=== PATIENT | female | born 1960 | race Caucasian/White ===

== ENCOUNTER 2024-03-30 11:34 | Outpatient (REF) | payer SELFPAY ==
[2024-04-01 12:13] LABS: Age Gdln ACOG Testing Note (.); HPV Aptima Negative (Negative); IGP, Aptima HPV, rfx 16/18,45 Note (.)
== END 2024-03-30 11:35 | disposition home or self-care (01) ==
LOC: LAB 11:34
PROVIDERS: PCP Nurse Practitioner Family; Visit Provider Nurse Practitioner Family
DX: Z01.419 Encounter for gynecological examination (general) (routine) without abnormal findings (principal)
CPT/HCPCS: 88175

== ENCOUNTER 2024-09-18 11:27 | Outpatient (OUT) | payer MEDICAID, SELFPAY ==
[2024-09-18 12:04] LABS: Basophils Percent Auto 0.3 % (0.2-2.0); Eosinophils Percent Auto 0.4 % (0.9-7.0); Hematocrit 28.8 % (36.0-48.0); Hemoglobin 8.8 g/dL (12.0-16.0); Immature Granulocytes Abs Auto 0.03 10^3/uL (0.00-0.03); Immature Granulocytes Pct Auto 0.4 % (0.0-0.5); Lymphocytes Absolute Auto 2.2 10^3/uL (1.2-3.8); Lymphocytes Percent Auto 28.1 % (20.5-60.0); Mean Corpuscular HGB Conc 30.6 g/dL (29.9-35.2); Mean Corpuscular Hemoglobin 32.7 pg (26.7-34.0); Monocytes Absolute Auto 0.5 10^3/uL (0.3-0.8); Neutrophils Percent Auto 64.8 % (43.0-75.0); Platelet Count 479 10^3/uL (150-450); Red Blood Count 2.69 10^6/uL (4.20-5.40); Red Cell Distribution Width 14.3 % (11.0-15.0); White Blood Count 7.7 10^3/uL (4.0-11.0)
[2024-09-18 12:29] LABS: Alanine Aminotransferase 29 U/L (14-59); Albumin Globulin Ratio 0.4; Albumin Level 1.8 g/dL (3.4-5.0); Alkaline Phosphatase 100 U/L (46-116); Anion Gap 10.7; Aspartate Amino Transferase 51 U/L (15-37); BUN Creatinine Ratio 22.4; Bilirubin Total 0.4 mg/dL (0.2-1.0); Calcium 8.3 mg/dL (8.5-10.1); Carbon Dioxide 27.9 mmol/L (21.0-32.0); Chloride 109 mmol/L (98-107); Chol HDL Ratio 3.8; Cholesterol 114 mg/dL (<=200); Estimated GFR (African America >60 (>=60 mL/min/1.73m^2); Estimated GFR (Non-African Ame >60 (>=60 mL/min/1.73m^2); Free T3 1.11 pg/mL (2.18-3.98); Globulin 4.4 g/dL; Glucose 75 mg/dL (74-106); HDL Cholesterol 30 mg/dL (40-60); Mean Corpuscular Volume 107.1 fL (81.0-99.0); Potassium 3.6 mmol/L (3.5-5.1); Sodium 144 mmol/L (136-145); Thyroid Stimulating Hormone 3.928 uIU/mL (0.358-3.740); Total Protein 6.2 g/dL (6.4-8.2); Triglycerides 114 mg/dL (<=150); VLDL CHOLESTEROL 22.8 mg/dL
[2024-09-18 12:41] LABS: Estimated Average Glucose 88 mg/dL; Glycohemoglobin A1C 4.7 % (4.5-6.2)
[2024-09-19 04:07] LABS: Insulin 2.3 uIU/mL (2.6-24.9)
== END 2024-09-18 11:28 | disposition home or self-care (01) ==
LOC: LAB 11:33
PROVIDERS: PCP Family Medicine; Visit Provider Family Medicine
DX: Z00.00 Encounter for general adult medical examination without abnormal findings (principal); R73.09 Other abnormal glucose; D64.9 Anemia, unspecified; Z12.12 Encounter for screening for malignant neoplasm of rectum; E55.9 Vitamin D deficiency, unspecified
CPT/HCPCS: 36415; 80053; 80061; 82306; 83036; 83525; 83540; 84436; 84443; 84481; 85025

== ENCOUNTER 2024-12-19 09:27 | Outpatient (OUT) | payer MEDICAID, SELFPAY ==
--- OUTSIDE RECORDS SUMMARY | 2024-12-19 09:32 | XMS_ITS | CCD ---
Author Organization [facility]iniSy[facility] Care Team Providers Care Defensive Secondary Coach Name Role Phone MISC, DOCTOR Unavailable Unavailable MARCEL MONTERROSO Unavailable Unavailable MARCEL MONTERROSO Unavailable Unavailable MARCEL MONTERROSO Unavailable Unavailable MD Anum Sorto Primary Care Provider MARIVEL Minor Emergency Provider Eulalia Camacho Admitting Unav ailable Eulalia Camacho Attending Unav ailable HOY, ANUM Primary Care Unavailable ANUM SORTO Attending Unavailable HOY, ANUM Primary Care Unavailable HOY, ANUM Admitting Unavailable HOY, ANUM Primary Care Unavailable Paradise Pereira Admitting Unavailable Paradise Pereira Attending Unavailable HOY, ANUM Attending Unavailable HOY, ANUM Primary Care Unavailable SHELLY, ANUM Admitting Unavailable ANUM SORTO M Primary Care Un[facility] Unavai Anum Emmanuel MD Primary Care Provider NICOLE LOCKETT Attending Unavailable ANUM SORTO M Referring Unavailable Ban Boyce MD Emergency Provider Anum Sorto MD Primary Care Provider Percy Romeo MD Admit Provider Percy Romeo MD Attending Provider Lamont Uribe MD Other Provider Abraham Flores DO Other Provider Charity Sherwood MD Other Provider Ray Fowler MD Other Provider Maribel Hawkins APRN Other Provider [phone] James Reilly DO Other Provider David Alfonso MD Other Provider [phone] Anum Sorto Primary Care Unavailable Ray Minor Admitting Unavailable Ray Minor Attending Unavailable Percy Romeo Attending Unavailable Anum Sorto Primary Care Unavailable Lamont Uribe Consulting Unavailable Percy Romeo Admitting Unavailable Abraham Flores Consulting Unavailable Charity Sherwood Consulting Unavailable Ray Fowler Consulting Unavailable Maribel Hawkins Consulting Unavailable James Reilly Jr Consulting UnavailDavid Dean Consulting Unavaila ble Allergies Allergy Classification Reported Allergen(s) Allergy Type Date of Onset Reaction(s) Facility (2 sources) Sulfamethoxazole / Trimethoprim; Translations: [Bactrim] Drug Allergy 3 [facility] Repository (4 sources) Sulfamethoxazole; Translations: [sulfamethoxazole] Drug Allergy 4 [facility] (4 sources) Trimethoprim; Translations: [trimethoprim] Drug Allergy 4 [facility] (1 source) Sulfamethoxazole / Trimethoprim; Translations: [SULFAMETHOXAZOLE-TR IMETHOPRIM] Drug Allergy 4 [facility] Other [facility] Medications Current Medications Medication Drug Class(es) Dates Sig (Normalized) Sig (Original) ascorbic acid 1000 mg extended release oral tablet (1 source) Vitamin C Start: 10-03-2024 take 1 tablet by mouth once daily Ascorbic Acid (Vitamin C) (C Complex) 1,000 mg tablet extended release Active 1000 MG PO Daily October 03, 2024 12:00am 120 actuat budesonide 0.16 mg/actuat / formoterol fumarate 0.0045 mg/actuat metered dose inhaler (2 sources) Corticosteroid, beta2-Adrenergic Agonist Start: 10-03-2024 Budesonide-Formo terol (Symbicort) 160-4.5 mcg/actuation HFA aerosol inhaler Active 2 INH INHALATION Twice daily October 03, 2024 12:00am 24 hr buPROPion hydrochloride 150 mg extended release oral tablet (2 sources) Aminoketone Start: 10-03-2024 Bupropion Hcl 150 mg tablet extended release 24 hr Active 450 MG PO Daily October 03, 2024 12:00am ferrous sulfate 325 mg oral tablet (1 source) Start: 10-08-2024 take 1 tablet by mouth every other day Ferrous Sulfate 325 mg (65 mg iron) tablet Active 325 MG PO Q2D October 08, 2024 12:00am folic acid 1 mg oral tablet (1 source) Start: 10-08-2024 take 1 tablet by mouth once daily Folic Acid 1 mg Tablet Active 1 MG PO Daily 30 October 08, 2024 12:00am magnesium oxide 400 mg oral tablet (2 sources) Start: 10-08-2024 take 1 tablet by mouth twice daily Magnesium Oxide 400 mg magnesium tablet Active 400 MG PO Twice daily October 08, 2024 12:31pm Start: 10-03-2024 End: 10-08-2024 take 1 tablet by mouth once daily Magnesium Oxide 400 mg magnesium tablet Discontinued 400 MG PO Daily October 03, 2024 12:00am October 08, 2024 12:34pm pantoprazole 40 mg delayed release oral tablet (1 source) Proton Pump Inhibitor Start: 10-08-2024 take 1 tablet by mouth twice daily Pantoprazole 40 mg tablet,delayed release (DR/EC) Active 40 MG PO Twice daily 60 October 08, 2024 12:00am pregabalin 150 mg oral capsule (1 source) Start: 10-03-2024 take 1 capsule by mouth twice daily Pregabalin 150 mg capsule Active 150 MG PO Twice daily October 03, 2024 12:00am sucralfate 1000 mg oral tablet (1 source) Aluminum Complex Start: 10-08-2024 take 1 tablet by mouth three times daily Sucralfate (Carafate) 1 gram tablet Active 1 GM PO Three times daily 84 October 08, 2024 12:00am thiamine 100 mg oral tablet (1 source) Start: 10-08-2024 take 1 tablet by mouth once daily Thiamine Hcl (Vitamin B1) 100 mg Tablet Active 100 MG PO Daily 30 October 08, 2024 12:00am Completed/Discontinued Medications Medication Drug Class(es) Dates Sig (Normalized) Sig (Original) acetaminophen 325 mg / oxyCODONE hydrochloride 5 mg oral tablet (3 sources) Opioid Agonist Start: 06-15-2024 End: 10-03-2024 take 1 tablet by mouth every six hours as needed for pain Oxycodone-Acetami nophen (Percocet) 5-325 mg tablet Discontinued 1 TAB PO Q6H as needed for pain 10 3 June 15, 2024 October 03, 2024 11:18am betamethasone 0.5 mg/ml / clotrimazole 10 mg/ml topical cream (3 sources) Azole Antifungal, Corticosteroid Start: 06-15-2024 End: 10-03-2024 Clotrimazole-Beta methasone 1-0.05 % cream Discontinued 1 APPLIC TOPICAL Twice daily 15 14 June 14, 2024 11:00pm October 03, 2024 4:10pm diclofenac sodium 75 mg delayed release oral tablet (2 sources) Nonsteroidal Anti-inflammatory Drug Start: 10-03-2024 End: 10-08-2024 take 1 tablet by mouth twice daily as needed for pain Diclofenac Sodium 75 mg tablet,delayed release (DR/EC) Discontinued 75 MG PO Twice daily as needed for pain October 03, 2024 12:00am October 08, 2024 12:34pm gabapentin 300 mg oral capsule (3 sources) Anti-epileptic Agent Start: 06-15-2024 End: 10-03-2024 take 1 capsule by mouth once daily Gabapentin 300 mg capsule Discontinued 300 MG PO Daily June 14, 2024 11:00pm October 03, 2024 11:17am Problems Active Problems Problem Classification Problem Date Documented Da te Episodic/Chronic Abdominal pain (3 sources) Indigestion; Translations: [Epigastric pain] Onset: 10-03-2024 10-04-2024 Episodic Allergic reactions (4 sources) Urticaria, unspecified; Translations: [Inflammatory dermatosis] Onset: 09-17-2018 06-15-2024 Episodic Deficiency and other anemia (2 sources) Normocytic anemia; Translations: [Anemia, unspecified] 10-03-2024 Episodic Deficiency and other anemia (4 sources) Anemia, unspecified; Translations: [Anemia, unspecified] Onset: 10-03-2024 10-03-2024 Episodic Deficiency and other anemia (1 source) Anemia; Translations: [Anemia, unspecified] 10-03-2024 Episodic Other aftercare (1 source) group home current use of non-steroidal anti-inflammatory drug; 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 of non-steroidal anti-inflammatories (NSAID)] 10-04-2024 Episodic Other aftercare (2 sources) group home (current) use of non-steroidal anti-inflammatories (NSAID); Translations: [Long-term (current) use of non-steroidal anti-inflammatories (NSAID)] Onset: 10-03-2024 10-08-2024 Episodic Other circulatory disease (2 sources) Orthostatic hypotension; Translations: [Orthostatic hypotension] 10-03-2024 Episodic Other circulatory disease (3 sources) Orthostatic hypotension; Translations: [Orthostatic hypotension] Onset: 10-03-2024 10-03-2024 Episodic Other connective tissue disease (1 source) Pain in right leg; Translations: [Bilateral leg pain] Onset: 07-07-2024 Episodic Other connective tissue disease (1 source) Pain in left leg; Translations: [Bilateral leg pain] Onset: 07-07-2024 Episodic Other connective tissue disease (1 source) Muscle weakness of limb; Translations: [Other symptoms and signs involving the musculoskeletal system] 10-03-2024 Episodic Other connective tissue disease (1 source) Recurrent falls ; Translations: [Repeated falls] 10-03-2024 Episodic Other connective tissue disease (2 sources) Repeated falls; Translations: [History of fall] Onset: 10-03-2024 10-08-2024 Episodic Other connective tissue disease (2 sources) Other symptoms and signs involving the musculoskeletal system; Translations: [Other musculoskeletal symptoms referable to limbs] Onset: 10-03-2024 10-08-2024 Episodic Other gastrointestinal disorders (1 source) Dysphagia; Translations: [Dysphagia, unspecified] 10-04-2024 Episodic Other gastrointestinal disorders (2 sources) Dysphagia, unspecified; Translations: [Dysphagia, unspecified] Onset: 10-03-2024 10-08-2024 Episodic Other lower respiratory disease (1 source) Personal history of pneumonia (recurrent); Translations: [PERSONAL HX OF PNEUMONIA RECURRENT] Onset: 09-17-2018 Episodic Other nervous system disorders (3 sources) Peripheral nerve disease ; Translations: [Polyneuropathy, unspecified] 06-15-2024 Chronic Other nervous system disorders (1 source) Other specified polyneuropathies; Translations: [Other polyneuropathy] Onset: 07-07-2024 Chronic Other nervous system disorders (1 source) Polyneuropathy; Translations: [Polyneuropathy, unspecified] 08-13-2024 Chronic Other nervous system disorders (2 sources) Neuropathy; Translations: [Polyneuropathy, unspecified] 10-03-2024 Chronic Other nervous system disorders (3 sources) Polyneuropathy, unspecified; Translations: [Mononeuritis of unspecified site] Onset: 06-15-2024 10-03-2024 Chronic Other nervous system disorders (2 sources) Ataxia; Translations: [Ataxia, unspecified] 10-03-2024 Episodic Other nervous system disorders (3 sources) Ataxia, unspecified; Translations: [Lack of coordination] Onset: 10-03-2024 10-03-2024 Episodic Residual codes; unclassified (1 source) Acquired absence of other specified parts of digestive tract; Translations: [ACQ ABSENCE OTH PART DIGESTV TRACT] Onset: 09-17-2018 Episodic Residual codes; unclassified (1 source) Acquired absence of both cervix and uterus; Translations: [ACQUIRED ABSENCE BOTH CERVIX AND UTERUS] Onset: 09-17-2018 Episodic Skin and subcutaneous tissue infections (1 source) Cellulitis of face; Translations: [CELLULITIS OF FACE] Onset: 09-17-2018 Episodic Spondylosis; intervertebral disc disorders; other back problems (1 source) Lumbar radiculopathy; Translations: [Radiculopathy, lumbar region] 08-13-2024 Episodic Substance-related disorders (1 source) Nicotine dependence, cigarettes, uncomplicated; Translations: [NICOTINE DEPEND CIGARETTES UNCOMP] Onset: 09-17-2018 Chronic Syncope (2 sources) Near syncope; Translations: [Syncope and collapse] 10-03-2024 Episodic Unclassified (1 source) Vaginal jon; Translations: [Vaginal jon] Onset: 07-07-2024 Past or Other Problems Problem Classification Problem Date Documented Da te Episodic/Chronic Other skin disorders (4 sources) Rash and other nonspecific skin eruption; Translations: [RASH OTH NONSPECIFIC SKIN ERUPTION] Onset: 09-12-2018 Episodic Results Test Name Value Interpretation Reference Range Facility Alanine aminotransferase [En zymatic activity/volume] in Serum or PlasmaOrdered By: Percy Romeo on 10-08-2024 ALT [Catalytic activity/Vol] Alanine aminotransferase [Enzymatic activity/volume] in Serum or Plasma [facility] Albumin [Mass/volume] in Ser um or Plasma by Bromocresol green (BCG) dye binding methoOrdered By: Percy Romeo on 10-08-2024 Albumin BCG dye [Mass/Vol] Albumin [Mass/volume] in Serum or Plasma by Bromocresol green (BCG) dye binding metho Low 3.5-5.7 [facility] Alkaline phosphatase [Enzyma tic activity/volume] in Serum or PlasmaOrdered By: Percy Romeo on 10-08-2024 ALP [Catalytic activity/Vol] Alkaline phosphatase [Enzymatic activity/volume] in Serum or Plasma 34-104 [facility] Aspartate aminotransferase [ Enzymatic activity/volume] in Serum or PlasmaOrdered By: Percy Romeo on 10-08-2024 AST [Catalytic activity/Vol] Aspartate aminotransferase [Enzymatic activity/volume] in Serum or Plasma High 13-39 [facility] Basophils Auto (Bld) [#/Vol] Ordered By: Percy Romeo on 10-08-2024 Basophils (Bld) [#/Vol] Automated basophil count 0.0-0.2 [facility] Basophils/100 WBC Auto (Bld) Ordered By: Percy Romeo on 10-08-2024 Basophils/100 WBC (Bld) Automated basophil % . [facility] Bilirubin.total [Mass/volume ] in Serum or PlasmaOrdered By: Percy Roemo 10-08-2024 Bilirubin [Mass/Vol] Bilirubin.total [Mass/volume] in Serum or Plasma 0.3-1.0 [facility] Calcium [Mass/volume] in Ser um or PlasmaOrdered By: Percy Romeo on 10-08-2024 Calcium [Mass/Vol] Calcium [Mass/volume ] in Serum or Plasma Low 8.6-10.3 [facility] Carbon dioxide, total [Moles /volume] in Serum or PlasmaOrdered By: Percy Romeo 10-08-2024 CO2 [Moles/Vol] Carbon dioxide, tota l [Moles/volume] in Serum or Plasma 21.0-31.0 [facility] Chloride [Moles/volume] in S papi or PlasmaOrdered By: Percy Romeo on 10-08-2024 Chloride [Moles/Vol] Chloride [Moles/vol ume] in Serum or Plasma High 98-107 [facility] Complete Blood Count Auto Di ffon 10-08-2024 Basophils (Bld) [#/Vol] 0.0 10*3/uL Normal 0.0-0.2 [facility] Comment on above: Result Comment: PERF ORMED BY: [place] [address] PATHOLOGIST STRANNER YULISSA MARES M.D. Performed By: #### C MP, MG, CBC #### [address] Basophils/100 WBC (Bld) 0.6 % Normal . T kathy [facility] Comment on above: Performed By: #### C MP, MG, CBC #### [facility] [address] [place] [address] Eosinophils (Bld) [#/Vol] 0.0 10*3/uL Normal 0.0-0.45 [facility] Comment on above: Performed By: #### C MP, MG, CBC #### [address] Eosinophils/100 WBC (Bld) 0.8 % Normal . [facility] Comment on above: Performed By: #### C MP, MG, CBC #### [address] Erythrocyte distribution width (RBC) [Ratio] 15.9 % High 11.9-15.3 [facility] Comment on above: Performed By: #### C MP, MG, CBC #### [address] Hematocrit (Bld) [Volume fraction] 28.5 % Low 34.0-46.4 [facility] Comment on above: Performed By: #### C MP, MG, CBC #### [facility] [address] [place] [address] Hemoglobin (Bld) [Mass/Vol] 9.3 g/dL Low 11.8-15.4 [facility] Comment on above: Performed By: #### C MP, MG, CBC #### [address] Lymphocytes (Bld) [#/Vol] 1.0 10*3/uL Normal 1.00-4.8 [facility] Comment on above: Performed By: #### C MP, MG, CBC #### [address] Lymphocytes/100 WBC (Bld) 25.0 % Normal . [facility] Comment on above: Performed By: #### C MP, MG, CBC #### [address] MCH (RBC) [Entitic mass] 31.3 pg Normal 24.7-34.3 [facility] Comment on above: Performed By: #### C MP, MG, CBC #### [address] MCV (RBC) [Entitic vol] 95.3 fL Normal 80-100 [facility] Comment on above: Performed By: #### C MP, MG, CBC #### [address] Mean Corpuscular HGB Conc 32.8 g/dL Normal 32.0-35.0 [facility] Comment on above: Performed By: #### C MP, MG, CBC #### [place] [address] [place] Monocytes (Bld) [#/Vol] 0.4 10*3/uL Normal 0.0-0.8 [facility] Comment on above: Performed By: #### C MP, MG, CBC #### [place] [address] [place] Monocytes/100 WBC (Bld) 10.9 % Normal . [facility] Comment on above: Performed By: #### C MP, MG, CBC #### [address] Neutrophils (Bld) [#/Vol] 2.6 10*3/uL Normal 1.8-7.7 [facility] Comment on above: Performed By: #### C MP, MG, CBC #### [address] Neutrophils/100 WBC (Bld) 62.7 % Normal . [facility] Comment on above: Performed By: #### C MP, MG, CBC #### [address] NRBC% 0.1 /100{WBC} Normal 0-0.5 [facility] Comment on above: Performed By: #### C MP, MG, CBC #### [address] Platelet mean volume (Bld) [Entitic vol] 8.4 fL Normal 6.3-10.7 [facility] Comment on above: Performed By: #### C MP, MG, CBC #### [address] Platelets (Bld) [#/Vol] 381 10*3/uL Normal 150-450 [facility] Comment on above: Performed By: #### C MP, MG, CBC #### [address] RBC (Bld) [#/Vol] 2.98 10*6/uL Low 3.60-5.00 [facility] Comment on above: Performed By: #### C MP, MG, CBC #### [address] WBC (Bld) [#/Vol] 4.1 10*3/uL Normal 3.8-11.6 [facility] Comment on above: Performed By: #### C MP, MG, CBC #### [address] Comprehensive Metabolic Pane sandrine 10-08-2024 Albumin [Mass/Vol] 2.9 g/dL Low 3.5-5.7 [facility] Comment on above: Performed By: #### C MP, MG, CBC #### [place] [address] [place] Albumin/Globulin [Mass ratio] 0.8 {ratio} Normal [facility] Comment on above: Performed By: #### C MP, MG, CBC #### [address] ALP [Catalytic activity/Vol] 70 U/L Normal 34-104 [facility] Comment on above: Performed By: #### C MP, MG, CBC #### [address] ALT [Catalytic activity/Vol] 24 U/L Normal 7-52 [facility] Comment on above: Performed By: #### C MP, MG, CBC #### [address] Anion gap [Moles/Vol] 10.8 mmol/L Normal 6.0-15.0 [facility] Comment on above: Performed By: #### C MP, MG, CBC #### [address] AST [Catalytic activity/Vol] 60 U/L High 13-39 [facility] Comment on above: Performed By: #### C MP, MG, CBC #### [address] Bilirubin [Mass/Vol] 0.5 mg/dL Normal 0.3-1.0 [facility] Comment on above: Performed By: #### C MP, MG, CBC #### [address] Calcium [Mass/Vol] 8.5 mg/dL Low 8.6-10.3 [facility] Comment on above: Performed By: #### C MP, MG, CBC #### [place] [address] [place] Chloride [Moles/Vol] 110 mmol/L High 98-107 [facility] Comment on above: Performed By: #### C MP, MG, CBC #### [address] CO2 [Moles/Vol] 23.4 mmol/L Normal 21.0-31.0 [facility] Comment on above: Performed By: #### C MP, MG, CBC #### [address] Creatinine [Mass/Vol] 0.55 mg/dL Low 0.60-1.20 [facility] Comment on above: Performed By: #### C MP, MG, CBC #### [address] Creatinine Clr Calc Pharmacy 81.05 Normal [facility] Comment on above: Performed By: #### C MP, MG, CBC #### [place] [address] [place] GFR/1.73 sq M.predicted MDRD (S/P/Bld) [Vol rate/Area] mL/min/{1.73_m2} Normal [facility] Comment on above: Performed By: #### C MP, MG, CBC #### [address] Globulin (S) [Mass/Vol] 3.5 g/dL Normal T he [facility] Comment on above: Performed By: #### C MP, MG, CBC #### [address] Glucose [Mass/Vol] 85 mg/dL Normal 70-100 [facility] Comment on above: Result Comment: [facility] Glucose Reference Range is dependent on time and content of last meal. Glucose of more than 200 mg/dL in a nonstressed, ambulatory subject supports the diagnosis of Diabetes Mellitus. ADA recommended reference range Performed By: #### C MP, MG, CBC #### [address] Potassium [Moles/Vol] 3.2 mmol/L Low 3.5-5.1 [facility] Comment on above: Performed By: #### C MP, MG, CBC #### [address] Protein [Mass/Vol] 6.4 g/dL Normal 6.4-8.9 [facility] Comment on above: Performed By: #### C MP, MG, CBC #### [facility] [address] Sodium [Moles/Vol] 141 mmol/L Normal 136-145 [facility] Comment on above: Performed By: #### C MP, MG, CBC #### [facility] [address] [place] [address] [place] Urea nitrogen [Mass/Vol] 8 mg/dL Normal 7-25 [facility] Comment on above: Performed By: #### C MP, MG, CBC #### [facility] [address] Creatinine [Mass/volume] in Serum or PlasmaOrdered By: Percy Romeo on 10-08-2024 Creatinine [Mass/Vol] Creatinine [Mass/v olume] in Serum or Plasma Low 0.60-1.20 [facility] Eosinophils Auto (Bld) [#/Vo l]Ordered By: Percy Romeo on 10-08-2024 Eosinophils (Bld) [#/Vol] Automated eosinophil count 0.0-0.45 [facility] Eosinophils/100 WBC Auto (Bl d)Ordered By: Percy Romeo on 10-08-2024 Eosinophils/100 WBC (Bld) Automated eosinophil % . [facility] Erythrocyte distribution wid th Auto (RBC) [Ratio]Ordered By: Percy Romeo on 10-08-2024 Erythrocyte distribution width (RBC) [Ratio] Erythrocyte distribution width [Ratio] by Automated count High 11.9-15.3 [facility] Globulin Calc (S) [Mass/Vol] Ordered By: Percy Romeo on 10-08-2024 Globulin (S) [Mass/Vol] Serum globulin measurement by calculation (mass/volume) [facility] Glucose [Mass/volume] in Ser um or PlasmaOrdered By: Percy Romeo on 10-08-2024 Glucose [Mass/Vol] Glucose [Mass/volume ] in Serum or Plasma 70-100 [facility] Comment on above: ADA recommended refe rence rangeRandom Glucose Reference Range is dependent on time and content of last meal. Glucose of more than 200 mg/dL in a nonstressed, ambulatory subject supports the diagnosis of Diabetes Mellitus. Hematocrit Auto (Bld) [Volum e fraction]Ordered By: Percy Romeo on 10-08-2024 Hematocrit (Bld) [Volume fraction] Hematocrit [Volume Fraction] of Blood by Automated count Low 34.0-46.4 [facility] Hemoglobin [Mass/volume] in BloodOrdered By: Percy Romeo on 10-08-2024 Hemoglobin (Bld) [Mass/Vol] Hemoglobin [Mass/volume] in Blood Low 11.8-15.4 [facility] Leukocytes [#/volume] correc saida for nucleated erythrocytes in Blood by Automated counOrdered By: Percy Romeo on 10-08-2024 WBC corrected for nucl RBC Auto (Bld) [#/Vol] Leukocytes [#/volume] corrected for nucleated erythrocytes in Blood by Automated coun 3.8-11.6 [facility] Lymphocytes Auto (Bld) [#/Vo l]Ordered By: Percy Romeo on 10-08-2024 Lymphocytes (Bld) [#/Vol] Lymphocytes [#/volume] in Blood by Automated count 1.00-4.8 [facility] Lymphocytes/100 WBC Auto (Bl d)Ordered By: Percy Romeo on 10-08-2024 Lymphocytes/100 WBC (Bld) Lymphocytes/100 leukocytes in Blood by Automated count . [facility] MCH Auto (RBC) [Entitic mass ]Ordered By: Percy Romeo on 10-08-2024 MCH (RBC) [Entitic mass] MCH [Entitic ma ss] by Automated count 24.7-34.3 [facility] MCHC Auto (RBC) [Mass/Vol]Or dered By: Percy Romeo on 10-08-2024 MCHC (RBC) [Mass/Vol] MCHC [Mass/volume] by Automated count 32.0-35.0 [facility] MCV Auto (RBC) [Entitic vol] Ordered By: Percy Romeo on 10-08-2024 MCV (RBC) [Entitic vol] MCV [Entitic vol ume] by Automated count 80-100 [facility] Magnesiumon 10-08-2024 Magnesium [Mass/Vol] 1.7 mg/dL Low 1.9-2.7 [facility] Comment on above: Result Comment: PERF ORMED BY: [place] [facility] [address] [place] [address] PATHOLOGIST STRANNER YULISSA MARES M.D. Performed By: #### C MP, MG, CBC #### [facility] [address] Magnesium [Mass/volume] in S papi or PlasmaOrdered By: Percy Romeo on 10-08-2024 Magnesium [Mass/Vol] Magnesium [Mass/vol ume] in Serum or Plasma Low 1.9-2.7 [facility] Monocytes Auto (Bld) [#/Vol] Ordered By: Percy Romeo on 10-08-2024 Monocytes (Bld) [#/Vol] Automated blood monocyte count 0.0-0.8 [facility] Monocytes/100 WBC Auto (Bld) Ordered By: Percy Romeo on 10-08-2024 Monocytes/100 WBC (Bld) Automated monocyte % . [facility] Neutrophils Auto (Bld) [#/Vo l]Ordered By: Percy Romeo on 10-08-2024 Neutrophils (Bld) [#/Vol] Neutrophils [#/volume] in Blood by Automated count 1.8-7.7 [facility] Neutrophils/100 WBC Auto (Bl d)Ordered By: Percy Romeo on 10-08-2024 Neutrophils/100 WBC (Bld) Automated neutrophil % . [facility] No Panel InformationOrdered By: Percy Romeo on 10-08-2024 Estimated GFR (CKD-EPI) > 60.0 mL/Min [facility] Creatinine Clearance (Chem 81.05 [facility] Nucleated erythrocytes [Pres ence] in Blood by Automated countOrdered By: Percy Romeo on 10-08-2024 Nucleated RBC Auto Ql (Bld) Nucleated erythrocytes [Presence] in Blood by Automated count 0-0.5 [facility] Platelet mean volume Auto (B ld) [Entitic vol]Ordered By: Percy Romeo on 10-08-2024 Platelet mean volume (Bld) [Entitic vol] Platelet mean volume [Entitic volume] in Blood by Automated count 6.3-10.7 [facility] Platelets Auto (Bld) [#/Vol] Ordered By: Percy Romeo on 10-08-2024 Platelets (Bld) [#/Vol] Platelets [#/vol ume] in Blood by Automated count 150-450 [facility] Potassium [Moles/volume] in Serum or PlasmaOrdered By: Percy Romeo on 10-08-2024 Potassium [Moles/Vol] Potassium [Moles/v olume] in Serum or Plasma Low 3.5-5.1 [facility] Protein [Mass/volume] in Ser um or PlasmaOrdered By: Percy Romeo on 10-08-2024 Protein [Mass/Vol] Protein [Mass/volume ] in Serum or Plasma 6.4-8.9 [facility] RBC Auto (Bld) [#/Vol]Ordere d By: Percy Romeo on 10-08-2024 RBC (Bld) [#/Vol] Erythrocytes [#/volu me] in Blood by Automated count Low 3.60-5.00 [facility] Serum or plasma albumin/glob ulin mass ratioOrdered By: Percy Romeo on 10-08-2024 Albumin/Globulin [Mass ratio] Serum or plasma albumin/globulin mass ratio [facility] Serum or plasma anion gap de terminationOrdered By: Percy Romeo on 10-08-2024 Anion gap [Moles/Vol] Serum or plasma an ion gap determination 6.0-15.0 [facility] Sodium [Moles/volume] in Ser um or PlasmaOrdered By: Percy Romeo on 10-08-2024 Sodium [Moles/Vol] Sodium [Moles/volume ] in Serum or Plasma 136-145 [facility] Urea nitrogen [Mass/volume] in Serum or PlasmaOrdered By: Percy Romeo on 10-08-2024 Urea nitrogen [Mass/Vol] Urea nitrogen [Mass/volume] in Serum or Plasma 7-25 [facility] WBC Auto (Bld) [#/Vol]Ordere d By: Percy Romeo on 10-08-2024 WBC (Bld) [#/Vol] Leukocytes [#/volume ] in Blood by Automated count 3.8-11.6 [facility] Complete Blood Count Auto Di ffon 10-07-2024 Basophils (Bld) [#/Vol] 0.0 10*3/uL Normal 0.0-0.2 [facility] Comment on above: Result Comment: PERF ORMED BY: [place] [address] PATHOLOGIST STRANNER YULISSA MARES M.D. Performed By: #### C BC, CMP, MG #### [address] Basophils/100 WBC (Bld) 0.8 % Normal . T kathy [facility] Comment on above: Performed By: #### C BC, CMP, MG #### [address] Eosinophils (Bld) [#/Vol] 0.0 10*3/uL Normal 0.0-0.45 [facility] Comment on above: Performed By: #### C BC, CMP, MG #### [address] Eosinophils/100 WBC (Bld) 1.1 % Normal . [facility] Comment on above: Performed By: #### C BC, CMP, MG #### [address] Erythrocyte distribution width (RBC) [Ratio] 15.9 % High 11.9-15.3 [facility] Comment on above: Performed By: #### C BC, CMP, MG #### [place] [address] [place] Hematocrit (Bld) [Volume fraction] 26.7 % Low 34.0-46.4 [facility] Comment on above: Performed By: #### C BC, CMP, MG #### [address] Hemoglobin (Bld) [Mass/Vol] 8.7 g/dL Low 11.8-15.4 [facility] Comment on above: Performed By: #### C BC, CMP, MG #### [address] Lymphocytes (Bld) [#/Vol] 1.2 10*3/uL Normal 1.00-4.8 [facility] Comment on above: Performed By: #### C BC, CMP, MG #### [address] Lymphocytes/100 WBC (Bld) 27.0 % Normal . [facility] Comment on above: Performed By: #### C BC, CMP, MG #### [address] MCH (RBC) [Entitic mass] 31.6 pg Normal 24.7-34.3 [facility] Comment on above: Performed By: #### C BC, CMP, MG #### [address] MCV (RBC) [Entitic vol] 96.7 fL Normal 80-100 [facility] Comment on above: Performed By: #### C BC, CMP, MG #### [address] Mean Corpuscular HGB Conc 32.7 g/dL Normal 32.0-35.0 [facility] Comment on above: Performed By: #### C BC, CMP, MG #### [place] [address] [place] Monocytes (Bld) [#/Vol] 0.5 10*3/uL Normal 0.0-0.8 [facility] Comment on above: Performed By: #### C BC, CMP, MG #### [place] [address] [place] Monocytes/100 WBC (Bld) 10.9 % Normal . [facility] Comment on above: Performed By: #### C BC, CMP, MG #### [address] Neutrophils (Bld) [#/Vol] 2.6 10*3/uL Normal 1.8-7.7 [facility] Comment on above: Performed By: #### C BC, CMP, MG #### [address] Neutrophils/100 WBC (Bld) 60.2 % Normal . [facility] Comment on above: Performed By: #### C BC, CMP, MG #### [address] NRBC% 0.3 /100{WBC} Normal 0-0.5 [facility] Comment on above: Performed By: #### C BC, CMP, MG #### [address] Platelet mean volume (Bld) [Entitic vol] 8.5 fL Normal 6.3-10.7 [facility] Comment on above: Performed By: #### C BC, CMP, MG #### [address] Platelets (Bld) [#/Vol] 323 10*3/uL Normal 150-450 [facility] Comment on above: Performed By: #### C BC, CMP, MG #### [address] RBC (Bld) [#/Vol] 2.77 10*6/uL Low 3.60-5.00 [facility] Comment on above: Performed By: #### C BC, CMP, MG #### [address] WBC (Bld) [#/Vol] 4.3 10*3/uL Normal 3.8-11.6 [facility] Comment on above: Performed By: #### C BC, CMP, MG #### [address] Comprehensive Metabolic Pane sandrine 10-07-2024 Albumin [Mass/Vol] 2.8 g/dL Low 3.5-5.7 [facility] Comment on above: Performed By: #### C MP, MG, CBC, PHOS #### [address] Albumin/Globulin [Mass ratio] 0.9 {ratio} Normal [facility] Comment on above: Performed By: #### C MP, MG, CBC, PHOS #### [address] ALP [Catalytic activity/Vol] 67 U/L Normal 34-104 [facility] Comment on above: Performed By: #### C MP, MG, CBC, PHOS #### [address] ALT [Catalytic activity/Vol] 22 U/L Normal 7-52 [facility] Comment on above: Performed By: #### C MP, MG, CBC, PHOS #### [address] Anion gap [Moles/Vol] 9.4 mmol/L Normal 6.0-15.0 [facility] Comment on above: Performed By: #### C MP, MG, CBC, PHOS #### [address] AST [Catalytic activity/Vol] 57 U/L High 13-39 [facility] Comment on above: Performed By: #### C MP, MG, CBC, PHOS #### [address] Bilirubin [Mass/Vol] 0.5 mg/dL Normal 0.3-1.0 [facility] Comment on above: Performed By: #### C MP, MG, CBC, PHOS #### [address] Calcium [Mass/Vol] 8.5 mg/dL Low 8.6-10.3 [facility] Comment on above: Performed By: #### C MP, MG, CBC, PHOS #### [address] Chloride [Moles/Vol] 110 mmol/L High 98-107 [facility] Comment on above: Performed By: #### C MP, MG, CBC, PHOS #### [address] CO2 [Moles/Vol] 24.1 mmol/L Normal 21.0-31.0 [facility] Comment on above: Performed By: #### C MP, MG, CBC, PHOS #### [address] Creatinine [Mass/Vol] 0.50 mg/dL Low 0.60-1.20 [facility] Comment on above: Performed By: #### C MP, MG, CBC, PHOS #### [address] Creatinine Clr Calc Pharmacy 89.16 Normal [facility] Comment on above: Performed By: #### C MP, MG, CBC, PHOS #### [address] GFR/1.73 sq M.predicted MDRD (S/P/Bld) [Vol rate/Area] mL/min/{1.73_m2} Normal [facility] Comment on above: Performed By: #### C MP, MG, CBC, PHOS #### [address] Globulin (S) [Mass/Vol] 3.2 g/dL Normal T he [facility] Comment on above: Performed By: #### C MP, MG, CBC, PHOS #### [address] Glucose [Mass/Vol] 81 mg/dL Normal 70-100 [facility] Comment on above: Result Comment: [place] Glucose Reference Range is dependent on time and content of last meal. Glucose of more than 200 mg/dL in a nonstressed, ambulatory subject supports the diagnosis of Diabetes Mellitus. ADA recommended reference range Performed By: #### C MP, MG, CBC, PHOS #### [address] Potassium [Moles/Vol] 3.5 mmol/L Normal 3.5-5.1 [facility] Comment on above: Performed By: #### C MP, MG, CBC, PHOS #### [place] [address] Protein [Mass/Vol] 6.0 g/dL Low 6.4-8.9 [facility] Comment on above: Performed By: #### C MP, MG, CBC, PHOS #### [address] Sodium [Moles/Vol] 140 mmol/L Normal 136-145 [facility] Comment on above: Performed By: #### C MP, MG, CBC, PHOS #### [address] Urea nitrogen [Mass/Vol] 6 mg/dL Low 7-25 [facility] Comment on above: Performed By: #### C MP, MG, CBC, PHOS #### [address] Magnesiumon 10-07-2024 Magnesium [Mass/Vol] 1.6 mg/dL Low 1.9-2.7 [facility] Comment on above: Result Comment: PERF ORMED BY: [place] [address] PATHOLOGIST STRANNER YULISSA MARES M.D. Performed By: #### C MP, MG, CBC, PHOS #### [address] Complete Blood Count Auto Di ffon 10-06-2024 Basophils (Bld) [#/Vol] 0.0 10*3/uL Normal 0.0-0.2 [facility] Comment on above: Result Comment: PERF ORMED BY: [place] [address] PATHOLOGIST STRANNER YULISSA MARES M.D. Performed By: #### C MP, MG, CBC #### [address] Basophils/100 WBC (Bld) 0.6 % Normal . T he [facility] Comment on above: Performed By: #### C MP, MG, CBC #### [address] [address] [place] Eosinophils (Bld) [#/Vol] 0.0 10*3/uL Normal 0.0-0.45 [facility] Comment on above: Performed By: #### C MP, MG, CBC #### [address] Eosinophils/100 WBC (Bld) 1.1 % Normal . [facility] Comment on above: Performed By: #### C MP, MG, CBC #### [address] Erythrocyte distribution width (RBC) [Ratio] 15.7 % High 11.9-15.3 [facility] Comment on above: Performed By: #### C MP, MG, CBC #### [address] Hematocrit (Bld) [Volume fraction] 26.4 % Low 34.0-46.4 [facility] Comment on above: Performed By: #### C MP, MG, CBC #### [address] Hemoglobin (Bld) [Mass/Vol] 8.7 g/dL Low 11.8-15.4 [facility] Comment on above: Performed By: #### C MP, MG, CBC #### [address] Lymphocytes (Bld) [#/Vol] 0.9 10*3/uL Low 1.00-4.8 [facility] Comment on above: Performed By: #### C MP, MG, CBC #### [address] Lymphocytes/100 WBC (Bld) 19.7 % Normal . [facility] Comment on above: Performed By: #### C MP, MG, CBC #### [address] MCH (RBC) [Entitic mass] 31.6 pg Normal 24.7-34.3 [facility] Comment on above: Performed By: #### C MP, MG, CBC #### [address] MCV (RBC) [Entitic vol] 95.9 fL Normal 80-100 [facility] Comment on above: Performed By: #### C MP, MG, CBC #### [address] Mean Corpuscular HGB Conc 33.0 g/dL Normal 32.0-35.0 [facility] Comment on above: Performed By: #### C MP, MG, CBC #### [address] Monocytes (Bld) [#/Vol] 0.4 10*3/uL Normal 0.0-0.8 [facility] Comment on above: Performed By: #### C MP, MG, CBC #### [address] Monocytes/100 WBC (Bld) 8.9 % Normal . T he [facility] Comment on above: Performed By: #### C MP, MG, CBC #### [address] Neutrophils (Bld) [#/Vol] 3.2 10*3/uL Normal 1.8-7.7 [facility] Comment on above: Performed By: #### C MP, MG, CBC #### [address] Neutrophils/100 WBC (Bld) 69.7 % Normal . [facility] Comment on above: Performed By: #### C MP, MG, CBC #### [address] NRBC% 0.2 /100{WBC} Normal 0-0.5 [facility] Comment on above: Performed By: #### C MP, MG, CBC #### [address] Platelet mean volume (Bld) [Entitic vol] 8.4 fL Normal 6.3-10.7 [facility] Comment on above: Performed By: #### C MP, MG, CBC #### [address] Platelets (Bld) [#/Vol] 341 10*3/uL Normal 150-450 [facility] Comment on above: Performed By: #### C MP, MG, CBC #### [address] RBC (Bld) [#/Vol] 2.75 10*6/uL Low 3.60-5.00 [facility] Comment on above: Performed By: #### C MP, MG, CBC #### [address] WBC (Bld) [#/Vol] 4.6 10*3/uL Normal 3.8-11.6 [facility] Comment on above: Performed By: #### C MP, MG, CBC #### [address] Comprehensive Metabolic Pane sandrine 10-06-2024 Albumin [Mass/Vol] 2.9 g/dL Low 3.5-5.7 [facility] Comment on above: Performed By: #### C MP, MG, CBC #### [address] Albumin/Globulin [Mass ratio] 0.9 {ratio} Normal [facility] Comment on above: Performed By: #### C MP, MG, CBC #### [address] ALP [Catalytic activity/Vol] 75 U/L Normal 34-104 [facility] Comment on above: Performed By: #### C MP, MG, CBC #### [address] ALT [Catalytic activity/Vol] 22 U/L Normal 7-52 [facility] Comment on above: Performed By: #### C MP, MG, CBC #### [address] Anion gap [Moles/Vol] 9.9 mmol/L Normal 6.0-15.0 [facility] Comment on above: Performed By: #### C MP, MG, CBC #### [facility] [address] [place] [address] [place] AST [Catalytic activity/Vol] 56 U/L High 13-39 [facility] Comment on above: Performed By: #### C MP, MG, CBC #### [facility] [address] [place] [address] [place] Bilirubin [Mass/Vol] 0.5 mg/dL Normal 0.3-1.0 [facility] Comment on above: Performed By: #### C MP, MG, CBC #### [facility] [address] [place] [address] [place] Calcium [Mass/Vol] 8.3 mg/dL Low 8.6-10.3 [facility] Comment on above: Performed By: #### C MP, MG, CBC #### [facility] [address] [place] [address] [place] Chloride [Moles/Vol] 113 mmol/L High 98-107 [facility] Comment on above: Performed By: #### C MP, MG, CBC #### [facility] [address] [place] [address] [place] CO2 [Moles/Vol] 22.6 mmol/L Normal 21.0-31.0 [facility] Comment on above: Performed By: #### C MP, MG, CBC #### [facility] [address] [place] [address] [place] Creatinine [Mass/Vol] 0.58 mg/dL Low 0.60-1.20 [facility] Comment on above: Performed By: #### C MP, MG, CBC #### [facility] [address] [place] [address] [place] Creatinine Clr Calc Pharmacy 76.86 Normal [facility] Comment on above: Performed By: #### C MP, MG, CBC #### [facility] [address] [place] [address] [place] GFR/1.73 sq M.predicted MDRD (S/P/Bld) [Vol rate/Area] mL/min/{1.73_m2} Normal [facility] Comment on above: Performed By: #### C MP, MG, CBC #### [address] Globulin (S) [Mass/Vol] 3.2 g/dL Normal T he [facility] Comment on above: Performed By: #### C MP, MG, CBC #### [address] Glucose [Mass/Vol] 91 mg/dL Normal 70-100 [facility] Comment on above: Result Comment: [facility] Glucose Reference Range is dependent on time and content of last meal. Glucose of more than 200 mg/dL in a nonstressed, ambulatory subject supports the diagnosis of Diabetes Mellitus. ADA recommended reference range Performed By: #### C MP, MG, CBC #### [address] Potassium [Moles/Vol] 3.5 mmol/L Normal 3.5-5.1 [facility] Comment on above: Performed By: #### C MP, MG, CBC #### [address] Protein [Mass/Vol] 6.1 g/dL Low 6.4-8.9 [facility] Comment on above: Performed By: #### C MP, MG, CBC #### [address] Sodium [Moles/Vol] 142 mmol/L Normal 136-145 [facility] Comment on above: Performed By: #### C MP, MG, CBC #### [address] Urea nitrogen [Mass/Vol] 7 mg/dL Normal 7-25 [facility] Comment on above: Performed By: #### C MP, MG, CBC #### [address] Magnesiumon 10-06-2024 Magnesium [Mass/Vol] 1.7 mg/dL Low 1.9-2.7 [facility] Comment on above: Result Comment: PERF ORMED BY: [address] [address] PATHOLOGIST STRANNER YULISSA MARES M.D. Performed By: #### C MP, MG, CBC #### [address] Complete Blood Count Auto Di ffon 10-05-2024 Basophils (Bld) [#/Vol] 0.0 10*3/uL Normal 0.0-0.2 [facility] Comment on above: Result Comment: PERF ORMED BY: [place] [address] PATHOLOGIST STRANNER YULISSA MARES M.D. Performed By: #### C MP, MG, CBC #### [address] Basophils/100 WBC (Bld) 0.6 % Normal . T kathy [facility] Comment on above: Performed By: #### C MP, MG, CBC #### [address] Eosinophils (Bld) [#/Vol] 0.0 10*3/uL Normal 0.0-0.45 [facility] Comment on above: Performed By: #### C MP, MG, CBC #### [address] Eosinophils/100 WBC (Bld) 0.8 % Normal . [facility] Comment on above: Performed By: #### C MP, MG, CBC #### [address] Erythrocyte distribution width (RBC) [Ratio] 16.0 % High 11.9-15.3 [facility] Comment on above: Performed By: #### C MP, MG, CBC #### [address] Hematocrit (Bld) [Volume fraction] 27.1 % Low 34.0-46.4 [facility] Comment on above: Performed By: #### C MP, MG, CBC #### [address] Hemoglobin (Bld) [Mass/Vol] 8.9 g/dL Low 11.8-15.4 [facility] Comment on above: Performed By: #### C MP, MG, CBC #### [address] Lymphocytes (Bld) [#/Vol] 1.1 10*3/uL Normal 1.00-4.8 [facility] Comment on above: Performed By: #### C MP, MG, CBC #### [address] Lymphocytes/100 WBC (Bld) 23.3 % Normal . [facility] Comment on above: Performed By: #### C MP, MG, CBC #### [address] MCH (RBC) [Entitic mass] 31.1 pg Normal 24.7-34.3 [facility] Comment on above: Performed By: #### C MP, MG, CBC #### [address] MCV (RBC) [Entitic vol] 95.1 fL Normal 80-100 T kathy [facility] Comment on above: Performed By: #### C MP, MG, CBC #### [address] Mean Corpuscular HGB Conc 32.7 g/dL Normal 32.0-35.0 [facility] Comment on above: Performed By: #### C MP, MG, CBC #### [place] [address] [place] Monocytes (Bld) [#/Vol] 0.3 10*3/uL Normal 0.0-0.8 [facility] Comment on above: Performed By: #### C MP, MG, CBC #### [place] [address] [place] Monocytes/100 WBC (Bld) 6.1 % Normal . T kathy [facility] Comment on above: Performed By: #### C MP, MG, CBC #### [address] [place] [address] [place] Neutrophils (Bld) [#/Vol] 3.4 10*3/uL Normal 1.8-7.7 [facility] Comment on above: Performed By: #### C MP, MG, CBC #### [address] Neutrophils/100 WBC (Bld) 69.2 % Normal . [facility] Comment on above: Performed By: #### C MP, MG, CBC #### [address] NRBC% 0.2 /100{WBC} Normal 0-0.5 [facility] Comment on above: Performed By: #### C MP, MG, CBC #### [address] Platelet mean volume (Bld) [Entitic vol] 8.8 fL Normal 6.3-10.7 [facility] Comment on above: Performed By: #### C MP, MG, CBC #### [address] Platelets (Bld) [#/Vol] 338 10*3/uL Normal 150-450 [facility] Comment on above: Performed By: #### C MP, MG, CBC #### [address] RBC (Bld) [#/Vol] 2.85 10*6/uL Low 3.60-5.00 [facility] Comment on above: Performed By: #### C MP, MG, CBC #### [address] WBC (Bld) [#/Vol] 4.9 10*3/uL Normal 3.8-11.6 [facility] Comment on above: Performed By: #### C MP, MG, CBC #### [address] Comprehensive Metabolic Pane sandrine 10-05-2024 Albumin [Mass/Vol] 3.0 g/dL Low 3.5-5.7 [facility] Comment on above: Performed By: #### C MP, MG, CBC #### [place] [address] [place] Albumin/Globulin [Mass ratio] 0.9 {ratio} Normal [facility] Comment on above: Performed By: #### C MP, MG, CBC #### [facility] [address] ALP [Catalytic activity/Vol] 73 U/L Normal 34-104 [facility] Comment on above: Performed By: #### C MP, MG, CBC #### [address] ALT [Catalytic activity/Vol] 17 U/L Normal 7-52 [facility] Comment on above: Performed By: #### C MP, MG, CBC #### [address] Anion gap [Moles/Vol] 8.6 mmol/L Normal 6.0-15.0 [facility] Comment on above: Performed By: #### C MP, MG, CBC #### [place] [address] [place] AST [Catalytic activity/Vol] 39 U/L Normal 13-39 [facility] Comment on above: Performed By: #### C MP, MG, CBC #### [address] Bilirubin [Mass/Vol] 0.7 mg/dL Normal 0.3-1.0 [facility] Comment on above: Performed By: #### C MP, MG, CBC #### [place] [address] [place] Calcium [Mass/Vol] 8.6 mg/dL Normal 8.6-10.3 [facility] Comment on above: Performed By: #### C MP, MG, CBC #### [address] Chloride [Moles/Vol] 112 mmol/L High 98-107 [facility] Comment on above: Performed By: #### C MP, MG, CBC #### [address] CO2 [Moles/Vol] 23.7 mmol/L Normal 21.0-31.0 [facility] Comment on above: Performed By: #### C MP, MG, CBC #### [address] Creatinine [Mass/Vol] 0.57 mg/dL Low 0.60-1.20 [facility] Comment on above: Performed By: #### C MP, MG, CBC #### [place] [address] [place] Creatinine Clr Calc Pharmacy 78.21 Normal [facility] Comment on above: Performed By: #### C MP, MG, CBC #### [address] GFR/1.73 sq M.predicted MDRD (S/P/Bld) [Vol rate/Area] mL/min/{1.73_m2} Normal [facility] Comment on above: Performed By: #### C MP, MG, CBC #### [address] Globulin (S) [Mass/Vol] 3.2 g/dL Normal T he [facility] Comment on above: Performed By: #### C MP, MG, CBC #### [address] Glucose [Mass/Vol] 79 mg/dL Normal 70-100 [facility] Comment on above: Result Comment: [place] Glucose Reference Range is dependent on time and content of last meal. Glucose of more than 200 mg/dL in a nonstressed, ambulatory subject supports the diagnosis of Diabetes Mellitus. ADA recommended reference range Performed By: #### C MP, MG, CBC #### [address] Potassium [Moles/Vol] 3.3 mmol/L Low 3.5-5.1 [facility] Comment on above: Performed By: #### C MP, MG, CBC #### [address] [address] [place] Protein [Mass/Vol] 6.2 g/dL Low 6.4-8.9 [facility] Comment on above: Performed By: #### C MP, MG, CBC #### [facility] [address] [place] [address] Sodium [Moles/Vol] 141 mmol/L Normal 136-145 [facility] Comment on above: Performed By: #### C MP, MG, CBC #### [facility] [address] Urea nitrogen [Mass/Vol] 7 mg/dL Normal 7-25 [facility] Comment on above: Performed By: #### C MP, MG, CBC #### [facility] [address] ECG 12 lead ECGon 10-05-2024 ECG 12 lead ECG [facility] [place] [address] [place] [address] Electrocardiograph Report Signed Patient: Telma Person MR#: [id number] 9 : 1960 Acct:[id number] Age/Sex: 63 / F ADM Date: 10/03/24 Loc: Room: [address] [place] [address] Type: ADM IN Attending Dr: Percy Romeo MD Ordering Provider: Percy Romeo MD Date of Service: 10/05/24 ECG/ECG 12 lead ECG: qtc monitoring on a daily basis Copies to: Test Reason : Blood Pressure : */* mmHG Vent. Rate : 78 BPM Atrial Rate : 78 BPM P-R Int : 166 ms QRS Dur : 84 ms QT Int : 420 ms P-R-T Axes : 56 17 47 degrees QTcB Int : 478 ms Normal sinus rhythm Low voltage QRS Abnormal ECG When compared with ECG of 04-Oct-2024 18:10, No significant change was found Confirmed by DEANN ROTHMAN FACELSI ([id number]) on 10/05/2024 7:37:50 PM Referred By: Electronically Signed By: ELSI CARLIN MD FAC Transcribed By: MUS Signed By Elsi Carlin MD, FACC 10/05/241936 Normal [facility] echo transthoracicon [facility] echo transthoracic [facility] [place] [address] [place] [address] Echocardiogram Signed Patient: Telma Person MR#: [id number] 9 : 1960 Acct:[id number] Age/Sex: 63 / F ADM Date: 10/03/24 Loc: Room: [address] [place] [address] Type: ADM IN Attending Dr: Percy Romeo MD Ordering Provider: Percy Romeo MD Date of Service: 10/05/24/ [facility] echo transthoracic: Fall and dizziness Copies to: Elsi Carlin MD, [facility] Percy Romeo MD Height: 61 in Weight: 120 lb Performed By: ARMANDO Lamas BSA: 1.5 m2 BP: 110/73 mmHg HR: 90 Reason For Study: Fall and dizziness, orthostatic hypotension History: Anemia, Smoker, Marijuana Use, Gastric Bypass, Previous alcohol abuse - quit in Jul. Interpretation Summary Ejection Fraction = 60-65%. The left ventricular size, thickness and function are normal The left ventricular wall motion is normal. A variety of Doppler measurements indicate normal left ventricular diastolic function. Right ventricular systolic pressure is normal. There is no prior echocardiogram noted for this patient. Normal transthoracic echocardiogram. Procedure/Quality: A two-dimensional transthoracic echocardiogram with color flow and Doppler was performed. The study was technically good in quality. There is no prior echocardiogram noted for this patient. Left Ventricle: The left ventricular size, thickness and function are normal. Ejection Fraction = 60-65%. A variety of Doppler measurements indicate normal left ventricular diastolic function. The left ventricular wall motion is normal. Left Atrium: The left atrium appears normal in size. The atrial septum appears normal. Right Atrium: The right atrium appears normal in size. Right Ventricle: The right ventricular size, thickness and function are normal. Aortic Valve: The aortic valve is normal in structure and function. No aortic regurgitation is present. Mitral Valve: The mitral valve is normal in structure and function. There is no mitral regurgitation noted. Tricuspid Valve: The tricuspid valve is normal in structure and function. There is trace tricuspid regurgitation. Right ventricular systolic pressure is normal. Pulmonic Valve: The pulmonic valve is normal in structure and function. Arteries: The aortic root is normal size. Pericardium/Pleura: No pericardial effusion seen. There is no pleural effusion. IVC/Hepatic Veins: The inferior vena cava is normal in size, with a normal collapsibility index. Measurements with Normals IVSd: 0.70 cm (0.7-1.1 cm)LVIDd: 4.7 cm (3.7-5.4 cm) LVPWd: 0.90 cm (0.7-1.1 cm)LVIDs: 3.0 cm (2.3-3.6 cm) LA dimension: 2.7 cm (2.3-4.0 cm)Ao root diam: 2.6 cm(2.0-3.6 cm) asc Aorta Diam: 2.8 cm(2.1-3.4cm) Doppler with Normals RVSP(TR): 47.5 mmHg (18-35mmHg) LV V1 max: 119.0 cm/sec (0.7-1.7m/s)MV E max marija: 78.0 cm/sec(0.8-1.3m/s) MV A max marija: 72.0 cm/sec(0.0-0.0m/s) MV E/A: 1.1 (<1.5) MMode/2D Measurements Calculations RVDd: 2.3 cm FS: 36.2 % Ao root area: LVOT diam: 2.0 cm TAPSE: 2.3 cm EDV(Teich): 5.3 cm2 LVOT area: 3.1 cm2 RV S Marija: 102.4 ml 16.8 cm/sec ESV(Teich): 35.0 ml EF(Teich): 65.8 % __ LVLd ap4: 6.3 cm SV(MOD-sp4): LAV(MOD-sp4): LA A2 area: 12.9 cm2 EDV(MOD-sp4): 28.2 ml 29.6 ml 43.8 ml LAV(MOD-sp2): LA A4 area: 12.8 cm2 LVLs ap4: 5.2 cm 33.1 ml LA length (vol): ESV(MOD-sp4): 4.2 cm 15.6 ml LA vol: 33.3 ml EF(MOD-sp4): 64.4 % LA vol index: 21.9 ml/m2 Doppler Measurements Calculations MV dec time: MV V2 max: E/E' lat: 7.0 MV P1/2t max marija: 0.16 sec 120.0 cm/sec E/E' med: 6.7 116.0 cm/sec MV max PG: MV P1/2t: 71.4 msec 19.0 mmHg MV V2 mean: MVA(P1/2t): 3.1 cm2 73.7 cm/sec MV dec slope: MV mean P.0 cm/sec2 3.0 mmHg MV V2 VTI: 28.9 cm MVA(VTI): 2.7 cm2 __ Ao V2 max: LV V1 max PG: MR max marija: TV max P.0 mmHg 174.0 cm/sec 5.7 mmHg 219.0 cm/sec Ao max PG: LV V1 mean PG: MR max P.1 mmHg 3.0 mmHg 19.2 mmHg Ao mean PG: LV V1 mean: 7.0 mmHg 85.7 cm/sec Ao V2 mean: LV V1 VTI: 24.9 cm 121.0 cm/sec Ao V2 VTI: 34.7 cm ROBERTO(I,D): 2.3 cm2 ROBERTO(V,D): 2.1 cm2 __ TR max marija: 326.0 cm/sec TR max P.5 mmHg RAP systole: 5.0 mmHg ___ Transcribed By: SCV Performed At: 10/05/24 1415 Signed By: Elsi Carlin MD, FACC 10/05/24 192 Normal [facility] MR cervical spine wo conon 0 10-05-2024 [place] [address] MRI Report Signed Patient: Telma Person MR#: [id number] 9 : 1960 Acct:[id number] Age/Sex: 63 / F ADM Date: 10/03/24 Loc: Room: [address] [place] [address] Type: ADM IN Attending Dr: Percy Romeo MD Copies to: DO Percy Bates MD Ordering Provider: Abraham Flores DO Date of Service: 10/05/24 MR/MR cervical spine wo con: dysequilibrium, hyperreflexia, sensory loss EXAMINATION: MRI OF THE CERVICAL SPINE WITHOUT CONTRAST CLINICAL DATA: 6 falls in the past week, bilateral leg weakness Comparison: CT cervical spine performed 10/03/2024 TECHNIQUE: Multiecho imaging was performed in the sagittal and axial plane without contrast administration. FINDINGS: The craniocervical junction is maintained. There is straightening and slight reversal of the normal cervical lordosis. There is minimal ventral cord flattening C4-C6. Otherwise cervical cord is normal in signal, morphology and caliber. Multilevel degenerative endplate marrow changes C3-C7. Multilevel disc desiccation, uncovertebral and facet arthropathy identified. No prevertebral soft tissue swelling. C2-3: No significant disc disease, focal disc protrusion significant canal or neural foraminal narrowing. There is mild to moderate predominant right-sided facet arthropathy. C3-C4: Mild to moderate disc space narrowing and disc osteophyte complex. Bilateral uncovertebral spurring mild rights moderate left. Mild right-sided and [id number]-rexile left-sided neural foraminal narrowing. Mild central canal narrowing C4-C5: Moderate loss of disc space height with disc osteophyte complex. Moderate central canal narrowing. Uncovertebral spurring bilaterally. There is evidence of moderate to severe bilateral neural foraminal narrowing. C5-C6: Moderate degenerative loss of disc space height with mild diffuse disc osteophyte complex. Bilateral uncovertebral spurring causing severe right and moderate severe left neural from narrowing. Moderate central canal narrowing. C6-C7: Mild diffuse disc osteophyte complex. Uncovertebral spurring, predominantly right-sided. Moderate bilateral neural foraminal narrowing. C7-T1: No significant disc disease, central canal or neural foraminal narrowing. There is mild facet arthropathy. MR/MR cervical spine wo con IMPRESSION: OVERALL MODERATE DEGENERATIVE CHANGES NOTABLY FROM C4 THROUGH C6. Impression dictated by: Jaime Moreira M.D.10/05/2024 4:41 PM Dictation Location: [facility]- Transcribed By: [facility] 10/05/24 1641 Dictated By: Jaime Moreira MD 10/05/24 1631 Signed By: 10/05/24 1641 Normal [facility] MR lumbar spine wo conon MR lumbar spine wo con [facility] [place] [address] [place] [address] MRI Report Signed Patient: Telma Person MR#: [id number] 9 : 1960 Acct:[id number] Age/Sex: 63 / F ADM Date: 10/03/24 Loc: Room: [address] [place] [address] Type: ADM IN Attending Dr: Percy Romeo MD Copies to: DO Percy Bates MD Ordering Provider: Abraham Flores DO Date of Service: 10/05/24 MR/MR lumbar spine wo con: leg weakness, perineal paresthesias EXAMINATION: MRI LUMBAR SPINE WITHOUT CONTRAST CLINICAL HISTORY: Bilateral leg weakness COMPARISON: None TECHNIQUE: Multiecho imaging was performed in the sagittal and axial planes without contrast administration. FINDINGS: The lumbar vertebral heights, alignment and bone marrow signal is unremarkable. No evidence of abnormal edema to suggest acute compression fracture. There is minimal retrolisthesis L5 on S1 measuring 4 mm likely due to advanced facet arthropathy. 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 The conus medullaris terminates normally at L1-L2. Multilevel posterior elements degenerative changes L2-S1 greatest at L4-5. There is mild fluid along the facet joints lower lumbar spine greatest at L4-L5. T12-L3: No significant disc disease, central canal or neural foraminal narrowing. L3-4: Minimal broad-based bulge/minimal disc desiccation. There is mild to moderate facet arthropathy with associated Small joint effusions. Minimal central canal narrowing. L4-5: No significant disc disease or focal protrusion. Moderate to severe facet arthropathy with small joint effusions. Mild/moderate central canal narrowing. Mild neural foraminal narrowing. L5-S1: Mild degenerative disc disease with loss of disc space height. There is slight uncovering of the posterior disc related to the anterolisthesis. There is moderate neural foraminal narrowing caused by the anterolisthesis. Advanced facet arthropathy. 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 MODERATE NEURAL FORAMINAL ENCROACHMENT L5-S1 PREDOMINANTLY CAUSED BY THE ANTEROLISTHESIS AND FACET DEGENERATION. NEGATIVE FOR ACUTE COMPRESSION FRACTURE Impression dictated by: Jaime Moreira M.D.10/05/2024 8:37 PM Dictation Location: [place] [address] Transcribed By: [facility] 10/05/242036 Dictated By: Jaime Moreira MD 10/05/242026 Signed By: 10/05/242036 Normal [facility] Magnesiumon 10-05-2024 Magnesium [Mass/Vol] 1.8 mg/dL Low 1.9-2.7 [facility] Comment on above: Result Comment: PERF ORMED BY: [place] [address] PATHOLOGIST STRANNER YULISSA MARES M.D. Performed By: #### C MP, MG, CBC #### [address] Magnetic resonance imaging r eportOrdered By: Jaime Moreira on 10-05-2024 Study report [facility] Main [place] [address] [place] [address] MRI Report Signed Patient: Telma Person MR#: [id number] : 1960 Acct:[id number] Age/Sex: 63 / F ADM Date: 5 Loc: 3T Room: [address] [place] [address] Type: ADM IN Attending Dr: Percy Romeo MD Copies to: DO Percy Bates MD~ Ordering Provider: Abraham Flores DO Date of Service: 10/05/24 MR/MR lumbar spine wo con: leg weakness, perineal paresthesias EXAMINATION: MRI LUMBAR SPINE WITHOUT CONTRAST CLINICAL HISTORY: Bilateral leg weakness COMPARISON: None TECHNIQUE: Multiecho imaging was performed in the sagittal and axial planes without contrast administration. FINDINGS: The lumbar vertebral heights, alignment and bone marrow signal is unremarkable. No evidence of abnormal edema to suggest acute compression fracture. There is minimal retrolisthesis L5 on S1 measuring 4 mm likely due toadvanced facet arthropathy. There are congenitally short pedicles involving thelower lumbar spine notably from L4 through S1. The conus medullaris terminates normally at L1-L2. Multilevel posterior elements degenerative changes L2-S1 greatest at L4-5. There is mild fluid along the facet joints lower lumbar spinegreatest at L4-L5. T12-L3: No significant disc disease, central canal or neural foraminal narrowing. L3-4: Minimal broad-based bulge/minimal disc desiccation. There is mild to moderate facet arthropathy with associated Small joint effusions. Minimal central canal narrowing. L4-5: No significant disc disease or focal protrusion. Moderate to severe facetarthropathy with small joint effusions. Mild/moderate central canal narrowing. Mild neural foraminal narrowing. L5-S1: Mild degenerative disc disease with loss of disc space height. There is slight uncovering of the posterior disc related to the anterolisthesis. There is moderate neural foraminal narrowing caused by the anterolisthesis. Advanced facet arthropathy. 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 MODERATE NEURAL FORAMINAL ENCROACHMENT L5-S1 PREDOMINANTLY CAUSED BY THE ANTEROLISTHESIS AND FACET DEGENERATION. NEGATIVE FOR ACUTE COMPRESSION FRACTURE Impression dictated by: Jaime Moreira M.D.10/05/2024 8:37 PM Dictation Location: [place] [address] Transcribed By: [facility] 10/05/242036 Dictated By: Jaime Moreira MD 10/05/242026 Signed By: 10/05/242036 [facility] Work Phone: Study report [facility] [place] [address] [place] [address] MRI Report Signed Patient: Telma Person MR#: [id number] : 1960 Acct:[id number] Age/Sex: 63 / F ADM Date: 5 Loc: Room: [address] [place] [address] Type: ADM IN Attending Dr: Percy Romeo MD Copies to: DO Percy Baets MD~ Ordering Provider: Abraham Flores DO Date of Service: 10/05/24 MR/MR cervical spine wo con: dysequilibrium, hyperreflexia, sensory loss EXAMINATION: MRI OF THE CERVICAL SPINE WITHOUT CONTRAST CLINICAL DATA: 6 falls in the past week, bilateral leg weakness Comparison: CT cervical spine performed 10/03/2024 TECHNIQUE: Multiecho imaging was performed in the sagittal and axial plane without contrast administration. FINDINGS: The craniocervical junction is maintained. There is straightening andslight reversal of the normal cervical lordosis. There is minimal ventral cord flattening C4-C6. Otherwise cervical cord is normal in signal, morphology and caliber. Multilevel degenerative endplate marrow changes C3-C7. Multilevel disc desiccation, uncovertebral and facet arthropathy identified. No prevertebral soft tissue swelling. C2-3: No significant disc disease, focal disc protrusion significant canal or neural foraminal narrowing. There is mild to moderate predominant right-sided facet arthropathy. C3-C4: Mild to moderate disc space narrowing and disc osteophyte complex. Bilateral uncovertebral spurring mild rights moderate left. Mild right-sided and khyezafk-aj-rmaoeo left-sided neural foraminal narrowing. Mild central canal narrowing C4-C5: Moderate loss of disc space height with disc osteophyte complex. Moderate central canal narrowing. Uncovertebral spurring bilaterally. There isevidence of moderate to severe bilateral neural foraminal narrowing. C5-C6: Moderate degenerative loss of disc space height with mild diffuse disc osteophyte complex. Bilateral uncovertebral spurring causing severe right and moderate severe left neural from narrowing. Moderate central canal narrowing. C6-C7: Mild diffuse disc osteophyte complex. Uncovertebral spurring, predominantly right-sided. Moderate bilateral neural foraminal narrowing. C7-T1: No significant disc disease, central canal or neural foraminal narrowing. There is mild facet arthropathy. MR/MR cervical spine wo con IMPRESSION: OVERALL MODERATE DEGENERATIVE CHANGES NOTABLY FROM C4 THROUGH C6. Impression dictated by: Jaime Moreira M.D.10/05/2024 4:41 PM Dictation Location: [place] [address] Transcribed By: [facility] 10/05/24 1641 Dictated By: Jaime Moreira MD 10/05/24 1631 Signed By: 10/05/24 1641 [facility] Work Phone: Phosphate [Mass/volume] in S papi or PlasmaOrdered By: Percy Romeo on 10-05-2024 Phosphate [Mass/Vol] Phosphate [Mass/vol ume] in Serum or Plasma Low 2.5-4.5 [facility] Phosphoruson 10-05-2024 Phosphate [Mass/Vol] 2.3 mg/dL Low 2.5-4.5 [facility] Comment on above: Performed By: #### C MP, MG, CBC #### [address] Potassiumon 10-05-2024 Potassium [Moles/Vol] 3.6 mmol/L Normal 3.5-5.1 [facility] Comment on above: Result Comment: PERF ORMED BY: [place] [address] PATHOLOGIST STRANNER YULISSA MARES M.D. Performed By: #### C MP, MG, CBC #### [facility] [address] [place] [address] US venous duplex LE BIon US venous duplex LE BI [facility] [place] [address] [place] [address] Ultrasound Report Signed Patient: Telma ePrson MR#: [id number] 9 : 1960 Acct:[id number] Age/Sex: 63 / F ADM Date: 10/03/24 Loc: Room: [address] [place] [address] Type: ADM IN Attending Dr: Percy Romeo MD Ordering Provider: Percy Romeo MD Date of Service: 10/04/24 US/US venous duplex LE BI: bilateral leg swelling Copies to: Percy Romeo MD BILATERAL LOWER EXTREMITY VENOUS DUPLEX INDICATION: Bilateral lower extremity edema. PROCEDURE: Color-flow duplex scanning is used to interrogate the deep venous system of the right and left lower extremities. The common femoral vein, femoral vein and popliteal vein show good compressibility with normal proximal and distal augmentation. The calf veins are compressible. US/US venous duplex LE BI IMPRESSION: NO EVIDENCE FOR DEEP VEIN THROMBOSIS OR PROXIMAL SUPERFICIAL THROMBOPHLEBITIS IN THE RIGHT OR LEFT LOWER EXTREMITY. Impression dictated by: Jake Lynch MD10/05/2024 8:31 AM Dictation Location: [place] [address] Tech: Anne-Marie Peraltavipul Transcribed By: [facility] 10/05/24830 Dictated By: Jake Lynch MD 10/05/24829 Signed By: 10/05/24830 Normal [facility] ABO/Rh Retypeon 10-04-2024 ABO/RH Recheck Result Positive Normal [facility] Comment on above: Result Comment: PERF ORMED BY: [place] [address] PATHOLOGIST STRANNER YULISSA MARES M.D. Complete Blood Count Auto Di ffon 10-04-2024 Basophils (Bld) [#/Vol] 0.0 10*3/uL Normal 0.0-0.2 [facility] Comment on above: Result Comment: PERF ORMED BY: [place] [address] PATHOLOGIST STRANNER YULISSA MARES M.D. Performed By: #### C MP, MG, CBC, PHOS #### [facility] [address] [place] [address] [place] Basophils/100 WBC (Bld) 0.5 % Normal . T kathy [facility] Comment on above: Performed By: #### C MP, MG, CBC, PHOS #### [facility] [address] [place] [address] [place] Eosinophils (Bld) [#/Vol] 0.0 10*3/uL Normal 0.0-0.45 [facility] Comment on above: Performed By: #### C MP, MG, CBC, PHOS #### [facility] [address] [place] [id number] [place] Eosinophils/100 WBC (Bld) 0.5 % Normal . [facility] Comment on above: Performed By: #### C MP, MG, CBC, PHOS #### [address] Erythrocyte distribution width (RBC) [Ratio] 15.2 % Normal 11.9-15.3 [facility] Comment on above: Performed By: #### C MP, MG, CBC, PHOS #### [address] Hematocrit (Bld) [Volume fraction] 21.2 % Low 34.0-46.4 [facility] Comment on above: Performed By: #### C MP, MG, CBC, PHOS #### [address] Hemoglobin (Bld) [Mass/Vol] 6.8 g/dL Low 11.8-15.4 [facility] Comment on above: Performed By: #### C MP, MG, CBC, PHOS #### [address] Lymphocytes (Bld) [#/Vol] 1.3 10*3/uL Normal 1.00-4.8 [facility] Comment on above: Performed By: #### C MP, MG, CBC, PHOS #### [address] Lymphocytes/100 WBC (Bld) 20.1 % Normal . [facility] Comment on above: Performed By: #### C MP, MG, CBC, PHOS #### [address] MCH (RBC) [Entitic mass] 31.1 pg Normal 24.7-34.3 [facility] Comment on above: Performed By: #### C MP, MG, CBC, PHOS #### [address] MCV (RBC) [Entitic vol] 96.8 fL Normal 80-100 T he [facility] Comment on above: Performed By: #### C MP, MG, CBC, PHOS #### [facility] [address] Mean Corpuscular HGB Conc 32.1 g/dL Normal 32.0-35.0 [facility] Comment on above: Performed By: #### C MP, MG, CBC, PHOS #### [address] Monocytes (Bld) [#/Vol] 0.5 10*3/uL Normal 0.0-0.8 [facility] Comment on above: Performed By: #### C MP, MG, CBC, PHOS #### [address] Monocytes/100 WBC (Bld) 7.0 % Normal . T kathy [facility] Comment on above: Performed By: #### C MP, MG, CBC, PHOS #### [address] Neutrophils (Bld) [#/Vol] 4.6 10*3/uL Normal 1.8-7.7 [facility] Comment on above: Performed By: #### C MP, MG, CBC, PHOS #### [address] Neutrophils/100 WBC (Bld) 71.9 % Normal . [facility] Comment on above: Performed By: #### C MP, MG, CBC, PHOS #### [address] NRBC% 0.2 /100{WBC} Normal 0-0.5 [facility] Comment on above: Performed By: #### C MP, MG, CBC, PHOS #### [address] Platelet mean volume (Bld) [Entitic vol] 8.5 fL Normal 6.3-10.7 [facility] Comment on above: Performed By: #### C MP, MG, CBC, PHOS #### [place] [address] [place] Platelets (Bld) [#/Vol] 312 10*3/uL Normal 150-450 [facility] Comment on above: Performed By: #### C MP, MG, CBC, PHOS #### [address] RBC (Bld) [#/Vol] 2.19 10*6/uL Low 3.60-5.00 [facility] Comment on above: Performed By: #### C MP, MG, CBC, PHOS #### [address] WBC (Bld) [#/Vol] 6.5 10*3/uL Normal 3.8-11.6 [facility] Comment on above: Performed By: #### C MP, MG, CBC, PHOS #### [address] Comprehensive Metabolic Pane sandrine 10-04-2024 Albumin [Mass/Vol] 2.8 g/dL Low 3.5-5.7 [facility] Comment on above: Performed By: #### C MP, MG, CBC, PHOS #### [address] Albumin/Globulin [Mass ratio] 0.9 {ratio} Normal 0.7-1.7 [facility] Comment on above: Performed By: #### C MP, MG, CBC, PHOS #### [address] ALP [Catalytic activity/Vol] 75 U/L Normal 34-104 [facility] Comment on above: Performed By: #### C MP, MG, CBC, PHOS #### [address] ALT [Catalytic activity/Vol] 16 U/L Normal 7-52 [facility] Comment on above: Performed By: #### C MP, MG, CBC, PHOS #### [address] Anion gap [Moles/Vol] 9.4 mmol/L Normal 6.0-15.0 [facility] Comment on above: Performed By: #### C MP, MG, CBC, PHOS #### [address] AST [Catalytic activity/Vol] 31 U/L Normal 13-39 [facility] Comment on above: Performed By: #### C MP, MG, CBC, PHOS #### [address] Bilirubin [Mass/Vol] 0.3 mg/dL Normal 0.3-1.0 [facility] Comment on above: Performed By: #### C MP, MG, CBC, PHOS #### [address] Calcium [Mass/Vol] 7.8 mg/dL Low 8.6-10.3 [facility] Comment on above: Performed By: #### C MP, MG, CBC, PHOS #### [address] Chloride [Moles/Vol] 110 mmol/L High 98-107 [facility] Comment on above: Performed By: #### C MP, MG, CBC, PHOS #### [address] CO2 [Moles/Vol] 24.2 mmol/L Normal 21.0-31.0 [facility] Comment on above: Performed By: #### C MP, MG, CBC, PHOS #### [address] Creatinine [Mass/Vol] 0.63 mg/dL Normal 0.60-1.20 [facility] Comment on above: Performed By: #### C MP, MG, CBC, PHOS #### [place] [address] [place] Creatinine Clr Calc Pharmacy 70.76 Normal [facility] Comment on above: Performed By: #### C MP, MG, CBC, PHOS #### [place] [address] [place] GFR/1.73 sq M.predicted MDRD (S/P/Bld) [Vol rate/Area] mL/min/{1.73_m2} Normal [facility] Comment on above: Performed By: #### C MP, MG, CBC, PHOS #### [facility] [address] Globulin (S) [Mass/Vol] 3.1 g/dL Normal T [facility] Comment on above: Performed By: #### C MP, MG, CBC, PHOS #### [facility] [address] Glucose [Mass/Vol] 78 mg/dL Normal 70-100 [facility] Comment on above: Result Comment: [facility] Glucose Reference Range is dependent on time and content of last meal. Glucose of more than 200 mg/dL in a nonstressed, ambulatory subject supports the diagnosis of Diabetes Mellitus. ADA recommended reference range Performed By: #### C MP, MG, CBC, PHOS #### [address] Potassium [Moles/Vol] 3.6 mmol/L Normal 3.5-5.1 [facility] Comment on above: Performed By: #### C MP, MG, CBC, PHOS #### [address] Protein [Mass/Vol] 5.9 g/dL Low 6.4-8.9 [facility] Comment on above: Performed By: #### C MP, MG, CBC, PHOS #### [place] [address] [place] Sodium [Moles/Vol] 140 mmol/L Normal 136-145 [facility] Comment on above: Performed By: #### C MP, MG, CBC, PHOS #### [address] Urea nitrogen [Mass/Vol] 15 mg/dL Normal 7-25 [facility] Comment on above: Performed By: #### C MP, MG, CBC, PHOS #### [address] ECG 12 lead ECG 10-04-2024 ECG 12 lead ECG [facility] [address] [place] [address] Electrocardiograph Report Signed Patient: Telma Person MR#: [id number] 9 : 1960 Acct:[id number] Age/Sex: 63 / F ADM Date: 10/03/24 Loc: 3T Room: [address] [place] [address] Type: ADM IN Attending Dr: Percy Romeo MD Ordering Provider: Percy Romeo MD Date of Service: 10/04/2409/16/1746 ECG/ECG 12 lead ECG: qtc Copies to: Test Reason : Blood Pressure : */* mmHG Vent. Rate : 78 BPM Atrial Rate : 78 BPM P-R Int : 166 ms QRS Dur : 92 ms QT Int : 444 ms P-R-T Axes : 64 14 60 degrees QTcB Int : 506 ms Normal sinus rhythm Low voltage QRS Nonspecific T wave abnormality Abnormal ECG Confirmed by DEANN ROTHMAN [facility], ELSI ([id number]) on 10/05/2024 9:12:13 AM Referred By: Electronically Signed By: ELSI CARILN MD [facility] Transcribed By: MUS Signed By Elsi Carlin MD, FACC 10/05/24 0912 Normal [facility] Immunofixation,Serumon 10-04 Immunofixation, Serum Comment Normal . [facility] Comment on above: Result Comment: No m onoclonality detected. Performed By: #### C MP, MG, CBC, PHOS #### [facility] [address] [place] [id number] [place] Immunoglobulin A, Serum 598 mg/dL High 87-352 [facility] Comment on above: Performed By: #### C MP, MG, CBC, PHOS #### [facility] [address] [place] [address] [place] Immunoglobulin G 1084 mg/dL Normal [phone] [facility] Comment on above: Performed By: #### C MP, MG, CBC, PHOS #### [facility] [address] [place] [address] [place] Immunoglobulin M, Serum 89 mg/dL Normal 26-217 [facility] Comment on above: Result Comment: Perf ormed at: CB - [facility] [place] [id number] Animal Breeder: Pasha Harry PhD, Phone: [phone] Performed By: #### C MP, MG, CBC, PHOS #### [address] LeukoReduced RBCon LeukoReduced RBC TRANSFUSED 10/04/24 1033 Normal [facility] Magnesiumon 10-04-2024 Magnesium [Mass/Vol] 1.8 mg/dL Low 1.9-2.7 [facility] Comment on above: Result Comment: PERF ORMED BY: [place] [address] PATHOLOGIST STRANNER YULISSA MARES M.D. Performed By: #### C MP, MG, CBC, PHOS #### [address] No Panel InformationOrdered By: Abraham Flores on 10-04-2024 Protein Electrophoresis M-Tahir Not observed g/dL Not Observed [facility] Protein Electrophoresis Note Comment . [facility] Comment on above: Protein electrophore sis scan will follow via computer,mail, or electric motor assembler and tester delivery.Performed at: - [id number] [place] [id number] Director: Pasha Harry PhD, Phone: [phone] Phosphoruson 10-04-2024 Phosphate [Mass/Vol] 2.2 mg/dL Low 2.5-4.5 [facility] Comment on above: Performed By: #### C MP, MG, CBC, PHOS #### [address] Protein Electrophoresis, Ser umon 10-04-2024 Albumin [Mass/Vol] 2.6 g/dL Low 2.9-4.4 [facility] Comment on above: Performed By: #### C MP, MG, CBC, PHOS #### [address] Zmaos-3-Mjymjpgi 0.3 g/dL Normal 0.0-0.4 [facility] Comment on above: Performed By: #### C MP, MG, CBC, PHOS #### [address] Gphzo-4-Nxucneup 0.6 g/dL Normal 0.4-1.0 [facility] Comment on above: Performed By: #### C MP, MG, CBC, PHOS #### [address] Beta Globulin 1.1 g/dL Normal 0.7-1.3 [facility] Comment on above: Performed By: #### C MP, MG, CBC, PHOS #### [address] Gamma Globulin 1.0 g/dL Normal 0.4-1.8 [facility] Comment on above: Performed By: #### C MP, MG, CBC, PHOS #### [address] Globulin (S) [Mass/Vol] 3.0 g/dL Normal 2.2-3.9 [facility] Comment on above: Performed By: #### C MP, MG, CBC, PHOS #### [address] M-Tahir Not Observed Normal Not Observed [facility] Comment on above: Performed By: #### C MP, MG, CBC, PHOS #### [address] Protein [Mass/Vol] 5.6 g/dL Low 6.0-8.5 [facility] Comment on above: Performed By: #### C MP, MG, CBC, PHOS #### [address] SPE-Note Comment Normal . [facility] Comment on above: Result Comment: Prot ein electrophoresis scan will follow via computer, mail, or electric motor assembler and tester delivery. Performed at: - [address] [id number] Animal Breeder: Pasha Harry PhD, Phone: [phone] PERFORMED BY: [place] [address] PATHOLOGIST STRANNER YULISSA MARES M.D. Performed By: #### C MP, MG, CBC, PHOS #### [address] Serum globulin measurement ( mass/volume)Ordered By: Abraham Flores on 10-04-2024 Globulin (S) [Mass/Vol] Serum globulin measurement (mass/volume) 2.2-3.9 [facility] Serum immunofixation electro phoresisOrdered By: Abraham Flores on 10-04-2024 Serum Immunofixation Comment . [facility] Comment on above: No monoclonality det ected. Serum or plasma IgA measurem ent (mass/volume)Ordered By: Abraham Flores on 10-04-2024 IgA [Mass/Vol] IgA [Mass/volume] in Serum or Plasma High 87-352 [facility] Serum or plasma IgG measurem ent (mass/volume)Ordered By: Abraham Flores on 10-04-2024 IgG [Mass/Vol] IgG [Mass/volume] in Serum or Plasma [phone] [facility] Serum or plasma IgM measurem ent (mass/volume)Ordered By: Abraham Flores on 10-04-2024 IgM [Mass/Vol] IgM [Mass/volume] in Serum or Plasma 26-217 [facility] Comment on above: Performed at: - [place] [id number] Director: Pasha Harry PhD, Phone: [phone] Serum or plasma albumin damian urement (mass/volume)Ordered By: Abraham Flores on 10-04-2024 Albumin [Mass/Vol] Albumin [Mass/volume ] in Serum or Plasma Low 2.9-4.4 [facility] Serum or plasma albumin/glob ulin mass ratioOrdered By: Abraham Flores on 10-04-2024 Albumin/Globulin [Mass ratio] Serum or plasma albumin/globulin mass ratio 0.7-1.7 [facility] Serum or plasma alpha 1 glob ulin measurement by electrophoresis (mass/volume)Ordered By: Abraham Flores on 10-04-2024 Alpha 1 globulin Elph [Mass/Vol] Serum or plasma alpha 1 globulin measurement by electrophoresis (mass/volume) 0.0-0.4 [facility] Serum or plasma alpha 2 glob ulin measurement by electrophoresis (mass/volume)Ordered By: Abraham Flores on 10-04-2024 Alpha 2 globulin Elph [Mass/Vol] Serum or plasma alpha 2 globulin measurement by electrophoresis (mass/volume) 0.4-1.0 [facility] Serum or plasma beta globuli n measurement by electrophoresis (mass/volume)Ordered By: Abraham Flores on 10-04-2024 Beta globulin Elph [Mass/Vol] Serum or plasma beta globulin measurement by electrophoresis (mass/volume) 0.7-1.3 [facility] Serum or plasma gamma globul in measurement by electrophoresis (mass/volume)Ordered By: Abraham Flores on 10-04-2024 Gamma globulin Elph [Mass/Vol] Serum or plasma gamma globulin measurement by electrophoresis (mass/volume) 0.4-1.8 [facility] Serum total protein measurem entOrdered By: Abraham Flores on 10-04-2024 Protein [Mass/Vol] Protein [Mass/volume ] in Serum or Plasma Low 6.0-8.5 [facility] Type and Screenon 10-04-2024 ABO and Rh group Nom (Bld) Blood group O Rh(D) positive Normal [facility] Comment on above: Order Comment: Trans fuse now? Y Number of units to transfuse now? 1 Result Comment: PERF ORMED BY: [facility] [address] [place] [address] PATHOLOGIST STRANNER YULISSA MARES M.D. A1C with Estimated Average G karo 10-03-2024 Glucose [Mass/Vol] 82 mg/dL Normal [facility] Comment on above: Result Comment: PERF ORMED BY: [facility] [address] [place] [address] PATHOLOGIST STRANNER YULISSA MARES M.D. Performed By: #### C MP, MG, CBC, PHOS #### [address] HbA1c (Bld) [Mass fraction] 4.5 % Normal 4.3-5.6 [facility] Comment on above: Result Comment: Incr eased risk for diabetes: 5.7 - 6.4 diabetes: >6.4 glycemic control for adults with diabetes: <7.0 Performed By: #### C MP, MG, CBC, PHOS #### [facility] [address] Alanine aminotransferase [En zymatic activity/volume] in Serum or PlasmaOrdered By: Ban Boyce on 10-03-2024 ALT [Catalytic activity/Vol] Alanine aminotransferase [Enzymatic activity/volume] in Serum or Plasma 7-52 [facility] Albumin [Mass/volume] in Ser um or Plasma by Bromocresol green (BCG) dye binding methoOrdered By: Ban Boyce on 10-03-2024 Albumin BCG dye [Mass/Vol] Albumin [Mass/volume] in Serum or Plasma by Bromocresol green (BCG) dye binding metho Low 3.5-5.7 [facility] Alkaline phosphatase [Enzyma tic activity/volume] in Serum or PlasmaOrdered By: Ban Boyce on 10-03-2024 ALP [Catalytic activity/Vol] Alkaline phosphatase [Enzymatic activity/volume] in Serum or Plasma 34-104 [facility] Aspartate aminotransferase [ Enzymatic activity/volume] in Serum or PlasmaOrdered By: Ban Boyce on 10-03-2024 AST [Catalytic activity/Vol] Aspartate aminotransferase [Enzymatic activity/volume] in Serum or Plasma 13-39 [facility] Automated epithelial cells c ount in urine sediment (number/area)Ordered By: Ban Boyce on 10-03-2024 Epithelial cells Auto (Urine sed) [#/Area] Automated epithelial cells count in urine sediment (number/area) High 0-2 [facility] Automated erythrocytes count in urine sediment (number/area)Ordered By: Ban Boyce on 10-03-2024 RBC Auto (Urine sed) [#/Area] Erythrocytes [#/area] in Urine sediment by Automated count 0-4 [facility] Automated leukocytes count i n urine sediment (number/area)Ordered By: Ban Boyce on 10-03-2024 WBC Auto (Urine sed) [#/Area] Leukocytes [#/area] in Urine sediment by Automated count 0-4 [facility] B-Type Natriuretic Peptideon 10-03-2024 Natriuretic peptide B (Bld) [Mass/Vol] 105.0 pg/mL High 5-100 [facility] Comment on above: Result Comment: PERF ORMED BY: [place] [address] PATHOLOGIST STRANNER YULISSA MARES M.D. Performed By: #### C MP, MG, CBC, PHOS #### [address] Basic Metabolic Panelon 09-23 Anion gap [Moles/Vol] 7.0 mmol/L Normal 6.0-15.0 [facility] Comment on above: Performed By: #### C MP, MG, CBC #### [address] Calcium [Mass/Vol] 8.0 mg/dL Low 8.6-10.3 [facility] Comment on above: Performed By: #### C MP, MG, CBC #### [address] Chloride [Moles/Vol] 110 mmol/L High 98-107 [facility] Comment on above: Performed By: #### C MP, MG, CBC #### [address] CO2 [Moles/Vol] 26.8 mmol/L Normal 21.0-31.0 [facility] Comment on above: Performed By: #### C MP, MG, CBC #### [address] Creatinine [Mass/Vol] 0.90 mg/dL Normal 0.60-1.20 [facility] Comment on above: Performed By: #### C MP, MG, CBC #### [address] Creatinine Clr Calc Pharmacy 49.53 Normal [facility] Comment on above: Performed By: #### C MP, MG, CBC #### [place] [address] GFR/1.73 sq M.predicted MDRD (S/P/Bld) [Vol rate/Area] mL/min/{1.73_m2} Normal [facility] Comment on above: Performed By: #### C MP, MG, CBC #### [address] Glucose [Mass/Vol] 71 mg/dL Normal 70-100 [facility] Comment on above: Result Comment: [facility] Glucose Reference Range is dependent on time and content of last meal. Glucose of more than 200 mg/dL in a nonstressed, ambulatory subject supports the diagnosis of Diabetes Mellitus. ADA recommended reference range Performed By: #### C MP, MG, CBC #### [address] Potassium [Moles/Vol] 3.8 mmol/L Normal 3.5-5.1 [facility] Comment on above: Performed By: #### C MP, MG, CBC #### [address] Sodium [Moles/Vol] 140 mmol/L Normal 136-145 [facility] Comment on above: Performed By: #### C MP, MG, CBC #### [address] Urea nitrogen [Mass/Vol] 21 mg/dL Normal 7-25 [facility] Comment on above: Performed By: #### C MP, MG, CBC #### [place] [address] [place] Basophils Auto (Bld) [#/Vol] Ordered By: Ban Boyce on 10-03-2024 Basophils (Bld) [#/Vol] Automated basophil count 0.0-0.2 [facility] Basophils/100 WBC Auto (Bld) Ordered By: Ban Boyce on 10-03-2024 Basophils/100 WBC (Bld) Automated basophil % . [facility] Bilirubin Test strip Ql (U)O rdered By: Ban Boyce on 10-03-2024 Bilirubin Ql (U) Bilirubin.total [Presence] in Urine by Test strip Negative [facility] Bilirubin.direct [Mass/volum e] in Serum or PlasmaOrdered By: Ban Boyce on 10-03-2024 Bilirubin.direct [Mass/Vol] Bilirubin.direct [Mass/volume] in Serum or Plasma 0.03-0.18 [facility] Bilirubin.total [Mass/volume ] in Serum or PlasmaOrdered By: Ban Boyce on 10-03-2024 Bilirubin [Mass/Vol] Bilirubin.total [Mass/volume] in Serum or Plasma 0.3-1.0 [facility] Blood estimated average gluc ose determination by estimation from glycated hemoglobinOrdered By: Abraham Flores on 10-03-2024 Average glucose Estimated from glycated hemoglobin (Bld) [Mass/Vol] Glucose mean value [Mass/volume] in Blood Estimated from glycated hemoglobin [facility] C reactive protein [Mass/vol ume] in Serum or PlasmaOrdered By: Ban Boyce on 10-03-2024 CRP [Mass/Vol] C reactive protein [Mass/volume] in Serum or Plasma High 0.0-0.5 [facility] C-Reactive Proteinon 025 C-Reactive Protein 6.7 mg/dL High 0.0-0.5 [facility] Comment on above: Result Comment: PERF ORMED BY: [place] [address] PATHOLOGIST STRANNER YULISSA MARES M.D. Performed By: #### C MP, MG, CBC #### [address] COVID Cepheid NegativeOrdere d By: Ban Boyce on 10-03-2024 SARS-CoV-2 (COVID-19) Ab IA Ql COVID Cepheid Negative [facility] Comment on above: This is a duplicate Cepheid Xpert Xpress CoV-2/Flu/RSV Plus RNA by RT-PCR result to be used for statistical tracking purpose only. COVID-19 / Flu A/B / RSV PCR on 10-03-2024 SARS-CoV-2 (COVID-19) RNA VICTORINO+probe Ql (Unsp spec) COVID-19 Cepheid Result Negative for SARS-CoV-2 RNA by RT-PCR Flu A Cepheid Result Negative for Flu A RNA by RT-PCR Flu B Cepheid Result Negative for Flu B RNA by RT-PCR RSV Cepheid Result Negative for RSV RNA by RT-PCR COVID19 Blank Space ---- Reference: Negative COVID19 Blank Space ---- Cepheid Disclaimer The Cepheid Xpert Xpress CoV-2/Flu/RSV Plus has Cepheid Disclaimer not been FDA cleared or approved; this test has Cepheid Disclaimer been authorized by FDA under an EUA for use by Cepheid Disclaimer authorized laboratories; this test has been Cepheid Disclaimer authorized only for the simultaneous qualitative Cepheid Disclaimer detection and differentiation of nucleic acids from Cepheid Disclaimer SARS-CoV-2, influenza A, influenza B, and Cepheid Disclaimer respiratory syncytial virus (RSV), and not for any Cepheid Disclaimer other viruses or pathogens; and this test is only Cepheid Disclaimer authorized for the duration of the declaration that Cepheid Disclaimer circumstances exist justifying the authorization of Cepheid Disclaimer emergency use of in vitro diagnostic tests for Cepheid Disclaimer detection and/or diagnosis of COVID-19 under Cepheid Disclaimer Section 564(b)(1) of the Act, 21 U.S.C. 360bbb- Cepheid Disclaimer 3(b)(1), unless the authorization is terminated or Cepheid Disclaimer revoked sooner. PERFORMED BY: [facility] [address] [place] [address] PATHOLOGIST STRANNER YULISSA MARES M.D. Normal [facility] Comment on above: Performed By: #### C MP, MG, CBC #### [facility] [address] abdomen pelvis w conon CT abdomen pelvis w con [facility] [address] [place] [id number] [address] Scan Report Signed Patient: Telma Person MR#: [id number] 9 : 1960 Acct:[id number] Age/Sex: 63 / F ADM Date: 10/03/24 Loc: ER Room: Type: [facility] ER Attending Dr: Copies to: Ban Boyce MD Ordering Provider: Ban Boyce MD Date of Service: 10/03/24 CT/CT abdomen pelvis w con: tenderness R hip and R side abd, freq falls CT ABDOMEN AND PELVIS WITH INTRAVENOUS CONTRAST: CLINICAL HISTORY: Frequent falls. Constipation for 5 days. COMPARISON: None TECHNIQUE: Spiral images were obtained through the abdomen and pelvis following the administration of intravenous contrast. This CT exam was performed using one or more following dose reduction techniques: Automated exposure control, adjustment of the mA and/or kV according to patient size, or use of iterative reconstruction technique. FINDINGS: Lung Bases: [Bibasilar scarring.] Organs:Gallbladder has been removed with presumed contents or dilatation of the biliary system. No enhancing liver lesion. Spleen pancreas and adrenal glands appear unremarkable. No enhancing renal mass or hydronephrosis. Abdominal aorta appears normal in caliber.[ GI: Moderate size hiatal hernia. Postsurgical changes involving the stomach and small bowel consistent with bypass surgery. Small bowel appears nondilated.[No acute colonic abnormality. Colonic diverticulosis. Pelvis:[Urinary bladder is grossly unremarkable. Uterus has been removed. No adnexal mass.] Peritoneum/Retroperitoneu m:No free air free fluid or lymphadenopathy.[ Abd wall/Bones:No acute findings. Degenerative changes.[ CT/CT abdomen pelvis w con IMPRESSION: No acute process. Impression dictated by: Ray George Jr., D.O.10/03/2024 12:36 PM Dictation Location: [facility] Transcribed By: [facility] 10/03/24 1236 Dictated By: Ray George Jr, DO 10/03/24 1234 Signed By: 10/03/24 1236 Normal [facility] CT cervical spine wo conon 0 10-03-2024 CT cervical spine wo con [facility] [address] [place] [address] CT Scan Report Signed Patient: Telma Person MR#: [id number] 9 : 1960 Acct:[id number] Age/Sex: 63 / F ADM Date: 10/03/24 Loc: ER Room: Type: [facility] ER Attending Dr: Copies to: Ban Boyce MD Ordering Provider: Ban Boyce MD Date of Service: 10/03/24 CT/CT head/brain wo con: freq falls, hit head ([id number]) CT/CT cervical spine wo con: freq falls, hit head CT BRAIN WITHOUT CONTRAST: CLINICAL HISTORY: Fall. Hit head. COMPARISON: None TECHNIQUE: Contiguous axial unenhanced images were obtained through the brain. This CT exam was performed using one or more following dose reduction techniques: Automated exposure control, adjustment of the mA and/or kV according to patient size, or use of iterative reconstruction technique. FINDINGS: There is no evidence of midline shift, intra or extra-axial fluid collection, hemorrhage or CT evidence of stroke. Posterior fossa appears unremarkable. Visualized intraorbital contents appear unremarkable. Visualized paranasal sinuses are clear. The surrounding soft tissues are normal. CT/CT head/brain wo con IMPRESSION: NO ACUTE INTRACRANIAL ABNORMALITY. CT CERVICAL SPINE WITHOUT CONTRAST WITH 3D RECONSTRUCTIONS: COMPARISON: None TECHNIQUE: Spiral axial unenhanced images were obtained through the cervical spine. Sagittal, coronal and 3D volume-rendered reconstructions were also reviewed. This CT exam was performed using one or more following dose reduction techniques: Automated exposure control, adjustment of the mA and/or kV according to patient size, or use of iterative reconstruction technique. FINDINGS: No fracture. Mild spondylosis C3-C7. Diffuse facet joint degenerative changes. No prevertebral soft tissue swelling. Visualized lung apices demonstrate emphysema. IMPRESSION: NO CERVICAL SPINE FRACTURE Impression dictated by: Ray George Jr., D.O.10/03/2024 12:09 PM Dictation Location: [facility] Transcribed By: [facility] 10/03/24 120 Dictated By: Ray George Jr, DO 10/03/24 120 Signed By: 10/03/24 120 Normal [facility] CT chest wo conon 10-03-2024 CT chest wo con [facility] Main [place] [address] [place] [address] CT Scan Report Signed Patient: Telma Person MR#: [id number] 9 : 1960 Acct:[id number] Age/Sex: 63 / F ADM Date: 10/03/24 Loc: ER Room: Type: [facility] ER Attending Dr: Copies to: MD Percy Birmingham MD Ordering Provider: Percy Romeo MD Date of Service: 10/03/24 CT/CT chest wo con: multiple falls CT CHEST WITHOUT IV CONTRAST: CLINICAL HISTORY: Frequent falls constipation for 5 days chest pain shortness of breath. COMPARISON: None TECHNIQUE: Spiral images were obtained through the chest without IV contrast. This CT exam was performed using one or more following dose reduction techniques: Automated exposure control, adjustment of the mA and/or kV according to patient size, or use of iterative reconstruction technique. FINDINGS: Mediastinum:Thoracic aorta demonstrates moderate calcific is without aneurysm. Pulmonary trunk appears nondilated. No pleural effusion or lymphadenopathy. The esophagus is grossly unremarkable. Moderate-sized hiatal hernia with gastric bypass changes. Lungs:Emphysema. No consolidation pneumothorax or pleural effusion. Bibasilar scarring. Abd:No acute findings. Soft tissues/Bones: No acute findings. Osseous structures demonstrate degenerative change. Nondisplaced fracture right ninth rib likely subacute. CT/CT chest wo con IMPRESSION: No acute cardiopulmonary process. Nondisplaced fracture right ninth rib likely subacute. Impression dictated by: Ray George Jr., D.OIrina10/03/2024 2:53 PM Dictation Location: [place] [address] Transcribed By: [facility] 10/03/24 1453 Dictated By: Ray George Jr, DO 10/03/24 1449 Signed By: 10/03/24 1453 Normal [facility] Calcium [Mass/volume] in Ser um or PlasmaOrdered By: Ban Boyce on 10-03-2024 Calcium [Mass/Vol] Calcium [Mass/volume ] in Serum or Plasma Low 8.6-10.3 [facility] Carbon dioxide, total [Moles /volume] in Serum or PlasmaOrdered By: Ban Boyce on 10-03-2024 CO2 [Moles/Vol] Carbon dioxide, tota l [Moles/volume] in Serum or Plasma 21.0-31.0 [facility] Cepheid COVID PCR Negativeon 10-03-2024 SARS-CoV-2 (COVID-19) RNA VICTORINO+probe Ql (Unsp spec) Negative Normal Negative [facility] Comment on above: Result Comment: This is a duplicate Cepheid Xpert Xpress CoV-2/Flu/RSV Plus RNA by RT-PCR result to be used for statistical tracking purpose only. PERFORMED BY: [place] [address] PATHOLOGIST STRANNER YULISSA MARES M.D. Performed By: #### C MP, MG, CBC #### [facility] [address] [place] [address] [place] Chloride [Moles/volume] in S papi or PlasmaOrdered By: Ban Boyce on 10-03-2024 Chloride [Moles/Vol] Chloride [Moles/vol ume] in Serum or Plasma High 98-107 [facility] Color Auto (U)Ordered By: Asia Boyce on 10-03-2024 Color (U) Color of Urine by Auto Yellow Fi [facility] Complete Blood Count Auto Di ffon 10-03-2024 Basophils (Bld) [#/Vol] 0.0 10*3/uL Normal 0.0-0.2 [facility] Comment on above: Result Comment: PERF ORMED BY: [place] [address] PATHOLOGIST STRANNER YULISSA MARES M.D. Performed By: #### C MP, MG, CBC, PHOS #### [facility] [address] [place], [place] [id number] [place] Basophils/100 WBC (Bld) 0.5 % Normal . [facility] Comment on above: Performed By: #### C MP, MG, CBC, PHOS #### [place] [id number] [place] Eosinophils (Bld) [#/Vol] 0.0 10*3/uL Normal 0.0-0.45 [facility] Comment on above: Performed By: #### C MP, MG, CBC, PHOS #### [address] Eosinophils/100 WBC (Bld) 0.6 % Normal . [facility] Comment on above: Performed By: #### C MP, MG, CBC, PHOS #### [address] Erythrocyte distribution width (RBC) [Ratio] 15.4 % High 11.9-15.3 [facility] Comment on above: Performed By: #### C MP, MG, CBC, PHOS #### [address] Hematocrit (Bld) [Volume fraction] 24.9 % Low 34.0-46.4 [facility] Comment on above: Performed By: #### C MP, MG, CBC, PHOS #### [address] Hemoglobin (Bld) [Mass/Vol] 8.0 g/dL Low 11.8-15.4 [facility] Comment on above: Performed By: #### C MP, MG, CBC, PHOS #### [address] Lymphocytes (Bld) [#/Vol] 1.5 10*3/uL Normal 1.00-4.8 [facility] Comment on above: Performed By: #### C MP, MG, CBC, PHOS #### [address] Lymphocytes/100 WBC (Bld) 21.6 % Normal . [facility] Comment on above: Performed By: #### C MP, MG, CBC, PHOS #### [address] MCH (RBC) [Entitic mass] 31.3 pg Normal 24.7-34.3 [facility] Comment on above: Performed By: #### C MP, MG, CBC, PHOS #### [address] MCV (RBC) [Entitic vol] 96.9 fL Normal 80-100 [facility] Comment on above: Performed By: #### C MP, MG, CBC, PHOS #### [address] Mean Corpuscular HGB Conc 32.3 g/dL Normal 32.0-35.0 [facility] Comment on above: Performed By: #### C MP, MG, CBC, PHOS #### [address] Monocytes (Bld) [#/Vol] 0.5 10*3/uL Normal 0.0-0.8 [facility] Comment on above: Performed By: #### C MP, MG, CBC, PHOS #### [address] Monocytes/100 WBC (Bld) 24.79 % High 0.00-20.00 [facility] Comment on above: Result Comment: For adults in ED, MDW > 20.0 may be associated with a higher risk of sepsis during the first 12 hrs of hospital admission Performed By: #### C MP, MG, CBC, PHOS #### [address] Monocytes/100 WBC (Bld) 7.5 % Normal . [facility] Comment on above: Performed By: #### C MP, MG, CBC, PHOS #### [address] Neutrophils (Bld) [#/Vol] 5.0 10*3/uL Normal 1.8-7.7 [facility] Comment on above: Performed By: #### C MP, MG, CBC, PHOS #### [address] Neutrophils/100 WBC (Bld) 69.8 % Normal . [facility] Comment on above: Performed By: #### C MP, MG, CBC, PHOS #### [address] NRBC% 0.1 /100{WBC} Normal 0-0.5 [facility] Comment on above: Performed By: #### C MP, MG, CBC, PHOS #### [address] Platelet mean volume (Bld) [Entitic vol] 8.5 fL Normal 6.3-10.7 [facility] Comment on above: Performed By: #### C MP, MG, CBC, PHOS #### [address] Platelets (Bld) [#/Vol] 383 10*3/uL Normal 150-450 [facility] Comment on above: Performed By: #### C MP, MG, CBC, PHOS #### [address] RBC (Bld) [#/Vol] 2.57 10*6/uL Low 3.60-5.00 [facility] Comment on above: Performed By: #### C MP, MG, CBC, PHOS #### [address] WBC (Bld) [#/Vol] 7.1 10*3/uL Normal 3.8-11.6 [facility] Comment on above: Performed By: #### C MP, MG, CBC, PHOS #### [address] Creatine Kinaseon 10-03-2024 CK [Catalytic activity/Vol] 27 U/L Low 30-223 [facility] Comment on above: Performed By: #### C MP, MG, CBC, PHOS #### [address] Creatine kinase [Enzymatic a ctivity/volume] in Serum or PlasmaOrdered By: Ban Boyce on 10-03-2024 CK [Catalytic activity/Vol] Creatine kinase [Enzymatic activity/volume] in Serum or Plasma Low 30-223 [facility] Creatinine [Mass/volume] in Serum or PlasmaOrdered By: Ban Boyce on 10-03-2024 Creatinine [Mass/Vol] Creatinine [Mass/v olume] in Serum or Plasma 0.60-1.20 [facility] Dipstick and Microscopicon 0 10-03-2024 Appearance (U) Cloudy Critically abnormal Clear [facility] Comment on above: Order Comment: Name Collection Type:: Clean-Voided Midstream Performed By: #### C MP, MG, CBC #### [address] Bacteria,Urine None Seen Normal None Seen [facility] Comment on above: Order Comment: Name Collection Type:: Clean-Voided Midstream Performed By: #### C MP, MG, CBC #### [address] Bilirubin,Urine Negative Normal Negative [facility] Comment on above: Order Comment: Name Collection Type:: Clean-Voided Midstream Performed By: #### C MP, MG, CBC #### [address] Color (U) Yellow Normal Yellow [facility] Comment on above: Order Comment: Name Collection Type:: Clean-Voided Midstream Performed By: #### C MP, MG, CBC #### [address] Glucose Ql (U) Normal Normal Normal [facility] Comment on above: Order Comment: Name Collection Type:: Clean-Voided Midstream Performed By: #### C MP, MG, CBC #### [address] Hyaline Casts,Urine 0 [LPF] Normal 0-8 [facility] Comment on above: Order Comment: Name Collection Type:: Clean-Voided Midstream Result Comment: PERF ORMED BY: [place] [address] PATHOLOGIST STRANNER YULISSA MARES M.D. Performed By: #### C MP, MG, CBC #### [place] [address] [place] Ketones Ql (U) Trace High Negative [facility] Comment on above: Order Comment: Name Collection Type:: Clean-Voided Midstream Performed By: #### C MP, MG, CBC #### [address] Leukocyte esterase Test strip Ql (U) 1+ High Negative [facility] Comment on above: Order Comment: Name Collection Type:: Clean-Voided Midstream Performed By: #### C MP, MG, CBC #### [address] Nitrite,Urine Negative Normal Negative [facility] Comment on above: Order Comment: Name Collection Type:: Clean-Voided Midstream Performed By: #### C MP, MG, CBC #### [address] Occult Blood,Urine Negative Normal Negative [facility] Comment on above: Order Comment: Name Collection Type:: Clean-Voided Midstream Result Comment: PERF ORMED BY: [place] [address] PATHOLOGIST STRANNER YULISSA MARES M.D. Performed By: #### C MP, MG, CBC #### [address] pH (U) 6.0 [pH] Normal 5.0-9.0 [facility] Comment on above: Order Comment: Name Collection Type:: Clean-Voided Midstream Performed By: #### C MP, MG, CBC #### [address] Protein,Urine Negative Normal Negative [facility] Comment on above: Order Comment: Name Collection Type:: Clean-Voided Midstream Performed By: #### C MP, MG, CBC #### [address] RBC,Urine 1 [HPF] Normal 0-4 [facility] Comment on above: Order Comment: Name Collection Type:: Clean-Voided Midstream Performed By: #### C MP, MG, CBC #### [facility] [address] Specificy [place],Urine 1.013 Normal 1.00 1-1.03 0 [facility] Comment on above: Order Comment: Name Collection Type:: Clean-Voided Midstream Performed By: #### C MP, MG, CBC #### [facility] [address] Squamous Epithelial Cell,Urine 5 [HPF] High 0-2 [facility] Comment on above: Order Comment: Name Collection Type:: Clean-Voided Midstream Performed By: #### C MP, MG, CBC #### [address] Urobilinogen,Urine Normal Normal Normal [facility] Comment on above: Order Comment: Name Collection Type:: Clean-Voided Midstream Performed By: #### C MP, MG, CBC #### [address] WBC,Urine 3 [HPF] Normal 0-4 [facility] Comment on above: Order Comment: Name Collection Type:: Clean-Voided Midstream Performed By: #### C MP, MG, CBC #### [address] ECG 12 lead ECGon 10-03-2024 ECG 12 lead ECG [facility] Main [place] [address] [place] [address] Electrocardiograph Report Signed Patient: Telma Person MR#: [id number] 9 : 1960 Acct:[id number] Age/Sex: 63 / F ADM Date: 10/03/24 Loc: Room: [address] [place] [address] Type: ADM IN Attending Dr: Percy Romeo MD Ordering Provider: Ban Boyce MD Date of Service: 10/03/2408/17/1029 ECG/ECG 12 lead ECG: CHEST PAIN Copies to: Test Reason : Blood Pressure : 106/59 mmHG Vent. Rate : 83 BPM Atrial Rate : 83 BPM P-R Int : 166 ms QRS Dur : 70 ms QT Int : 444 ms P-R-T Axes : 68 23 71 degrees QTcB Int : 521 ms Normal sinus rhythm Nonspecific T wave abnormality Abnormal ECG When compared with ECG of 15-Jun-2024 11:31, Nonspecific T wave abnormality, improved in Lateral leads QT has lengthened Prolonged QT Confirmed by Ban Boyce MD ([id number]) on 10/03/2024 8:58:02 PM Referred By: Electronically Signed By: Ban Boyce MD Transcribed By: MUS Signed By Ban Boyce MD 09/23 Normal [facility] Eosinophils Auto (Bld) [#/Vo l]Ordered By: Ban Boyce on 10-03-2024 Eosinophils (Bld) [#/Vol] Automated eosinophil count 0.0-0.45 [facility] Eosinophils/100 WBC Auto (Bl d)Ordered By: Ban Boyce on 10-03-2024 Eosinophils/100 WBC (Bld) Automated eosinophil % . [facility] Erythrocyte Sedimentation Ra tavon 10-03-2024 ESR (Bld) [Velocity] 68 mm/h High 0-29 [facility] Comment on above: Result Comment: PERF ORMED BY: [place] [address] PATHOLOGIST STRANNER YULISSA MARES M.D. Performed By: #### C MP, MG, CBC #### [facility] [address] [place] [address] Erythrocyte distribution wid th Auto (RBC) [Ratio]Ordered By: Ban Boyce on 10-03-2024 Erythrocyte distribution width (RBC) [Ratio] Erythrocyte distribution width [Ratio] by Automated count High 11.9-15.3 [facility] Erythrocyte sedimentation ra te by Photometric methodOrdered By: Ban Boyce on 10-03-2024 ESR Photometric method (Bld) [Velocity] Erythrocyte sedimentation rate by Photometric method High 0-29 [facility] Ferritinon 10-03-2024 Ferritin [Mass/Vol] 13.0 ng/mL Normal 11.0-306.8 [facility] Comment on above: Order Comment: ADD O N PER [facility] IN ER Performed By: #### C MP, MG, CBC, PHOS #### [facility] [address] [place] [address] [facility] Ferritin [Mass/volume] in Se rum or PlasmaOrdered By: Percy Romeo on 10-03-2024 Ferritin [Mass/Vol] Ferritin [Mass/volum e] in Serum or Plasma 11.0-306.8 [facility] Folate [Mass/volume] in Seru m or PlasmaOrdered By: Percy Romeo on 10-03-2024 Folate [Mass/Vol] Folate [Mass/volume] in Serum or Plasma Low >5.9 [facility] Comment on above: Folate reference ran ge: >5.9 ng/mlThe WHO technical consultation on folate and vitamin [id number] has determined that folate concentrations lessthan 4 ng/ml are considered deficient. Globulin Calc (S) [Mass/Vol] Ordered By: Ban Boyce on 10-03-2024 Globulin (S) [Mass/Vol] Serum globulin measurement by calculation (mass/volume) [facility] Glucose [Mass/volume] in Ser um or PlasmaOrdered By: Ban Boyce on 10-03-2024 Glucose [Mass/Vol] Glucose [Mass/volume ] in Serum or Plasma 70-100 [facility] Comment on above: ADA recommended refe rence rangeRandom Glucose Reference Range is dependent on time and content of last meal. Glucose of more than 200 mg/dL in a nonstressed, ambulatory subject supports the diagnosis of Diabetes Mellitus. Hematocrit Auto (Bld) [Volum e fraction]Ordered By: Ban Boyce on 10-03-2024 Hematocrit (Bld) [Volume fraction] Hematocrit [Volume Fraction] of Blood by Automated count Low 34.0-46.4 [facility] Hemoglobin A1c/Hemoglobin.to keke in BloodOrdered By: Abraham Flores on 10-03-2024 HbA1c (Bld) [Mass fraction] Hemoglobin A1c percentage 4.3-5.6 [facility] Comment on above: Increased risk for d iabetes: 5.7 - 6.4diabetes: >6.4glycemic control for adults with diabetes: <7.0 Hemoglobin [Mass/volume] in BloodOrdered By: Ban Boyce on 10-03-2024 Hemoglobin (Bld) [Mass/Vol] Hemoglobin [Mass/volume] in Blood Low 11.8-15.4 [facility] Hepatic Panelon 10-03-2024 Albumin [Mass/Vol] 2.2 g/dL Low 3.5-5.7 [facility] Comment on above: Performed By: #### C MP, MG, CBC #### [address] Albumin/Globulin [Mass ratio] 0.7 {ratio} Normal [facility] Comment on above: Performed By: #### C MP, MG, CBC #### [address] ALP [Catalytic activity/Vol] 84 U/L Normal 34-104 [facility] Comment on above: Performed By: #### C MP, MG, CBC #### [address] ALT [Catalytic activity/Vol] 18 U/L Normal 7-52 [facility] Comment on above: Performed By: #### C MP, MG, CBC #### [address] AST [Catalytic activity/Vol] 33 U/L Normal 13-39 [facility] Comment on above: Performed By: #### C MP, MG, CBC #### [address] Bilirubin [Mass/Vol] 0.4 mg/dL Normal 0.3-1.0 [facility] Comment on above: Performed By: #### C MP, MG, CBC #### [address] Bilirubin,Indirect 0.3 mg/dL Normal [facility] Comment on above: Performed By: #### C MP, MG, CBC #### [address] Bilirubin.indirect [Mass/Vol] 0.10 mg/dL Normal 0.03-0.18 [facility] Comment on above: Performed By: #### C MP, MG, CBC #### [address] Globulin (S) [Mass/Vol] 3.3 g/dL Normal T [facility] Comment on above: Performed By: #### C MP, MG, CBC #### [facility] [address] Protein [Mass/Vol] 5.5 g/dL Low 6.4-8.9 [facility] Comment on above: Performed By: #### C MP, MG, CBC #### [facility] [address] INR in Platelet poor plasma by Coagulation assayOrdered By: Percy Romeo on 10-03-2024 INR Coag (PPP) [Relative time] INR in Platelet poor plasma by Coagulation assay [facility] Comment on above: INR Therapeutic Rang e A) Pre- and Peroperative OAT started two weeks before surgery. NOT HIP SURGERY: 1.5 - 2.5 HIP SURGERY: 2 - 3B) Primary and secondary prevention of venous THROMBOSIS: 2 - 3C) Active venous thrombosis, pulmonary embolismand prevention of recurrent venous thrombosis: 2 - 3D) Prevention of arterial thromboembolismincluding patients with mechanical heart valves: 3 - 4.5 Iron [Mass/volume] in Serum or PlasmaOrdered By: Percy Romeo on 10-03-2024 Iron [Mass/Vol] Iron [Mass/volume] i n Serum or Plasma Low 50-212 [facility] Iron and TIBC Profileon 09-23 % Iron Saturation 11.6 % Low 20-50 [facility] Comment on above: Order Comment: ADD O N PER [facility] IN ER Performed By: #### C MP, MG, CBC, PHOS #### [facility] [address] [place] [address] Iron [Mass/Vol] 26 ug/dL Low 50-212 [facility] Comment on above: Order Comment: ADD O N PER [place] IN ER Performed By: #### C MP, MG, CBC, PHOS #### [facility] [address] [place] [address] Total Iron Binding Capacity 225 ug/dL Low 255-450 [facility] Comment on above: Order Comment: ADD O N PER [place] IN ER Performed By: #### C MP, MG, CBC, PHOS #### [address] [place] [address] [facility] Transferrin [Mass/Vol] 161 mg/dL Low 203-362 [facility] Comment on above: Order Comment: ADD O N PER [facility] IN ER Performed By: #### C MP, MG, CBC, PHOS #### [facility] [address] [place] [id number] [facility] Ketones Auto test strip (U) [Mass/Vol]Ordered By: Ban Boyce on 10-03-2024 Ketones (U) [Mass/Vol] Urine ketones antony surement by automated test strip (mass/volume) High Negative [facility] Laboratory - UrinalysisOrder ed By: Ban Boyce on 10-03-2024 Hyaline casts LM Ql (Urine sed) 0-8 [LPF] 0-8 [facility] Lactate [Moles/volume] in Se rum or PlasmaOrdered By: Percy Romeo on 10-03-2024 Lactate [Moles/Vol] Lactate [Moles/volum e] in Serum or Plasma 0.5-2.2 [facility] Lactic Acidon 10-03-2024 Lactate [Moles/Vol] 0.8 mmol/L Normal 0.5-2.2 [facility] Comment on above: Result Comment: PERF ORMED BY: [place] [address] PATHOLOGIST STRANNER YULISSA MARES M.D. Performed By: #### C MP, MG, CBC, PHOS #### [facility] [address] Leukocytes [#/volume] correc saida for nucleated erythrocytes in Blood by Automated counOrdered By: Ban Boyce on 10-03-2024 WBC corrected for nucl RBC Auto (Bld) [#/Vol] Leukocytes [#/volume] corrected for nucleated erythrocytes in Blood by Automated coun 3.8-11.6 [facility] Lipaseon 10-03-2024 Lipase [Catalytic activity/Vol] 8.0 U/L Low 11.0-82.0 [facility] Comment on above: Result Comment: PERF ORMED BY: [address] [id number] PATHOLOGIST STRANNER YULISSA MARES M.D. Performed By: #### C RAJ MG, CBC #### [facility] [address] Lipase [Enzymatic activity/v olume] in Serum or PlasmaOrdered By: Ban Boyce on 10-03-2024 Lipase [Catalytic activity/Vol] Lipase [Enzymatic activity/volume] in Serum or Plasma Low 11.0-82.0 [facility] Lymphocytes Auto (Bld) [#/Vo l]Ordered By: Ban Boyce on 10-03-2024 Lymphocytes (Bld) [#/Vol] Lymphocytes [#/volume] in Blood by Automated count 1.00-4.8 [facility] Lymphocytes/100 WBC Auto (Bl d)Ordered By: Ban Boyce on 10-03-2024 Lymphocytes/100 WBC (Bld) Lymphocytes/100 leukocytes in Blood by Automated count . [facility] MCH Auto (RBC) [Entitic mass ]Ordered By: Ban Boyce on 10-03-2024 MCH (RBC) [Entitic mass] MCH [Entitic ma ss] by Automated count 24.7-34.3 [facility] MCHC Auto (RBC) [Mass/Vol]Or dered By: Ban Boyce on 10-03-2024 MCHC (RBC) [Mass/Vol] MCHC [Mass/volume] by Automated count 32.0-35.0 [facility] MCV Auto (RBC) [Entitic vol] Ordered By: Ban Boyce on 10-03-2024 MCV (RBC) [Entitic vol] MCV [Entitic vol ume] by Automated count 80-100 [facility] [facility] Magnesiumon 10-03-2024 Magnesium [Mass/Vol] 1.9 mg/dL Normal 1.9-2.7 [facility] Comment on above: Performed By: #### C MP MG, CBC #### [facility] [address] [place], [place] [id number] [facility] Magnesium [Mass/volume] in S papi or PlasmaOrdered By: Ban Boyce on 10-03-2024 Magnesium [Mass/Vol] Magnesium [Mass/vol ume] in Serum or Plasma 1.9-2.7 [facility] Monocyte distribution width [Entitic volume] in Blood by AutomatedOrdered By: Ban Boyce on 10-03-2024 Monocyte distribution width Auto (Bld) [Entitic vol] Monocyte distribution width [Entitic volume] in Blood by Automated High 0.00-20.00 [facility] Comment on above: For adults in ED, MD W > 20.0 may be associated with a higher risk of sepsis during the first 12 hrs of hospital admission Monocytes Auto (Bld) [#/Vol] Ordered By: Ban Boyce on 10-03-2024 Monocytes (Bld) [#/Vol] Automated blood monocyte count 0.0-0.8 [facility] Monocytes/100 WBC Auto (Bld) Ordered By: Ban Boyce on 10-03-2024 Monocytes/100 WBC (Bld) Automated monocyte % . [facility] Natriuretic peptide B [Mass/ Vol]Ordered By: Ban Boyce on 10-03-2024 Natriuretic peptide B (Bld) [Mass/Vol] BNP ser/plas High 5-100 [facility] Neutrophils Auto (Bld) [#/Vo l]Ordered By: Ban Boyce on 10-03-2024 Neutrophils (Bld) [#/Vol] Neutrophils [#/volume] in Blood by Automated count 1.8-7.7 [facility] Neutrophils/100 WBC Auto (Bl d)Ordered By: Ban Boyce on 10-03-2024 Neutrophils/100 WBC (Bld) Automated neutrophil % . [facility] Nitrite Test strip Ql (U)Ord ered By: Ban Boyce on 10-03-2024 Nitrite Ql (U) Nitrite [Presence] i n Urine by Test strip Negative [facility] No Panel InformationOrdered By: Ban Boyce on 10-03-2024 Estimated GFR (CKD-EPI) > 60.0 mL/Min [facility] Creatinine Clearance (Chem 49.53 [facility] Nucleated erythrocytes [Pres ence] in Blood by Automated countOrdered By: Ban Boyce on 10-03-2024 Nucleated RBC Auto Ql (Bld) Nucleated erythrocytes [Presence] in Blood by Automated count 0-0.5 [facility] Phosphate [Mass/volume] in S papi or PlasmaOrdered By: Ban Boyce on 10-03-2024 Phosphate [Mass/Vol] Phosphate [Mass/vol ume] in Serum or Plasma 2.5-4.5 [facility] Phosphoruson 10-03-2024 Phosphate [Mass/Vol] 2.5 mg/dL Normal 2.5-4.5 [facility] Comment on above: Performed By: #### C MP, MG, CBC #### [facility] [address] Platelet mean volume Auto (B ld) [Entitic vol]Ordered By: Ban Boyce on 10-03-2024 Platelet mean volume (Bld) [Entitic vol] Platelet mean volume [Entitic volume] in Blood by Automated count 6.3-10.7 [facility] Platelets Auto (Bld) [#/Vol] Ordered By: Ban Boyce on 10-03-2024 Platelets (Bld) [#/Vol] Platelets [#/vol ume] in Blood by Automated count 150-450 [facility] Potassium [Moles/volume] in Serum or PlasmaOrdered By: Ban Boyce on 10-03-2024 Potassium [Moles/Vol] Potassium [Moles/v olume] in Serum or Plasma 3.5-5.1 [facility] Protein Auto test strip (U) [Mass/Vol]Ordered By: Ban Boyce on 10-03-2024 Protein (U) [Mass/Vol] Urine protein antony surement by automated test strip (mass/volume) Negative [facility] Protein [Mass/volume] in Ser um or PlasmaOrdered By: Ban Boyce on 10-03-2024 Protein [Mass/Vol] Protein [Mass/volume ] in Serum or Plasma Low 6.4-8.9 [facility] Prothrombin Time INRon 10-03 INR Coag (PPP) [Relative time] 1.0 {INR} Normal [facility] Comment on above: Result Comment: INR Therapeutic Range A) Pre- and Peroperative OAT started two weeks before surgery. NOT HIP SURGERY: 1.5 - 2.5 HIP SURGERY: 2 - 3 B) Primary and secondary prevention of venous THROMBOSIS: 2 - 3 C) Active venous thrombosis, pulmonary embolism and prevention of recurrent venous thrombosis: 2 - 3 D) Prevention of arterial thromboembolism including patients with mechanical heart valves: 3 - 4.5 PERFORMED BY: [facility] [address] [place] [address] PATHOLOGIST STRANNER YULISSA MARES M.D. Performed By: #### C MP, MG, CBC, PHOS #### [facility] [address] [place] [id number] [facility] PT Coag (PPP) [Time] 12.1 s Normal 9.0-12.9 [facility] Comment on above: Result Comment: A he matocrit value greater than 55% may lead to inaccurate results in coagulation testing. Patients having hematocrit values >55% require a special collection tube for coagulation studies. Please contact the laboratory at [phone] for redraw instructions. Performed By: #### C MP, MG, CBC, PHOS #### [address] [address] [facility] Prothrombin time (PT)Ordered By: Percy Romeo on 10-03-2024 PT Coag (PPP) [Time] Prothrombin time (PT) 9.0- 12.9 [facility] Comment on above: A hematocrit value g reater than 55% may lead to inaccurate results in coagulation testing. Patients having hematocrit values >55% require a special collection tube for coagulation studies. Please contact the laboratory at [phone] for redraw instructions. RBC Auto (Bld) [#/Vol]Ordere d By: Ban Boyce on 10-03-2024 RBC (Bld) [#/Vol] Erythrocytes [#/volu me] in Blood by Automated count Low 3.60-5.00 [facility] Respiratory specimen influen za A virus, influenza B virus, respiratory syncytical virOrdered By: Ban Boyce on 10-03-2024 SARS-CoV-2 (COVID-19) RNA VICTORINO+probe Ql (Unsp spec) Respiratory specimen influenza A virus, influenza B virus, respiratory syncytical vir [facility] Reticulocyte Counton 025 Reticulocyte Number 0.053 10*6/uL Normal 0.024-0 .08 4 [facility] Comment on above: Performed By: #### C MP, MG, CBC #### [facility] [address] Reticulocyte Percent 2.0 % High 0.5-1.5 [facility] Comment on above: Performed By: #### C MP, MG, CBC #### [facility] [address] Reticulocytes [#/volume] in BloodOrdered By: Ban Boyce on 10-03-2024 Reticulocytes (Bld) [#/Vol] Absolute reticulocyte count 0.024-0.08 4 [facility] Reticulocytes/100 RBC Auto ( Bld)Ordered By: Ban Boyce on 10-03-2024 Reticulocytes/100 RBC (Bld) Reticulocyte % auto High 0.5-1.5 [facility] Serum or plasma albumin/glob ulin mass ratioOrdered By: Ban Boyce on 10-03-2024 Albumin/Globulin [Mass ratio] Serum or plasma albumin/globulin mass ratio [facility] Serum or plasma anion gap de terminationOrdered By: Ban Boyce on 10-03-2024 Anion gap [Moles/Vol] Serum or plasma an ion gap determination 6.0-15.0 [facility] Serum or plasma iron binding capacity measurement (mass/volume)Ordered By: Percy Romeo on 10-03-2024 Iron binding capacity [Mass/Vol] Iron binding capacity [Mass/volume] in Serum or Plasma Low 255-450 [facility] Serum or plasma iron saturat ion measurement (mass fraction)Ordered By: Percy Romeo on 10-03-2024 Iron saturation [Mass fraction] Iron saturation [Mass Fraction] in Serum or Plasma Low 20-50 [facility] Serum or plasma non-glucuron idated bilirubin measurement (mass/volume)Ordered By: Ban Boyce on 10-03-2024 Bilirubin.indirect [Mass/Vol] Serum or plasma non-glucuronidated bilirubin measurement (mass/volume) [facility] Sodium [Moles/volume] in Ser um or PlasmaOrdered By: Ban Boyce on 10-03-2024 Sodium [Moles/Vol] Sodium [Moles/volume ] in Serum or Plasma 136-145 [facility] Specific gravity Auto test s trip (U) [Rel density]Ordered By: Ban Boyce on 10-03-2024 Specific gravity (U) [Rel density] Specific gravity of Urine by Automated test strip 1.001-1.03 0 [facility] Stool Occult Blood (Guaiac)o n 10-03-2024 Stool Occult Blood (Guaiac) Occult Blood Negative for Occult Blood by Guaiac Methodology ---- Reference range = Negative PERFORMED BY: [place] [address] PATHOLOGIST STRANNER YULISSA MARES M.D. Normal [facility] Comment on above: Performed By: #### C MP, MG, CBC #### [facility] [address] [place] [address] Stool gastrointestinal hemog lobin detectionOrdered By: Ban Boyce on 10-03-2024 Hemoglobin.gastrointesti nal Ql (Stl) Stool gastrointestinal hemoglobin detection [facility] Thyroid Stimulating Hormoneo n 10-03-2024 TSH Qn 2.23 m[IU]/L Normal 0.45-5.33 [facility] Comment on above: Order Comment: ADD O N PER LUD[facility] IN ER Result Comment: PERF ORMED BY: [address] [place] [address] PATHOLOGIST STRANNER YULISSA MARES M.D. Performed By: #### C MP, MG, CBC, PHOS #### [facility] [address] [place], [place] [id number] [facility] Thyrotropin [Units/volume] i n Serum or PlasmaOrdered By: Percy Romeo on 10-03-2024 TSH Qn Thyrotropin [Units/volume] in Serum or Plasma 0.45-5.33 [facility] Transferrin [Mass/volume] in Serum or PlasmaOrdered By: Percy Romeo on 10-03-2024 Transferrin [Mass/Vol] Transferrin [Mass /volume] in Serum or Plasma Low 203-362 [facility] Troponin I High Sensitivityo n 10-03-2024 Troponin I High Sensitivity 4.5 pg/mL Normal 0.0-15.0 [facility] Comment on above: Result Comment: PERF ORMED BY: [place] [address] PATHOLOGIST STRANNER YULISSA MARES M.D. Performed By: #### C MP, MG, CBC, PHOS #### [address] Troponin I High Sensitivity 4.4 pg/mL Normal 0.0-15.0 [facility] Comment on above: Result Comment: PERF ORMED BY: [place] [address] PATHOLOGIST STRANNER YULISSA MARES M.D. Performed By: #### C MP, MG, CBC, PHOS #### [address] Troponin I.cardiac [Mass/vol ume] in Serum or Plasma by Detection limit <= 0.01 ng/Ordered By: Ban Boyce on 10-03-2024 Troponin I.cardiac DL <= 0.01 ng/mL [Mass/Vol] Troponin I.cardiac [Mass/volume] in Serum or Plasma by Detection limit <= 0.01 ng/ 0.0-15.0 [facility] Urea nitrogen [Mass/volume] in Serum or PlasmaOrdered By: Ban Boyce on 10-03-2024 Urea nitrogen [Mass/Vol] Urea nitrogen [Mass/volume] in Serum or Plasma 7-25 [facility] Urine bacteria detection by automated methodOrdered By: Ban Boyce on 10-03-2024 Bacteria Auto Ql (U) Bacteria [Presence] in Urine by Automated None Seen [facility] Urine clarity by refractomet ry automatedOrdered By: Ban Boyce on 10-03-2024 Clarity Refractometry automated (U) Urine clarity by refractometry automated Abnormal Clear [facility] Urine glucose measurement by automated test strip (mass/volume)Ordered By: Ban Byoce on 10-03-2024 Glucose Auto test strip (U) [Mass/Vol] Urine glucose measurement by automated test strip (mass/volume) Normal [facility] Urine hemoglobin detection b y automated test stripOrdered By: Ban Boyce on 10-03-2024 Hemoglobin Auto test strip Ql (U) Urine hemoglobin detection by automated test strip Negative [facility] Urine leukocyte esterase det ection by automated test stripOrdered By: Ban Boyce on 10-03-2024 Leukocyte esterase Auto test strip Ql (U) Urine leukocyte esterase detection by automated test strip High Negative [facility] Urobilinogen Auto test strip (U) [Mass/Vol]Ordered By: Ban Boyce on 10-03-2024 Urobilinogen (U) [Mass/Vol] Urine urobilinogen measurement by automated test strip (mass/volume) Normal [facility] Vit. B12/Folate Profileon Cobalamin (Vitamin B12) [Mass/Vol] 1004 pg/mL High 180-914 [facility] Comment on above: Order Comment: ADD O N PER [facility] IN ER Performed By: #### C MP, MG, CBC, PHOS #### [facility] [address] Folate 3.9 ng/mL Low >5.9 [facility] Comment on above: Order Comment: ADD O N PER LUD[place] IN ER Result Comment: Bettie te reference range: >5.9 ng/ml The WHO technical consultation on folate and vitamin b12 deficiencies has determined that folate concentrations less than 4 ng/ml are considered deficient. Performed By: #### C MP, MG, CBC, PHOS #### [facility] [address] Vitamin B12 ser/plasOrdered By: Percy Romeo on 10-03-2024 Cobalamin (Vitamin B12) [Mass/Vol] Vitamin B12 ser/plas High 180-914 [facility] WBC Auto (Bld) [#/Vol]Ordere d By: Ban Boyce on 10-03-2024 WBC (Bld) [#/Vol] Leukocytes [#/volume ] in Blood by Automated count 3.8-11.6 [facility] X-ray reportOrdered By: Braydon George on 10-03-2024 Study report [facility] [place] [address] XRay Report Signed Patient: Telma Person MR#: [id number] : 1960 Acct:[id number] Age/Sex: 63 / F ADM Date: 5 Loc: ER Room: Type: [facility] ER Attending Dr: Copies to: Ban Boyce MD~ Ordering Provider: Ban Boyce MD Date of Service: 10/03/24 XR/XR chest 2V*: Chest Pain Chest 2 views CLINICAL HISTORY: Falls. Lightheaded. COMPARISON: Chest 06/15/2024 FINDINGS: Heart normal in size. Lungs are clear. No free air. No displaced rib fractureis seen. XR/XR chest 2V* IMPRESSION: NO ACUTE CARDIOPULMONARY ABNORMALITY. Impression dictated by: Ray George Jr., D.O.10/03/2024 12:34 PM Dictation Location: RADIO-PC-18 Transcribed By: [facility] 10/03/24 1234 Dictated By: Ray George Jr, DO 10/03/24 1233 Signed By: 10/03/24 1234 [facility] XR chest 2V*on 10-03-2024 XR chest 2V* [place] [id number] XRay Report Signed Patient: Telma Person MR#: [id number] : 1960 Acct:[id number] Age/Sex: 63 / F ADM Date: 10/03/24 Loc: ER Room: Type: [facility] ER Attending Dr: Copies to: Ban Boyce MD Ordering Provider: Ban Boyce MD Date of Service: 10/03/24 XR/XR chest 2V*: Chest Pain Chest 2 views CLINICAL HISTORY: Falls. Lightheaded. COMPARISON: Chest 06/15/2024 FINDINGS: Heart normal in size. Lungs are clear. No free air. No displaced rib fracture is seen. XR/XR chest 2V* IMPRESSION: NO ACUTE CARDIOPULMONARY ABNORMALITY. Impression dictated by: Ray George Jr., D.O.10/03/2024 12:34 PM Dictation Location: [facility]-18 Transcribed By: [facility] 10/03/24 1234 Dictated By: Ray George Jr, DO 10/03/24 1233 Signed By: 10/03/24 1234 Normal [facility] pH Auto test strip (U)Ordere d By: Ban Boyce on 10-03-2024 pH (U) Urine pH measurement by automated test strip 5.0-9.0 [facility] EMG 2 Extremitieson 08-13-20 [facility] NVC 9-10 Nerveson 08-13-2024 [facility] CBC W Auto Differential pane l (Bld)on 07-07-2024 Basophils (Bld) [#/Vol] 10*3/uL Normal <0.11 [facility] Comment on above: Order Comment: Speci men Type: BLOOD SPECIMENOrdering Facility: [facility] Address: [address] [place] [address] Performed By: #### 5 7021-8 ####[facility] [id number] [place] [address] [place] Basophils/100 WBC (Bld) 0.3 % Normal [facility] Comment on above: Order Comment: Speci men Type: BLOOD SPECIMENOrdering Facility: [facility] Address: [address] [place] [address] Performed By: #### 5 7021-8 ####[facility] [id number] [place] [address] [place] Differential cell count method Nom (Bld) Auto Normal [facility] Comment on above: Order Comment: Speci men Type: BLOOD SPECIMENOrdering Facility: [facility] Address: [address] [place] [address] Performed By: #### 5 7021-8 ####[facility] [id number] [place] [address] [place] Eosinophils (Bld) [#/Vol] 0.06 10*3/uL Normal <0.46 [facility] Comment on above: Order Comment: Speci men Type: BLOOD SPECIMENOrdering Facility: [facility] Address: [address] [place] [address] Performed By: #### 5 7021-8 ####[facility] [id number] [place] [address] [place] Eosinophils/100 WBC (Bld) 0.9 % Normal [facility] Comment on above: Order Comment: Speci men Type: BLOOD SPECIMENOrdering Facility: [facility] Address: [address] [place] [address] Performed By: #### 5 7021-8 ####[facility] [id number] [place] [address] [place] Erythrocyte distribution width (RBC) [Ratio] 15.4 % High 11.5-15.0 [facility] Comment on above: Order Comment: Speci men Type: BLOOD SPECIMENOrdering Facility: [facility] Address: [address] [place] [address] Performed By: #### 5 7021-8 ####[facility] [id number] [place] [address] [place] Hematocrit (Bld) [Volume fraction] 27.9 % Low 36.0-46.0 [facility] Comment on above: Order Comment: Speci men Type: BLOOD SPECIMENOrdering Facility: [facility] Address: [address] [place] [address] Performed By: #### 5 7021-8 ####[facility] [id number] [place] [address] [place] Hemoglobin (Bld) [Mass/Vol] 9.1 g/dL Low 11.5-15.5 [facility] Comment on above: Order Comment: Speci men Type: BLOOD SPECIMENOrdering Facility: [facility] Address: [address] [place] [address] Performed By: #### 5 7021-8 ####[facility] [id number] [place] [address] [place] Immature granulocytes (Bld) [#/Vol] 0.04 10*3/uL Normal <0.10 [facility] Comment on above: Order Comment: Speci men Type: BLOOD SPECIMENOrdering Facility: [facility] Address: [address] [place] [address] Performed By: #### 5 7021-8 ####[facility]ORYCLIA [id number] [place] [address] [place] Immature granulocytes/100 WBC (Bld) 0.6 % Normal [facility] Comment on above: Order Comment: Speci men Type: BLOOD SPECIMENOrdering Facility: [facility] Address: [address] [place] [address] Performed By: #### 5 7021-8 ####[facility] [id number] [place] [address] [place] Lymphocytes (Bld) [#/Vol] 1.20 10*3/uL Normal 1.00-4.00 [facility] Comment on above: Order Comment: Speci men Type: BLOOD SPECIMENOrdering Facility: [facility] Address: [address] [place] [address] Performed By: #### 5 7021-8 ####[facility] [id number] [place] [id number] [place] Lymphocytes/100 WBC (Bld) 18.8 % Normal [facility] Comment on above: Order Comment: Speci men Type: BLOOD SPECIMENOrdering Facility: [facility] Address: [address] [place] [address] Performed By: #### 5 7021-8 ####[facility] [id number] [place] [address] [place] MCH (RBC) [Entitic mass] 39.9 pg High 26.0-34.0 [facility] Comment on above: Order Comment: Speci men Type: BLOOD SPECIMENOrdering Facility: [facility] Address: [address] [place] [address] Performed By: #### 5 7021-8 ####[facility]ATORYCLIA [id number] [place] [address] [place] MCHC (RBC) [Mass/Vol] 32.6 g/dL Normal 30.5-36.0 [facility] Comment on above: Order Comment: Speci men Type: BLOOD SPECIMENOrdering Facility: [facility] Address: [address] [place] [address] Performed By: #### 5 7021-8 ####[facility]ATORYCLIA [id number] [place] [address] [place] MCV (RBC) [Entitic vol] 122.4 fL High 80.0-100.0 [facility] Comment on above: Order Comment: Speci men Type: BLOOD SPECIMENOrdering Facility: [facility] Address: [address] [place] [address] Performed By: #### 5 7021-8 ####[facility] [id number] [place] [address] [place] Monocytes (Bld) [#/Vol] 0.61 10*3/uL Normal <0.87 [facility] Comment on above: Order Comment: Speci men Type: BLOOD SPECIMENOrdering Facility: [facility] Address: [address] [place] [address] Performed By: #### 5 7021-8 ####[facility] [id number] [place] [id number] [place] Monocytes/100 WBC (Bld) 9.6 % Normal [facility] Comment on above: Order Comment: Speci men Type: BLOOD SPECIMENOrdering Facility: [facility] Address: [address] [place] [address] Performed By: #### 5 7021-8 ####[facility] [id number] [place] [id number] [place] Neutrophils (Bld) [#/Vol] 4.45 10*3/uL Normal 1.45-7.50 [facility] Comment on above: Order Comment: Speci men Type: BLOOD SPECIMENOrdering Facility: [facility] Address: [address] [place] [address] Performed By: #### 5 7021-8 ####[facility] [id number] [place] [address] [place] Neutrophils/100 WBC (Bld) 69.8 % Normal [facility] Comment on above: Order Comment: Speci men Type: BLOOD SPECIMENOrdering Facility: [facility] Address: [address] [place] [address] Performed By: #### 5 7021-8 ####[facility] [id number] [place] [address] [place] Nucleated RBC (Bld) [#/Vol] 10*3/uL Normal <0.01 [facility] Comment on above: Order Comment: Speci men Type: BLOOD SPECIMENOrdering Facility: [facility] Address: [address] [place] [address] Performed By: #### 5 7021-8 ####[facility] [id number] [place] [address] [place] Nucleated RBC/100 WBC (Bld) [Ratio] 0.0 /100 WBC Normal [facility] Comment on above: Order Comment: Speci men Type: BLOOD SPECIMENOrdering Facility: [facility] Address: [address] [place] [address] Performed By: #### 5 7021-8 ####[facility] [id number] [place] [address] [place] Platelet mean volume (Bld) [Entitic vol] 9.5 fL Normal 9.0-12.7 [facility] Comment on above: Order Comment: Speci men Type: BLOOD SPECIMENOrdering Facility: [facility] Address: [address] [place] [address] Performed By: #### 5 7021-8 ####[facility] [id number] [place] [address] [place] Platelets (Bld) [#/Vol] 365 10*3/uL Normal 150-400 [facility] Comment on above: Order Comment: Speci men Type: BLOOD SPECIMENOrdering Facility: [facility] Address: [address] [place] [address] Performed By: #### 5 7021-8 ####[facility] [id number] [facility] [place] [place] [address] [place] Platelets Estimate (Bld) [#/Vol] Adequate Normal [facility] Comment on above: Order Comment: Speci men Type: BLOOD SPECIMENOrdering Facility: [facility] [facility] Address: [address] [place] [address] Performed By: #### 5 7021-8 ####[facility] [id number] [place] [address] [place] RBC (Bld) [#/Vol] 2.28 10*6/uL Low 3.90-5.20 [facility] Comment on above: Order Comment: Speci men Type: BLOOD SPECIMENOrdering Facility: [facility] Address: [address] [place] [address] Performed By: #### 5 7021-8 ####[facility] [id number] [place] [address] [facility] CT RED CELL MORPH Reviewed: unremarkable Normal [facility] Comment on above: Order Comment: Speci men Type: BLOOD SPECIMENOrdering Facility: [facility] Address: [address] [place] [address] Performed By: #### 5 7021-8 ####[facility] [id number] [place] [address] [place] WBC (Bld) [#/Vol] 6.38 10*3/uL Normal 3.70-11.00 [facility] Comment on above: Order Comment: Speci men Type: BLOOD SPECIMENOrdering Facility: [facility] Address: [address] [place] [address] Performed By: #### 5 7021-8 ####[facility] [id number] [place] [address] [place] CTA ABD/PEL/LOWER EXT W IVCO Non 07-07-2024 CTA ABD/PEL/LOWER EXT W IVCON * * *Final Report* * * DATE OF EXAM: Jul 07 2024 3:30PM [facility] 0122 - CTA ABD/PEL/LOWER EXT W IVCON / PROCEDURE REASON: Claudication or leg ischemia * * * * Physician Interpretation * * * * EXAMINATION: CTA ABDOMEN AND PELVIS, INCLUDING LOWER EXTREMITY RUN-OFF, WITH CONTRAST, WITH 3-D RECONSTRUCTIONS HISTORY: Claudication or leg ischemia TECHNIQUE: Spiral CT acquisition following bolus infusion of IV iodinated contrast. 2-D and 3-D reconstructions were also provided using a separate workstation. Dose reduction techniques were employed. Contrast: IV: 120 mL of Omnipaque 350 CT Radiation dose: Integrated Dose-length product (DLP) for this visit = 892 mGy*cm. CT Dose Reduction Employed: Automated exposure control(AEC) and iterative recon COMPARISON: None. RESULT: Vasculature: Aortoiliac arteries: Minimal scattered calcific atherosclerosis in the abdominal aorta extending into bilateral iliac arteries. No evidence of aneurysm, pseudoaneurysm, dissection, or hemodynamically significant stenosis. Right lower extremity: SENIOR MICROSTRATEGY DEVELOPER: Within normal limits. SFA: Within normal limits. Profunda: Within normal limits. Popliteal: Within normal limits. AT: Within normal limits. PT: Within normal limits. Peroneal: Within normal limits. Left lower extremity: SENIOR MICROSTRATEGY DEVELOPER: Within normal limits. SFA: Within normal limits. Profunda: Within normal limits. Popliteal: Within normal limits. AT: Within normal limits. PT: Within normal limits. Peroneal: Within normal limits. Lung Bases: Bibasilar patchy groundglass opacities of infection/inflammatory etiology likely. Hiatal hernia. Abdomen and pelvis: Single phase arterial images are not optimized to interrogate solid organs. Liver: Hepatic steatosis. No mass. Normal morphology. Biliary: No bile duct dilation. Gallbladder is absent. Spleen: No mass. No splenomegaly. Pancreas: No mass or duct dilation. Adrenals: No mass. Kidneys: Normal appearance. Bladder is unremarkable. GI tract: No dilation or wall thickening. Lymph nodes: No abdominal or pelvic lymphadenopathy. Mesentery/Peritoneum: No free air or fluid collection. Pelvis: No masses identified. Bones/Soft Tissues: Mild degenerative changes in the visualized lower thoracic spine. No aggressive or concerning osseous lesions. IMPRESSION: Vascular: Patent inflow and bilateral lower extremity arterial perfusion. Three-vessel runoff to bilateral ankles. Bibasilar patchy groundglass opacities, correlate with clinical concerns for infectious/inflammatory processes. Broke Beater Operator: FRANDY Transcribe Date/Time: Jul 07 2024 4:09P Dictated by : MARY LUKE MD This examination was interpreted and the report reviewed and electronically signed by: MARY LUKE MD on Jul 07 2024 4:59PM EST [id number] Normal [facility] Comprehensive metabolic 2000 panelon 07-07-2024 Albumin [Mass/Vol] 2.8 g/dL Low 3.9-4.9 [facility] Comment on above: Order Comment: Speci men Type: BLOOD SPECIMEN [facility] Address: [address] [place] [address] Performed By: #### 3 3762-6, , #### [facility] CLIA [id number] [address] [place] [address] [place] ALP [Catalytic activity/Vol] 118 U/L Normal 34-123 [facility] Comment on above: Order Comment: Speci men Type: BLOOD SPECIMEN [facility] Facility[facility] Address: [address] [place] [address] Performed By: #### 3 3762-6, , #### [facility] CLIA [id number] [address] [place] [address] [place] ALT [Catalytic activity/Vol] 29 U/L Normal 7-38 [facility] Comment on above: Order Comment: Speci men Type: BLOOD SPECIMEN [facility]ing [facility]: [facility] Address: [address] [place] [address] Performed By: #### 3 3762-6, , #### [facility] CLIA [id number] [address] [place] [address] [place] Anion gap [Moles/Vol] 5 mmol/L Low -15 [facility] Comment on above: Order Comment: Speci men Type: BLOOD SPECIMEN [facility]ing [facility]: [facility] Address: [address] [place] [address] Performed By: #### 3 3762-6, , #### [facility] CLIA [id number] [address] [place] [address] [place] AST [Catalytic activity/Vol] 65 U/L High 13-35 [facility] Comment on above: Order Comment: Speci men Type: BLOOD SPECIMEN [facility]ing [facility] Address: [address] [place] [address] Performed By: #### 3 3762-6, , #### [facility] CLIA [id number] [address] [place] [address] [place] Bilirubin [Mass/Vol] 0.5 mg/dL Normal 0.2-1.3 [facility] Comment on above: Order Comment: Speci men Type: BLOOD SPECIMEN [facility]ing [facility]: [facility] Address: [address] [place] [address] Performed By: #### 3 3762-6, , #### [facility] CLIA [id number] [address] [place] [address] [place] Calcium [Mass/Vol] 8.4 mg/dL Low 8.5-10.2 [facility] Comment on above: Order Comment: Speci men Type: BLOOD SPECIMEN [facility]ing [facility] Address: [address] [place] [address] Performed By: #### 3 3762-6, , #### [facility] CLIA [id number] [address] [place] [address] [place] Chloride [Moles/Vol] 107 mmol/L Normal 98-107 [facility] Comment on above: Order Comment: Speci men Type: BLOOD SPECIMEN [facility]ing Facility: [facility] Address: [address] [place] [address] Performed By: #### 3 3762-6, , #### [facility] CLIA [id number] [facility] [place] [address] [place] CO2 [Moles/Vol] 27 mmol/L Normal 22-30 [facility] Comment on above: Order Comment: Speci men Type: BLOOD SPECIMEN [facility]ing Facility: [facility] Address: [address] [place] [address] Performed By: #### 3 3762-6, , #### [facility] CLIA [id number] [address] [place] [address] [place] Creatinine [Mass/Vol] 0.47 mg/dL Low 0.58-0.96 [facility] Comment on above: Order Comment: Speci men Type: BLOOD SPECIMEN [facility] Address: [address] [place] [address] Performed By: #### 3 3762-6, , #### [facility] CLIA [id number] [address] [place] [address] [place] Creatinine and Glomerular filtration rate.predicted panel (S/P/Bld) 108 mL/min/1.73m??? Normal >=60 [facility] Comment on above: Order Comment: Speci men Type: BLOOD SPECIMEN [facility]: [facility] Address: [address] [place] [address] Result Comment: Sandra mated Glomerular Filtration Rate (eGFR) is calculated using the 2020 CKD-EPI creatinine equation. This equation utilizes serum creatinine, sex, and age as parameters. The creatinine assay has traceable calibration to isotope dilution-mass spectrometry. Refer to KDIGO guidelines for clinical interpretation. In patients with unstable renal function, e.g. those with acute kidney injury, the eGFR may not accurately reflect actual GFR. Performed By: #### 3 3762-6, , #### [facility] CLIA [id number] [facility] [address] [place] Glucose [Mass/Vol] 90 mg/dL Normal 74-99 [facility] Comment on above: Order Comment: Speci men Type: BLOOD SPECIMEN [facility]ing Facility: [facility] Address: [address] [place], [place] [address] Result Comment: The [place] Diabetes [employer] (ADA) provides guidance for cutoff values for fasting glucose and random glucose. The ADA defines fasting as no caloric intake for at least 8 hours. Fasting plasma glucose results between 100 to 125 mg/dL indicate increased risk for diabetes (prediabetes). Fasting plasma glucose results greater than or equal to 126 mg/dL meet the criteria for diagnosis of diabetes. In the absence of unequivocal hyperglycemia, results should be confirmed by repeat testing. In a patient with classic symptoms of hyperglycemia or hyperglycemic crisis, random plasma glucose results greater than or equal to 200 mg/dL meet the criteria for diagnosis of diabetes. Reference: Standards of Medical Care in Diabetes 2016, [place] [employer]. Diabetes Care. 2016.39(Suppl 1). Performed By: #### 3 3762-6, , #### [facility] CLIA [id number] [address] [place] [address] [place] Potassium [Moles/Vol] 3.8 mmol/L Normal 3.7-5.1 [facility] Comment on above: Order Comment: Speci men Type: BLOOD SPECIMEN Order[facility] Facility: [facility] Address: [address] [place], [place] [address] Performed By: #### 3 3762-6, , #### [facility] CLIA [id number] [address] [place] [address] [place] Protein [Mass/Vol] 5.9 g/dL Low 6.3-8.0 [facility] Comment on above: Order Comment: Speci men Type: BLOOD SPECIMEN [facility]ing [facility]: [facility] Address: [address] [place], [place] [address] Performed By: #### 3 3762-6, , #### [facility] CLIA [id number] [address] [place] [address] [place] Sodium [Moles/Vol] 139 mmol/L Normal 136-144 [facility] Comment on above: Order Comment: Speci men Type: BLOOD SPECIMEN [facility] Facility: [facility] Address: [address] [place] [address] Performed By: #### 3 3762-6, 42746-7, 77309-1 #### [facility] CLIA [id number] [address] [facility] [place] [address] [place] [address] Urea nitrogen [Mass/Vol] 13 mg/dL Normal 7-21 [facility] Comment on above: Order Comment: Speci men Type: BLOOD SPECIMEN [facility] Address: [address] [place] [address] Performed By: #### 3 3762-6, 03065-5, 06759-5 #### [facility] CLIA [id number] [address] [place] [address] [facility] [address] ED NOTEon 07-07-2024 ED NOTE HNO ID: [id number] Author: STACEY MALONE RN Service: ? Author Type: Registered Nurse Type: ED Notes Filed: 07/07/2024 17:40 Note Text: Pt discharge information reviewed with pt including follow up care, prescribed medication, and when to return to department. Pt verbalized understanding of information, had no further questions or concerns. Pt IV removed intact, site dressed. Pt ambulated out of department with spouse. Normal [facility] ED PROV NOTEon 07-07-2024 ED PROV NOTE HNO ID: [id number] Author: CHALINO TELLES MD Service: ? Author Type: Physician Type: ED Provider Notes Filed: 07/07/2024 17:17 Note Text: ED CONTINUATION OF CARE NOTE Code Status: Full Code Assumed care from: Dr. Marshall Presentation / Findings / Interventions / Plan / Items to Follow Up: CTA imaging, disposition ED Course as of 07/07/24 1714 Others' Documentation Tue Jul 07, 2024 1318 COMPREHENSIVE METABOLIC PANEL (BMP+LFT)(!): Protein, Total 5.9(!) Albumin 2.8(!) Calcium 8.4(!) Bilirubin, Total 0.5 Alkaline Phosphatase 118 AST 65(!) ALT 29 Glucose 90 BUN 13 Creatinine 0.47(!) Sodium 139 Potassium 3.8 Chloride 107 CO2 27 Anion Gap 5(!) eGFR 108 Low albumin. Normal renal function and no clinically significant electrolyte derangements [HE] 1319 CBC + AUTO DIFF(!): WBC 6.38 RBC 2.28(!) Hemoglobin 9.1(!) Hematocrit 27.9(!) MCV 122.4(!) MCH 39.9(!) MCHC 32.6 RDW-CV 15.4(!) Platelet Count 365 MPV 9.5 Neut% 69.8 Abs Neut (ANC) 4.45 Lymph% 18.8 Abs Lymph 1.20 [place]% 9.6 Abs [place] 0.61 Eosin% 0.9 Abs Eosin 0.06 Baso% 0.3 Abs Baso <0.03 Immature Gran % 0.6 IMMATURE GRANS (ABS) 0.04 NRBC 0.0 Absolute nRBC <0.01 Platelet Estimate Adequate Red Cell Morph Reviewed: unremarkable DTYPE Auto Anemic to 9.1, 3 g drop in 2 months. No anemia or thrombocytopenia [HE] 1410 Magnesium(!): Magnesium 1.6(!) Low, will replete [HE] 1453 NT Pro BNP(!): NT Pro BNP 594(!) Elevated w/o prior for comparison [HE] 1558 Vitamin B12: Vitamin B12 584 Appropriate [HE] ED Course User Index [HE] Kristine Salas DO Clinical Impressions as of 07/07/24 1714 Other polyneuropathy Bilateral leg pain Vaginal jon Medical Decision Making Patient turned over to me by previous emergency department physician. CT imaging of lower extremity shows no acute vascular occlusion or other acute surgical process. Will make her follow-up with vascular medicine given her reported claudication type symptoms. She has palpable 2+ DP pulses symmetrically and low lower extremities. She requested a dose of Diflucan due to some concern for vaginal candidiasis and states she has tolerated this in the past. CT imaging describes some groundglass opacities, she has known COPD without acute change in her symptoms reported. Discussed etiologies of her lower extremity symptoms including neuropathy, musculoskeletal issue, and vascular issue. She understands signs and symptoms to return with and importance of close follow-up with primary care as well as referred specialist. Patient discharged in stable condition. SIGNATURE: Chalino Telles MD PATIENT NAME: Telma Person DATE: July 07, 2024 TIME: 5:14 PM PAGER/CONTACT #: CHALINO TELLES 07/07/24 1717 [facility] ED PROV NOTE HNO ID: [id number] Author: KRISTINE SALAS DO Service: Emergency Medicine Author Type: Physician Type: ED Provider Notes Filed: 07/07/2024 16:08 Note Text: ED Provider Note Patient Name: Telma Person : 1960 SERVICE DATE: 07/07/24 History Patient presents with: Numbness Leg Pain: X 1 month HPI Telma Person is a 63 F with PMHx tobacco use, COPD, EtOH use, presents to the ED for 2 months of progressive BLE pain, swelling, and difficulty walking. Mbqe-vnf-heortmw pain in her toes and feet. Has significant intermittent pain in her calves and feet only present with walking. She also has intermittent cramping in her thighs that is also exacerbated with walking. Has been seen at 2 outside ED's where she was prescribed Doxy for cellulitis across the top of her feet. She was also told she has neuropathy and was prescribed gabapentin, taking 300 mg twice daily. Pain not improved. Denies back pain, saddle anesthesia, focal numbness/weakness, falls. Feels off balance, but no gait instability. She thinks it is due to the tingling. Has also previously been told she has low folate and B12 but was not prescribed or told to take supplements. PAST MEDICAL HISTORY Diagnosis Date Chronic obstructive pulmonary disease (COPD) (HCC) PAST SURGICAL HISTORY Procedure Laterality Date APPENDECTOMY HX GASTRIC BYPASS HX HYSTERECTOMY HX No family history on file. Social History Tobacco Use Smoking status: Every Day Types: Cigarettes Smokeless tobacco: Not on file Vaping Use Vaping status: current everyday user Substance and Sexual Activity Alcohol use: Yes Comment: bottle of wine per day Drug use: Never Sexual activity: Not on file ALLERGIES Allergen Reactions Bactrim [Sulfametho* Unknown Review of Systems Constitutional: Negative for fever. HENT: Negative for congestion and sore throat. Eyes: Negative for pain. Respiratory: Negative for shortness of breath. Cardiovascular: Negative for chest pain. Gastrointestinal: Negative for abdominal pain, diarrhea, nausea and vomiting. Genitourinary: Negative for dysuria. Musculoskeletal: Positive for gait problem. Skin: Negative for rash. Neurological: Negative for weakness and numbness. +tingling Physical Exam Vitals [07/07/24 1001] BP Pulse Temp Temp src Resp SpO2 Weight Height (!) 115/47 84 36.7 ?C (98.1 ?F) Oral 16 100 % -- -- Physical Exam Constitutional: General: She is not in acute distress. Appearance: She is not ill-appearing or toxic-appearing. HENT: Head: Normocephalic. Nose: Nose normal. Mouth/Throat: Mouth: Mucous membranes are moist. Eyes: General: No scleral icterus. Conjunctiva/sclera: Conjunctivae normal. Cardiovascular: Rate and Rhythm: Normal rate and regular rhythm. Heart sounds: No murmur heard. Comments: 1+ DPs bilaterally Pulmonary: Effort: Pulmonary effort is normal. No respiratory distress. Breath sounds: No wheezing or rhonchi. Abdominal: Palpations: Abdomen is soft. Tenderness: There is no abdominal tenderness. There is no guarding or rebound. Musculoskeletal: Cervical back: Normal range of motion and neck supple. Right lower leg: Edema present. Left lower leg: Edema present. Comments: 2+ pitting edema to legs to level of villanueva Skin: General: Skin is warm and dry. Capillary Refill: Capillary refill takes less than 2 seconds. Coloration: Skin is not jaundiced. Findings: No rash. Neurological: General: No focal deficit present. Mental Status: She is alert and oriented to person, place, and time. Sensory: No sensory deficit. Motor: No weakness. Coordination: Coordination normal. Gait: Gait normal. Psychiatric: Mood and Affect: Mood normal. Diagnostic Testing ED Labs Ordered and Reviewed COMPREHENSIVE METABOLIC PANEL - Abnormal; Notable for the following components: Result Value Ref Range Protein, Total 5.9 (*) 6.3 - 8.0 g/dL Albumin 2.8 (*) 3.9 - 4.9 g/dL Calcium, Total 8.4 (*) 8.5 - 10.2 mg/dL AST 65 (*) 13 - 35 U/L Creatinine 0.47 (*) 0.58 - 0.96 mg/dL Anion Gap 5 (*) 8 - 15 mmol/L All other components within normal limits COMPLETE BLOOD COUNT AND DIFFERENTIAL - Abnormal; Notable for the following components: RBC 2.28 (*) 3.90 - 5.20 m/uL Hemoglobin 9.1 (*) 11.5 - 15.5 g/dL Hematocrit 27.9 (*) 36.0 - 46.0 % MCV 122.4 (*) 80.0 - 100.0 fL MCH 39.9 (*) 26.0 - 34.0 pg RDW-CV 15.4 (*) 11.5 - 15.0 % All other components within normal limits Narrative: This is an appended report. These results have been appended to a previously verified report. Procedures ED Course / Clinical Impression ED Course as of 07/07/24 1605 Kristine Salas's Documentation Tue Jul 07, 2024 1318 COMPREHENSIVE METABOLIC PANEL (BMP+LFT)(!): Protein, Total 5.9(!) Albumin 2.8(!) Calcium 8.4(!) Bilirubin, Total 0.5 Alkaline Phosphatase 118 AST 65(!) ALT 29 Glucose 90 BUN 13 Creatinine 0.47 (more content not included)... Normal [facility] ED Triage Noteon 07-07-2024 ED Triage Note HNO ID: [id number] Author: REGIS PAREDES MD Service: Emergency Medicine Author Type: Physician Type: ED Triage Notes Filed: 07/07/2024 10:03 Note Text: ED INTAKE NOTE Patient Name: Telma Person Service Date: 07/07/24 BRIEF HPI: This is a 63 year old female who presents to the ED with: This is a female with leg pain and weakness for a month without any trauma. No swelling currently. BRIEF EXAM: Awake and Alert Non labored breathing INITIAL WORKUP AND DECISION MAKING: Orders Placed This Encounter COMPREHENSIVE METABOLIC PANEL (BMP+LFT) CBC + AUTO DIFF Provider examination performed via virtual platform with assistance from bedside clinician. SIGNATURE: Regis Paredes MD [facility] Magnesium SerPl-mCncon 07-07 Magnesium [Mass/Vol] 1.6 mg/dL Low 1.7-2.3 [facility] Comment on above: Order Comment: Speci men Type: BLOOD SPECIMEN [facility] Facility[facility] Address: [address] [place] [address] Performed By: #### 3 3762-6, 45452-8, 10700-1 #### [facility] CLIA [id number] [facility]. [address] NT-proBNP [facility] 07-07 Natriuretic peptide.B prohormone N-Terminal [Mass/Vol] 594 pg/mL High <125 [facility] Comment on above: Order Comment: Speci men Type: BLOOD SPECIMEN Ordering Facility: [facility] Address: [address] [place] [address] Performed By: #### 3 3762-6, 69666-4, 94364-9 #### [facility] CLIA [id number] Vit B12 [facility] 024 Cobalamin (Vitamin B12) [Mass/Vol] 584 pg/mL Normal 232-1245 [facility] Comment on above: Order Comment: Speci men Type: BLOOD SPECIMEN Ordering Facility: [facility] Address: [address] [place] [address] Performed By: #### 2 132-9 #### [facility] CLIA [id number] [facility]. [address] [place] Coding Summaryon 06-16-2024 Coding Summary HTMLBase 64 UkddrsaiMBo2aQz+PGhlYWQ+P K9GDZYyE32nzVDylI0xB3ISAK lOSywgQVBQTElOSyIgbmFtZT1 kaXNjZXJu IC8+AJ1nUHLpPwaajZBtm6A4i LN4A79ewx6gJFhrjWE0AMDqSw Hlkmzcx1hydTb7DHvfZncqCzL t NTHcvF87SXP9oG25Zp61uQQod SVcm6rhaWp8DpBvDSNqZGZ9aC waKUozx0OqGVEaM31cmUTnk3G 6 OAHyrQqigWAvAnXfzVQ1wE7nB Sscrthfo1sbbsusJkm4by58sZ Qvf3A8rRL0S6WqmbX2NUYctNL g FwlodGAHmL0rumgrf0kfxjmeV aXlVRKnKCq1MVe5EPChxEbdRo IuLL21HCM7LDRhohCgD6CyTVY s vDtmUoM9w2C0Lw3BS3FCMowgD 1VNTUFSWTwvdGQ+TW73ry72K7 KgRdajXzp3LOXwDGX7iBP8nY4 n PIVeBCihx3R9kSV2X9AomjFyp v3vz7qqSJDfVIbqS16vkQUnj5 A8ZHAupGV0SWKytDvmWeKjgH8 3 Oyc+TGCkcUmzq4YyNkzlc4gso 7krqSe7NtloKTYgnzVjrOimZU E6b8LzEq7sJRMghXO8pBQ0vP5 i YhGlHhP7FZwmL200UaBfyBWjE euzM52eI9JpzBE+XXQaUbf3GA JpfNdmNY0uE1YjSCBkwxrrzUW m qRdmQZ5iSPXubuhrKZXzqU7cL PXiV1n7ErChFfW5WHspH1NpIZ RoklqnCa09cM1kXwZbHpQ1LJh u F3IvpqW8TZSlgCAvQUmdQSR2T 61vi6U8ZXSwKMMrBDF7eAI7lV 1hbGlnbjogbGVmdDsgdmVydGl j QZytGEoyI927BILtbEpzUyMkS GluZyBEYXRlOiAgMDkvMjQvMj AyNDwvdGQ+IBSrBBF0kYnbXRX n pLZcSRvtNk7hpHumkBhqMJ6aW SXaangyUMGigH4fDBBnqWTuwL ijMV9tNOPooqcbx481ZbHmJUP 0 QKQjvLXpZ3TmsP2vFiFjWUSxC WEkP0EnfAAzJYulT738IMpwEn P2OCQabfSpF9ItJYMqyBljGaF 0 l7E0Jf6Em3WfyfjrK0JblERyQ bYkNfrnCIk0D2SvBfecfVV+PC 46TJFjGX24BEx6TFN0tGduDZm i IVUmK1CrjU8vNuXuERElKNHpE yc+PHRhYmxlIHdpZHRoPScxMD NcYbFweCixEH0pLf9xVAQxPFK v bRxtvCUbMsApm5foONWgGAvgR I5gvGkfF0CslMB7TBZii6a2Bb 10R04zB6JfyUW+LEAvaKM1xEV 0 hE0yIvNqOcL0IBtsD753KzKdb GCnPdyqk9jwq7gtjLi1ZxB1PN WqklAavJelDGK3h2KtVa50S89 s IHdpZHRoPSIxNSUiIHZhbGlnb a3tnK2tNx9+MLWuiQP8oJX8gD 4zLqCnXuL0JPzdV101QvXujZQ v Dklwo1jor2unoNe3WrYhCEWtd dMujAftYNR3o3HzGd02U0NhvD zbd3PsWke8tk36tSYlg4N1uZH 9 Z2VmVMYopabjgAQuxXkhTV5gW OUmnssfAGBtuG5rQFLxK1q9Xh CrTjK8IJbgR6DpmlR6VYHmdYY g OIQyeZIFcW1pevsrm2hnffdqS oBtYYWjBCj8GTb1QCPhxHylMj SzLVZ0YfA2LMK4mYEifA1qcIc n jhdzoE9eWce+GUK1cXHdyFMWB W7tBefowWK+LEHhQAO7kTtfEV rpRWFusQ7sQDWaK4z5VfYnRuO 1 HMsrN6AnquC9DFXhmCDzWBIpq XDFbG1olvxek9ltibnxWoTrWS ZfQCb3EYf5WWEyqEsyAgFiWZO 0 IyL4YFY4yMRxdV1ydEufjpbiq G9wOyc+NtmwbVibCJQ4ZPo9A7 GvCfz4BHOpyGhpYW4deINwBMz u Wz6rgTkdvNykOD9yQMWtscvhv 276VxZnu0vuJELjmYKtUJebCX Z2E92ub4M0WJDjCWFmMLD9kYE 4 hT6hjWvpdlcyiEZalFsvihDep JcoIYhoNYkjS981CNKfaGwhHw DuJSl8Z2RgCed4IUTybMirNL9 n bMQjCIdgFy3yyVhyiOmqUB0vE TAzqtlec731PaByr9ixRLUfjC BoEDsaPCZ5A76bq4V2UKWvHXZ w XSB7dPV5sG9brCvdxhcbtGWnp ZqhcnXnuMxpHVbdLTutQ079XR KxbWwmUnDqhXc0J4HzMni5PDX z cXglMB0abTXoPYvgNl0fuBttk BscSP5xQVVrvxgji922HrDpl4 mnQXSrjNAePShqPVL2H66vj7C 6 BPPbHQFhGRL0oJV1dY5bpXioi jogbGVmdDsgdmVydGljYWwtYW rxZ062REZnsIdrMnAotTvksfX g ODjtJNz3I1BtWvzwgAM+PC90Y PLtLI97fZUguRJhy6hikDl6Jg MfXZQySKY4uAeoDHlnq3DrLMR t X64hhYIep9Q9PJAggEfggVXwF hHnaPW3lJ8zTHefcacsx6stho hhVxegk7kszd69rW11K59fDNv p BIOgGKPvLQPkURXhoWhpyc0vc G9wIi8+SDSfrEX9iPR9pL5oEA IwFrD2NLipW997TcXuwOYbAjh j o5aal8dglSb8NoI0KUCtinYwr ZifMSM3a6ChEl21O94jNDejJX YhHZTuJZSrOUCvkJipjo5ibO6 w Ii8+PQTjhGY1qKA0xW4pXoEeN uP1AFxdP533IbSjsDMiRlmsX0 6rN9CttPN+FXOcVdr0PGEaqCg s MH9niEXdNXmwMi1hLXL5HjGaC mJjVVeuN4MhPLRbwgbdmeqynC U9NHYgOYRviI01Iy1nxXfrHPF w vPKLoW7qcarsx4nxxtieUzAsW TWpUHe1LQq2WUBszFklLpFqJV N0MyC1AFN3qNDssD3bfNxcoqh g wU2oE8CbYXKokwxgYt61rV6uA qXpMuW1PWbhDqz+SEVNTUVSLC DQSCTQTNo3D6BeGwb2JDUjzYa s MW8qkCJpMQloRi0fxVsetWszT P6tFJCbaleaEEFedO9nJMSyyV PuvUqsZP4nFBBkrvebn170SeU x TNE4YCUqfVShJ7RktZ4cGrQbV NFjMVUbL0OkpNTcNRuqY345XU jpZaQ6JDRwofPxD0LiMYUkiMe u WgU0q9C8Vw8nWn4sVK2yTYEhN M36WX38hCDjg3V4vIU3P9NlAX FtzltqgyymoPG6UOYxYGCzoW4 7 sDLlBMvqLp5sp3A1g485BJWsF ORsoF97Ql9mvSbiPGXnjCGDiG 3uhtjtk4kqlfxoBgLrZVMgEBg 0 NQh1MQZpxFxyYpUhEHV0OnT5F ME0iJNqlA5zgMdxvcnakE2oUw c+WyXeFNLlpmJ4I6RoArc2RDZ z dBpgPF1xlDRdKIgtFy2rzNkxg WeuMN3vREEpobojSCKrcN6dRC OzdGVyaCcyIR0dJCJouewro27 0 OgKiWQJ2MGIcvLYvO1AhzC6yT vOeJWTnSHFhN0VwbCGoOHcsW5 58GNfwZlD2TOVnqvClT3NdEZB s aZfwHuQ1x7W6Yb5AUF1DFXG9K 1PhVmn5UMOodCctUV1roMSyQI uvMk1adPaeuXvrQE8rNDUlmvv w TSXqlB3aURRjaGZltNorLJ6jQ YDpowgkk506ZoXzBXE5ZBAxwT CxL0PnlC6bLyJaWATwHBVjP7Z l fXRgTPxmZ526YUkyFdC8PZJww wHaR1QnBGJbkGldPrT2g5N6Ti 5PUDwvdGQ+SD61fs39B6GgFoh l Tai9FUFkOQG8wKX9zF3sCQAmG Ijvj7E3jIQ3P7FgkvTxdl1pz3 avGPEbMUdwG26qpEDcv2C8XGD t bDG6ZHLocYprGeKvkH87Iel+P HOdyXcrg3EeFdpce8xft0pvcG b2UvAiIUOukhEjfFexKCZ3p5G i Wq73M84jEWjvMJPxZCZbOEKvI VSmhAxbjd8czL2yRd5+PGNvbC S9dNP3lT0pQlWaUcF6LXatP41 9 QcClzXIiCqduc7cmw3tflNr5L nIkLXVybgVwoLidPQP7v8GmWt 04P8YpcAmyq4WcMpl5ur68oIT g h2E4gKQ6M0XfFDCtxfcfmDXwy GnnWY5eTAEwpspzFHQyyX9sAA OyV8u6LrGbDpB0TLgwX7ZuomO 6 SLHxmTZdIDYnkCMEdO8edlvia 4vcxsmtSoRwIEGpHTu1URy2YV EmmKujExMeQNM4LsN7EVC0jBG h cM9zlOkmbqceeH2hDpp+UGh5c 3mdyDTcAP8cvZJ2BP49UH89pT Ppl2P3hDT2Y9KqSCVvbdgluaj n nYP1KUAfSMHzaK11Ju6obGijA u8qIZXmBCR6CODooGMbL2CxpK 0rSpXoTIIhJEEjA1YqoLHpQEk p J509DMgjCnX3LIVbjaLiZ3InT QCfmKuvWjL7j2P7Qz1CAN00YN 97MR89yNGvi1F8jUN5H8SqIQD p vzirrejroOW2MTXaBXGxlT39D b8coTywMw7nIYSrVYJ3VWMoiA JkR5WweJ5mOpCfDYTnYGSoE4V l qMMpDBycM067MKofMoD1QNGpp bNhN3IoQJWtrRffEuD4v0T1Gm 5XIg46SW03LQ08pOWdp9D2tFG 9 P0IfFEOdkkvmpogicQE2PGEeI GDqhU27Kn8pzHxcLq0mEWYdLJ A4DTAevIRiU5IleU0kZuXcYWH w OQYqT3YemBAvCBvyI028MFixS nZ5SECiduYuC7OwAWDriZlnCn P1a9I2Kp3GRGyrtou5K2IgLwi v dHI+LV28IFAwXO52uKAelWFfd 4nnjOt4KqYpFZTsCXS3rUwjZJ ida3PyXHIkG52rbGKvl8L8NEL v bGx (more content not included)... Normal [facility] Activated partial thrombopla stin time (aPTT) in platelet poor plasma by coagulation aOrdered By: Ray Minor on 06-15-2024 aPTT Coag (PPP) [Time] 29.3 s 25.1-36.5 [facility] Comment on above: A hematocrit value g reater than 55% may lead to inaccurate results in coagulation testing. Patients having hematocrit values >55% require a special collection tube for coagulation studies. Please contact the laboratory at [phone] for redraw instructions. Alanine aminotransferase [En zymatic activity/volume] in Serum or PlasmaOrdered By: Ray Minor on 06-15-2024 ALT [Catalytic activity/Vol] 46 U/L Normal 7-52 [facility] Comment on above: Performed By: #### C RAJ MG, CBC #### [facility] [address] Albumin [Mass/volume] in Ser um or Plasma by Bromocresol green (BCG) dye binding methoOrdered By: Ray Minor on 06-15-2024 Albumin BCG dye [Mass/Vol] 3.8 g/dL 3.5-5.7 [facility] Alkaline phosphatase [Enzyma tic activity/volume] in Serum or PlasmaOrdered By: Ray Minor on 06-15-2024 ALP [Catalytic activity/Vol] 113 U/L High 34-104 [facility] Comment on above: Performed By: #### C MP MG, CBC #### [facility] [address] [place] [address] Anisocytosis [Presence] in B lood by Light microscopyOrdered By: Ray Minor on 06-15-2024 Anisocytosis Ql (Bld) Slight Normal [facility] Comment on above: Performed By: #### C MP MG, CBC #### [facility] [address] [place] [address] Aspartate aminotransferase [ Enzymatic activity/volume] in Serum or PlasmaOrdered By: Ray Minor on 06-15-2024 AST [Catalytic activity/Vol] 112 U/L High 13-39 [facility] Comment on above: Performed By: #### C MP MG, CBC #### [facility] [address] [place] [address] Automated basophil %Ordered By: Ray Minor on 06-15-2024 Basophils/100 WBC (Bld) 0.3 % Normal . [facility] Comment on above: Performed By: #### C MP MG, CBC #### [facility] [address] [place] [address] [place] Automated basophil countOrde red By: Ray Minor on 06-15-2024 Basophils (Bld) [#/Vol] 0.0 10*3/uL Normal 0.0-0.2 [facility] Comment on above: Performed By: #### C MP, MG, CBC #### [facility] [address] [place] [address] Automated blood monocyte cou ntOrdered By: Ray Minor on 06-15-2024 Monocytes (Bld) [#/Vol] 0.6 10*3/uL Normal 0.0-0.8 [facility] Comment on above: Performed By: #### C MP, MG, CBC #### [address] Automated eosinophil %Ordere d By: Ray Minor on 06-15-2024 Eosinophils/100 WBC (Bld) 0.2 % Normal . [facility] Comment on above: Performed By: #### C MP, MG, CBC #### [address] Automated eosinophil countOr dered By: Ray Minor on 06-15-2024 Eosinophils (Bld) [#/Vol] 0.0 10*3/uL Normal 0.0-0.45 [facility] Comment on above: Performed By: #### C MP, MG, CBC #### [address] Automated monocyte %Ordered By: Ray Minor on 06-15-2024 Monocytes/100 WBC (Bld) 8.7 % Normal . [facility] Comment on above: Performed By: #### C MP, MG, CBC #### [facility] [address] [place] [address] Automated neutrophil %Ordere d By: Ray Minor on 06-15-2024 Neutrophils/100 WBC (Bld) 69.7 % Normal . [facility] Comment on above: Performed By: #### C MP, MG, CBC #### [address] BNP ser/plasOrdered By: Eduardo Minor on 06-15-2024 Natriuretic peptide B (Bld) [Mass/Vol] 74.0 pg/mL Normal 5-100 [facility] Comment on above: Result Comment: PERF ORMED BY: [place] [address] PATHOLOGIST STRANNER ELINOR CAVAZOS M.D. Performed By: #### C MP, MG, CBC #### [address] Bilirubin.total [Mass/volume ] in Serum or PlasmaOrdered By: Ray Minor on 06-15-2024 Bilirubin [Mass/Vol] 0.9 mg/dL Normal 0.3-1.0 [facility] Comment on above: Performed By: #### C MP, MG, CBC #### [address] C reactive protein [Mass/vol ume] in Serum or PlasmaOrdered By: Ray Minor on 06-15-2024 CRP [Mass/Vol] 4.2 mg/dL High 0.0-0.5 [facility] C-Reactive Proteinon C-Reactive Protein 4.2 mg/dL High 0.0-0.5 [facility] Comment on above: Result Comment: PERF ORMED BY: [place] [address] PATHOLOGIST STRANNER ELINOR CAVAZOS M.D. Performed By: #### C MP, MG, CBC #### [address] Calcium [Mass/volume] in Ser um or PlasmaOrdered By: Ray Minor on 06-15-2024 Calcium [Mass/Vol] 9.1 mg/dL Normal 8.6-10.3 [facility] Comment on above: Performed By: #### C MP, MG, CBC #### [facility] [address] [place] [address] Carbon dioxide, total [Moles /volume] in Serum or PlasmaOrdered By: Ray Minor on 06-15-2024 CO2 [Moles/Vol] 26.4 mmol/L Normal 21.0-31.0 [facility] Comment on above: Performed By: #### C MP, MG, CBC #### [address] [address] [place] Chloride [Moles/volume] in S papi or PlasmaOrdered By: Ray Minor on 06-15-2024 Chloride [Moles/Vol] 93 mmol/L Low 98-107 [facility] Comment on above: Performed By: #### C MP, MG, CBC #### [facility] [address] [place] [address] Comprehensive Metabolic Pane sandrine 06-15-2024 Albumin [Mass/Vol] 3.8 g/dL Normal 3.5-5.7 [facility] Comment on above: Performed By: #### C MP, MG, CBC #### [facility] [address] [place] [address] Creatinine Clr Calc Pharmacy 58.90 Normal [facility] Comment on above: Performed By: #### C MP, MG, CBC #### [address] GFR/1.73 sq M.predicted MDRD (S/P/Bld) [Vol rate/Area] mL/min/{1.73_m2} Normal [facility] Comment on above: Performed By: #### C MP, MG, CBC #### [facility] [address] [place] [address] Creatinine [Mass/volume] in Serum or PlasmaOrdered By: Ray Minor on 06-15-2024 Creatinine [Mass/Vol] 0.87 mg/dL Normal 0.60-1.20 [facility] Comment on above: Performed By: #### C MP, MG, CBC #### [facility] [address] [place] [address] ECG 12 lead ECGon 06-15-2024 ECG 12 lead ECG [facility] [address] [place] [address] Electrocardiograph Report Signed Patient: Telma Person MR#: [id number] : 1960 Acct:[id number] Age/Sex: 63 / F ADM Date: 06/15/24 Loc: ER Room: Type: [facility] ER Attending Dr: Ordering Provider: Ray Minor PA-C Date of Service: 06/15/24 ECG/ECG 12 lead ECG: Extremity Injury, Lower Copies to: Test Reason : Blood Pressure : 171/94 mmHG Vent. Rate : 91 BPM Atrial Rate : 91 BPM P-R Int : 136 ms QRS Dur : 70 ms QT Int : 338 ms P-R-T Axes : 76 44 83 degrees QTcB Int : 415 ms Normal sinus rhythm Confirmed by Franklin BOSTON DO ([id number]) on 06/15/2024 4:08:53 PM Referred By: Electronically Signed By: Franklin BOSTON DO Transcribed By: MUS Signed By Franklin Boston DO 0 06/15/24 1608 Normal [facility] Erythrocyte Sedimentation Ra tavon 06-15-2024 ESR (Bld) [Velocity] 29 mm/h Normal 0-29 [facility] Comment on above: Result Comment: PERF ORMED BY: [place] [address] PATHOLOGIST STRANNER ELINOR CAVAZOS M.D. Performed By: #### C MP, MG, CBC #### [facility] [address] [place] [address] Erythrocyte distribution wid th [Ratio] by Automated countOrdered By: Ray Minor on 06-15-2024 Erythrocyte distribution width (RBC) [Ratio] 14.7 % Normal 11.9-15.3 [facility] Comment on above: Performed By: #### C MP, MG, CBC #### [facility] [address] [place] [address] Erythrocyte sedimentation ra te by Photometric methodOrdered By: Ray Minor on 06-15-2024 ESR Photometric method (Bld) [Velocity] 29 mm/hr 0-29 [facility] Erythrocytes [#/volume] in B lood by Automated countOrdered By: Ray Minor on 06-15-2024 RBC (Bld) [#/Vol] 3.18 10*6/uL Low 3.60-5.00 [facility] Comment on above: Performed By: #### C MP, MG, CBC #### [facility] [address] [place] [address] [place] Glucose [Mass/volume] in Ser um or PlasmaOrdered By: Ray Minor on 06-15-2024 Glucose [Mass/Vol] 101 mg/dL High 70-100 [facility] Comment on above: ADA recommended refe rence rangeRandom Glucose Reference Range is dependent on time and content of last meal. Glucose of more than 200 mg/dL in a nonstressed, ambulatory subject supports the diagnosis of Diabetes Mellitus. Result Comment: [place] Glucose Reference Range is dependent on time and content of last meal. Glucose of more than 200 mg/dL in a nonstressed, ambulatory subject supports the diagnosis of Diabetes Mellitus. ADA recommended reference range Performed By: #### C MP, MG, CBC #### [facility] [address] Hematocrit [Volume Fraction] of Blood by Automated countOrdered By: Ray Minor on 06-15-2024 Hematocrit (Bld) [Volume fraction] 36.7 % Normal 34.0-46.4 [facility] Comment on above: Performed By: #### C MP, MG, CBC #### [facility] [address] Hemoglobin [Mass/volume] in BloodOrdered By: Ray Minor on 06-15-2024 Hemoglobin (Bld) [Mass/Vol] 12.7 g/dL Normal 11.8-15.4 [facility] Comment on above: Performed By: #### C MP, MG, CBC #### [facility] [address] Hypochromia LM Ql (Bld)Order ed By: Ray Minor on 06-15-2024 Hypochromia Ql (Bld) Slight [facility] INR in Platelet poor plasma by Coagulation assayOrdered By: Ray Minor on 06-15-2024 INR Coag (PPP) [Relative time] 0.9 {INR} Normal [facility] Comment on above: INR Therapeutic Rang e A) Pre- and Peroperative OAT started two weeks before surgery. NOT HIP SURGERY: 1.5 - 2.5 HIP SURGERY: 2 - 3B) Primary and secondary prevention of venous THROMBOSIS: 2 - 3C) Active venous thrombosis, pulmonary embolismand prevention of recurrent venous thrombosis: 2 - 3D) Prevention of arterial thromboembolismincluding patients with mechanical heart valves: 3 - 4.5 Result Comment: INR Therapeutic Range A) Pre- and Peroperative OAT started two weeks before surgery. NOT HIP SURGERY: 1.5 - 2.5 HIP SURGERY: 2 - 3 B) Primary and secondary prevention of venous THROMBOSIS: 2 - 3 C) Active venous thrombosis, pulmonary embolism and prevention of recurrent venous thrombosis: 2 - 3 D) Prevention of arterial thromboembolism including patients with mechanical heart valves: 3 - 4.5 Performed By: #### C MP, MG, CBC #### [facility] [address] Leukocytes [#/volume] correc saida for nucleated erythrocytes in Blood by Automated counOrdered By: Ray Minor on 06-15-2024 WBC corrected for nucl RBC Auto (Bld) [#/Vol] 6.6 10*3/uL 3.8-11.6 [facility] Leukocytes [#/volume] in Blo od by Automated countOrdered By: Ray Minor on 06-15-2024 WBC (Bld) [#/Vol] 6.6 10*3/uL Normal 3.8-11.6 [facility] Comment on above: Performed By: #### C MP, MG, CBC #### [facility] [address] [place] [address] [place] Lymphocytes [#/volume] in Bl ood by Automated countOrdered By: Ray Minor on 06-15-2024 Lymphocytes (Bld) [#/Vol] 1.4 10*3/uL Normal 1.00-4.8 [facility] Comment on above: Performed By: #### C MP, MG, CBC #### [facility] [address] [place] [address] [place] Lymphocytes/100 leukocytes i n Blood by Automated countOrdered By: Ray Minor on 06-15-2024 Lymphocytes/100 WBC (Bld) 21.1 % Normal . [facility] Comment on above: Performed By: #### C MP, MG, CBC #### [facility] [address] [place] [address] [place] MCH [Entitic mass] by Automa saida countOrdered By: Ray Minor on 06-15-2024 MCH (RBC) [Entitic mass] 40.1 pg High 24.7-34.3 [facility] Comment on above: Performed By: #### C MP, MG, CBC #### [facility] [address] [place] [address] MCHC Auto (RBC) [Mass/Vol]Or dered By: Ray Minor on 06-15-2024 MCHC (RBC) [Mass/Vol] 34.7 g/dL 32.0-35.0 [facility] MCV [Entitic volume] by Auto mated countOrdered By: Ray Minor on 06-15-2024 MCV (RBC) [Entitic vol] 115.5 fL High 80-100 [facility] Comment on above: Performed By: #### C MP, MG, CBC #### [facility] [address] [place] [address] Macrocytes LM Ql (Bld)Ordere d By: Ray Minor on 06-15-2024 Macrocytes Ql (Bld) Moderate [facility] Monocyte distribution width [Entitic volume] in Blood by AutomatedOrdered By: Ray iMnor on 06-15-2024 Monocyte distribution width Auto (Bld) [Entitic vol] 22.87 % High 0.00-20.00 [facility] Comment on above: For adults in ED, MD W > 20.0 may be associated with a higher risk of sepsis during the first 12 hrs of hospital admission Neutrophils [#/volume] in Bl ood by Automated countOrdered By: Ray Minor on 06-15-2024 Neutrophils (Bld) [#/Vol] 4.6 10*3/uL Normal 1.8-7.7 [facility] Comment on above: Performed By: #### C MP, MG, CBC #### [facility] [address] [place] [address] No Panel InformationOrdered By: Ray Minor on 06-15-2024 CBC Comment See comment [facility] Comment on above: There is significant macrocytosis present. Causes of macrocytosis include vitamin B12 and/or folate deficiency, liver disease, hypothroidism, chemotherapy, reticulocytosis, and myelodysplasia. Estimated GFR (CKD-EPI) > 60.0 mL/Min [facility] Creatinine Clearance (Chem 58.90 [facility] Nucleated erythrocytes [Pres ence] in Blood by Automated countOrdered By: Ray Minor on 06-15-2024 Nucleated RBC Auto Ql (Bld) 0.4 /100{WBC} 0-0.5 [facility] Partial Thromboplastin Timeo n 06-15-2024 aPTT Coag (Bld) [Time] 29.3 s Normal 25.1-36.5 [facility] Comment on above: Result Comment: A he matocrit value greater than 55% may lead to inaccurate results in coagulation testing. Patients having hematocrit values >55% require a special collection tube for coagulation studies. Please contact the laboratory at [phone] for redraw instructions. PERFORMED BY: [place] [address] PATHOLOGIST STRANNER ELINOR CAVAZOS M.D. Performed By: #### C MP, MG, CBC #### [facility] [address] [place] [address] Platelet adequacy [Presence] in Blood by Light microscopyOrdered By: Ray Minor on 06-15-2024 Platelets LM Ql (Bld) Normal Normal [facility] Platelet mean volume [Entiti c volume] in Blood by Automated countOrdered By: Ray Minor on 06-15-2024 Platelet mean volume (Bld) [Entitic vol] 7.7 fL Normal 6.3-10.7 [facility] Comment on above: Performed By: #### C MP, MG, CBC #### [facility] [address] [place] [address] Platelet morphology finding [Identifier] in BloodOrdered By: Ray Minor on 06-15-2024 Platelet morphology finding Nom (Bld) Normal Normal [facility] Platelets [#/volume] in Bloo d by Automated countOrdered By: Ray Minor on 06-15-2024 Platelets (Bld) [#/Vol] 381 10*3/uL Normal 150-450 [facility] Comment on above: Performed By: #### C MP, MG, CBC #### [facility] [address] [place] [id number] [facility] Polychromasia [Presence] in Blood by Light microscopyOrdered By: Ray Minor on 06-15-2024 Polychromasia LM Ql (Bld) [facility] Potassium [Moles/volume] in Serum or PlasmaOrdered By: Ray Minor on 06-15-2024 Potassium [Moles/Vol] 4.9 mmol/L Normal 3.5-5.1 [facility] Comment on above: Performed By: #### C MP, MG, CBC #### [address] Protein [Mass/volume] in Ser um or PlasmaOrdered By: Ray Minor on 06-15-2024 Protein [Mass/Vol] 7.1 g/dL Normal 6.4-8.9 [facility] Comment on above: Performed By: #### C MP, MG, CBC #### [address] Prothrombin time (PT)Ordered By: Ray Minor on 06-15-2024 PT Coag (PPP) [Time] 10.6 s Normal 9.0-12.9 [facility] Comment on above: A hematocrit value g reater than 55% may lead to inaccurate results in coagulation testing. Patients having hematocrit values >55% require a special collection tube for coagulation studies. Please contact the laboratory at [phone] for redraw instructions. Result Comment: A he matocrit value greater than 55% may lead to inaccurate results in coagulation testing. Patients having hematocrit values >55% require a special collection tube for coagulation studies. Please contact the laboratory at [phone] for redraw instructions. Performed By: #### C MP, MG, CBC #### [facility] [address] [place], [place] [id number] [facility] RBC morphologyOrdered By: Bharath Minor on 06-15-2024 RBC morphology finding Nom (Bld) N/A [facility] Red blood cell stomatocyte d etectionOrdered By: Ray Minor on 06-15-2024 Stomatocytes LM Ql (Bld) [facility] Scan and CBCon 06-15-2024 Additional Comments Normal [facility] Comment on above: Result Comment: Ther e is significant macrocytosis present. Causes of macrocytosis include vitamin B12 and/or folate deficiency, liver disease, hypothroidism, chemotherapy, reticulocytosis, and myelodysplasia. PERFORMED BY: [place] [address] PATHOLOGIST STRANNER ELINOR CAVAZOS M.D. Performed By: #### C MP, MG, CBC #### [address] Hypochromasia Slight Normal [facility] Comment on above: Performed By: #### C MP, MG, CBC #### [address] Macrocytosis Moderate Normal [facility] Comment on above: Performed By: #### C MP, MG, CBC #### [address] Mean Corpuscular HGB Conc 34.7 g/dL Normal 32.0-35.0 [facility] Comment on above: Performed By: #### C MP, MG, CBC #### [address] Monocytes/100 WBC (Bld) 22.87 % High 0.00-20.00 [facility] Comment on above: Result Comment: For adults in ED, MDW > 20.0 may be associated with a higher risk of sepsis during the first 12 hrs of hospital admission Performed By: #### C MP, MG, CBC #### [address] NRBC% 0.4 /100{WBC} Normal 0-0.5 [facility] Comment on above: Performed By: #### C MP, MG, CBC #### [address] Platelet Estimate Normal Normal Normal [facility] Comment on above: Performed By: #### C MP, MG, CBC #### [address] Platelet Morphology Normal Normal Normal [facility] Comment on above: Performed By: #### C MP, MG, CBC #### [address] Polychromasia Slight Normal [facility] Comment on above: Performed By: #### C MP, MG, CBC #### [address] Stomatocytes Slight Normal [facility] Comment on above: Performed By: #### C MP, MG, CBC #### [address] Serum globulin measurement b y calculation (mass/volume)Ordered By: Ray Minor on 06-15-2024 Globulin (S) [Mass/Vol] 3.3 g/dL Normal [facility] Comment on above: Performed By: #### C MP, MG, CBC #### [address] Serum or plasma albumin/glob ulin mass ratioOrdered By: Ray Minor on 06-15-2024 Albumin/Globulin [Mass ratio] 1.2 {ratio} Normal [facility] Comment on above: Performed By: #### C MP, MG, CBC #### [address] Serum or plasma anion gap de terminationOrdered By: Ray Minor on 06-15-2024 Anion gap [Moles/Vol] 15.5 mmol/L High 6.0-15.0 [facility] Comment on above: Performed By: #### C MP, MG, CBC #### [address] Sodium [Moles/volume] in Ser um or PlasmaOrdered By: Ray Minor on 06-15-2024 Sodium [Moles/Vol] 130 mmol/L Low 136-145 [facility] Comment on above: Performed By: #### C MP, MG, CBC #### [address] Urea nitrogen [Mass/volume] in Serum or PlasmaOrdered By: Ray Minor on 06-15-2024 Urea nitrogen [Mass/Vol] 20 mg/dL Normal 7-25 [facility] Comment on above: Performed By: #### C MP, MG, CBC #### [facility] [address] [place] [id number] [facility] XR chest 2V*on 06-15-2024 XR chest 2V* [facility] [address] [place] [address] XRay Report Signed Patient: Telma Person MR#: [id number] : 1960 Acct:[id number] Age/Sex: 63 / F ADM Date: 06/15/24 Loc: ER Room: Type: PRE ER Attending Dr: Copies to: AILEEN WILSON Ordering Provider: AILEEN WILSON Date of Service: 06/15/24 XR/XR chest 2V*: Extremity Injury, Lower Chest 2 views CLINICAL HISTORY: Bilateral lower extremity numbness swelling heaviness for 3 weeks. Fall last night. COMPARISON: None FINDINGS: Heart appears normal in size. Mild lung scarring. Calcified granuloma right upper lobe. No consolidation pneumothorax pleural effusion or free air. No displaced rib fracture is seen. XR/XR chest 2V* IMPRESSION: NO ACUTE CARDIOPULMONARY ABNORMALITY. Impression dictated by: Ray George Jr., D.O.06/15/2024 12:38 PM Dictation Location: [place] [address] Transcribed By: [facility] 06/15/24 1238 Dictated By: Ray George Jr, DO 06/15/24 1237 Signed By: 06/15/24 1238 Normal [facility] Coding Summaryon 05-28-2024 Coding Summary HTMLBase 64 GfeetmnxWBz0mQk+PGhlYWQ+P B3XCLFyE62lnQXoiW3bI0XMZG lOSywgQVBQTElOSyIgbmFtZT1 kaXNjZXJu IC8+GM5pLFCoXgmluKZtb2G3v HS6V94ytm1tDBbqnOW0RLOeRm Viorolc1qhiNr6LZbuAdjqDaE t BLEshK94SGS8tX56Vj29vGSkz FRxh4dypLk6YiJmHVTnHKZ1vM evYAnqp9GrXWPtF64fmGNcd7U 6 RCDurWigsYKaAaLdfBQ4jP0cF Swsjemfg2zukvlkGae0fd32rF Qlt8E6tFL0J1QjwzW1ZROloDW g DvsqtZEFcS8dgryjw6htalkbL dCkJDRuNBi1UQl6RSBorOzyEm NhFS43GGR0EYWqbsRoG6GtLAH s pPgzBmL7p5P9Rc3OK7WJJxffS 1VNTUFSWTwvdGQ+EH48eh85W5 HsCxwnGlj1XVWyHML1cIX5mL0 n OKYmSOmeo3P2rLM8I0UbbxIlo l4fd0fwWLJxXSvbJ60qqKWtg7 P4VEKlmVL2SOZusEynGgDsuP7 3 Oyc+JHFbvPxeg8HxQmwmc4qdw 6qedXt3QhrxZVCuxmFsaJgvFU D4g5ImAz0wASYfsZH9aJG5pD8 i IfZfJtN5MJyxQ664SlOalNDjT gnhW13lZ7MdsST+OQRhEqh7IH OowLtbTO4oT4KgFNCazttpsCA m iQzsOO0cJOVmjgcpTCRjhB0wO FEhE2t2CsIiUvZ6UIewZ2TzLF UyfubyDu63fP8vZsCuZfH9NOp u P7ZuslJ5ZXCcxMBqWLxbHYE8B 48tb7X8GWAmYETrBZG9eEW9sW 1hbGlnbjogbGVmdDsgdmVydGl j OUahPAqgX850QRIbpJwcAhTsJ GluZyBEYXRlOiAgMDkvMDUvMj AyNDwvdGQ+WKUfMOD3sSqpTHW n qSStLZplVr2etEprgBaeZP3pS KAqrufnZXUwvR8jCMCjcLUgaP qeGM2nRLYkwsbqd136SgPiYIC 0 DKUgsMAaV0EqyM7eTmAxLOWlZ OLhZ2GzzUPdCEhlK146CXtiHk Y6KCBxtfVtN5BaFOVocXglEsG 0 b2D0Jw0Mx1GdlcwwK4IhlDUiR iJeWuisBJd3R4UvKhnzmHM+PC 40TGAjXA04RMe2CZG8cDviQNl i LTEnM0TytC9yOoQrEYExGJMuO yc+PHRhYmxlIHdpZHRoPScxMD NlVaMdlXvlOB1vVr1oGWSpGRV v pHmzvXLzSsAxx0dcXGQnRPpxA U1tgLtzU1FdkWO2LMQvg3r7Ta 25H63xZ6NnoVS+QZPrhLL1gMV 0 zH3eCxTdPfC7QXzyP419OjDva PZkUjdqk0jap2haaRt1UbM3JQ YocfDrjZdyLYI5w1KsDs87N08 s IHdpZHRoPSIxNSUiIHZhbGlnb g1giB5cOm2+CCEdnAF3aGH7nM 8tKnEcCsU3DOakC426MeZdnTY v Kvpvq1kjb2kbmRr9UvHyHETcd rYlyQxlUPB8f7YrNz56A2ZzkX eqi0RfCce9my72vMBub1R7yXU 9 Q6PbQTNqdzhtaAUviAppKZ8iT OJejlwdISMfaT7aNEPhB0m8Xu YlCyL5OAzcK4KhgbC0ZDOnqVA g YYSgkWBRiN1ggtdit2agbbuqA hXsCOKjZWp6FAn4RXIbeCksQy AkIIB9HxV4QMS6pDGfqK6ouSr n tshnrL8wUba+VDR8qMXrtNBVJ S0dCworaJP+UCXhBHT3uGydXQ dvXYBreW7dJLEkF3m7NnBwXyR 1 JFtyL0JmbaW3KGCjwEHnZVSzu HAZpH6tpynwp6uoblhjAdMqAU TxEWu6SCw7BMTsaCwyKhJmAAI 0 TaJ7JRF4tTCphV3toVjenvbsr G9wOyc+MoignQiuMJV6UVm0X6 CiChu6ETDnuGhxNE0evBOwWYo u Ay2jkKfpsNrqOU9eLOHnhmbim 952AzRgy1cvUGRahQNjJDotUO B6P82tc1Q2DZInRVNrFHR8sNE 4 tH2uuUzauashnUMygOzthuNwo BafUXykYUklX681UVNxgYtwTm RpIDm6L0GpJhu8IMBjaQuxWV0 n bBEhTHcxNd1erVelgRpiAM0sD DSvcthlv063ZuNpx5baIPOreW UsUVweNRN6S72nb2V8VVDzDZS w HSA7qCT9xS9dyGfbrbariHWod ClazvUiiVzhLVlhTXcsT690AE JcoKypWoKkcFp4N4NhYtu6SHY z vLtsKZ5ssANsMHocPl7tuPbwz HcoES7nERBkbtbwz543AbYtq0 xuNMOcmXIlTDjeMZP6X85to1L 6 XKMxLDLoFIW2vVP5zT9vhTtda jogbGVmdDsgdmVydGljYWwtYW gzY109VLSolOgtUvKdmApvomI g FHnfYYf8X9GcAriudSQ+PC90Y ELrEA30pMMsrXWpp7fquRs4Ey QwSGZsWHM5pRabHEgeb0PeAOJ t Q59ztGBlm1X6PECnjBfyoXLmO kDdjLL4oB1nCSkjolzgt2dhcq bkDtpgq0adzn64tM07C16zKSg p BBPkOIYpEEFdUTVkhOnyxv7qp G9wIi8+JSDwfVC7nVZ0vK1iCT MtOmN0QIgiO678IoCjkYOoWkf j d2bve8xntCd4JiE4DHIyvvIce PfbIRK9f7ItXz25N51tAWcwVM EtLOWuYNYtTHJluStdef1dkT9 w Ii8+JQEqjGV4sNQ6cE0cJmPcG zH4LDjfB156IyMehUWxCsebE8 8qL4RjiMT+OGTlNci6RDSieUz s LG7vwAWyOHwdLn4zBKU8NjSiP lTcIHoqK4IbKGZxnutclvqqbI D3AHKgVQEhwV27La2jkFmmDIQ w kRWQxA6yexftr3vrkfodPbWoH LEpMLd2ASs6VWQwsPgsTgZsQQ J0CrE1RBB1wYEzeJ8ocYrocic g nW3tH1BsVLZycljsPp45cZ9sT tNsJnQ7FQmvFft+SEVNTUVSLC JIKPXOSDa1F5GmOfz0RQJjcQo s MQ0dwVIuPKnaQh4vzRweyFqpM N6sABOsjicgWAYluM8wSMMxmY HndIbsPZ2vZLCqisioh614EfF x HXG7TDZyiCEpB3GkmL1rAvAqL ZJzISKpO7DqgASrJIpiW206QI pfFbQ5MKHqvqGdR9GtKHOxnKa u UcY5d6K7Hf3kZq6iPG4gDHNpI Z72BM38hWDfg9Y8zJG8E6DuEC FprjiqlnaiiYU9MKLrSRKirH3 7 jWYnOVxcFj6qr0V1v484XTKuE VBniV08Bm5gjBpcWQGceLYIzT 8dlupwm7pkbpysPxJsMBUwCGv 0 UQr3SXNruCzjWrLwPIU2QpT8S BY9kFAwrH0luUcrfxgdsH6eNo c+MlRgIZJudrX6K0PfCmf0EUL z xVemPQ7jhSBuGTboFh6hkBjax OjzJF6bSAHqlrmoSFQmkB0yRL GpnFChaOnaTA9qFREcofqbk76 0 WoDjYMV9UPTkqBBnN8IzuY9mU bZeSTFpMXMqO0HjrURpAZccP1 38YSojUtF6UXUdjrPiM5BmVYY s hZyjJqT8r6W8Kx4VXQ1XIFB5V 9EdErm3QCNwsNgtOE2vwLVyJS tnDl4wuCmikCmpQV0xRMBfgoj w FRJduZ7lHSYncJLcbTmlXZ4kN PWpijmdu695XiNzNPR4EDSesX AmN8FnrN3mRaPfNHLuSJUvA2K l aKRcZVybD110RSisToB1XCLpz yBkT8LhDOFkuExdIoQ1k5T5Kx 3NgCWdS1SnK9k6I4JwEwkobTU + NT83LFMdGE23sBBmiXRlr4iyq Yp9YsPnWOOwOSL3nChsIFxbt5 QcRYQuL75phNExs9I9ODYlhYz h vGLqKqAmuGW1oV6fDOixwpkym 9lgfcduTzkay7sbir46pQ57Z6 9sIHdpZHRoPSIzMCUiIHZhbGl n rx0vnY7xKr0+RNApwFL6xYV1z K2fZfEbPmR8PRufP758FaBskV RqKbqki7nck8kqdXt6TxFgXKV g srOdhAjmCFS1s9AiCv52K61tO HdpZHRoPSIyMCUiIHZhbGlnbj 0frO1kVy6+VJ4wx7ateu73mN1 8 dHI+GJPfZRL8gBjmDMufGKQxc J0qGAfzObK3KTZrTxBjzX71bB LbIQbbDy8zeKysuJzsMZ5hNUP p altlt134FuTuf8pkGGTauKSzB HjgAGO9A39mn6K9THBnCAVmKJ E7hIK5kV1ibSimloteqQRaqDd g mgPqeMfaEJxoVFutA146JOHeb WpaMaKhlVLgE4aapxGPWH4sLu wvdGQ+VNRzHBI7sNmsFPavJST k cK8kTKBkA1g5QzJnVtM6XCcyT 6SllfS0ZEAphCPnGZIjxJVOiF 7dwlmey7rzjhbdGiVqZQBuZJq 0 XYj0OPIvhXmjSnIjUTL1ZwT6J VE1yILspL8ldYewbnbnuY3eQr c+RklOOjwvdGQ+IGFkWJF1aLq l YDzuGUAmfE8iDTZtS9n5DbGsQ nN6LShkK4PzmzI5OFXmtNNuBT GwzGYVfA0mkimhg7mbviptUwR w ZVKgOUs1IKl8VWDuhRkvBhTyB AF4CoG9OCF2tHDtxP3fcWplce wksW9wGto+TVJOOjwvdGQ+PHR k YRJ7rCazYXddKKNzbT4aPGDpL 5y7SmOsPtK5VLstJ5QomfJ4QD TdoDXaRJKfeTKGcH0vgsxbd9b v badcQrNcIJAdWGi4VAh5VTXxu HciTrSuMDK5NwC8CRU7bYKqnB 8ghElncmhtsT9kUtl+IQI3CPP 6 NE39SZ14B7QfHpqnvPTvhWE+P HRhYmxlIHdpZHRoPScxMDAlJy XyaWebBT0mIj1eOPDiFLEvtGa h cHN (more content not included)... [facility] .Auto Diff 105-23-2024 Auto [place] % 9 % Normal 1-12 [facility] Comment on above: Performed By: #### 7 786932, 86488479, 7416085093, 0304803993, 2826200871, 2373133, 0724966374, ####[facility] (DEFAULT)[address] [place] [address] 37915 Baso Abs# 0.1 x10 Normal 0.0-0.2 [facility] Comment on above: Performed By: #### 7 377995, 76573806, 2771322004, 5356317456, 3084084314, 6590410, 5631062841, ####[facility] (DEFAULT)[address] [place] [address] 91910 Basophils/100 WBC (Bld) 1.2 % Normal 0.2-2.0 [facility] Comment on above: Performed By: #### 7 843180, 95202455, 8285366978, 0989579759, 7252636725, 3331918, 8783648159, ####[facility] (DEFAULT)[address] [place] [address] 40796 Eos Abs# 0.1 x10 Normal 0.0-0.4 [facility] Comment on above: Performed By: #### 7 016908, 64642566, 5073408145, 6096651643, 3779351880, 4589547, 6388095859, 9707514591 ####[facility] (DEFAULT)[address] [place] [address] 42161 Eosinophils/100 WBC (Bld) 1.0 % Normal 0.9-4.0 [facility] Comment on above: Performed By: #### 7 433752, 96525970, 3987587707, 5100563162, 2215847976, 1037185, 8345926539, ####[facility] (DEFAULT)[address] [place] [address] 43064 Lymph Abs# 1.2 x10 Low 1.3-2.9 [facility] Comment on above: Performed By: #### 7 374622, 15059447, 2115018020, 2957301890, 8317738725, 5555346, 0310587743, ####[facility] (DEFAULT)[address] [place] [address] 91081 Lymphocytes/100 WBC (Bld) 23 % Normal 14-48 [facility] Comment on above: Performed By: #### 7 631182, 09777596, 4430406775, 1471306838, 0243927684, 8499812, 5292940616, ####[facility] (DEFAULT)[address] [place] [address] 73672 [place] Abs# 0.5 x10 Normal 0.0-0.8 [facility] Comment on above: Performed By: #### 7 601169, 21246370, 7056666788, 3991287374, 6347174037, 8561558, 8673790060, ####[facility] (DEFAULT)[address] [place], [place] [address] Neut Abs# 3.4 x10 Normal 1.5-9.2 [facility] Comment on above: Performed By: #### 7 421006, 08080009, 6692699427, 1253961759, 6165577316, 5474047, 4849883741, 2199619861 ####[facility] (DEFAULT)[address] [place] [address] 40988 Neutrophils/100 WBC (Bld) 66 % Normal 44-88 [facility] Comment on above: Performed By: #### 7 166547, 46667370, 3274217720, 2225936726, 8042225362, 7947258, 3205946931, ####[facility] (DEFAULT)[address] [place] [address] BNP.on 05-23-2024 Natriuretic peptide B (Bld) [Mass/Vol] 114.0 pg/mL High 0.0-100.0 [facility] Comment on above: Result Comment: BNP results greater than 100 pg/mL are considered abnormal and suggestive of patients with CHF. Higher BNP concentrations measured in the first 72 hours after an acute coronary syndorme are associated with an increased risk of , myocardial infarction, and CHF. Performed By: #### 7 178349, 60141825, 6624198174, 5538145735, 9191552893, 6075054, 0535784596, ####[facility] (DEFAULT)[address] [place] [address] 57391 CBC w/ Auto Diffon 4 Erythrocyte distribution width (RBC) [Ratio] 13.6 % Normal 11.5-15.0 [facility] Comment on above: Performed By: #### 7 162998, 79288911, 3144261928, 7223006069, 5511155556, 1011142, 3626023339, ####[facility] (DEFAULT)[address] [place] [address] Hematocrit (Bld) [Volume fraction] 33.7 % Normal 33.7-40.4 [facility] Comment on above: Performed By: #### 7 251515, 56573747, 9831828120, 3909265111, 9397374644, 3729098, , ####[facility] (DEFAULT)[address] [place] [address] 16763 Hemoglobin (Bld) [Mass/Vol] 11.5 g/dL Normal 11.3-15.9 [facility] Comment on above: Performed By: #### 7 711859, 68391316, 2104106210, 2524622717, 6334424200, 0685988, , ####[facility] (DEFAULT)[address] [place] [address] 92589 Man Diff? RBC Morph Only Invalid Interpretation Code [facility] Comment on above: Performed By: #### 7 354242, 09221843, 6296014638, 8226216306, 3027702257, 8099553, 9168842677, ####[facility] (DEFAULT)[address] [place] [address] 92724 MCH (RBC) [Entitic mass] 39 pg High 24-34 [facility] Comment on above: Performed By: #### 7 435075, 24751222, 4191494139, 2695512562, 9384650774, 0041082, 6300435456, 2088284605 ####[facility] (DEFAULT)[address] [place] [address] 58366 MCHC (RBC) [Mass/Vol] 34 g/dL Normal 26-37 [facility] Comment on above: Performed By: #### 7 458390, 86156889, 9925639593, 2212127279, 7821662945, 0945491, 3575510770, 5367974133 ####[facility] (DEFAULT)[address] [place] [address] MCV (RBC) [Entitic vol] 115 fL High 81-100 [facility] Comment on above: Performed By: #### 7 653419, 71364988, 5531943571, 7930254420, 8938286361, 6426188, 1208086100, 8164693985 ####[facility] (DEFAULT)[address] [place] [address] 13290 Platelet 309 x10 Normal 138-427 [facility] Comment on above: Performed By: #### 7 671278, 61299976, 0960514704, 5160007652, 5076500875, 2798556, 9615546456, 0465564836 ####[facility] (DEFAULT)[address] [place] [address] 45013 Platelet mean volume (Bld) [Entitic vol] 7.4 fL Normal 6.3-10.2 [facility] Comment on above: Performed By: #### 7 407513, 79824710, 1090387928, 8421017139, 9982908527, 4205650, 6312455761, 1472328469 ####[facility] (DEFAULT)[address] [place] [address] RBC 2.93 x10 Low 3.70-5.30 [facility] Comment on above: Performed By: #### 7 422360, 71742719, 2104039312, 1369491173, 2498958872, 4456756, 4242006721, 1904870093 ####[facility] (DEFAULT)[address] [place] [address] 64785 WBC 5.1 x10 Normal 3.5-10.5 [facility] Comment on above: Performed By: #### 7 124295, 99849876, 8840618220, 0738735996, 0967679215, 1748908, 3128530001, 8676898046 ####[facility] (DEFAULT)[address] [place] [address] 27915 CMP Standardon 05-23-2024 Breakpoint Chem Normal [facility] Comment on above: Performed By: #### 7 200092, 75362399, 9686071070, 0897720491, 8591903463, 7826265, 7150145365, 0817205423 ####[facility] (DEFAULT)[address] [place] [address] 15422 eGFR Non AA >60 Invalid Interpretation Code [facility] Comment on above: Performed By: #### 7 252868, 10842683, 2616514337, 5063375890, 4471184117, 3542556, 2737432161, 1729437014 ####[facility] (DEFAULT)[address] [place] [address] 22182 eGFR AA >60 Invalid Interpretation Code [facility] Comment on above: Performed By: #### 7 454486, 24007845, 1256472697, 4497465499, 6363566538, 2971096, 1467976441, 2386159302 ####[facility] (DEFAULT)[address] [place] [address] 17785 Albumin [Mass/Vol] 3.0 g/dL Low 3.5-5.0 [facility] Comment on above: Performed By: #### 7 606818, 28184510, 2338700060, 9113260880, 6210541204, 2122878, 8951093330, 7813048091 ####[facility] (DEFAULT)[address] [place] [address] 99491 Albumin/Globulin [Mass ratio] 0.9 {ratio} Low 1.4-2.6 [facility] Comment on above: Performed By: #### 7 680681, 91611872, 2473815979, 5044480799, 8201317802, 8379759, 9016573364, ####[facility] (DEFAULT)[address] [place] [address] 15005 Alk Phos 85 IU/L Normal 32-91 [facility] Comment on above: Performed By: #### 7 697666, 13904136, 8539679951, 2174592413, 5706106078, 0968551, , ####[facility] (DEFAULT)[address] [place] [address] 95249 ALT [Catalytic activity/Vol] 45.0 U/L Normal 14.0-54.0 [facility] Comment on above: Performed By: #### 7 444179, 03345420, 5216167861, 8984465139, 4872209072, 5392782, , ####[facility] (DEFAULT)[address] [place] [address] 52224 Anion gap [Moles/Vol] 12.1 mmol/L Normal 5.0-19.0 [facility] Comment on above: Performed By: #### 7 036077, 92896933, 3987715243, 6595178626, 5063081631, 2924694, 3882613037, ####[facility] (DEFAULT)[address] [place] [address] 24448 AST [Catalytic activity/Vol] 94 U/L High 15-41 [facility] Comment on above: Performed By: #### 7 540512, 02357299, 7586144078, 3815742642, 9868458458, 2508352, 9012217773, ####[facility] (DEFAULT)[address] [place] [address] 16116 Bili Total 1.1 mg/dL Normal 0.3-1.2 [facility] Comment on above: Performed By: #### 7 385274, 78493298, 2283252309, 4633141847, 9028031799, 6577531, 2452617686, 4940671821 ####[facility] (DEFAULT)[address] [place] [address] 95688 Calcium [Mass/Vol] 8.6 mg/dL Low 8.9-10.3 [facility] Comment on above: Performed By: #### 7 974287, 76540693, 1134688066, 2560066719, 5446452907, 2519266, 2602263752, ####[facility] (DEFAULT)[address] [place] [address] 27399 Chloride [Moles/Vol] 102 mmol/L Normal 101-111 [facility] Comment on above: Performed By: #### 7 068011, 55818471, 2467442397, 2945791183, 0196017770, 3695002, 4737074423, ####[facility] (DEFAULT)[address] [place] [address] 60171 CO2 [Moles/Vol] 25 mmol/L Normal 21-32 [facility] Comment on above: Performed By: #### 7 029396, 86452211, 4546887727, 5751459422, 1194396315, 6046607, 1186555087, 3801358252 ####[facility] (DEFAULT)[address] [place] [address] 66144 Creatinine [Mass/Vol] 0.71 mg/dL Normal 0.60-1.30 [facility] Comment on above: Performed By: #### 7 965742, 93308042, 2638006554, 5114258019, 9933793220, 4688696, 9037994989, ####[facility] (DEFAULT)[address] [place] [address] 07276 Globulin (S) [Mass/Vol] 3.3 g/dL Normal 1.5-4.3 [facility] Comment on above: Performed By: #### 7 316356, 44613075, 5106991625, 6690667274, 1554485505, 0287282, , ####[facility] (DEFAULT)[address] [place] [address] 42843 Glucose [Mass/Vol] 119.0 mg/dL High 74.0-118.0 [facility] Comment on above: Performed By: #### 7 985361, 65106898, 0720926511, 8409107831, 1749320494, 2888907, , ####[facility] (DEFAULT)[address] [place] [address] Osmolality 270 mOsm/L Invalid Interpretation Code [facility] Comment on above: Performed By: #### 7 573054, 35225824, 4087301172, 7844813592, 0266207010, 2349539, , ####[facility] (DEFAULT)[address] [place] [address] 09606 Potassium [Moles/Vol] 4.1 mmol/L Normal 3.6-5.1 [facility] Comment on above: Performed By: #### 7 596690, 20691679, 0553057753, 5394278251, 4077530314, 8573474, 9226828099, ####[facility] (DEFAULT)[address] [place] [address] 02919 Protein [Mass/Vol] 6.3 g/dL Low 6.5-8.1 [facility] Comment on above: Performed By: #### 7 977784, 30026954, 0180861792, 8200177362, 4863999484, 4428756, , ####[facility] (DEFAULT)[address] [place] [address] 76548 Sodium [Moles/Vol] 135.0 mmol/L Low 136.0-144 . 0 [facility] Comment on above: Performed By: #### 7 264747, 71445113, 2459385458, 1036253369, 6644874021, 9682332, , ####[facility] (DEFAULT)[address] [place] [address] 51280 Urea nitrogen [Mass/Vol] 9 mg/dL Normal 8- [facility] Comment on above: Performed By: #### 7 697408, 54678846, 3845546515, 5421700253, 0734201171, 8361025, 9165517856, 7381064430 ####[facility] (DEFAULT)[address] [place] [address] 03496 Urea nitrogen/Creatinine [Mass ratio] 12.6 mg/mg Normal 4.6-16.2 [facility] Comment on above: Performed By: #### 7 140793, 49631237, 3921690535, 5627592242, 1320260864, 1620771, 6040396655, 3365757961 ####[facility] (DEFAULT)[address] [place] [address] 91607 ED Clinical Summaryon 2023 ED Clinical Summary [facility] - Emergency Department [address] [place] [id number] ED Clinical Summary PERSON INFORMATION Name: TELMA PERSON Age: 63 Years Sex: FEMALE : 1960 MRN: Acct#: Visit Reason: Shortness of breath; Skin problem; Lower leg pain-swelling; FEET SWELLING Arrival: 05/23/2024 12:15:52 Discharge: 05/23/2024 14:07:00 LOS: 000 01:52 Check In: 05/23/2024 12:15:52 Checkout:05/23/2024 14:07:00 Address: [place] [id number] PCP: ANUM SORTO PROVIDER INFORMATION Provider Role Assigned Unassigned Paradise Pereira CNP ED PA 05/23/2024 12:18:41 Fiona Diana TECHNICAL AGRONOMIST Nurse 05/23/2024 12:49:55 VITALS INFORMATION Vital Sign Triage Latest Temperature Tympanic Temperature Temporal Artery Pulse Rate 88 bpm 81 bpm O2 Sat 100 % 99 % Respiratory Rate 20 br/min 18 br/min Blood Pressure /72 mmHg /72 mmHg MEDICAL INFORMATION Medications Given: Medication Dose Route albuterol-ipratropium (albuterol-ipratropium 2.5 mg-0.5 mg/3 mL inhalation solution) 3 mL Nebulized Inhalation Allergy Information: Bactrim PHYSICIAN DOCUMENTATION DISCHARGE INFORMATION: Discharge Disposition: Home Discharge Location: Home PATIENT EDUCATION INFORMATION Instructions: COPD and Physical Activity; Cellulitis, Adult Follow-Up: With: Address: When: ANUM SORTO [facility] [place] [address] Business (1) Within 3 to 5 days Comments: Take antibiotic until complete. Follow-up with your family doctor next week for reevaluation. DIAGNOSIS: COPD with exacerbation; Cellulitis of right foot Patient Understands: Yes - Patient/family/caregiver verbalizes understanding of instructions given Comment: Normal [facility] ED Patient Summaryon 024 ED Patient Summary [facility] - Emergency Department [address] [place] [id number] PATIENT DISCHARGE INSTRUCTIONS Patient Information Name: TELMA PERSON Age: 63 Years Date of : 1960 Reason For Visit: Shortness of breath; Skin problem; Lower leg pain-swelling; FEET SWELLING Arrival Time: 05/23/2024 12:15:52 Primary Care Physician: ANUM SORTO Attending Physician: Manuel Morris MD Comment: Visit Diagnosis: Diagnoses This Visit Cellulitis of right foot (L03.115) COPD with exacerbation (J44.1) Lower leg pain-swelling ([id number]) Shortness of breath ([id number]) Skin problem ([id number]) The Pharmacy at [facility] is open Saturday through Saturday from 9A to 6P and Saturday and Saturday from 9A to 5P Prescription Information: If you have been given a prescription for narcotics, seek immediate medical attention if you have any difficulty breathing or any sudden status changes such as confusion and sleepiness. If you or anyone you know is experiencing suicidal thoughts, mental health, alcohol and/or drug addiction problems; contact the [facility] [place] 15/04 Crisis Hotline -Text 4HBRD wl 891725. If you received any narcotics, sedation, or any other medication that causes drowsiness for the next 24 hours, unless otherwise directed: ? Do not drive a car. ? Do not operate machinery such as power tools, lawn mowers, drills, sewing machines, or stoves ? Avoid alcoholic beverages and drugs for allergies, nerves, or sleep ? Do not make important personal or business decisions or sign any legal documents With: Address: When: ANUM SORTO [address] [place] [address] [place] [id number] Business (1) Within 3 to 5 days Comments: Take antibiotic until complete. Follow-up with your family doctor next week for reevaluation. Medication Information: The exam and treatment you received today in the [facility] Emergency Department were for an urgent problem and are not intended as complete care. It is important for you to follow up with a doctor, nurse practitioner, or physician?s after school program assistant for ongoing care. If your symptoms become worse or you do not improve as expected and you are unable to reach your usual health care provider, you should return to the Emergency Department, we are available 24 hours a day. For those patients who have received Radiology results, the interpretation of your X-ray as given to you by our Emergency Department physician is only a preliminary report. The Radiologist will review your films and if there is a change in the diagnosis you will be notified by phone. Please make sure you have provided a working phone number so we can reach you if necessary. In the event that you had a lab culture while you were a patient in the Emergency Department, you will be notified by phone if there is a need to change your antibiotic. Please make sure you have provided a working phone number so we can reach you if necessary. [facility] Emergency Department has provided you with a complete list of medications post discharge. Please inform your drop crew laborer/provider of your visit and for further instruction on these medications. Any specific questions regarding your chronic medications and dosages should be discussed with your primary care physician(s) and/or pharmacist. New Medications [facility] [id number], [address], [place] [id number], [phone] doxycycline (doxycycline hyclate 100 mg oral capsule) 1 cap(s) Oral (given by mouth) Every 12 hours scheduled time for 7 Days. Refills: 0. Medications to Continue That Have Not Changed Other Medications albuterol (Albuterol (Eqv-Proventil HFA) 90 mcg/inh inhalation aerosol) buPROPion (buPROPion 300 mg/24 hours (XL) oral tablet, extended release) 1 tab(s) Oral (given by mouth) every day. Visit Information Allergies: Substance Reaction Symptoms Type Comments Bactrim Drug Vital Signs: Vitals and Measurements this Visit (last charted value for your 05/23/2024 visit) Vital Signs This Visit Peripheral Pulse Rate: 81 bpm Heart Rate Monitored: 82 bpm Respiratory Rate: 18 br/min Systolic Blood Pressure: 116 mmHg Diastolic Blood Pressure: 78 mmHg Mean Arterial Pressure, Cuff-Calculation: 91 mmHg Mean Arterial Pressure Cuff-Monitor: 89 mmHg SpO2: 99 % Oxygen Therapy: Room air Measurements This Visit Height/Length Measured: 157 cm Weight Measured: 63.5 kg Weight Dosin.500 kg Body Mass Index: 25.76 kg/m2 Problems List: Problem Onset Comments Tobacco user Patient Education COPD and Physical Activity Chronic obstructive pulmonary disease (COPD) is a long-term, or chronic, condition that affects the lungs. COPD is a general term that can be used to describe many problems that cause inflammation of the lungs and (more content not included)... Normal [facility] Extra Redon 05-23-2024 Tube Collected Yes Invalid Interpretation Code [facility] Comment on above: Performed By: #### 7 [id number], [id number], [id number], [id number], [id number], [id number], [id number], [id number] #### [facility] (DEFAULT) [address] [place] [address] 22102 Morphologyon 05-23-2024 Baso Stip 1+ Invalid Interpretation Code [facility] Comment on above: Order Comment: Order added by Discern. Performed By: #### 7 737896, [id number], [id number], [id number], [id number], [id number], [id number], [id number] ####[facility] (DEFAULT)[address] [place] [address] 82596 Macro 1+ Invalid Interpretation Code [facility] Comment on above: Order Comment: Order added by Fiorella. Performed By: #### 7 289749, 57536207, [id number], [id number], [id number], 7832745, [id number], [id number] ####[facility] (DEFAULT)[address] [place] [address] Polychrom 1+ Invalid Interpretation Code [facility] Comment on above: Order Comment: Order added by Fiorella. Performed By: #### 7 606359, 48710556, [id number], [id number], [id number], 8349698, [id number], [id number] ####[facility] (DEFAULT)[address] [place] [address] PTon 05-23-2024 INR Coag (PPP) [Relative time] 1.07 {INR} Normal 0.91-1.11 [facility] Comment on above: Performed By: #### 7 055713, [id number], [id number], 1205171791, [id number], 0934750, [id number], [id number] ####[facility] (DEFAULT)[address] [place] [address] PT 11.1 second(s) Normal 9.7-11.8 [facility] Comment on above: Performed By: #### 7 372116, 04317604, [id number], 6409261070, [id number], 7100687, [id number], [id number] ####[facility] (DEFAULT)[address] [place], [place] [id number] Progress Note - Nurseon 04-25 Progress Note - Nurse Patient presents t o the ER with c/o of foot swelling on both sides, with some redness, a insect bite on the right breast, and increased shortness of breath with exertion. Pt states noticing foot swelling about a week ago and is unsure of the insect bite. Pt is a/o x4 and ambulated to room 6 with a steady gait. pt sitting crossed legged on the bed and speaking in full sentences. [Electronically Signed on: 05/23/2024 12:49 EDT] Fiona Diana RN [Verified on: 05/23/2024 12:49 EDT] Fiona Diana RN [facility] TnI HSon 05-23-2024 Troponin I High Sensitivity 3.1 pg/mL Normal <=15.0 [facility] Comment on above: Performed By: #### 7 088447, [id number], [id number], [id number], [id number], 1899057, [id number], [id number] ####[facility] (DEFAULT)[address] [place] [address] XR Chest 1 View Frontalon XR Chest 1 View Frontal EXAM: XR Chest 1 View Frontal INDICATION: shortness of breath. COMPARISON: Chest radiograph 08/05/2015 TECHNIQUE: Single frontal view of the chest FINDINGS: Normal cardiomediastinal contours. No acute infiltrative process. No pleural effusion or pneumothorax. No acute osseous abnormality. IMPRESSION: No acute cardiopulmonary process. Final Dictated by: Sophie Klein MD Dictated DT/TM: 05/23/24 1:02 Signed (Electronic Signature): Sophie Klein MD 05/23/24 1:03 pm Technologist: ENEDINA LOPEZ [facility] CMP Standardon 05-21-2024 eGFR Non AA >60 Invalid Interpretation Code [facility] Comment on above: Performed By: #### 1 [id number] #### [facility] (DEFAULT) [address] [place] [address] 16017 eGFR AA >60 Invalid Interpretation Code [facility] Comment on above: Performed By: #### 1 [id number] #### [facility] (DEFAULT) [address] [place] [address] 40412 Albumin [Mass/Vol] 3.0 g/dL Low 3.5-5.0 [facility] Comment on above: Performed By: #### 1 [id number] #### [facility] (DEFAULT) [address] [place] [address] 58372 Albumin/Globulin [Mass ratio] 0.8 {ratio} Low 1.4-2.6 [facility] Comment on above: Performed By: #### 1 [id number] #### [facility] (DEFAULT) [address] [place] [address] 56448 Alk Phos 86 IU/L Normal 32-91 [facility] Comment on above: Performed By: #### 1 [id number] #### [facility] (DEFAULT) [address] [place] [address] 54554 ALT [Catalytic activity/Vol] 52.0 U/L Normal 14.0-54.0 [facility] Comment on above: Performed By: #### 1 [id number] #### [facility] (DEFAULT) [address] [place] [address] 06616 Anion gap [Moles/Vol] 13.2 mmol/L Normal 5.0-19.0 [facility] Comment on above: Performed By: #### 1 [id number] #### [facility] (DEFAULT) [address] [place] [address] 04534 AST [Catalytic activity/Vol] 116 U/L High 15-41 [facility] Comment on above: Performed By: #### 1 [id number] #### [facility] (DEFAULT) [address] [place] [address] 66302 Bili Total 0.5 mg/dL Normal 0.3-1.2 [facility] Comment on above: Performed By: #### 1 [id number] #### [facility] (DEFAULT) [address] [place] [address] 89465 Calcium [Mass/Vol] 8.6 mg/dL Low 8.9-10.3 [facility] Comment on above: Performed By: #### 1 [id number] #### [facility] (DEFAULT) [address] [place] [address] 47040 Chloride [Moles/Vol] 110 mmol/L Normal 101-111 [facility] Comment on above: Performed By: #### 1 [id number] #### [facility] (DEFAULT) [address] [place] [address] 56202 CO2 [Moles/Vol] 24 mmol/L Normal 21-32 [facility] Comment on above: Performed By: #### 1 [id number] #### [facility] (DEFAULT) [address] [place] [address] 77814 Creatinine [Mass/Vol] 0.56 mg/dL Low 0.60-1.30 [facility] Comment on above: Performed By: #### 1 [id number] #### [facility] (DEFAULT) [address] [place] [address] 72974 Globulin (S) [Mass/Vol] 3.4 g/dL Normal 1.5-4.3 [facility] Comment on above: Performed By: #### 1 [id number] #### [facility] (DEFAULT) [address] [place] [address] 94580 Glucose [Mass/Vol] 84.0 mg/dL Normal 74.0-118.0 [facility] Comment on above: Performed By: #### 1 [id number] #### [facility] (DEFAULT) [address] [place] [address] 06857 Osmolality 282 mOsm/L Invalid Interpretation Code [facility] Comment on above: Performed By: #### 1 [id number] #### [facility] (DEFAULT) [address] [place] [address] 23822 Potassium [Moles/Vol] 4.2 mmol/L Normal 3.6-5.1 [facility] Comment on above: Performed By: #### 1 [id number] #### [facility] (DEFAULT) [address] [place] [address] 53892 Protein [Mass/Vol] 6.4 g/dL Low 6.5-8.1 [facility] Comment on above: Performed By: #### 1 [id number] #### [facility] (DEFAULT) [address] [place] [address] 58736 Sodium [Moles/Vol] 143.0 mmol/L Normal 136.0-144 . 0 [facility] Comment on above: Performed By: #### 1 [id number] #### [facility] (DEFAULT) [address] [place] [address] Urea nitrogen [Mass/Vol] 7 mg/dL Low 8- [facility] Comment on above: Performed By: #### 1 [id number] #### [facility] (DEFAULT) [address] [place] [address] 79950 Urea nitrogen/Creatinine [Mass ratio] 12.5 mg/mg Normal 4.6-16.2 [facility] Comment on above: Performed By: #### 1 [id number] #### [facility] (DEFAULT) [address] [place] [address] 02763 Folateon 05-21-2024 Folic Acid Level 2.64 ng/mL Low 5.90-24.80 [facility] Comment on above: Performed By: #### 2 [id number], [id number] ####[facility] (DEFAULT)[address] [place] [address] Provider Orderson 05-21-2024 Provider Orders [id number] FF Normal [facility] Vit B12 Lvlon 05-21-2024 Vit B12 182 Normal 180-914 [facility] Comment on above: Performed By: #### 2 [id number], [id number] ####[facility] (DEFAULT)[address] [place] [address] 97156 Coding Summaryon 05-06-2024 [facility] YpdemgjsVLh4mXy+PGhlYWQ+P I3YSIPvO42jrXOnfQ1jR6ELRB lOSywgQVBQTElOSyIgbmFtZT1 kaXNjZXJu IC8+CX0mNIMtPmtpuHTwy5E1g EA6M49vhc0nYXulmBX6UDSyTf Uqqqhlb0crlJr4OEkqLxjbCbB t JIFxwE16VSM8dE58Es97yWBmr ZAfq5wkkNb7CkQyVYAxOCN5yA liBAihv8BgLLVjV63zlHXgh0A 6 TAIboZtliBHrNiAvmIN5zL1aP Keomzhri3gkxwvhQzw6dv16mL Fua7P4iTG9X0RkprK4YTNmhXL g JqqizLZOnY6mtfxtk7kqsdmqE tJhBLGlSAo3CGs2CYAcdMlsZx YpRO68EYX6TTNgdgGvQ4MmUGL s dKedFhO5r8H9Jf1AD9LTAvcrY 1VNTUFSWTwvdGQ+XG31zp02N9 DjEieqSfu6RPEvOEK3jLR6nZ9 n DHYtMPodd3A9kME2E2FpyyIza d3my9pjRIRxCEkoZ37gzRGwg9 B9FQKfkCT6TJUdiOzbNsTgjH0 3 Oyc+QGIqpGveo4DqZjqtp8ojc 4addYo6NgxwTGMccoIfcRroUO K0k2CcCl7iIDRmhHY4bUX6mU7 i UhTbEsL4CVjyN611GzLoxNJqY upzH76uJ3XxvJW+WPGvLnc4GT YoeAlcZS4uP2UiKFEoiuckdON m tXaySW7zWLYyozhzCOZjqP5qT ZWpN2r8CeIpWfR9AKdoO8CbXP MteywzOz38yH5iAmZvKqS3ZFq u R7TuqeK9AHZvoYAhXNwvNVQ5T 57ym8D6LKFrONEpGZR8sOT8mR 1hbGlnbjogbGVmdDsgdmVydGl j TTorRRyqK224BFCamWxbVuNcJ GluZyBEYXRlOiAgMDgvMTQvMj AyNDwvdGQ+LTNuKGT1tRonEQJ n cEHiONjyUc4qwTyggGyeYC9qI KPwqkpfNBVqpW3dGWKrxBTlsA yoLP0vBSUxcpmqk117TzNfUNL 0 TSGoqTSlN8TngK7rXhBgWKJeL BDsT7QydXOgJJsvE701TAvyDr L2XEOrtlPrF8UzJIGwnWvjHhJ 0 r5H6Uy6Zf6GhcpbfP6AehCZqC sKnIdorANm8D7AmKhgljCF+PC 54MUKyOO05JSx5HCO2qCkuGSs i CUWoN4RssE6oUtZvDCRpOHHrL yc+PHRhYmxlIHdpZHRoPScxMD KeYmIenEmjOA0aPn4dVVCeUQW v xZqgwVWrAhYrp4bvZJIbMKtcI W9ywBtpI1IebGA2MODje0m0Xl 50T75eO0RfiJT+XXDgwGS0aYN 0 mH0zVlZrOzR4RVseO696OyJjj LMaPmkus7qly5epvTd2BiS4RX ZrgsSxwKsbXOP7h2GbMh24J57 s IHdpZHRoPSIxNSUiIHZhbGlnb b3aeA9hLm6+JOCkbBQ9wED5vF 2jUaOcNeS0GIklU584FwCplNM v Vzpka9gwt8mwnLo6KdGoNYFnw gMzkJmiHTJ8d1KdRr74N5JimF nia2SjQxc5zl96jFLfh1B7hGH 9 A8EtDKSjnhocuLNrnTqtAE3zB ARieqyiWTJbwX9pWTMsL3d1Lc DaJnY6GMnhS6WdzvG4UNYuiQD g YBCkmGMFpK6pmydmb4gxrnjaQ jLnWJRyFAe3TNx5YGUwhTooBz WnZKN4SsI1NVX1sVPguW2otTk n watrgS1zYcg+NCX1lCRqwSQAZ H2cXazomIZ+GEXaFAP6cZegYM lvUOYxrL9kCIWeZ0w4JgHwQpJ 1 UJqtA2OespV7IKBgzXJyJNUzt XMLxC4douyfq6cnbvnhRpCcKA DpQUe6YNn3NUFdtGnwPlFuPAU 0 UqW4CDL8nWGhdK3rvHmtqazcz G9wOyc+NxmrgWkrJVB0YVk0B0 RaDum0GQMlwDkoNV3nqXYuPJd u Xb5uaJesdKjvRQ9bKBHmgbipb 644EaXmk2huGAAkjUTiSLgsVH Q2M29gg2G5FDDuWBIpRBJ2hAN 4 xP7pdWskhhgcqOVljSbipaNxv CmqVVzcIWmyW393OWYlnZjmUj QkQSv0F0QzRnq4AJPevRpwOO2 n xLVyKJqtOs2ylOxogYmdBC0vC ERulbdbn943OtEfg1fuJHGakQ LzRAulXTM7O75nf3Z7GWBdWBT w GYF8zVC8lM2zfDxdybmkeXXoi NaujqAvqTdePGrhXAcjG478CK KlsLksKoXfvBo0I8EbAxu8YTL z uKhvYE9cfPSdSJgtFv9fpQtux NytQR8uETQqarsky836MbYdj2 ttSUSeyTMlFXfxOOL2K08di4Q 6 NCHeLRMqMIA1vVG8lS7pyLtjf jogbGVmdDsgdmVydGljYWwtYW ejN210BPZdrCgtJqUaiSgnwmL g TAluXSw8I8VtDtietYG+PC90Y IKhGM70sVYeiAHvz4qhyKi1Zm BiOSXpXNM5dNlvBQsow8QmZMZ t Z40epPNjl1N5VBPysSyjtKOtF jWwqZU9zM3dCUkyxrrce7ygqx liVhxxv3hufc72fG21F43gEWg p BJMpRWGzPJIhITBysZneqx5rc G9wIi8+UKYorYX3kWG7nI6yRB JfHnB4EOzkR053ClLvsQXdCyr j h3ija3vfbBe3NoP7WJCunzNac EgbGMZ5n7IuYz34N83lIUreWW EmVCXvALEeXISbfNxqcp9rgU1 w Ii8+RRXlxNQ9sOQ8dH2mXtTmK jT5GYxkD963UkYdlMMwUoohL3 5bZ3EkvYR+AGJdTue8XQGpaOi s PN4stHYhRUsjPc1zEDR3IgAaC yAhDZkdI9IeBVGcgwqndvqulN C3VBZmIPXrsT18Wm2ifYtvSKA w tFCHvA0wfdahr8snsenoHcJwZ EBxJVx4NGd4HQAxrAafJjJwJJ X2EyA9AGJ0bOBcfG5ggPabhuw g xL1kO0WjJOHaercpCm37zX4uG bHfQpQ7QFkiJsc+SEVNTUVSLC TOMHFMHMn7P4NuWss2JFAxxLj s UC1cdTGdYFnzRv6mvZwswLhkW A5jZFAukweaOKVikY5fVAUddZ WeuStxRH3mCKQdoiqlh262CiS x JWY7WGZvdCUnZ7SofR7hKfPqG UWdRTEeM4YylBKsYZgzV350IK ndMvH2EFWmqkLhH0JyYABzeYz u CzH8t7N2Hh4fXz1wYZ5dHBHzG C33EE37sFSwu8F4hTJ4S6HqNF LxenrpgjsgzXA1EYYtRPDlmL3 7 rRAoGSxzCl8ow4I8y832CAIdK ZQtrZ30Sp8imLspYUWtjQRTgH 7bdmzpy4msrlfgFgNgCWOnJXi 0 JGg4GPHrmHlpVwZtSST8UvD9Q CA7mZVmiA1cySreyxuicJ1cLt c+DqDuUOYgyvE4X6YeVlh2LKH z cAmbIF8zqYFkUFuqWc7gtBxri TmnGP9sSHKzaxepSCUwnU7eTT TlaFNdmWezPZ7aQSZvkxizj52 0 PyEbOEQ8SBPaoIBhG2WonC1wR wAdFWGdGDNgZ7GvfBElHXfvC9 93GVneCsR6DYNdqtIcG5GrTQR s aZsuRjT8x7K7Uq0ZPV5FXKZ6X 1SrYty6BLZbyLctCR6swFViAR tyJl6ipKamtDeyXQ6dQEJksnp w SOYizL0lSHWpvUUhgFylWB9cP SNcibdjk298PnJiISE5MXIkxG BsJ5RkkE9tXmBoIGXaQGLlF2W l qRFcLXhlK831UIijSaC0SOTrm uHeV2NfRLXjoEkxJdY0s2M1Wy 5PUDwvdGQ+YY58uu39T0JpVjw l Cel1TIUeNTS4oZD2tC9rPHOlA Bqss1K2eTH4K9EfypMvgd7gc5 crJBOcWGhhK40ggFQrc3F0UDJ t bAI7XGVfqQwiBcFmkW60Qsf+P ILurVnon5QfGqxfk9bna5mwuU v8YkZbTXStgkEmpMdqQXC8p8D i Ys30N66nCIchILUvELHyASIsC TCewUqydr8tcE2fVo0+PGNvbC P6tHQ6uM0nJqTdGfS0TNqgI06 9 IzRlkBBhSqscx4dhc7pvzMr2C mNzTJZuviWrjReoBUE6b2UjAm 14Y9XddBsfz8XwCqf6dn46gQF g c8P7vBE6W9JaTZVzbtsupMSwt HowZT4zIESjgjjqWUPxyD3vNF GpB4b2YgXwStE2UOgwO8IlcrZ 6 ICAoqPZxFLSvwQQQiB5wvkqhn 3ojmgsbQsZuBXLdHRj2CVv2LW CqvBeuOtMqCRI6VfB3YML8cNY h cH2vlBqbqgdahZ4dQdy+UGh5c 9gblYWaSL7inKF7VP65KD36uG Ymd4F7lPU1J5UiWFXkmnhulii n zFK9NTHoJKGxeZ23Hr1kxRakY s1rFXGoQBB1NBDanTSiY5GthH 3dVrOcQASnLKRxL5EyoHUnGCz p J551GHcyHmM8DWLfemQwU5BjQ EQqeGtrWgO8s1L9Sn2VAT51KA 30CB93gVVzq7Y6vHW8R7LdZNR p ekjbnccugKK3JXAlITVafJ00Z t3ldJziFo6nIDByISC9LKJwqE JdJ4FzsJ1uLiCkKIIsNEZdR3L l oDBsQTqdN582PVidNyW3QVBdl cQqB8YeKUQjcShzVvW6t0S5Md 6MOk87IO95UZ95eQBsy2U0xHC 9 Y9QbTIAdrecsujuppEQ2ZZZfG VFtnD17Cj8fpQdrUs5fNGBxFO Q5ATGxyEPsP8RcmW4xEiAoRXR w MWIgQ4DhzMDaUEveF640ZShbU dG5QBCjvkDqO6OgBRXgeFjjUr J8w2T8Ze9JKTxxfrm5U8TfLnf v dHI+EJ15ZKJdWH82kSXjkVDge 8wxnYg0ScDaTRCeCZO6yXgqXJ pih4OoDZHlF56obAQme7B5PTY v bGx (more content not included)... Normal [facility] .Auto Diff 04-22-2024 Auto [place] % 8 % Normal 10-04 [facility] Comment on above: Performed By: #### 7 701507, 0346094, [id number], [id number] ####[facility] (DEFAULT)[address] [place] [address] Baso Abs# 0.0 x10 Normal 0.0-0.2 [facility] Comment on above: Performed By: #### 7 373745, 3715953, [id number], [id number] ####[facility] (DEFAULT)[address] [place] [address] 35234 Basophils/100 WBC (Bld) 0.8 % Normal 0.2-2.0 [facility] Comment on above: Performed By: #### 7 872132, 7550387, [id number], [id number] ####[facility] (DEFAULT)[address] [place] [address] Eos Abs# 0.0 x10 Normal 0.0-0.4 [facility] Comment on above: Performed By: #### 7 680739, 0460816, [id number], [id number] ####[facility] (DEFAULT)[address] [place] [address] Eosinophils/100 WBC (Bld) 0.8 % Low 0.9-4.0 [facility] Comment on above: Performed By: #### 7 814348, 4894786, [id number], [id number] ####[facility] (DEFAULT)[address] [place] [address] 34484 Lymph Abs# 1.1 x10 Low 1.3-2.9 [facility] Comment on above: Performed By: #### 7 793937, 9436272, [id number], [id number] ####[facility] (DEFAULT)[address] [place] [address] 68971 Lymphocytes/100 WBC (Bld) 23 % Normal 14-48 [facility] Comment on above: Performed By: #### 7 884876, 4249017, [id number], [id number] ####[facility] (DEFAULT)[address] [place] [address] 91876 [place] Abs# 0.4 x10 Normal 0.0-0.8 [facility] Comment on above: Performed By: #### 7 516891, 1729982, [id number], [id number] ####[facility] (DEFAULT)[address] [place] [address] Neut Abs# 3.3 x10 Normal 1.5-9.2 [facility] Comment on above: Performed By: #### 7 868660, 0276367, [id number], [id number] ####[facility] (DEFAULT)[address] [place] [address] Neutrophils/100 WBC (Bld) 68 % Normal 44-88 [facility] Comment on above: Performed By: #### 7 595317, 4849200, [id number], [id number] ####[facility] (DEFAULT)[address] [place] [address] CBC w/ Auto Diffon 4 Erythrocyte distribution width (RBC) [Ratio] 14.6 % Normal 11.5-15.0 [facility] Comment on above: Performed By: #### 7 654398, 8747977, [id number], [id number] ####[facility] (DEFAULT)[address] [place] [address] Hematocrit (Bld) [Volume fraction] 34.2 % Normal 33.7-40.4 [facility] Comment on above: Performed By: #### 7 468663, 3550031, [id number], [id number] ####[facility] (DEFAULT)[address] [place] [address] Hemoglobin (Bld) [Mass/Vol] 11.6 g/dL Normal 11.3-15.9 [facility] Comment on above: Performed By: #### 7 142239, 7499436, [id number], [id number] ####[facility] (DEFAULT)[address] [place] [address] Man Diff? RBC Morph Only Invalid Interpretation Code [facility] Comment on above: Performed By: #### 7 770305, 7958530, [id number], [id number] ####[facility] (DEFAULT)[address] [place] [address] MCH (RBC) [Entitic mass] 39 pg High 24-34 [facility] Comment on above: Performed By: #### 7 487576, 5115952, [id number], [id number] ####[facility] (DEFAULT)[address] [place] [address] 49123 MCHC (RBC) [Mass/Vol] 34 g/dL Normal 26-37 [facility] Comment on above: Performed By: #### 7 585379, 5706506, [id number], [id number] ####[facility] (DEFAULT)[address] [place] [address] 43506 MCV (RBC) [Entitic vol] 114 fL High 81-100 [facility] Comment on above: Performed By: #### 7 785336, 8718381, [id number], [id number] ####[facility] (DEFAULT)[address] [place] [address] 84861 Platelet 292 x10 Normal 138-427 [facility] Comment on above: Performed By: #### 7 321345, 4502901, [id number], 65093733 ####[facility] (DEFAULT)[address] [place] [address] Platelet mean volume (Bld) [Entitic vol] 7.1 fL Normal 6.3-10.2 [facility] Comment on above: Performed By: #### 7 083341, 5146874, [id number], [id number] ####[facility] (DEFAULT)[address] [place] [address] 49267 RBC 3.01 x10 Low 3.70-5.30 [facility] Comment on above: Performed By: #### 7 256210, 1493242, [id number], [id number] ####[facility] (DEFAULT)[address] [place] [address] WBC 4.8 x10 Normal 3.5-10.5 [facility] Comment on above: Performed By: #### 7 980141, 9219339, [id number], [id number] ####[facility] (DEFAULT)[address] [place] [address] Morphologyon 04-22-2024 Macro 2+ Invalid Interpretation Code [facility] Comment on above: Order Comment: Order added by Fiorella. Performed By: #### 7 [id number] ####[facility] (DEFAULT)[address] [place] [address] Polychrom 1+ Invalid Interpretation Code [facility] Comment on above: Order Comment: Order added by Fiorella. Performed By: #### 7 [id number] ####[facility] (DEFAULT)[address] [place] [address] Stomato 2+ Invalid Interpretation Code [facility] Comment on above: Order Comment: Order added by Fiorella. Performed By: #### 7 [id number] ####[facility] (DEFAULT)[address] [place] [address] PT/PTTon 04-22-2024 INR Coag (PPP) [Relative time] 1.04 {INR} Normal 0.91-1.11 [facility] Comment on above: Performed By: #### 7 [id number] ####[facility] (DEFAULT)[address] [place] [address] PT 10.8 second(s) Normal 9.7-11.8 [facility] Comment on above: Performed By: #### 7 [id number] ####[facility] (DEFAULT)[address] [place] [address] PTT 25 second(s) Normal 25-35 [facility] Comment on above: Performed By: #### 7 [id number] ####[facility] (DEFAULT)[address] [place] [address] Provider Orderson 04-22-2024 Provider Orders [id number] FF Normal [facility] Outside Recordson 04-08-2024 Outside Records [id number] [facility] Provider Orderson 04-07-2024 Provider Orders [id number] [facility] Vital Signs Date Time Vital Sign Value Performing Clinician Faci lity 10-08-2024 11:54-0500 Body temperature 97.5 [degF] Ban Boyce MD Work Phone: [facility] 10-08-2024 11:54-0500 Diastolic blood pressure 73 mm[Hg] Ban Boyce MD Work Phone: [facility] 10-08-2024 11:54-0500 Heart rate 81 /min aBn Boyce MD Work Phone: [facility] 10-08-2024 11:54-0500 Respiratory rate 16 /min Ban Boyce MD Work Phone: [facility] 10-08-2024 11:54-0500 SaO2% (BldA) [Mass fraction] 100 % Ban Boyce MD Work Phone: [facility] 10-08-2024 11:54-0500 Systolic blood pressure 114 mm[Hg] Ban Boyce MD Work Phone: [facility] 10-08-2024 06:00-0500 Body weight 55.5 kg Ban Boyce MD Work Phone: [facility] 10-07-2024 14:38-0500 Body height 154.94 cm Ban Boyce MD Work Phone: [facility] 10-07-2024 04:00-0500 Inhaled oxygen flow rate 3 L/min Ban Boyce MD Work Phone: [facility] 10-03-2024 15:24-0500 Diastolic blood pressure 68 mm[Hg] Ban Boyce MD Work Phone: [facility] 10-03-2024 15:24-0500 Heart rate 86 /min Ban Boyce MD Work Phone: [facility] 10-03-2024 15:24-0500 Respiratory rate 16 /min Ban Boyce MD Work Phone: [facility] 10-03-2024 15:24-0500 SaO2% (BldA) [Mass fraction] 96 % Ban Boyce MD Work Phone: [facility] 10-03-2024 15:24-0500 Systolic blood pressure 103 mm[Hg] Ban Boyce MD Work Phone: [facility] 10-03-2024 10:29-0500 Body height 154.94 cm Ban Boyce MD Work Phone: [facility] 10-03-2024 10:29-0500 Body temperature 97 [degF] Ban Boyce MD Work Phone: [facility] 10-03-2024 10:29-0500 Body weight 55 kg Ban Boyce MD Work Phone: [facility] 06-15-2024 15:08-0400 Body temperature 99 [degF] MD Anum Sorto Work Phone: [facility] 06-15-2024 15:08-0400 Diastolic blood pressure 67 mm[Hg] MD Anum Sorto Work Phone: [facility] 06-15-2024 15:08-0400 Heart rate 87 /min MD Anum Sorto Work Phone: [facility] 06-15-2024 15:08-0400 Respiratory rate 22 /min MD Anum Sorto Work Phone: [facility] 06-15-2024 15:08-0400 SaO2% (BldA) [Mass fraction] 99 % MD Anum Sorto Work Phone: [facility] 06-15-2024 15:08-0400 Systolic blood pressure 144 mm[Hg] MD Anum Sorto Work Phone: [facility] 06-15-2024 11:33-0400 Body height 157.48 cm MD Anum Sorto Work Phone: [facility] 06-15-2024 [id number] Body weight 62.2 kg MD Anum Sorto Work Phone: [facility] Encounters Encounter Date Encounter Type Care Provider Facility Start: 10-05-2024 Non-patient / Non-visit Ban Boyce MD Work Phone: [facility] Phys[facility] Work Phone: Start: 10-04-2024 Non-patient / Non-visit Ban Boyce MD Work Phone: [facility] Phys[facility] Work Phone: Start: 10-03-2024 End: 10-08-2024 Evaluation and management of inpatient Ban Boyce MD Work Phone: [facility] [place] [facility] Work Phone: Start: 08-27-2024 End: 09-08-2024 Pre-admission assessment Anum Sorto [facility] Start: 08-13-2024 End: 08-13-2024 Bamboo flowsheet Nicole Lockett MD Work Phone: [facility] Start: 08-13-2024 End: 08-13-2024 Bamboo flowsheet Nicole Lockett MD Work Phone: [facility] [facility] Start: 08-13-2024 End: 08-13-2024 Patient encounter procedure Nicole Lockett MD Work Phone: [facility] Comment on above: Polyneuropathy (Prim joyce Dx); Lumbar radiculopathy Start: 08-13-2024 End: 08-13-2024 ambulatory NICOLE LOCKETT Not Available Start: 07-07-2024 End: 07-07-2024 Emergency department patient visit ANUM SORTO Facility:[facility] Start: 06-15-2024 End: 06-15-2024 Emergency department patient visit MD Anum Sorto Work Phone: [facility] Work Phone: Start: 05-23-2024 End: 05-23-2024 Emergency department patient visit ANUM SORTO Facility:[facility] Start: 05-21-2024 End: 05-21-2024 ambulatory ANUM SORTO Facility:[facility] Start: 05-11-2024 End: 05-11-2024 ambulatory ANUM Taco Facility:[facility] Start: 04-22-2024 End: 04-22-2024 ambulatory Eulalia Ortiz [facility] Facility:[facility] Start: 09-12-2018 End: 09-13-2018 Patient encounter procedure DOCTOR MISC Facility: Procedures Date Procedure Procedure Detail Performing Clinician Start: 10-05-2024 MRI of cervical spine without contrast Ban Boyce MD Work Phone: Start: 10-05-2024 MR lumbar spine wo con Ban Boyce MD Work Phone: Start: 10-05-2024 Esophagogastroduodenoscopy Ban hudson MD Work Phone: Start: 10-04-2024 Duplex scan of lower limb veins Ban peña MD Work Phone: Start: 10-04-2024 Antibody screen Anum Sorto Comment on above: Order Comment: Transfuse now? Y Number of units to transfuse now? 1 Result Comment: PERF ORMED BY: [facility] [address] [place] [address] PATHOLOGIST STRANNER YULISSA MARES M.D. Start: 10-03-2024 CT of chest without contrast Ban dickerson MD Work Phone: Start: 10-03-2024 Screening for occult blood in feces Ban Boyce MD Work Phone: Start: 10-03-2024 Viral nucleic acid assay Ban Boyce MD Work Phone: Start: 10-03-2024 Plain chest X-ray Ban Boyce MD Work Phone: Start: 10-03-2024 Computed tomography of abdomen and pelvis with contrast Ban Boyce MD Work Phone: Start: 10-03-2024 CT cervical spine without contrast Cecilia Boyce MD Work Phone: Start: 10-03-2024 CT of head without contrast Ban cantrell MD Work Phone: Start: 08-13-2024 End: 08-13-2024 Needle emg ea extremty w/paraspinl area complete Nicole Lockett MD Work Phone: Start: 06-15-2024 Plain chest X-ray MD Anum Sorto Work Phone: Plan of Treatment Date Care Activity Detail Author Start: 10-08-2024 [facility] Start: 10-05-2024 Referral to rehabili tation physician [facility] Start: 10-04-2024 Comprehensive metabo lic 2000 panel - Serum or Plasma [facility] Start: 10-04-2024 [facility] Start: 10-03-2024 [facility] Start: 10-03-2024 Physical therapy procedure [facility] Start: 10-03-2024 Referral to occupati onal therapist [facility] Start: 10-03-2024 Referral to neurologist [facility] Start: 10-03-2024 Referral to wet inspector optical glass [facility] Start: 10-03-2024 Hospital admission [facility] Start: 10-03-2024 [facility] Start: 10-03-2024 Hepatic function panel [facility] Start: 10-03-2024 [facility] Start: 08-13-2024 End: 08-13-2024 Patient encounter procedure 08/13/2024 10:00 AM EST Procedure Visit [facility] [address] [facility] [address] [place] [id number] Nicoel Lockett MD [address] [place] [address] Arrived [facility] Comment on above: Arrived Patient Education Peripheral Neuropathy Contact dermatitis [facility] Work Phone: Patient referral [facility] Work Phone: Reticulocytes [#/vol ume] in Blood [facility] Payers Date Payer Category Payer Private Health Insurance 2024 Self-pay 2024 Medicare (Managed Care) [employer] [id number] 2024 Medicaid [id number] 1960 Unknown [id number] 1960 Unknown [id number] 1960 Unknown [id number] 1960 Unknown [id number] 1960 Unknown [id number] 1960 Unknown [id number] 1957 Self-pay [id number] Unknown [id number] Unknown [id number] Social History Date Type Detail Facility Start: 06-15-2024 End: 10-05-2024 Tobacco smoking status NHIS Smoker (finding) [facility] Start: 1960 Sex Assigned At Female F [facility] Tobacco smoking status NHIS Tobacco smoking consumption unknown [facility] Start: 1960 Sex assigned at Not on file [facility] Gender identity Not on file [facility] Tobacco smoking status No Smoking Status Entered [facility] Start: 10-03-2024 End: 10-08-2024 Sex Female (finding) [facility] Goals Date Patient Goal Desired Activity /State Functional Status Date Assessment Result Facility 10-08-2024 Functional status Patient at Baseline [facility] Work Phone: Mental Status Date Assessment Result Facility 10-08-2024 Cognitive function Cognitive Sta tus Patient at Baseline [facility] Work Phone: Clinical Notes 05-23-2024 to 10-08-2024 Note Date & Type Note Facility 10-08-2024 Progress note Note Date/Time October 07, 2024 11:26pm [facility] [address] [place] [address] Hospitalist Progress Note Signed Patient: Telma Person MR#: [id number] : 1960 Acct:[id number] Age/Sex: 63 / F Adm Date: 5 Loc: Room: [address] [place] [address] Type: ADM IN Attending Dr: Percy Romeo MD Copies to: ~ Date of Service: 10/07/2024 Subjective Subjective Narrative: Patient seen and examined at bedside. No events overnight. Hemoglobin has beenstable today. Very pleasant and cooperative. Labs reviewed electrolytes were repleted accordingly. Not in acute distress. She was working with PT/OT and reportedly doing better Exam Physical Exam Vital Signs: Temp Pulse Resp BP Pulse Ox O2 Del Method O2 Flow Rate 98 F 75 21 125/80 100 Room Air 3 10/07/24 09:00 10/07/24 16:00 10/07/24 16:00 10/07/24 16:00 10/07/24 16:00 10/07/24 16:00 10/07/24 04:00 Narrative: Constitutional Constitutional Exam: Very tired and frail. Pleasant and cooperative with me on exam. Not in acute distress but ill-appearing HEENT Exam Head Exam: atraumatic Eye Exam: PERRL and conjunctiva pale, no scleral icterus ENT Exam: mucous membranes dry, oropharynx clear and external ear normal Neck Exam Neck Exam: full ROM, no JVD, no lymphadenopathy Respiratory Exam Respiratory Exam: CTA bilaterally and no respiratory distress, no wheeze or crackles patient with resp distress Cardiovascular Exam Cardiovascular exam: RR and no irregular rhythm, no murmurs normal S1-S2 Abdominal Exam GI/Abdominal Exam: soft, no tenderness on exam, no organomegaly, normal bowel sounds Extremities Exam Extremities Exam: no edema, full ROM, pulses intact, no normal capillary refill (Delayed cap refill 2 to 3 seconds) or no calf tenderness Back/Spine/Pelvis Exam Back Exam: no vertebral tenderness, no paraspinal tenderness, straight leg test is negative Skin Exam Skin Exam: dry and warm Neurological Exam Neurological Exam: alert, oriented X3, CN II-XII intact, no sensory deficit, no pronator drift, no altered mental status, patient appeared to have positive Romberg sign as well as ataxia on exam. Reflexes were not significant for beinga brisk or high for active. Motor strength of lower extremities is at least 3/5when patient laying down however gets worse when she stands up. Verbal Response: Oriented Objective Lab Results 10/07/24 06:30 10/07/24 06:30 Meds Allergies and Active Meds Allergies sulfamethoxazole (From Bactrim) Allergy (Verified 06/15/24 11:32) Rash trimethoprim (From Bactrim) Allergy (Verified 06/15/24 11:32) Rash Active Meds: Active Medications Generic Name Dose Route Start Last Admin Trade Name Freq PRN Reason Stop Dose Admin Ascorbic Acid 1,000 mg 10/05/24 09:00 10/07/24 10:04 Ascorbic Acid 500 Mg Tablet PO 10/05/25 08:59 1,000 mg DAILY RAFAEL Administration Budesonide/Formoterol Fumarate 2 puff 10/04/24 21:00 10/07/24 21:40 Budesonide/Formoterol 160-4.5 Mcg 60 Puff/6 Gm Hfa.Aer.Ad INHALATION 10/04/25 20:59 2 puff BID RAFAEL Administration Diclofenac Sodium 75 mg 10/04/24 14:16 Diclofenac Sodium 75 Mg Tablet.Dr PO 10/04/25 14:15 BID PRN pain Folic Acid 1 mg 10/04/24 09:00 10/07/24 10:05 Folic Acid 50 Mg/10 Ml Vial IV-PUSH 10/04/25 08:59 1 mg DAILY RAFAEL Administration Lorazepam 1 mg 10/04/24 13:23 10/05/24 08:44 Lorazepam 2 Mg/Ml Vial IV-PUSH 04/02/25 13:22 1 mg ONCE PRN Administration PRE MRI MED Magnesium Oxide 400 mg 10/05/24 09:00 10/07/24 10:04 Magnesium Oxide 400 Mg Tablet PO 10/05/25 08:59 400 mg DAILY RAFAEL Administration Pantoprazole Sodium 40 mg 10/03/24 21:00 10/07/24 20:36 Pantoprazole 40 Mg Vial IV-PUSH 10/03/25 20:59 40 mg BID RAFAEL Administration Prochlorperazine Edisylate 5 mg 10/04/24 20:44 10/04/24 20:52 Prochlorperazine Edisylate 10 Mg/2 Ml Vial IV-PUSH 10/04/25 20:43 5 mg Q4H PRN Administration Nausea OR Vomiting Sodium Chloride 0 ml 10/03/24 10:28 10/07/24 20:36 Sodium Chloride 0.9 % 10 Ml Syringe IV-PUSH 10/03/25 10:27 10 ml PRN PRN Administration Flush Sodium Chloride 10 ml 10/03/24 13:37 10/03/24 13:58 Sodium Chloride 0.9 % 10 Ml Syringe IV-PUSH 10/03/25 13:36 10 ml PRN PRN Administration Flush Sodium Chloride 10 ml 10/03/24 15:06 10/07/24 20:36 Sodium Chloride 0.9 % 10 Ml Vial.Pf INJECTION 10/03/25 15:05 10 ml PRN PRN Administration Dilution Sodium Chloride 10 ml 10/03/24 15:06 Sodium Chloride 0.9 % 10 Ml Syringe IV-PUSH 10/03/25 15:05 PRN PRN Flush Thiamine HCl 100 mg 10/04/24 09:00 10/07/24 10:05 Thiamine 200 Mg/2 Ml Vial IV-PUSH 10/04/25 08:59 100 mg DAILY RAFAEL Administration A&P - Hospitalist Assessment/Plan (1) Orthostatic hypotension: (2) Ataxia: (3) Neuropathy: (4) Normocytic anemia: Plan Lightheadedness likely orthostatic hypotension in the setting of symptomatic anemia, normocytic B12 deficiency which could be due to malnutrition and malabsorption in the setting of history of gastric bypass surgery Rule out GI loss, likely in the setting of anastomotic ulcers, GI doubt it is peptic Ataxia and decreased ambulation, likely neuropathy related could be due to malnutrition Rule out dementing process which is less likely given the patient's normal reflexia on exam -MR spine reviewed -Pantoprazole 40 mg IV twice daily, as per GI: would recommend using PPI packets 40 mg twice daily for 8 weeks. If her insurance will not cover packets then we would recommend she be prescribed PPI capsules 40 mg twice daily, she should open these and mix them with a small amount of water and drink them. -Additionally because this is anastomotic ulcer we would recommend she be on sucralfate 1 g 3 times daily for 4 weeks. -We would recommend she be on PPI 40 mg daily lifelong for prophylaxis after shecompletes 8 weeks of high-dose therapy, either as sprinkle packets or capsules open and mix with water. -She should avoid NSAIDs in the future, especially given her [place]-en-Y gastric bypass -Her PCP should refer her for routine colonoscopy for colorectal cancer screening in the outpatient setting -Follow-up on MRI as recommended by neurology -SCDs for DVT prophylaxis, I will avoid HSQ given the patient's anemia -PT/OT recommended SNF versus rehab -Stopped IV iron Plan of plan with the patient at bedside. Answer question addressed or concerns Time Spent With Patient (min): 40 Documented By: Percy Romeo MD 10/07/242323 Signed By: <Electronically signed by Percy Romeo MD> 10/07/242325 [facility] Work Phone: 1(991) 496-970101-16-2025 Progress note Author Percy Romeo [facility] Note Date/Time October 07, 2024 1 1:24pm [facility] [address] [place] [address] Hospitalist Progress Note Signed Patient: Telma Person MR#: [id number] : 1960 Acct:[id number] Age/Sex: 63 / F Adm Date: 5 Loc: 3T Room: [address] [place] [address] Type: ADM IN Attending Dr: Percy Romeo MD Copies to: ~ Date of Service: 10/06/2024 Subjective Subjective Narrative: Patient seen and examined at bedside. No events overnight. Hemoglobin has beenstable today. Very pleasant and cooperative. Labs reviewed electrolytes were repleted accordingly. Exam Physical Exam Vital Signs: Temp Pulse Resp BP Pulse Ox O2 Del Method O2 Flow Rate 97.6 F 75 20 124/79 100 Room Air 3 10/06/24 20:00 10/06/24 20:00 10/06/24 20:00 10/06/24 20:00 10/06/24 20:00 10/06/24 20:00 10/06/24 20:00 Narrative: Constitutional Constitutional Exam: Very tired and frail. Pleasant and cooperative with me on exam. Not in acute distress but ill-appearing HEENT Exam Head Exam: atraumatic Eye Exam: PERRL and conjunctiva pale, no scleral icterus ENT Exam: mucous membranes dry, oropharynx clear and external ear normal Neck Exam Neck Exam: full ROM, no JVD, no lymphadenopathy Respiratory Exam Respiratory Exam: CTA bilaterally and no respiratory distress, no wheeze or crackles patient with resp distress Cardiovascular Exam Cardiovascular exam: RR and no irregular rhythm, no murmurs normal S1-S2 Abdominal Exam GI/Abdominal Exam: soft, no tenderness on exam, no organomegaly, normal bowel sounds Extremities Exam Extremities Exam: no edema, full ROM, pulses intact, no normal capillary refill (Delayed cap refill 2 to 3 seconds) or no calf tenderness Back/Spine/Pelvis Exam Back Exam: no vertebral tenderness, no paraspinal tenderness, straight leg test is negative Skin Exam Skin Exam: dry and warm Neurological Exam Neurological Exam: alert, oriented X3, CN II-XII intact, no sensory deficit, no pronator drift, no altered mental status, patient appeared to have positive Romberg sign as well as ataxia on exam. Reflexes were not significant for beinga brisk or high for active. Motor strength of lower extremities is at least 3/5when patient laying down however gets worse when she stands up. Verbal Response: Oriented Objective Lab Results 10/07/24 06:30 10/07/24 06:30 Meds Allergies and Active Meds Allergies sulfamethoxazole (From Bactrim) Allergy (Verified 06/15/24 11:32) Rash trimethoprim (From Bactrim) Allergy (Verified 06/15/24 11:32) Rash Active Meds: Active Medications Generic Name Dose Route Start Last Admin Trade Name Freq PRN Reason Stop Dose Admin Ascorbic Acid 1,000 mg 10/05/24 09:00 10/06/24 11:20 Ascorbic Acid 500 Mg Tablet PO 10/05/25 08:59 1,000 mg DAILY RAFAEL Administration Budesonide/Formoterol Fumarate 2 puff 10/04/24 21:00 10/06/24 18:29 Budesonide/Formoterol 160-4.5 Mcg 60 Puff/6 Gm Hfa.Aer.Ad INHALATION 10/04/25 20:59 2 puff BID RAFAEL Administration Diclofenac Sodium 75 mg 10/04/24 14:16 Diclofenac Sodium 75 Mg Tablet. PO 10/04/25 14:15 BID PRN pain Folic Acid 1 mg 10/04/24 09:00 10/06/24 09:03 Folic Acid 50 Mg/10 Ml Vial IV-PUSH 10/04/25 08:59 1 mg DAILY RAFAEL Administration Ferric Sodium Gluconate 110 mls @ 110 mls/hr 10/04/24 09:00 10/06/24 11:20 Complex 125 mg/ Sodium IV 10/04/25 08:59 125 mls/hr Chloride QAM RAFAEL Administration Lorazepam 1 mg 10/04/24 13:23 10/05/24 08:44 Lorazepam 2 Mg/Ml Vial IV-PUSH 04/02/25 13:22 1 mg ONCE PRN Administration PRE MRI MED Magnesium Oxide 400 mg 10/05/24 09:00 10/06/24 09:04 Magnesium Oxide 400 Mg Tablet PO 10/05/25 08:59 400 mg DAILY RAFAEL Administration Pantoprazole Sodium 40 mg 10/03/24 21:00 10/06/24 09:04 Pantoprazole 40 Mg Vial IV-PUSH 10/03/25 20:59 40 mg BID RAFAEL Administration Prochlorperazine Edisylate 5 mg 10/04/24 20:44 10/04/24 20:52 Prochlorperazine Edisylate 10 Mg/2 Ml Vial IV-PUSH 10/04/25 20:43 5 mg Q4H PRN Administration Nausea OR Vomiting Sodium Chloride 0 ml 10/03/24 10:28 10/06/24 12:30 Sodium Chloride 0.9 % 10 Ml Syringe IV-PUSH 10/03/25 10:27 10 ml PRN PRN Administration Flush Sodium Chloride 10 ml 10/03/24 13:37 10/03/24 13:58 Sodium Chloride 0.9 % 10 Ml Syringe IV-PUSH 10/03/25 13:36 10 ml PRN PRN Administration Flush Sodium Chloride 10 ml 10/03/24 15:06 10/06/24 09:04 Sodium Chloride 0.9 % 10 Ml Vial.Pf INJECTION 10/03/25 15:05 10 ml PRN PRN Administration Dilution Sodium Chloride 10 ml 10/03/24 15:06 Sodium Chloride 0.9 % 10 Ml Syringe IV-PUSH 10/03/25 15:05 PRN PRN Flush Thiamine HCl 100 mg 10/04/24 09:00 10/06/24 09:03 Thiamine 200 Mg/2 Ml Vial IV-PUSH 10/04/25 08:59 100 mg DAILY RAFAEL Administration A&P - Hospitalist Assessment/Plan (1) Orthostatic hypotension: (2) Ataxia: (3) Neuropathy: (4) Normocytic anemia: Plan Lightheadedness likely orthostatic hypotension in the setting of symptomatic anemia, normocytic B12 deficiency which could be due to malnutrition and malabsorption in the setting of history of gastric bypass surgery Rule out GI loss, likely in the setting of anastomotic ulcers, GI doubt it is peptic Ataxia and decreased ambulation, likely neuropathy related could be due to malnutrition Rule out dementing process which is less likely given the patient's normal reflexia on exam - -Appreciate GI input. Patient is scheduled for EGD tomorrow -Appreciate neurology input, we will proceed with MRI of cervical and lumbar spine without contrast -Pantoprazole 40 mg IV twice daily, as per GI: would recommend using PPI packets 40 mg twice daily for 8 weeks. If her insurance will not cover packets then we would recommend she be prescribed PPI capsules 40 mg twice daily, she should open these and mix them with a small amount of water and drink them. -Additionally because this is anastomotic ulcer we would recommend she be on sucralfate 1 g 3 times daily for 4 weeks. -We would recommend she be on PPI 40 mg daily lifelong for prophylaxis after shecompletes 8 weeks of high-dose therapy, either as sprinkle packets or capsules open and mix with water. -She should avoid NSAIDs in the future, especially given her [place]-en-Y gastric bypass -Her PCP should refer her for routine colonoscopy for colorectal cancer screening in the outpatient setting -Continue IV iron infusion as well as IV folic acid, will need 1 more day of IV iron if the hemoglobin continues to be stable tomorrow I will discharge her provided the disposition and neurowork-up is complete -Follow-up on MRI as recommended by neurology -SCDs for DVT prophylaxis, I will avoid HSQ given the patient's anemia -PT/OT recommended SNF versus rehab Hypokalemia and hypomagnesemia in the setting of gastric bypass surgery with prolonged QTc -Patient was given IV potassium 40 mEq as well as IV magnesium 1 g. Will check another EKG today. I may give the patient another 40 of potassium another 1 g magnesium later today. Plan of plan with the patient at bedside. Answer question addressed or concerns Documented By: Percy Romeo MD 10/06/24 2038 Signed By: <Electronically signed by Percy Romeo MD> 10/07/24 [facility] Work Phone: 1(128) 728-441001-15-2025 [place] [address] Hospitalist Progress Note Signed Patient: Telma Person MR#: [id number] : 1960 Acct:[id number] Age/Sex: 63 / F Adm Date: 5 Loc: Room: [address] [place] [address] Type: ADM IN Attending Dr: Percy Romeo MD Copies to: ~ Date of Service: 10/07/2024 Subjective Subjective Narrative: Patient seen and examined at bedside. No events overnight. Hemoglobin has beenstable today. Very pleasant and cooperative. Labs reviewed electrolytes were repleted accordingly. Not in acute distress. She was working with PT/OT and reportedly doing better Exam Physical Exam Vital Signs: Temp Pulse Resp BP Pulse Ox O2 Del Method O2 Flow Rate 98 F 75 21 125/80 100 Room Air 3 10/07/24 09:00 10/07/24 16:00 10/07/24 16:00 10/07/24 16:00 10/07/24 16:00 10/07/24 16:00 10/07/24 04:00 Narrative: Constitutional Constitutional Exam: Very tired and frail. Pleasant and cooperative with me on exam. Not in acute distress but ill-appearing HEENT Exam Head Exam: atraumatic Eye Exam: PERRL and conjunctiva pale, no scleral icterus ENT Exam: mucous membranes dry, oropharynx clear and external ear normal Neck Exam Neck Exam: full ROM, no JVD, no lymphadenopathy Respiratory Exam Respiratory Exam: CTA bilaterally and no respiratory distress, no wheeze or crackles patient with resp distress Cardiovascular Exam Cardiovascular exam: RR and no irregular rhythm, no murmurs normal S1-S2 Abdominal Exam GI/Abdominal Exam: soft, no tenderness on exam, no organomegaly, normal bowel sounds Extremities Exam Extremities Exam: no edema, full ROM, pulses intact, no normal capillary refill (Delayed cap refill2 to 3 seconds) or no calf tenderness Back/Spine/Pelvis Exam Back Exam: no vertebral tenderness, no paraspinal tenderness, straight leg test is negative Skin Exam Skin Exam: dry and warm Neurological Exam Neurological Exam: alert, oriented X3, CN II-XII intact, no sensory deficit, no pronator drift, no altered mental status, patient appeared to have positive Romberg sign as well as ataxia on exam. Reflexes were not significant for beinga brisk or high for active. Motor strength of lower extremities is at least 3/5when patient laying down however gets worse when she stands up. Verbal Response: Oriented Objective Lab Results 10/07/24 06:30 10/07/24 06:30 Meds Allergies and Active Meds Allergies sulfamethoxazole (From Bactrim) Allergy (Verified 06/15/24 11:32) Rash trimethoprim (From Bactrim) Allergy (Verified 06/15/24 11:32) Rash Active Meds: Active Medications Generic Name Dose Route Start Last Admin Trade Name Freq PRN Reason Stop Dose Admin Ascorbic Acid 1,000 mg 10/05/24 09:00 10/07/24 10:04 Ascorbic Acid 500 Mg Tablet PO 10/05/25 08:59 1,000 mg DAILY RAFAEL Administration Budesonide/Formoterol Fumarate 2 puff 10/04/24 21:00 10/07/24 21:40 Budesonide/Formoterol 160-4.5 Mcg 60 Puff/6 Gm Hfa.Aer.Ad INHALATION 10/04/25 20:59 2 puff BID RAFAEL Administration Diclofenac Sodium 75 mg 10/04/24 14:16 Diclofenac Sodium 75 Mg Tablet.Dr PO 10/04/25 14:15 BID PRN pain Folic Acid 1 mg 10/04/24 09:00 10/07/24 10:05 Folic Acid 50 Mg/10 Ml Vial IV-PUSH 10/04/25 08:59 1 mg DAILY RAFAEL Administration Lorazepam 1 mg 10/04/24 13:23 10/05/24 08:44 Lorazepam 2 Mg/Ml Vial IV-PUSH 04/02/25 13:22 1 mg ONCE PRN Administration PRE MRI MED Magnesium Oxide 400 mg 10/05/24 09:00 10/07/24 10:04 Magnesium Oxide 400 Mg Tablet PO 10/05/25 08:59 400 mg DAILY RAFAEL Administration Pantoprazole Sodium 40 mg 10/03/24 21:00 10/07/24 20:36 Pantoprazole 40 Mg Vial IV-PUSH 10/03/25 20:59 40 mg BID RAFAEL Administration Prochlorperazine Edisylate 5 mg 10/04/24 20:44 10/04/24 20:52 Prochlorperazine Edisylate 10 Mg/2 Ml Vial IV-PUSH 10/04/25 20:43 5 mg Q4H PRN Administration Nausea OR Vomiting Sodium Chloride 0 ml 10/03/24 10:28 10/07/24 20:36 Sodium Chloride 0.9 % 10 Ml Syringe IV-PUSH 10/03/25 10:27 10 ml PRN PRN Administration Flush Sodium Chloride 10 ml 10/03/24 13:37 10/03/24 13:58 Sodium Chloride 0.9 % 10 Ml Syringe IV-PUSH 10/03/25 13:36 10 ml PRN PRN Administration Flush Sodium Chloride 10 ml 10/03/24 15:06 10/07/24 20:36 Sodium Chloride 0.9 % 10 Ml Vial.Pf INJECTION 10/03/25 15:05 10 ml PRN PRN Administration Dilution Sodium Chloride 10 ml 10/03/24 15:06 Sodium Chloride 0.9 % 10 Ml Syringe IV-PUSH 10/03/25 15:05 PRN PRN Flush Thiamine HCl 100 mg 10/04/24 09:00 10/07/24 10:05 Thiamine 200 Mg/2 Ml Vial IV-PUSH 10/04/25 08:59 100 mg DAILY RAFAEL Administration A&P - Hospitalist Assessment/Plan (1) Orthostatic hypotension: (2) Ataxia: (3) Neuropathy: (4) Normocytic anemia: Plan Lightheadedness likely orthostatic hypotension in the setting of symptomatic anemia, normocytic [id number] which could be due to malnutrition and malabsorption in the setting of history of gastric bypass surgery Rule out GI loss, likely in the setting of anastomotic ulcers, GI doubt it is peptic Ataxia and decreased ambulation, likely neuropathy related could be due to malnutrition Rule out dementing process which is less likely given the patient's normal reflexia on exam -MR spine reviewed -Pantoprazole 40 mg IV twice daily, as per GI: would recommend using PPI packets 40 mg twice daily for 8 weeks. If her insurance will not cover packets then we would recommend she be prescribed PPI capsules 40 mg twice daily, she should open these and mix them with a small amount of water and drink them. -Additionally because this is anastomotic ulcer we would recommend she be on sucralfate 1 g 3 timesdaily for 4 weeks. -We would recommend she be on PPI 40 mg daily lifelong for prophylaxis after shecompletes 8 weeks of high-dose therapy, either as sprinkle packets or capsules open and mix with water. -She should avoid NSAIDs in the future, especially given her [place]-en-Y gastric bypass -Her PCP should refer her for routine colonoscopy for colorectal cancer screening in the outpatientsetting -Follow-up on MRI as recommended by neurology -SCDs for DVT prophylaxis, I will avoid HSQ given the patient's anemia -PT/OT recommended SNF versus rehab -Stopped IV iron Plan of plan with the patient at bedside. Answer question addressed or concerns Time Spent With Patient (min): 40 Documented By: Percy Romeo MD 10/07/24 7456 Signed By: 10/07/24 9310 [facility]01-15-20[place] [address] Hospitalist Progress Note Signed Patient: Hemmer,Birdie MR#: [id number] : 1960 Acct:[id number] Age/Sex: 63 / F Adm Date: Loc: 3T Room: [address] [place] [address] Type: ADM IN Attending Dr: Percy Romeo MD Copies to: ~ Date of Service: 10/06/2024 Subjective Subjective Narrative: Patient seen and examined at bedside. No events overnight. Hemoglobin has beenstable today. Very pleasant and cooperative. Labs reviewed electrolytes were repleted accordingly. Exam Physical Exam Vital Signs: Temp Pulse Resp BP Pulse Ox O2 Del Method O2 Flow Rate 97.6 F 75 20 124/79 100 Room Air 3 10/06/24 20:00 10/06/24 20:00 10/06/24 20:00 10/06/24 20:00 10/06/24 20:00 10/06/24 20:00 10/06/24 20:00 Narrative: Constitutional Constitutional Exam: Very tired and frail. Pleasant and cooperative with me on exam. Not in acute distress but ill-appearing HEENT Exam Head Exam: atraumatic Eye Exam: PERRL and conjunctiva pale, no scleral icterus ENT Exam: mucous membranes dry, oropharynx clear and external ear normal Neck Exam Neck Exam: full ROM, no JVD, no lymphadenopathy Respiratory Exam Respiratory Exam: CTA bilaterally and no respiratory distress, no wheeze or crackles patient with resp distress Cardiovascular Exam Cardiovascular exam: RR and no irregular rhythm, no murmurs normal S1-S2 Abdominal Exam GI/Abdominal Exam: soft, no tenderness on exam, no organomegaly, normal bowel sounds Extremities Exam Extremities Exam: no edema, full ROM, pulses intact, no normal capillary refill (Delayed cap refill2 to 3 seconds) or no calf tenderness Back/Spine/Pelvis Exam Back Exam: no vertebral tenderness, no paraspinal tenderness, straight leg test is negative Skin Exam Skin Exam: dry and warm Neurological Exam Neurological Exam: alert, oriented X3, CN II-XII intact, no sensory deficit, no pronator drift, no altered mental status, patient appeared to have positive Romberg sign as well as ataxia on exam. Reflexes were not significant for beinga brisk or high for active. Motor strength of lower extremities is at least 3/5when patient laying down however gets worse when she stands up. Verbal Response: Oriented Objective Lab Results 10/07/24 06:30 10/07/24 06:30 Meds Allergies and Active Meds Allergies sulfamethoxazole (From Bactrim) Allergy (Verified 06/15/24 11:32) Rash trimethoprim (From Bactrim) Allergy (Verified 06/15/24 11:32) Rash Active Meds: Active Medications Generic Name Dose Route Start Last Admin Trade Name Freq PRN Reason Stop Dose Admin Ascorbic Acid 1,000 mg 10/05/24 09:00 10/06/24 11:20 Ascorbic Acid 500 Mg Tablet PO 10/05/25 08:59 1,000 mg DAILY RAFAEL Administration Budesonide/Formoterol Fumarate 2 puff 10/04/24 21:00 10/06/24 18:29 Budesonide/Formoterol 160-4.5 Mcg 60 Puff/6 Gm Hfa.Aer.Ad INHALATION 10/04/25 20:59 2 puff BID RAFAEL Administration Diclofenac Sodium 75 mg 10/04/24 14:16 Diclofenac Sodium 75 Mg Tablet. PO 10/04/25 14:15 BID PRN pain Folic Acid 1 mg 10/04/24 09:00 10/06/24 09:03 Folic Acid 50 Mg/10 Ml Vial IV-PUSH 10/04/25 08:59 1 mg DAILY RAFAEL Administration Ferric Sodium Gluconate 110 mls @ 110 mls/hr 10/04/24 09:00 10/06/24 11:20 Complex 125 mg/ Sodium IV 10/04/25 08:59 125 mls/hr Chloride QAM RAFAEL Administration Lorazepam 1 mg 10/04/24 13:23 10/05/24 08:44 Lorazepam 2 Mg/Ml Vial IV-PUSH 04/02/25 13:22 1 mg ONCE PRN Administration PRE MRI MED Magnesium Oxide 400 mg 10/05/24 09:00 10/06/24 09:04 Magnesium Oxide 400 Mg Tablet PO 10/05/25 08:59 400 mg DAILY RAFAEL Administration Pantoprazole Sodium 40 mg 10/03/24 21:00 10/06/24 09:04 Pantoprazole 40 Mg Vial IV-PUSH 10/03/25 20:59 40 mg BID RAFAEL Administration Prochlorperazine Edisylate 5 mg 10/04/24 20:44 10/04/24 20:52 Prochlorperazine Edisylate 10 Mg/2 Ml Vial IV-PUSH 10/04/25 20:43 5 mg Q4H PRN Administration Nausea OR Vomiting Sodium Chloride 0 ml 10/03/24 10:28 10/06/24 12:30 Sodium Chloride 0.9 % 10 Ml Syringe IV-PUSH 10/03/25 10:27 10 ml PRN PRN Administration Flush Sodium Chloride 10 ml 10/03/24 13:37 10/03/24 13:58 Sodium Chloride 0.9 % 10 Ml Syringe IV-PUSH 10/03/25 13:36 10 ml PRN PRN Administration Flush Sodium Chloride 10 ml 10/03/24 15:06 10/06/24 09:04 Sodium Chloride 0.9 % 10 Ml Vial.Pf INJECTION 10/03/25 15:05 10 ml PRN PRN Administration Dilution Sodium Chloride 10 ml 10/03/24 15:06 Sodium Chloride 0.9 % 10 Ml Syringe IV-PUSH 10/03/25 15:05 PRN PRN Flush Thiamine HCl 100 mg 10/04/24 09:00 10/06/24 09:03 Thiamine 200 Mg/2 Ml Vial IV-PUSH 10/04/25 08:59 100 mg DAILY RAFAEL Administration A&P - Hospitalist Assessment/Plan (1) Orthostatic hypotension: (2) Ataxia: (3) Neuropathy: (4) Normocytic anemia: Plan Lightheadedness likely orthostatic hypotension in the setting of symptomatic anemia, normocytic [id number] which could be due to malnutrition and malabsorption in the setting of history of gastric bypass surgery Rule out GI loss, likely in the setting of anastomotic ulcers, GI doubt it is peptic Ataxia and decreased ambulation, likely neuropathy related could be due to malnutrition Rule out dementing process which is less likely given the patient's normal reflexia on exam - -Appreciate GI input. Patient is scheduled for EGD tomorrow -Appreciate neurology input, we will proceed with MRI of cervical and lumbar spine without contrast -Pantoprazole 40 mg IV twice daily, as per GI: would recommend using PPI packets 40 mg twice daily for 8 weeks. If her insurance will not cover packets then we would recommend she be prescribed PPI capsules 40 mg twice daily, she should open these and mix them with a small amount of water and drink them. -Additionally because this is anastomotic ulcer we would recommend she be on sucralfate 1 g 3 timesdaily for 4 weeks. -We would recommend she be on PPI 40 mg daily lifelong for prophylaxis after shecompletes 8 weeks of high-dose therapy, either as sprinkle packets or capsules open and mix with water. -She should avoid NSAIDs in the future, especially given her [place]-en-Y gastric bypass -Her PCP should refer her for routine colonoscopy for colorectal cancer screening in the outpatientsetting -Continue IV iron infusion as well as IV folic acid, will need 1 more day of IV iron if the hemoglobin continues to be stable tomorrow I will discharge her provided the disposition and neurowork-up is complete -[facility], I will avoid HSQ given the patient's anemia -PT/OT recommended SNF versus rehab Hypokalemia and hypomagnesemia in the setting of gastric bypass surgery with prolonged QTc -Patient was given IV potassium 40 mEq as well as IV magnesium 1 g. Will check another EKG today. Imay give the patient another 40 of potassium another 1 g magnesium later today. Plan of plan with the patient at bedside. Answer question addressed or concerns Documented By: Percy Romeo MD 10/06/242212 Signed By: 10/07/24 7824 [facility]01-14-2025 Progress note Author Percy Romeo [facility] Note Date/Time October 06, 2024 7 :23am [facility] [address] [place] [address] Hospitalist Progress Note Signed Patient: Telma Person MR#: [id number] : 1960 Acct:[id number] Age/Sex: 63 / F Adm Date: 5 Loc: Room: [address] [place] [address] Type: ADM IN Attending Dr: Percy Romeo MD Copies to: ~ Date of Service: 10/05/2024 Subjective Subjective Narrative: Patient seen and examined at bedside. S/p EGD with GI today. No events overnight. Hemoglobin has been stable today. Very pleasant and cooperative. Labs reviewed electrolytes were repleted accordingly. Exam Physical Exam Vital Signs: Temp Pulse Resp BP Pulse Ox O2 Del Method O2 Flow Rate 98.4 F 83 16 102/67 100 Nasal Cannula 3 10/05/24 08:00 10/05/24 10:53 10/05/24 10:53 10/05/24 10:53 10/05/24 10:53 10/05/24 10:53 10/05/24 10:53 Narrative: Constitutional Constitutional Exam: Very tired and frail. Pleasant and cooperative with me on exam. Not in acute distress but ill-appearing HEENT Exam Head Exam: atraumatic Eye Exam: PERRL and conjunctiva pale, no scleral icterus ENT Exam: mucous membranes dry, oropharynx clear and external ear normal Neck Exam Neck Exam: full ROM, no JVD, no lymphadenopathy Respiratory Exam Respiratory Exam: CTA bilaterally and no respiratory distress, no wheeze or crackles patient with resp distress Cardiovascular Exam Cardiovascular exam: RR and no irregular rhythm, no murmurs normal S1-S2 Abdominal Exam GI/Abdominal Exam: soft, no tenderness on exam, no organomegaly, normal bowel sounds Extremities Exam Extremities Exam: no edema, full ROM, pulses intact, no normal capillary refill (Delayed cap refill 2 to 3 seconds) or no calf tenderness Back/Spine/Pelvis Exam Back Exam: no vertebral tenderness, no paraspinal tenderness, straight leg test is negative Skin Exam Skin Exam: dry and warm Neurological Exam Neurological Exam: alert, oriented X3, CN II-XII intact, no sensory deficit, no pronator drift, no altered mental status, patient appeared to have positive Romberg sign as well as ataxia on exam. Reflexes were not significant for beinga brisk or high for active. Motor strength of lower extremities is at least 3/5when patient laying down however gets worse when she stands up. Verbal Response: Oriented Objective Lab Results 10/06/24 05:23 10/06/24 05:23 Meds Allergies and Active Meds Allergies sulfamethoxazole (From Bactrim) Allergy (Verified 06/15/24 11:32) Rash trimethoprim (From Bactrim) Allergy (Verified 06/15/24 11:32) Rash Active Meds: Active Medications Generic Name Dose Route Start Last Admin Trade Name Freq PRN Reason Stop Dose Admin Ascorbic Acid 1,000 mg 10/05/24 09:00 10/05/24 12:36 Ascorbic Acid 500 Mg Tablet PO 10/05/25 08:59 1,000 mg DAILY RAFAEL Administration Budesonide/Formoterol Fumarate 2 puff 10/04/24 21:00 10/05/24 08:40 Budesonide/Formoterol 160-4.5 Mcg 60 Puff/6 Gm Hfa.Aer.Ad INHALATION 10/04/25 20:59 2 puff BID RAFAEL Administration Diclofenac Sodium 75 mg 10/04/24 14:16 Diclofenac Sodium 75 Mg Tablet.Dr PO 10/04/25 14:15 BID PRN pain Folic Acid 1 mg 10/04/24 09:00 10/05/24 12:12 Folic Acid 50 Mg/10 Ml Vial IV-PUSH 10/04/25 08:59 1 mg DAILY RAFAEL Administration Ferric Sodium Gluconate 110 mls @ 110 mls/hr 10/04/24 09:00 10/05/24 12:10 Complex 125 mg/ Sodium IV 10/04/25 08:59 125 mls/hr Chloride QAM RAFAEL Administration Potassium Chloride 40 meq/ 520 mls @ 130 mls/hr 10/05/24 12:30 Sodium Chloride IV 10/05/24 16:29 ONCE ONE Lorazepam 1 mg 10/04/24 13:23 10/05/24 08:44 Lorazepam 2 Mg/Ml Vial IV-PUSH 04/02/25 13:22 1 mg ONCE PRN Administration PRE MRI MED Magnesium Oxide 400 mg 10/05/24 09:00 10/05/24 12:12 Magnesium Oxide 400 Mg Tablet PO 10/05/25 08:59 400 mg DAILY RAFAEL Administration Pantoprazole Sodium 40 mg 10/03/24 21:00 10/05/24 12:12 Pantoprazole 40 Mg Vial IV-PUSH 10/03/25 20:59 40 mg BID RAFAEL Administration Prochlorperazine Edisylate 5 mg 10/04/24 20:44 10/04/24 20:52 Prochlorperazine Edisylate 10 Mg/2 Ml Vial IV-PUSH 10/04/25 20:43 5 mg Q4H PRN Administration Nausea OR Vomiting Sodium Chloride 0 ml 10/03/24 10:28 10/04/24 14:51 Sodium Chloride 0.9 % 10 Ml Syringe IV-PUSH 10/03/25 10:27 10 ml PRN PRN Administration Flush Sodium Chloride 10 ml 10/03/24 13:37 10/03/24 13:58 Sodium Chloride 0.9 % 10 Ml Syringe IV-PUSH 10/03/25 13:36 10 ml PRN PRN Administration Flush Sodium Chloride 10 ml 10/03/24 15:06 10/05/24 12:12 Sodium Chloride 0.9 % 10 Ml Vial.Pf INJECTION 10/03/25 15:05 10 ml PRN PRN Administration Dilution Sodium Chloride 10 ml 10/03/24 15:06 Sodium Chloride 0.9 % 10 Ml Syringe IV-PUSH 10/03/25 15:05 PRN PRN Flush Thiamine HCl 100 mg 10/04/24 09:00 10/05/24 12:11 Thiamine 200 Mg/2 Ml Vial IV-PUSH 10/04/25 08:59 100 mg DAILY RAFAEL Administration A&P - Hospitalist Assessment/Plan (1) Orthostatic hypotension: (2) Ataxia: (3) Neuropathy: (4) Normocytic anemia: Plan Lightheadedness likely orthostatic hypotension in the setting of symptomatic anemia, normocytic B12 deficiency which could be due to malnutrition and malabsorption in the setting of history of gastric bypass surgery Rule out GI loss, likely in the setting of anastomotic ulcers, GI doubt it is peptic Ataxia and decreased ambulation, likely neuropathy related could be due to malnutrition Rule out dementing process which is less likely given the patient's normal reflexia on exam - -Appreciate GI input. Patient is scheduled for EGD tomorrow -Appreciate neurology input, we will proceed with MRI of cervical and lumbar spine without contrast -Pantoprazole 40 mg IV twice daily, as per GI: would recommend using PPI packets 40 mg twice daily for 8 weeks. If her insurance will not cover packets then we would recommend she be prescribed PPI capsules 40 mg twice daily, she should open these and mix them with a small amount of water and drink them. -Additionally because this is anastomotic ulcer we would recommend she be on sucralfate 1 g 3 times daily for 4 weeks. -We would recommend she be on PPI 40 mg daily lifelong for prophylaxis after shecompletes 8 weeks of high-dose therapy, either as sprinkle packets or capsules open and mix with water. -She should avoid NSAIDs in the future, especially given her [place]-en-Y gastric bypass -Her PCP should refer her for routine colonoscopy for colorectal cancer screening in the outpatient setting -Continue IV iron infusion as well as IV folic acid, will need 1 more day of IV iron if the hemoglobin continues to be stable tomorrow I will discharge her provided the disposition and neurowork-up is complete -Follow-up on MRI as recommended by neurology -SCDs for DVT prophylaxis, I will avoid HSQ given the patient's anemia -PT/OT recommended SNF versus rehab Hypokalemia and hypomagnesemia in the setting of gastric bypass surgery with prolonged QTc -Patient was given IV potassium 40 mEq as well as IV magnesium 1 g. Will check another EKG today. I may give the patient another 40 of potassium another 1 g magnesium later today. Plan of plan with the patient at bedside. Answer question addressed or concerns Time Spent With Patient (min): 50 Documented By: Percy Romeo MD 10/05/24 1316 Signed By: <Electronically signed by Percy Romeo MD> 10/06/24 9356 [facility] Work Phone: [phone]) 567-157701-14-2025 [place] [id number] Hospitalist Progress Note Signed Patient: Telma Person MR#: [id number] : 1960 Acct:[id number] Age/Sex: 63 / F Adm Date: 5 Loc: Room: [address] [place] [address] Type: ADM IN Attending Dr: Percy Romeo MD Copies to: ~ Date of Service: 10/05/2024 Subjective Subjective Narrative: Patient seen and examined at bedside. S/p EGD with GI today. No events overnight. Hemoglobin has been stable today. Very pleasant and cooperative. Labs reviewed electrolytes were repleted accordingly. Exam Physical Exam Vital Signs: Temp Pulse Resp BP Pulse Ox O2 Del Method O2 Flow Rate 98.4 F 83 16 102/67 100 Nasal Cannula 3 10/05/24 08:00 10/05/24 10:53 10/05/24 10:53 10/05/24 10:53 10/05/24 10:53 10/05/24 10:53 10/05/24 10:53 Narrative: Constitutional Constitutional Exam: Very tired and frail. Pleasant and cooperative with me on exam. Not in acute distress but ill-appearing HEENT Exam Head Exam: atraumatic Eye Exam: PERRL and conjunctiva pale, no scleral icterus ENT Exam: mucous membranes dry, oropharynx clear and external ear normal Neck Exam Neck Exam: full ROM, no JVD, no lymphadenopathy Respiratory Exam Respiratory Exam: CTA bilaterally and no respiratory distress, no wheeze or crackles patient with resp distress Cardiovascular Exam Cardiovascular exam: RR and no irregular rhythm, no murmurs normal S1-S2 Abdominal Exam GI/Abdominal Exam: soft, no tenderness on exam, no organomegaly, normal bowel sounds Extremities Exam Extremities Exam: no edema, full ROM, pulses intact, no normal capillary refill (Delayed cap refill2 to 3 seconds) or no calf tenderness Back/Spine/Pelvis Exam Back Exam: no vertebral tenderness, no paraspinal tenderness, straight leg test is negative Skin Exam Skin Exam: dry and warm Neurological Exam Neurological Exam: alert, oriented X3, CN II-XII intact, no sensory deficit, no pronator drift, no altered mental status, patient appeared to have positive Romberg sign as well as ataxia on exam. Reflexes were not significant for beinga brisk or high for active. Motor strength of lower extremities is at least 3/5when patient laying down however gets worse when she stands up. Verbal Response: Oriented Objective Lab Results 10/06/24 05:23 10/06/24 05:23 Meds Allergies and Active Meds Allergies sulfamethoxazole (From Bactrim) Allergy (Verified 06/15/24 11:32) Rash trimethoprim (From Bactrim) Allergy (Verified 06/15/24 11:32) Rash Active Meds: Active Medications Generic Name Dose Route Start Last Admin Trade Name Freq PRN Reason Stop Dose Admin Ascorbic Acid 1,000 mg 10/05/24 09:00 10/05/24 12:36 Ascorbic Acid 500 Mg Tablet PO 10/05/25 08:59 1,000 mg DAILY RAFAEL Administration Budesonide/Formoterol Fumarate 2 puff 10/04/24 21:00 10/05/24 08:40 Budesonide/Formoterol 160-4.5 Mcg 60 Puff/6 Gm Hfa.Aer.Ad INHALATION 10/04/25 20:59 2 puff BID RAFAEL Administration Diclofenac Sodium 75 mg 10/04/24 14:16 Diclofenac Sodium 75 Mg Tablet.Dr PO 10/04/25 14:15 BID PRN pain Folic Acid 1 mg 10/04/24 09:00 10/05/24 12:12 Folic Acid 50 Mg/10 Ml Vial IV-PUSH 10/04/25 08:59 1 mg DAILY RAFAEL Administration Ferric Sodium Gluconate 110 mls @ 110 mls/hr 10/04/24 09:00 10/05/24 12:10 Complex 125 mg/ Sodium IV 10/04/25 08:59 125 mls/hr Chloride QAM RAFAEL Administration Potassium Chloride 40 meq/ 520 mls @ 130 mls/hr 10/05/24 12:30 Sodium Chloride IV 10/05/24 16:29 ONCE ONE Lorazepam 1 mg 10/04/24 13:23 10/05/24 08:44 Lorazepam 2 Mg/Ml Vial IV-PUSH 04/02/25 13:22 1 mg ONCE PRN Administration PRE MRI MED Magnesium Oxide 400 mg 10/05/24 09:00 10/05/24 12:12 Magnesium Oxide 400 Mg Tablet PO 10/05/25 08:59 400 mg DAILY RAFAEL Administration Pantoprazole Sodium 40 mg 10/03/24 21:00 10/05/24 12:12 Pantoprazole 40 Mg Vial IV-PUSH 10/03/25 20:59 40 mg BID RAFAEL Administration Prochlorperazine Edisylate 5 mg 10/04/24 20:44 10/04/24 20:52 Prochlorperazine Edisylate 10 Mg/2 Ml Vial IV-PUSH 10/04/25 20:43 5 mg Q4H PRN Administration Nausea OR Vomiting Sodium Chloride 0 ml 10/03/24 10:28 10/04/24 14:51 Sodium Chloride 0.9 % 10 Ml Syringe IV-PUSH 10/03/25 10:27 10 ml PRN PRN Administration Flush Sodium Chloride 10 ml 10/03/24 13:37 10/03/24 13:58 Sodium Chloride 0.9 % 10 Ml Syringe IV-PUSH 10/03/25 13:36 10 ml PRN PRN Administration Flush Sodium Chloride 10 ml 10/03/24 15:06 10/05/24 12:12 Sodium Chloride 0.9 % 10 Ml Vial.Pf INJECTION 10/03/25 15:05 10 ml PRN PRN Administration Dilution Sodium Chloride 10 ml 10/03/24 15:06 Sodium Chloride 0.9 % 10 Ml Syringe IV-PUSH 10/03/25 15:05 PRN PRN Flush Thiamine HCl 100 mg 10/04/24 09:00 10/05/24 12:11 Thiamine 200 Mg/2 Ml Vial IV-PUSH 01/12/26 08:59 100 mg DAILY RAFAEL Administration A&P - Hospitalist Assessment/Plan (1) Orthostatic hypotension: (2) Ataxia: (3) Neuropathy: (4) Normocytic anemia: Plan Lightheadedness likely orthostatic hypotension in the setting of symptomatic anemia, normocytic [id number] which could be due to malnutrition and malabsorption in the setting of history of gastric bypass surgery Rule out GI loss, likely in the setting of anastomotic ulcers, GI doubt it is peptic Ataxia and decreased ambulation, likely neuropathy related could be due to malnutrition Rule out dementing process which is less likely given the patient's normal reflexia on exam - -Appreciate GI input. Patient is scheduled for EGD tomorrow -Appreciate neurology input, we will proceed with MRI of cervical and lumbar spine without contrast -Pantoprazole 40 mg IV twice daily, as per GI: would recommend using PPI packets 40 mg twice daily for 8 weeks. If her insurance will not cover packets then we would recommend she be prescribed PPI capsules 40 mg twice daily, she should open these and mix them with a small amount of water and drink them. -Additionally because this is anastomotic ulcer we would recommend she be on sucralfate 1 g 3 timesdaily for 4 weeks. -We would recommend she be on PPI 40 mg daily lifelong for prophylaxis after shecompletes 8 weeks of high-dose therapy, either as sprinkle packets or capsules open and mix with water. -She should avoid NSAIDs in the future, especially given her [place]-en-Y gastric bypass -Her PCP should refer her for routine colonoscopy for colorectal cancer screening in the outpatientsetting -Continue IV iron infusion as well as IV folic acid, will need 1 more day of IV iron if the hemoglobin continues to be stable tomorrow I will discharge her provided the disposition and neurowork-up is complete -Follow-up on MRI as recommended by neurology -SCDs for DVT prophylaxis, I will avoid HSQ given the patient's anemia -PT/OT recommended SNF versus rehab Hypokalemia and hypomagnesemia in the setting of gastric bypass surgery with prolonged QTc -Patient was given IV potassium 40 mEq as well as IV magnesium 1 g. Will check another EKG today. Imay give the patient another 40 of potassium another 1 g magnesium later today. Plan of plan with the patient at bedside. Answer question addressed or concerns Time Spent With Patient (min): 50 Documented By: Percy Romeo MD 10/05/24 1316 Signed By: 10/06/24 0723 [facility]01-13-2025 Progress note Author Abraham Flores [facility] Note Date/Time October 05, 2024 5 :34pm [facility] EN[facility] [address] [place], [place] [id number] Neurology Progress Note Signed with Addenda Patient: Telma Person MR#: [id number] : 1960 Acct:[id number] Age/Sex: 63 / F Adm Date: 5 Loc: Room: [address] [place] [address] Type: ADM IN Attending Dr: Percy Romeo MD Copies to: ~ ADDENDUM1 I endorse the portions of this note created by Jake Orosco. I also saw and examined the patient. Addendum Documented By: Abraham Flores DO 10/05/241733 Addendum Signed By: <Electronically signed by Abraham Flores DO> 10/05/241733 Date of Service: 10/05/2024 Exam Physical Exam Vital Signs: Temp Pulse Resp BP Pulse Ox O2 Del Method O2 Flow Rate 98.4 F 83 16 102/67 100 Nasal Cannula 3 10/05/24 08:00 10/05/24 10:53 10/05/24 10:53 10/05/24 10:53 10/05/24 10:53 10/05/24 10:53 10/05/24 10:53 Objective Vital Signs Vital Signs: Vital Signs - 24 hr 10/04/24 11:40 10/04/24 12:00 10/04/24 12:40 Temperature 98.1 F 98.3 F Pulse Rate 85 88 Pulse Rate [Monitor] Respiratory Rate 16 16 Blood Pressure 113/61 111/74 Blood Pressure [Right Arm] 02 Sat by Pulse Oximetry 100 100 Oxygen Delivery Method Room Air Oxygen Flow Rate 10/04/24 12:55 10/04/24 14:01 10/04/24 14:01 Temperature 98.9 F 97.6 F 97.6 F Pulse Rate 85 94 Pulse Rate [Monitor] 94 Respiratory Rate 18 18 16 Blood Pressure 111/76 112/73 Blood Pressure [Right Arm] 112/73 02 Sat by Pulse Oximetry 99 99 99 Oxygen Delivery Method Room Air Oxygen Flow Rate 10/04/24 15:53 10/04/24 18:01 10/04/24 20:00 Temperature 97.6 F 97.8 F Pulse Rate 80 Pulse Rate [Monitor] 83 Respiratory Rate 16 18 Blood Pressure 116/76 Blood Pressure [Right Arm] 102/67 02 Sat by Pulse Oximetry 98 98 Oxygen Delivery Method Room Air Room Air Room Air Oxygen Flow Rate 10/04/24 21:47 10/05/24 00:00 10/05/24 01:57 Temperature 97.9 F 97.8 F Pulse Rate Pulse Rate [Monitor] 76 85 Respiratory Rate 17 16 Blood Pressure Blood Pressure [Right Arm] 114/76 102/68 02 Sat by Pulse Oximetry 98 99 Oxygen Delivery Method Room Air Room Air Room Air Oxygen Flow Rate 10/05/24 03:43 10/05/24 03:45 10/05/24 06:00 Temperature 98.0 F 98.2 F Pulse Rate 80 Pulse Rate [Monitor] 79 Respiratory Rate 16 16 Blood Pressure 101/68 Blood Pressure [Right Arm] 110/73 02 Sat by Pulse Oximetry 99 100 Oxygen Delivery Method Room Air Room Air Room Air Oxygen Flow Rate 10/05/24 08:00 10/05/24 09:44 10/05/24 10:38 Temperature 98.4 F Pulse Rate 79 71 Pulse Rate [Monitor] 84 Respiratory Rate 15 18 16 Blood Pressure 111/75 123/78 Blood Pressure [Right Arm] 106/70 02 Sat by Pulse Oximetry 99 99 100 Oxygen Delivery Method Room Air Room Air Nasal Cannula Oxygen Flow Rate 3 10/05/24 10:53 Temperature Pulse Rate Pulse Rate [Monitor] 83 Respiratory Rate 16 Blood Pressure Blood Pressure [Right Arm] 102/67 02 Sat by Pulse Oximetry 100 Oxygen Delivery Method Nasal Cannula Oxygen Flow Rate 3 Labs 10/05/24 06:23 10/05/24 06:23 Lab Results: 10/03/24 10:40: Hemoglobin A1c 4.5 Therapy Recommendations Therapy Recommendations: OT Recommendations OT Recommended Discharge Residential Facility Location OT Recommended Services at Physical Therapy,Occupational Therapy Discharge PT Recommendations PT Recommended Discharge Residential Facility Location PT Recommended Services at Physical Therapy,Occupational Therapy Discharge ST Recommendations Liquid Consistency Thin Liquids Recommendation Solid Consistency Regular Solids Recommendations Meat Consistency Whole Meats Recommendations Medication Administration Whole Pills,Give Pills with Water Dysphagia Swallow Precautions/ Sitting Upright (90 deg),Small Bites/Sips, Strategies Alternate Liquids/Solids Assessment/Plan (1) Lower extremity weakness: Qualifiers: Laterality: bilateral Qualified Code(s): R29.898 - Other symptoms and signs involving the musculoskeletal system Plan CONSULT REASON: Progressive weakness INTERIM: Patient seen following EGD this morning, feels somewhat groggy following anesthesia. She says that she has had no changes in her numbness in her legs butthat it is still present. She is curious about the results of her MRIs of her cervical and lumbar spines. She retains good control over her urination and has had improvement in her constipation. She is eating and drinking well, saying sheis hungry after being NPO for her EGD which she says went well. She denies saddle anesthesia. She denies any new pain, SOB, or departures from her baseline. EXAMINATION: Hypotension somewhat persistent. 94/63 last recorded In no distress. No deformities or trauma. Limbs seem well-perfused. No significant edema. Normal work of breathing. Visualized skin is generally intact and without lesions. Affect subdued, recovering from anesthesia. Patient is alert and generally oriented. Attention normal. Speech is fluent and nondysarthric. Pupils are equal. Ocular motility is full. No nystagmus. Facial sensation is normal. Hearing is normal. Facial strength is normal. Tongue is midline. Muscle bulk and tone are normal throughout. Muscle strengthin upper extremities seems normal bilaterally. +4/5 strength bilateral hip flexion. I think the rest of the lower limbs have strength that is acceptable and within normal limits. No significant tremors. Right upper extremity bicepsand brachioradialis reflex slightly brisk. Left upper extremity biceps and brachioradialis reflex +3/4. Bilateral Leander signs. Patellar reflexes brisk bilaterally, more so on the left. No sustained ankle clonus. Crossed adductors bilaterally. Light touch is generally intact. Temperature sensation is decreased in the lower extremities compared to the upper extremities. Vibratory sensation is absent in the feet. Proprioception is very poor in the feet. No limb dysmetria or ataxia. DATA REVIEW: -Folate low at 3.9 -Vitamin B12 1004 -TSH 2.23 -Hemoglobin 8, was 12.7 back in May 2024 -Head CT October 03, 2024 nonacute -Cervical spine CT October 03, 2024 shows mild reversal of the cervical lordosissuperiorly, disc bulging with central canal narrowing at C3-4 and C4-5 and C5-6,nothing looks severe -MRI cervical spine October 05, 2024 with moderate degenerative changes noted atC4-C6, no cord compression -MRI lumbar spine October 05, 2024 report pending, looks like a very mild amountof anterolisthesis of L5 on S1 and no central canal stenosis to the extent nerves are compressed - Immunofixation/SPEP pending ASSESSMENT: Bilateral feet sensory loss. Loss of all sensory modalities to varying degrees,including loss of proprioception. This is contributing to her imbalance. She isnot B12 deficient. It looks like the symptoms in her feet started back in May 2024. Her longstanding history of significant alcohol consumption might be contributory; she stopped drinking in July of last year. The ambulatory difficulty and lower extremity dysfunction seems out of proportion tothe sensory loss in the feet. She demonstrates hyperreflexia throughout, which is asymmetric and more pronounced on the left. She does not have any dermatomal or myotomal pattern to her symptoms lower extremity symptoms and does not have radicular pains. No bowel or bladder dysfunction. Reduced oral intake. Folate deficiency suggestive of malnourishment. She is hypotensive. And she is anemic whereas she was not back in May. All those things also probably contributing to weakness and ambulatory difficulty. PLAN: 1. Serum protein electrophoresis and immunofixation are pending and can be followed up on in the outpatient setting 2. EMG bilateral lower extremities in the outpatient setting 3. No other inpatient neurology recommendations at this time Documented By: Abraham Flores DO 10/05/24 1138 Signed By: <Electronically signed by Abraham Flores DO> 10/05/24 6609 [facility] Work Phone: [phone] 165-119901-13-2025 [place] [id number] Neurology Progress Note Signed with Addenda Patient: Telma Person MR#: [id number] : 1960 Acct:[id number] Age/Sex: 63 / F Adm Date: 5 Loc: Room: [address] [place] [address] Type: ADM IN Attending Dr: Percy Romeo MD Copies to: ~ ADDENDUM1 I endorse the portions of this note created by Jake Orosco. I also saw and examined the patient. Addendum Documented By: Abraham Flores DO 10/05/241733 Addendum Signed By: 10/05/241733 Date of Service: 10/05/2024 Exam Physical Exam Vital Signs: Temp Pulse Resp BP Pulse Ox O2 Del Method O2 Flow Rate 98.4 F 83 16 102/67 100 Nasal Cannula 3 10/05/24 08:00 10/05/24 10:53 10/05/24 10:53 10/05/24 10:53 10/05/24 10:53 10/05/24 10:53 10/05/24 10:53 Objective Vital Signs Vital Signs: Vital Signs - 24 hr 10/04/24 11:40 10/04/24 12:00 10/04/24 12:40 Temperature 98.1 F 98.3 F Pulse Rate 85 88 Pulse Rate [Monitor] Respiratory Rate 16 16 Blood Pressure 113/61 111/74 Blood Pressure [Right Arm] 02 Sat by Pulse Oximetry 100 100 Oxygen Delivery Method Room Air Oxygen Flow Rate 10/04/24 12:55 10/04/24 14:01 10/04/24 14:01 Temperature 98.9 F 97.6 F 97.6 F Pulse Rate 85 94 Pulse Rate [Monitor] 94 Respiratory Rate 18 18 16 Blood Pressure 111/76 112/73 Blood Pressure [Right Arm] 112/73 02 Sat by Pulse Oximetry 99 99 99 Oxygen Delivery Method Room Air Oxygen Flow Rate 10/04/24 15:53 10/04/24 18:01 10/04/24 20:00 Temperature 97.6 F 97.8 F Pulse Rate 80 Pulse Rate [Monitor] 83 Respiratory Rate 16 18 Blood Pressure 116/76 Blood Pressure [Right Arm] 102/67 02 Sat by Pulse Oximetry 98 98 Oxygen Delivery Method Room Air Room Air Room Air Oxygen Flow Rate 10/04/24 21:47 10/05/24 00:00 10/05/24 01:57 Temperature 97.9 F 97.8 F Pulse Rate Pulse Rate [Monitor] 76 85 Respiratory Rate 17 16 Blood Pressure Blood Pressure [Right Arm] 114/76 102/68 02 Sat by Pulse Oximetry 98 99 Oxygen Delivery Method Room Air Room Air Room Air Oxygen Flow Rate 10/05/24 03:43 10/05/24 03:45 10/05/24 06:00 Temperature 98.0 F 98.2 F Pulse Rate 80 Pulse Rate [Monitor] 79 Respiratory Rate 16 16 Blood Pressure 101/68 Blood Pressure [Right Arm] 110/73 02 Sat by Pulse Oximetry 99 100 Oxygen Delivery Method Room Air Room Air Room Air Oxygen Flow Rate 10/05/24 08:00 10/05/24 09:44 10/05/24 10:38 Temperature 98.4 F Pulse Rate 79 71 Pulse Rate [Monitor] 84 Respiratory Rate 15 18 16 Blood Pressure 111/75 123/78 Blood Pressure [Right Arm] 106/70 02 Sat by Pulse Oximetry 99 99 100 Oxygen Delivery Method Room Air Room Air Nasal Cannula Oxygen Flow Rate 3 10/05/24 10:53 Temperature Pulse Rate Pulse Rate [Monitor] 83 Respiratory Rate 16 Blood Pressure Blood Pressure [Right Arm] 102/67 02 Sat by Pulse Oximetry 100 Oxygen Delivery Method Nasal Cannula Oxygen Flow Rate 3 Labs 10/05/24 06:23 10/05/24 06:23 Lab Results: 10/03/24 10:40: Hemoglobin A1c 4.5 Therapy Recommendations Therapy Recommendations: OT Recommendations OT Recommended Discharge Residential Facility Location OT Recommended Services at Physical Therapy,Occupational Therapy Discharge PT Recommendations PT Recommended Discharge Residential Facility Location PT Recommended Services at Physical Therapy,Occupational Therapy Discharge ST Recommendations Liquid Consistency Thin Liquids Recommendation Solid Consistency Regular Solids Recommendations Meat Consistency Whole Meats Recommendations Medication Administration Whole Pills,Give Pills with Water Dysphagia Swallow Precautions/ Sitting Upright (90 deg),Small Bites/Sips, Strategies Alternate Liquids/Solids Assessment/Plan (1) Lower extremity weakness: Qualifiers: Laterality: bilateral Qualified Code(s): R29.898 - Other symptoms and signs involving the musculoskeletal system Plan CONSULT REASON: Progressive weakness INTERIM: Patient seen following EGD this morning, feels somewhat groggy following anesthesia. She says that she has had no changes in her numbness in her legs butthat it is still present. She is curious aboutthe results of her MRIs of her cervical and lumbar spines. She retains good control over her urination and has had improvement in her constipation. She is eating and drinking well, saying sheis hungry after being NPO for her EGD which she says went well. She denies saddle anesthesia. She denies anynew pain, SOB, or departures from her baseline. EXAMINATION: Hypotension somewhat persistent. 94/63 last recorded In no distress. No deformities or trauma. Limbs seem well-perfused. No significant edema. Normal work of breathing. Visualized skin is generally intact and without lesions. Affect subdued, recoveringfrom anesthesia. Patient is alert and generally oriented. Attention normal. Speech is fluent and nondysarthric. Pupils are equal. Ocular motility is full. No nystagmus. Facial sensation is normal. Hearing is normal. Facial strength is normal. Tongue is midline. Muscle bulk and tone are normal throughout. Muscle strengthin upper extremities seems normal bilaterally. +4/5 strength bilateral hip flexion. I think the rest of the lower limbs have strength that is acceptable and within normal limits.No significant tremors. Right upper extremity bicepsand brachioradialis reflex slightly brisk. Leftupper extremity biceps and brachioradialis reflex +3/4. Bilateral Leander signs. Patellar reflexesbrisk bilaterally, more so on the left. No sustained ankle clonus. Crossed adductors bilaterally. Light touch is generally intact. Temperature sensation is decreased in the lower extremities comparedto the upper extremities. Vibratory sensation is absent in the feet. Proprioception is very poor inthe feet. No limb dysmetria or ataxia. DATA REVIEW: -Folate low at 3.9 -Vitamin B12 1004 -TSH 2.23 -Hemoglobin 8, was 12.7 back in May 2024 -Head CT October 03, 2024 nonacute -Cervical spine CT October 03, 2024 shows mild reversal of the cervical lordosissuperiorly, disc bulging with central canal narrowing at C3-4 and C4-5 and C5-6,nothing looks severe -MRI cervical spine October 05, 2024 with moderate degenerative changes noted atC4-C6, no cord compression -MRI lumbar spine October 05, 2024 report pending, looks like a very mild amountof anterolisthesis of L5 on S1 and no central canal stenosis to the extent nerves are compressed - Immunofixation/SPEP pending ASSESSMENT: Bilateral feet sensory loss. Loss of all sensory modalities to varying degrees,including loss of proprioception. This is contributing to her imbalance. She isnot B12 deficient. It looks like the symptoms in her feet started back in May 2024. Her longstanding history of significant alcohol consumption might be contributory; she stopped drinking in July of last year. The ambulatory difficulty and lower extremity dysfunction seems out of proportion tothe sensory loss in the feet. She demonstrates hyperreflexia throughout, which is asymmetric and more pronounced on the left. She does not have any dermatomal or myotomal pattern to her symptoms lower extremity symptoms and does not have radicular pains. No bowel or bladder dysfunction. Reduced oral intake. Folate deficiency suggestive of malnourishment. She is hypotensive. And she isanemic whereas she was not back in May. All those things also probably contributing to weakness and ambulatory difficulty. PLAN: 1. Serum protein electrophoresis and immunofixation are pending and can be followed up on in the outpatient setting 2. EMG bilateral lower extremities in the outpatient setting 3. No other inpatient neurology recommendations at this time Documented By: Abraham Flores DO 10/05/24 1139 Signed By: 10/05/24 1733 [facility]01-13-2025 Consult note Author Ray Fowler [facility] Note Date/Time October 05, 2024 3 :11pm [facility] [address] [place] [address] Physiatry (Rehab) Consult Note Signed Patient: Telma Person MR#: [id number] : 1960 Acct:[id number] Age/Sex: 63 / F Adm Date: 5 Loc: Room: [address] [place] [address] Type: ADM IN Attending Dr: Percy Romeo MD Copies to: MD Ray Smith MD Mohamad Akil, MD~ Etiologic Dx/Impairment Group Narrative Narrative: Debility/? neuro HPI Consult Date: 10/05/24 Requesting Physician: Percy Romeo MD Primary Care Provider: Anum Sorto MD Consult Narrative Reason for consult: debility, weakness HPI: Ms. Person is a 63 year old female with medical history as below including alcohol use, chronic peripheral polyneuropathy presenting with frequent falls, MRIs are completed but pending results, also found to have anastomotic ulcer being treated with PPI and sucralfate. Patient explains how she lives on put in [place]. She states she wants to do therapy somewhere prior to returning home because it is too expensive to travel back and forth for outpatient therapy or other visits. Explained postacute care options, she is agreeable to rehab or senior care facility. Review of Systems Review of Systems All other systems reviewed & are negative unless noted below or in HPI [facility] Medical History Cholecystectomy planned Surgical History H/O: hysterectomy History of appendectomy Gastric bypass status for obesity Social History Smoking Status: Current every day smoker Substance Use Type: Former User and Alcohol Social History Comments: Son lives with her. Lives on PIB Meds Medications and Allergies Allergies sulfamethoxazole (From Bactrim) Allergy (Verified 06/15/24 11:32) Rash trimethoprim (From Bactrim) Allergy (Verified 06/15/24 11:32) Rash Home Medications ascorbic acid (vitamin C) 1,000 mg tablet,extended release (C Complex) 1,000 mg PO DAILY 10/03/24 [History Confirmed 10/03/24] budesonide-formoterol HFA 160 mcg-4.5 mcg/actuation aerosol inhaler (Symbicort) 2 inh inhalation BID 10/03/24 [History Confirmed 10/03/24] bupropion HCl 150 mg 24 hr tablet, extended release 450 mg PO DAILY 10/03/24 [History Confirmed 10/03/24] diclofenac sodium 75 mg tablet,delayed release 75 mg PO BID PRN pain 10/03/24 [History Confirmed 10/03/24] magnesium oxide 400 mg PO DAILY 10/03/24 [History Confirmed 10/03/24] pregabalin 150 mg capsule 150 mg PO BID 10/03/24 [History Confirmed 10/03/24] Exam Physical Exam Vital Signs: Temp Pulse Resp BP Pulse Ox O2 Del Method O2 Flow Rate 98.4 F 83 16 102/67 100 Nasal Cannula 3 10/05/24 08:00 10/05/24 10:53 10/05/24 10:53 10/05/24 10:53 10/05/24 10:53 10/05/24 10:53 10/05/24 10:53 Narrative: Pleasant No acute distress Nonlabored breathing Abdomen soft Ataxic gait Sensory impairment lower extremities Results - Phys. Rehab Labs Labs: Laboratory Results - last 24 hr 10/03/24 10/05/24 10:40 06:23 Corrected WBC 4.9 Uncorrected WBC Count 4.9 RBC 2.85 L Hgb 8.9 L Hct 27.1 L MCV 95.1 MCH 31.1 MCHC 32.7 RDW 16.0 H Plt Count 338 MPV 8.8 Neut % (Auto) 69.2 Lymph % (Auto) 23.3 [place] % (Auto) 6.1 Eos % (Auto) 0.8 Baso % (Auto) 0.6 Nucleat RBC Rel Count 0.2 Neut # (Auto) 3.4 Lymph # (Auto) 1.1 [place] # (Auto) 0.3 Eos # (Auto) 0.0 Baso # (Auto) 0.0 PHA Creatinine Clear 78.21 Sodium 141 Potassium 3.3 L Chloride 112 H Carbon Dioxide 23.7 Anion Gap 8.6 BUN 7 Creatinine 0.57 L Est GFR (CKD-EPI) > 60.0 Glucose 79 Estimat Average Glucose 82 Hemoglobin A1c 4.5 Calcium 8.6 Phosphorus 2.3 L Magnesium 1.8 L Total Bilirubin 0.7 AST 39 ALT 17 Alkaline Phosphatase 73 Total Protein 6.2 L Albumin 3.0 L Globulin 3.2 Albumin/Globulin Ratio 0.9 Additional Results Results Comment: I reviewed clinical lab tests, radiology reports and obtained and summated medical records and have ordered follow up lab tests and imaging studies as needed for rehabilitation care. Assessment/Plan (1) Dyspepsia: (2) Lower extremity weakness: Qualifiers: Laterality: bilateral Qualified Code(s): R29.898 - Other symptoms and signs involving the musculoskeletal system (3) Falls frequently: Plan Ms. Person is a 63 year old female with medical history as below including alcohol use, chronic peripheral polyneuropathy presenting with frequent falls, MRIs are completed but pending results, also found to have anastomotic ulcer being treated with PPI and sucralfate. -Final discharge recommendation pending MRI results. If there is significant finding to explain her falls, we would be able to better justify an inpatient rehab facility admission. If the MRI is negative chronic and multifactorial, (alcohol use, peripheral polyneuropathy, orthostatis), and the ulcer is being treated with medical therapy, case can be managed at lower level of care like senior care facility. Patient was personally seen by me, Dr. Fowler, on the day of encounter, reviewed the history and the relevant portions of the chart, including current orders, allied health and oim consultant notes, labs/imaging and performed freitas elements of exam and I formulated the plan of care and facilitated the medical decision making. I completed a substantive portion of this encounter, the medical decision makingportion of this note in its entirety, including Allied health note review, nursing note review, oim consultant note review, discussion with nursing and case management, and more than 50% of my time was spent on counseling and coordination of care, time spent 35 minutes Documented By: Ray Fowler MD 10/05/24 1411 Signed By: <Electronically signed by Ray Fowler MD> 10/05/24 1511 [facility] Work Phone: [phone] [place] [address] Physiatry (Rehab) Consult Note Signed Patient: Telma Person MR#: [id number] : 1960 Acct:[id number] Age/Sex: 63 / F Adm Date: 5 Loc: Room: [address] [place] [address] Type: ADM IN Attending Dr: Percy Romeo MD Copies to: MD Ray Smith MD Mohamad Akil, MD~ Etiologic Dx/Impairment Group Narrative Narrative: Debility/? neuro HPI Consult Date: 10/05/24 Requesting Physician: Percy Romeo MD Primary Care Provider: Anum Sorto MD Consult Narrative Reason for consult: debility, weakness HPI: Ms. Person is a 63 year old female with medical history as below including alcohol use, chronic peripheral polyneuropathy presenting with frequent falls, MRIs are completed but pending results, also found to have anastomotic ulcer being treated with PPI and sucralfate. Patient explains how she lives on put [place]. She states she wants to do therapy somewhere prior toreturning home because it is too expensive to travel back and forth for outpatient therapy or othervisits. Explained postacute care options, she is agreeable to rehab or senior care facility. Review of Systems Review of Systems All other systems reviewed & are negative unless noted below or in HPI [facility] Medical History Cholecystectomy planned Surgical History H/O: hysterectomy History of appendectomy Gastric bypass status for obesity Social History Smoking Status: Current every day smoker Substance Use Type: Former User and Alcohol Social History Comments: Son lives with her. Lives on PIB Meds Medications and Allergies Allergies sulfamethoxazole (From Bactrim) Allergy (Verified 06/15/24 11:32) Rash trimethoprim (From Bactrim) Allergy (Verified 06/15/24 11:32) Rash Home Medications ascorbic acid (vitamin C) 1,000 mg tablet,extended release (C Complex) 1,000 mg PO DAILY 10/03/24 [History Confirmed 10/03/24] budesonide-formoterol HFA 160 mcg-4.5 mcg/actuation aerosol inhaler (Symbicort) 2 inh inhalation BID 10/03/24 [History Confirmed 10/03/24] bupropion HCl 150 mg 24 hr tablet, extended release 450 mg PO DAILY 10/03/24 [History Confirmed 10/03/24] diclofenac sodium 75 mg tablet,delayed release 75 mg PO BID PRN pain 10/03/24 [History Confirmed 10/03/24] magnesium oxide 400 mg PO DAILY 10/03/24 [History Confirmed 10/03/24] pregabalin 150 mg capsule 150 mg PO BID 10/03/24 [History Confirmed 10/03/24] Exam Physical Exam Vital Signs: Temp Pulse Resp BP Pulse Ox O2 Del Method O2 Flow Rate 98.4 F 83 16 102/67 100 Nasal Cannula 3 10/05/24 08:00 10/05/24 10:53 10/05/24 10:53 10/05/24 10:53 10/05/24 10:53 10/05/24 10:53 10/05/24 10:53 Narrative: Pleasant No acute distress Nonlabored breathing Abdomen soft Ataxic gait Sensory impairment lower extremities Results - Phys. Rehab Labs Labs: Laboratory Results - last 24 hr 10/03/24 10/05/24 10:40 06:23 Corrected WBC 4.9 Uncorrected WBC Count 4.9 RBC 2.85 L Hgb 8.9 L Hct 27.1 L MCV 95.1 MCH 31.1 MCHC 32.7 RDW 16.0 H Plt Count 338 MPV 8.8 Neut % (Auto) 69.2 Lymph % (Auto) 23.3 [place] % (Auto) 6.1 Eos % (Auto) 0.8 Baso % (Auto) 0.6 Nucleat RBC Rel Count 0.2 Neut # (Auto) 3.4 Lymph # (Auto) 1.1 [place] # (Auto) 0.3 Eos # (Auto) 0.0 Baso # (Auto) 0.0 PHA Creatinine Clear 78.21 Sodium 141 Potassium 3.3 L Chloride 112 H Carbon Dioxide 23.7 Anion Gap 8.6 BUN 7 Creatinine 0.57 L Est GFR (CKD-EPI) > 60.0 Glucose 79 Estimat Average Glucose 82 Hemoglobin A1c 4.5 Calcium 8.6 Phosphorus 2.3 L Magnesium 1.8 L Total Bilirubin 0.7 AST 39 ALT 17 Alkaline Phosphatase 73 Total Protein 6.2 L Albumin 3.0 L Globulin 3.2 Albumin/Globulin Ratio 0.9 Additional Results Results Comment: I reviewed clinical lab tests, radiology reports and obtained and summated medical records and haveordered follow up lab tests and imaging studies as needed for rehabilitation care. Assessment/Plan (1) Dyspepsia: (2) Lower extremity weakness: Qualifiers: Laterality: bilateral Qualified Code(s): R29.898 - Other symptoms and signs involving the musculoskeletal system (3) Falls frequently: Plan Ms. Person is a 63 year old female with medical history as below including alcohol use, chronic peripheral polyneuropathy presenting with frequent falls, MRIs are completed but pending results, also found to have anastomotic ulcer being treated with PPI and sucralfate. -Final discharge recommendation pending MRI results. If there is significant finding to explain herfalls, we would be able to better justify an inpatient rehab facility admission. If the MRI is negative chronic and multifactorial, (alcohol use, peripheral polyneuropathy, orthostatis), and the ulcer is being treated with medical therapy, case can be managed at lower level of care like senior care facility. Patient was personally seen by me, Dr. Fowler, on the day of encounter, reviewed the history and therelevant portions of the chart, including current orders, allied health and oim consultant notes, labs/imaging and performed freitas elements of exam and I formulated the plan of care and facilitated the medical decision making. I completed a substantive portion of this encounter, the medical decision makingportion of this note in its entirety, including Allied health note review, nursing note review, oim consultant note review,discussion with nursing and case management, and more than 50% of my time was spent on counseling and coordination of care, time spent 35 minutes Documented By: Ray Fowler MD 10/05/24 1411 Signed By: 10/05/24 1511 [facility]01-13-2025 Procedure [place] [id number] EGD Procedure Note Signed Patient: Telma Person MR#: [id number] : 1960 Acct:[id number] Age/Sex: 63 / F Adm Date: 5 Loc: 3T Room: [address] [place] [address] Type: ADM IN Attending Dr: Percy Romeo MD Copies to: MD Anum Lazcano MD Mohamad Akil, MD~ Esophagogastroduodenoscopy Date/Provider Date: 10/05/2024 Lamont Uribe MD Narrative Narrative: Procedure: EGD Indication: This is a 63-year-old female who was admitted for falls, found incidentally to have significant anemia from baseline, chronic NSAID use, history of Juana-en-Y gastric bypass, dysphagia anddyspepsia who presents for EGD Pre-operative diagnosis: Anemia, dysphagia, dyspepsia Post-operative diagnosis: Anastomotic ulcer, hiatal hernia Sedation: propofol per anesthesia dept O2 oximetry, hemodynamic monitoring was performed pre, during, and post procedure. Patient was identified, H&P completed, patient was given full explanation of the procedure as well as associatedrisks and written consent wasobtained prior to procedure. Patient expressed complete understanding of the procedure as well as alternatives to the procedure and to anesthesia and agreed to proceed with the procedure as indicated. Patient was immediately reassessed prior to IV sedation. Following IV sedation, patient was placed in the left lateral decubitus position. Bite block was inserted. Endoscope was passed through the mouth, into the esophagus. Endoscope was advanced into the stomach through the pyloricchannel and into the 2nd portion of duodenum by direct visualization. Endoscopewas withdrawn into the stomach and retroflexion was performed. The endoscope was straightened,the stomach was decompressed. Endoscope was withdrawn into the esophagus then completely removed with the findings as below. Findings: Alimentary limb: Mucosa appeared normal. Biliary limb anastomosis not reached. Gastric pouch: Gastrojejunal anastomosis at 40 cm from the incisors, consistent with a 3 to 4 cm gastric pouch. There was a large, chronic appearing clean-based anastomotic ulcer along the anastomosis extending into the more proximal gastric mucosa. ESOPHAGUS: Diaphragmatic hiatus was 36 cm from incisors. GE junction (upper margin of gastric folds) was at 31 cm from incisors. Squamocolumnar junction was at 31 cm from incisors. 4 to 5 cm sliding hiatal hernia. Biopsy taken: no Complications: None EBL: minimal Recommendations: -Her ulcers and anastomotic ulcer, did not appear peptic in nature. -We would recommend using PPI packets 40 mg twice daily for 8 weeks. If her insurance will not cover packets then we would recommend she be prescribed PPI capsules 40 mg twice daily, she should open these and mix them with a small amount of water and drink them. -Additionally because this is anastomotic ulcer we would recommend she be on sucralfate 1 g 3 timesdaily for 4 weeks. -We would recommend she be on PPI 40 mg daily lifelong for prophylaxis after shecompletes 8 weeks of high-dose therapy, either as sprinkle packets or capsules open and mix with water. -She should avoid NSAIDs in the future, especially given her Juana-en-Y gastric bypass -Her PCP should refer her for routine colonoscopy for colorectal cancer screening in the outpatientsetting -Advance diet as tolerated -Follow up with PCP Thank you for this consult, little further to add from a GI standpoint. I will sign off at this time Following a period of recovery, patient was seen and given full explanation of the procedure. Patient tolerated the procedure well and will be returned to [facility] rehab in satisfactory, stable condition. Lamont Uribe MD Documented By: Lamont Uribe MD 10/05/24 1010 Signed By: 10/05/24 1039 [facility]01-13-2025 Radiology Diagnostic study note [facility] Main [place] [address] [place] [address] Ultrasound Report Signed Patient: Telma Person MR#: [id number] : 1960 Acct:[id number] Age/Sex: 63 / F ADM Date: 5 Loc: Room: [address] [place] [address] Type: ADM IN Attending Dr: Percy Romeo MD Ordering Provider: Percy Romeo MD Date of Service: 10/04/24 US/US venous duplex LE BI: bilateral leg swelling Copies to: Percy Romeo MD~ BILATERAL LOWER EXTREMITY VENOUS DUPLEX INDICATION: Bilateral lower extremity edema. PROCEDURE: Color-flow duplex scanning is used to interrogate the deep venous system of the right and left lower extremities. The common femoral vein, femoral vein and popliteal vein show good compressibility with normal proximal and distal augmentation. The calf veins are compressible. US/US venous duplex LE BI IMPRESSION: NO EVIDENCE FOR DEEP VEIN THROMBOSIS OR PROXIMAL SUPERFICIAL THROMBOPHLEBITIS INTHE RIGHT OR LEFT LOWER EXTREMITY. Impression dictated by: Jake Lynch MD10/05/2024 8:31 AM Dictation Location: [place] [address] Tech: Anne-Marie Peraltavipul Transcribed By: CARMELO 10/05/24830 Dictated By: Jake Lynch MD 10/05/24829 Signed By: 10/05/24830 [facility] Work Phone: 1(742) 862-629901-13-2025 Progress note Author Percy Romeo [facility] Note Date/Time October 05, 2024 1 2:15am [facility] [address] [place] [address] Hospitalist Progress Note Signed Patient: Telma Person MR#: [id number] : 1960 Acct:[id number] Age/Sex: 63 / F Adm Date: 5 Loc: Room: [address] [place] [address] Type: ADM IN Attending Dr: Percy Romeo MD Copies to: ~ Date of Service: 10/04/2024 Subjective Subjective Narrative: Seen examined bedside. No events overnight. She is pleasant as usual hemoglobin dropped to 6.8 earlier today was transfused 1 unit of packed RBCs by the night team. She was started on IV iron today as well. When I saw her she was being held by the nurse to go to the bathroom. She is still having hard time walking especially with her balance and weakness in her legs. She states that her feet feel numb. Otherwise denies any hematochezia or melena today. Exam Physical Exam Vital Signs: Temp Pulse Resp BP Pulse Ox O2 Del Method 97.6 F 94 16 112/73 99 Room Air 10/04/24 14:01 10/04/24 14:01 10/04/24 14:01 10/04/24 14:01 10/04/24 14:01 01/12/25 14:01 Narrative: Constitutional Constitutional Exam: Very tired and frail. Cachectic. Pleasant and cooperativewith me on exam. Not in acute distress but ill-appearing HEENT Exam Head Exam: atraumatic Eye Exam: PERRL and conjunctiva pale, no scleral icterus ENT Exam: mucous membranes dry, oropharynx clear and external ear normal Neck Exam Neck Exam: full ROM, no JVD, no lymphadenopathy Respiratory Exam Respiratory Exam: CTA bilaterally and no respiratory distress, no wheeze or crackles patient with resp distress Cardiovascular Exam Cardiovascular exam: RR and no irregular rhythm, no murmurs normal S1-S2 Abdominal Exam GI/Abdominal Exam: soft, no tenderness on exam, no organomegaly, normal bowel sounds Extremities Exam Extremities Exam: no edema, full ROM, pulses intact, no normal capillary refill (Delayed cap refill 2 to 3 seconds) or no calf tenderness Back/Spine/Pelvis Exam Back Exam: no vertebral tenderness, no paraspinal tenderness, straight leg test is negative Skin Exam Skin Exam: dry and warm Neurological Exam Neurological Exam: alert, oriented X3, CN II-XII intact, no sensory deficit, no pronator drift, no altered mental status, patient appeared to have positive Romberg sign as well as ataxia on exam. Reflexes were not significant for beinga brisk or high for active. Motor strength of lower extremities is at least 3/5when patient laying down however gets worse when she stands up. Verbal Response: Oriented Objective Lab Results 10/04/24 06:04 10/04/24 06:04 Microbiology Results Microbiology 10/03/24 13:11 Stool Stool Occult Blood (GRISELDA) - Final 10/03/24 10:40 Nasopharyngeal SARS-CoV-2, Influenza & RSV (PCR) - Final Meds Allergies and Active Meds Allergies sulfamethoxazole (From Bactrim) Allergy (Verified 06/15/24 11:32) Rash trimethoprim (From Bactrim) Allergy (Verified 06/15/24 11:32) Rash Active Meds: Active Medications Generic Name Dose Route Start Last Admin Trade Name Freq PRN Reason Stop Dose Admin Folic Acid 1 mg 10/04/24 09:00 10/04/24 09:25 Folic Acid 50 Mg/10 Ml Vial IV-PUSH 10/04/25 08:59 1 mg DAILY RAFAEL Administration Sodium Chloride 1,000 mls @ 60 mls/hr 10/03/24 15:15 10/04/24 10:44 0.9% Sodium Chloride 1,000 Ml IV 10/04/24 15:14 Infused .[id number] RAFAEL Infusion Ferric Sodium Gluconate 110 mls @ 110 mls/hr 10/04/24 09:00 10/04/24 10:44 Complex 125 mg/ Sodium IV 10/04/25 08:59 Infused Chloride QAM RAFAEL Infusion Sodium Chloride 100 mls @ 20 mls/hr 10/04/24 06:42 0.9% Sodium Chloride 100 Ml IV 10/05/24 06:41 PROTOCOL PRN BLOOD TRANSFUSION Magnesium Sulfate/Dextrose 1 gm in 100 mls @ 100 mls/hr 10/04/24 14:06 Magnesium Sulfate 1 Gm-*D5w* IV 10/04/24 15:05 ONCE ONE Lorazepam 1 mg 10/04/24 13:23 Lorazepam 2 Mg/Ml Vial IV-PUSH 04/02/25 13:22 ONCE PRN PRE MRI MED Pantoprazole Sodium 40 mg 10/03/24 21:00 10/04/24 08:47 Pantoprazole 40 Mg Vial IV-PUSH 10/03/25 20:59 40 mg BID RAFAEL Administration Sodium Chloride 0 ml 10/03/24 10:28 10/03/24 11:06 Sodium Chloride 0.9 % 10 Ml Syringe IV-PUSH 10/03/25 10:27 10 ml PRN PRN Administration Flush Sodium Chloride 10 ml 10/03/24 13:37 10/03/24 13:58 Sodium Chloride 0.9 % 10 Ml Syringe IV-PUSH 10/03/25 13:36 10 ml PRN PRN Administration Flush Sodium Chloride 10 ml 10/03/24 15:06 10/04/24 08:47 Sodium Chloride 0.9 % 10 Ml Vial.Pf INJECTION 10/03/25 15:05 10 ml PRN PRN Administration Dilution Sodium Chloride 10 ml 10/03/24 15:06 Sodium Chloride 0.9 % 10 Ml Syringe IV-PUSH 10/03/25 15:05 PRN PRN Flush Thiamine HCl 100 mg 10/04/24 09:00 10/04/24 09:25 Thiamine 200 Mg/2 Ml Vial IV-PUSH 10/04/25 08:59 100 mg DAILY RAFAEL Administration A&P - Hospitalist Assessment/Plan (1) Orthostatic hypotension: (2) Ataxia: (3) Neuropathy: (4) Normocytic anemia: Plan Lightheadedness likely orthostatic hypotension in the setting of symptomatic anemia, normocytic B12 deficiency which could be due to malnutrition and malabsorption in the setting of history of gastric bypass surgery Rule out GI loss Ataxia and decreased ambulation, likely neuropathy related could be due to malnutrition Rule out dementing process which is less likely given the patient's normal reflexia on exam -Continue normal saline 60 mL/h for the next 24 hours -Transfusion 1 unit of packed RBCs -Appreciate GI input. Patient is scheduled for EGD tomorrow -Appreciate neurology input, we will proceed with MRI of cervical and lumbar spine without contrast -Pantoprazole 40 mg IV twice daily -Continue IV iron infusion as well as IV folic acid -Will reconcile patient's medication as appropriate once updated by nursing team -Will stop diclofenac p.o. given the patient's anemia and possible GI source -SCDs for DVT prophylaxis, I will avoid HSQ given the patient's anemia -PT/OT eval, patient is open for placement as she lives with her son and she states that over the last few weeks her functional status significantly declined. Plan of plan with the patient at bedside. Answer question addressed or concerns Time Spent With Patient (min): 50 Documented By: Percy Romeo MD 10/04/24 8785 Signed By: <Electronically signed by Percy Romeo MD> 10/05/24 [facility] Work Phone: 1(290) 430-923001-13-2025 [place] [address] Hospitalist Progress Note Signed Patient: Telma Person MR#: [id number] : 1960 Acct:[id number] Age/Sex: 63 / F Adm Date: 5 Loc: Room: [address] [place] [address] Type: ADM IN Attending Dr: Percy Romeo MD Copies to: ~ Date of Service: 10/04/2024 Subjective Subjective Narrative: Seen examined bedside. No events overnight. She is pleasant as usual hemoglobin dropped to 6.8 earlier today was transfused 1 unit of packed RBCs by the night team. She was started on IV iron today as well. When I saw her she was being held by the nurse to go to the bathroom. She is still having hard time walking especially with her balance and weakness in her legs. She states that her feet feel numb. Otherwise denies any hematochezia or melena today. Exam Physical Exam Vital Signs: Temp Pulse Resp BP Pulse Ox O2 Del Method 97.6 F 94 16 112/73 99 Room Air 10/04/24 14:01 10/04/24 14:01 10/04/24 14:01 10/04/24 14:01 10/04/24 14:01 10/04/24 14:01 Narrative: Constitutional Constitutional Exam: Very tired and frail. Cachectic. Pleasant and cooperativewith me on exam. Not in acute distress but ill-appearing HEENT Exam Head Exam: atraumatic Eye Exam: PERRL and conjunctiva pale, no scleral icterus ENT Exam: mucous membranes dry, oropharynx clear and external ear normal Neck Exam Neck Exam: full ROM, no JVD, no lymphadenopathy Respiratory Exam Respiratory Exam: CTA bilaterally and no respiratory distress, no wheeze or crackles patient with resp distress Cardiovascular Exam Cardiovascular exam: RR and no irregular rhythm, no murmurs normal S1-S2 Abdominal Exam GI/Abdominal Exam: soft, no tenderness on exam, no organomegaly, normal bowel sounds Extremities Exam Extremities Exam: no edema, full ROM, pulses intact, no normal capillary refill (Delayed cap refill2 to 3 seconds) or no calf tenderness Back/Spine/Pelvis Exam Back Exam: no vertebral tenderness, no paraspinal tenderness, straight leg test is negative Skin Exam Skin Exam: dry and warm Neurological Exam Neurological Exam: alert, oriented X3, CN II-XII intact, no sensory deficit, no pronator drift, no altered mental status, patient appeared to have positive Romberg sign as well as ataxia on exam. Reflexes were not significant for beinga brisk or high for active. Motor strength of lower extremities is at least 3/5when patient laying down however gets worse when she stands up. Verbal Response: Oriented Objective Lab Results 10/04/24 06:04 10/04/24 06:04 Microbiology Results Microbiology 10/03/24 13:11 Stool Stool Occult Blood (GRISELDA) - Final 10/03/24 10:40 Nasopharyngeal SARS-CoV-2, Influenza & RSV (PCR) - Final Meds Allergies and Active Meds Allergies sulfamethoxazole (From Bactrim) Allergy (Verified 06/15/24 11:32) Rash trimethoprim (From Bactrim) Allergy (Verified 06/15/24 11:32) Rash Active Meds: Active Medications Generic Name Dose Route Start Last Admin Trade Name Miah PRN Reason Stop Dose Admin Folic Acid 1 mg 10/04/24 09:00 10/04/24 09:25 Folic Acid 50 Mg/10 Ml Vial IV-PUSH 10/04/25 08:59 1 mg DAILY RAFAEL Administration Sodium Chloride 1,000 mls @ 60 mls/hr 10/03/24 15:15 10/04/24 10:44 0.9% Sodium Chloride 1,000 Ml IV 10/04/24 15:14 Infused .[id number] RAFAEL Infusion Ferric Sodium Gluconate 110 mls @ 110 mls/hr 10/04/24 09:00 10/04/24 10:44 Complex 125 mg/ Sodium IV 10/04/25 08:59 Infused Chloride QAM RAFAEL Infusion Sodium Chloride 100 mls @ 20 mls/hr 10/04/24 06:42 0.9% Sodium Chloride 100 Ml IV 10/05/24 06:41 PROTOCOL PRN BLOOD TRANSFUSION Magnesium Sulfate/Dextrose 1 gm in 100 mls @ 100 mls/hr 10/04/24 14:06 Magnesium Sulfate 1 Gm-*D5w* IV 10/04/24 15:05 ONCE ONE Lorazepam 1 mg 10/04/24 13:23 Lorazepam 2 Mg/Ml Vial IV-PUSH 04/02/25 13:22 ONCE PRN PRE MRI MED Pantoprazole Sodium 40 mg 10/03/24 21:00 10/04/24 08:47 Pantoprazole 40 Mg Vial IV-PUSH 10/03/25 20:59 40 mg BID RAFAEL Administration Sodium Chloride 0 ml 10/03/24 10:28 10/03/24 11:06 Sodium Chloride 0.9 % 10 Ml Syringe IV-PUSH 10/03/25 10:27 10 ml PRN PRN Administration Flush Sodium Chloride 10 ml 10/03/24 13:37 10/03/24 13:58 Sodium Chloride 0.9 % 10 Ml Syringe IV-PUSH 10/03/25 13:36 10 ml PRN PRN Administration Flush Sodium Chloride 10 ml 10/03/24 15:06 10/04/24 08:47 Sodium Chloride 0.9 % 10 Ml Vial.Pf INJECTION 10/03/25 15:05 10 ml PRN PRN Administration Dilution Sodium Chloride 10 ml 10/03/24 15:06 Sodium Chloride 0.9 % 10 Ml Syringe IV-PUSH 10/03/25 15:05 PRN PRN Flush Thiamine HCl 100 mg 10/04/24 09:00 10/04/24 09:25 Thiamine 200 Mg/2 Ml Vial IV-PUSH 10/04/25 08:59 100 mg DAILY RAFAEL Administration A&P - Hospitalist Assessment/Plan (1) Orthostatic hypotension: (2) Ataxia: (3) Neuropathy: (4) Normocytic anemia: Plan Lightheadedness likely orthostatic hypotension in the setting of symptomatic anemia, normocytic [id number] which could be due to malnutrition and malabsorption in the setting of history of gastric bypass surgery Rule out GI loss Ataxia and decreased ambulation, likely neuropathy related could be due to malnutrition Rule out dementing process which is less likely given the patient's normal reflexia on exam -Continue normal saline 60 mL/h for the next 24 hours -Transfusion 1 unit of packed RBCs -Appreciate GI input. Patient is scheduled for EGD tomorrow -Appreciate neurology input, we will proceed with MRI of cervical and lumbar spine without contrast -Pantoprazole 40 mg IV twice daily -Continue IV iron infusion as well as IV folic acid -Will reconcile patient's medication as appropriate once updated by nursing team -Will stop diclofenac p.o. given the patient's anemia and possible GI source -SCDs for DVT prophylaxis, I will avoid HSQ given the patient's anemia -PT/OT eval, patient is open for placement as she lives with her son and she states that over the last few weeks her functional status significantly declined. Plan of plan with the patient at bedside. Answer question addressed or concerns Time Spent With Patient (min): 50 Documented By: Percy Romeo MD 10/04/24 1408 Signed By: 10/05/24 0015 [facility]01-12-2025 History and physical note Author Percy Romeo [facility] Note Date/Time October 04, 2024 2 :08pm [facility] EN[facility] [address] [place] [address] Hospitalist H&P Signed Patient: Telma Person MR#: [id number] : 1960 Acct:[id number] Age/Sex: 63 / F Adm Date: 5 Loc: 3T Room: [address] [place] [address] Type: ADM IN Attending Dr: Percy Romeo MD Copies to: MD Percy Smith MD~ HPI DATE OF EXAMINATION: 10/03/24 CHIEF COMPLAINT: Progressive weakness HISTORY OF PRESENT ILLNESS: This is a 63-year-old female with past medical history of neuropathy as told by her PCP, Anemia (she is not sure of her most recent Hgb at the PCP office), multiple abdominal surgeries including Juana-en-Y gastric bypass 20 years ago, and constipation. Presents here was brought by squad due to weakness involving lower extremities. History obtained from the ED attending as well as from the patient herself at bedside and her chart. She states that over the last 3 to 4 weeks her lower extremity have been giving away and whenever she tries to set upin bed she feels lightheaded and she is not able to walk because of the imbalance as well as weakness involving the lower extremities. She also mentioned over the last week she started having issues swallowing solid foods where she has to have them in small quantities or and liquids where she has to drink small sips. She denies any change in her voice or change in her vision. She never passed out however lightheaded and she states that this improves with resting and sitting on the side of the bed. Patient denies any hematochezia or melena. She denies any abdominal pain, nausea, vomiting. She denies any chest pain, palpitations, or syncope. She denies any diaphoresis. She states that she used to drink alcohol but stopped in July when asked how much she said alot. She used to drink wine. Here in the ED patient was normotensive but bloodpressure was a little soft in the early 100s. The rate and pulse were normal. Patient was not tachycardic or tachypneic. Patient was afebrile but she was clearly dehydrated on exam. CBC in the ED showed hemoglobin of 8 which is a significant drop from 12.7 back in May 2024. She had macrocytosis which is not present here on her CBC today. White blood cell count and platelets werenormal. Iron studies were significant for iron deficiency. Chemistry showed normal BUN and creatinine as well as normal liver function and bilirubin. B12 was high however folic acid was low at 3.9. TSH was also normal to 0.23. Occult blood was negative in the ED. Respiratory and was negative as in the ED CT cervical spine was negative for fracture. Chest x-ray negative. CT abdomen pelvis with IV contrast was negative for acute process. CT chest without contrast showed no acute cardiopulmonary process but showed nondisplaced fracture right ninth rib which is likely subacute. In the ED, patient received 1 dose of pantoprazole 40 mg IV once as well as magnesium 2 g and 1 L of LR. Patient was admitted under hospital service for further workup and management. Review of Systems Review of Systems All other systems reviewed & are negative unless noted below or in HPI [facility] Medical History Cholecystectomy planned Surgical History H/O: hysterectomy History of appendectomy Gastric bypass status for obesity Social History Smoking Status: Current every day smoker Substance Use Type: Marijuana Meds Medications and Allergies Allergies sulfamethoxazole (From Bactrim) Allergy (Verified 06/15/24 11:32) Rash trimethoprim (From Bactrim) Allergy (Verified 06/15/24 11:32) Rash Home Medications ascorbic acid (vitamin C) 1,000 mg tablet,extended release (C Complex) 1,000 mg PO DAILY 10/03/24 [History Confirmed 10/03/24] budesonide-formoterol HFA 160 mcg-4.5 mcg/actuation aerosol inhaler (Symbicort) 2 inh inhalation BID 10/03/24 [History Confirmed 10/03/24] bupropion HCl 150 mg 24 hr tablet, extended release 450 mg PO DAILY 10/03/24 [History Confirmed 10/03/24] diclofenac sodium 75 mg tablet,delayed release 75 mg PO BID PRN pain 10/03/24 [History Confirmed 10/03/24] magnesium oxide 400 mg PO DAILY 10/03/24 [History Confirmed 10/03/24] pregabalin 150 mg capsule 150 mg PO BID 10/03/24 [History Confirmed 10/03/24] Exam Physical Exam Vital Signs: Temp Pulse Resp BP Pulse Ox O2 Del Method 97 F L 95 18 113/78 96 Room Air 10/03/24 10:29 10/03/24 14:17 10/03/24 14:17 10/03/24 14:17 10/03/24 14:17 10/03/24 14:17 Narrative: Constitutional Constitutional Exam: Very tired and frail. Cachectic. Pleasant and cooperativewith me on exam. Not in acute distress but ill-appearing HEENT Exam Head Exam: atraumatic Eye Exam: PERRL and conjunctiva pale, no scleral icterus ENT Exam: mucous membranes dry, oropharynx clear and external ear normal Neck Exam Neck Exam: full ROM, no JVD, no lymphadenopathy Respiratory Exam Respiratory Exam: CTA bilaterally and no respiratory distress, no wheeze or crackles patient with resp distress Cardiovascular Exam Cardiovascular exam: RR and no irregular rhythm, no murmurs normal S1-S2 Abdominal Exam GI/Abdominal Exam: soft, tenderness (Tenderness to right upper quadrant, right lower quadrant and right hip), no rebound, no guarding or no rigid Extremities Exam Extremities Exam: no edema, full ROM, pulses intact, no normal capillary refill (Delayed cap refill 2 to 3 seconds) or no calf tenderness Back/Spine/Pelvis Exam Back Exam: no vertebral tenderness, no paraspinal tenderness, straight leg test is negative Skin Exam Skin Exam: dry and warm Neurological Exam Neurological Exam: alert, oriented X3, CN II-XII intact, no sensory deficit, no pronator drift, no altered mental status, patient appeared to have positive Romberg sign as well as ataxia on exam. Reflexes were not significant for beinga brisk or high for active. Motor strength of lower extremities is at least 3/5when patient laying down however gets worse when she stands up. Verbal Response: Oriented Results - Hospitalist H&P Lab Results Labs: Laboratory Last Values Corrected WBC 7.1 X10E3/uL (3.8-11.6) 10/03/24 10:40 Uncorrected WBC Count 7.1 x10E3/uL (3.8-11.6) 10/03/24 10:40 RBC 2.57 x10E6/uL (3.60-5.00) L 10/03/24 10:40 Hgb 8.0 g/dL (11.8-15.4) L 10/03/24 10:40 Hct 24.9 % (34.0-46.4) L 10/03/24 10:40 MCV 96.9 fl (80-100) 10/03/24 10:40 MCH 31.3 pg (24.7-34.3) 10/03/24 10:40 MCHC 32.3 g/dL (32.0-35.0) 10/03/24 10:40 RDW 15.4 % (11.9-15.3) H 10/03/24 10:40 Plt Count 383 x10E3/uL (150-450) 10/03/24 10:40 MPV 8.5 fl (6.3-10.7) 10/03/24 10:40 Neut % (Auto) 69.8 % (.) 10/03/24 10:40 Lymph % (Auto) 21.6 % (.) 10/03/24 10:40 [place] % (Auto) 7.5 % (.) 10/03/24 10:40 Eos % (Auto) 0.6 % (.) 10/03/24 10:40 Baso % (Auto) 0.5 % (.) 10/03/24 10:40 Nucleat RBC Rel Count 0.1 /100 WBC (0-0.5) 10/03/24 10:40 Neut # (Auto) 5.0 x10E3/uL (1.8-7.7) 10/03/24 10:40 Lymph # (Auto) 1.5 x10E3/uL (1.00-4.8) 10/03/24 10:40 [place] # (Auto) 0.5 x10E3/uL (0.0-0.8) 10/03/24 10:40 Eos # (Auto) 0.0 x10E3/uL (0.0-0.45) 10/03/24 10:40 Baso # (Auto) 0.0 x10E3/uL (0.0-0.2) 10/03/24 10:40 Monocyte Dist Width 24.79 % (0.00-20.00) H 10/03/24 10:40 PHA Creatinine Clear 49.53 10/03/24 10:40 Sodium 140 mmol/L (136-145) 10/03/24 10:40 Potassium 3.8 mmol/L (3.5-5.1) 10/03/24 10:40 Chloride 110 mmol/L (98-107) H 10/03/24 10:40 Carbon Dioxide 26.8 mmol/L (21.0-31.0) 10/03/24 10:40 Anion Gap 7.0 mEq/L (6.0-15.0) 10/03/24 10:40 BUN 21 mg/dL (7-25) 10/03/24 10:40 Creatinine 0.90 mg/dL (0.60-1.20) 10/03/24 10:40 Est GFR (CKD-EPI) > 60.0 mL/Min 10/03/24 10:40 Glucose 71 mg/dL (70-100) 10/03/24 10:40 Lactic Acid 0.8 mmol/L (0.5-2.2) 10/03/24 14:00 Calcium 8.0 mg/dL (8.6-10.3) L 10/03/24 10:40 Phosphorus 2.5 mg/dL (2.5-4.5) 10/03/24 10:40 Magnesium 1.9 mg/dL (1.9-2.7) 10/03/24 10:40 Iron 26 ug/dL (50-212) L 10/03/24 12:36 TIBC 225 ug/dL (255-450) L 10/03/24 12:36 Iron Saturation 11.6 % (20-50) L 10/03/24 12:36 Transferrin 161 mg/dL (203-362) L 10/03/24 12:36 Ferritin 13.0 ng/mL (11.0-306.8) 10/03/24 12:36 Total Bilirubin 0.4 mg/dl (0.3-1.0) 10/03/24 10:40 Direct Bilirubin 0.10 mg/dL (0.03-0.18) 10/03/24 10:40 Indirect Bilirubin 0.3 mg/dL 10/03/24 10:40 AST 33 U/L (13-39) 10/03/24 10:40 ALT 18 U/L (7-52) 10/03/24 10:40 Alkaline Phosphatase 84 U/L (34-104) 10/03/24 10:40 Total Creatine Kinase 27 U/L (30-223) L 10/03/24 10:40 Troponin I High Sens 4.5 pg/mL (0.0-15.0) 10/03/24 12:49 B-Natriuretic Peptide 105.0 pg/mL (5-100) H 10/03/24 10:40 Total Protein 5.5 gm/dL (6.4-8.9) L 10/03/24 10:40 Albumin 2.2 gm/dL (3.5-5.7) L 10/03/24 10:40 Globulin 3.3 gm/dL 10/03/24 10:40 Albumin/Globulin Ratio 0.7 10/03/24 10:40 Lipase 8.0 U/L (11.0-82.0) L 10/03/24 10:40 Vitamin B12 1004 pg/mL (180-914) H 10/03/24 12:36 Folate 3.9 ng/mL (>5.9) L 10/03/24 12:36 TSH 3rd Generation 2.23 uIU/mL (0.45-5.33) 10/03/24 12:36 Urine Color Yellow (Yellow) 10/03/24 10:57 Urine Appearance Cloudy (Clear) A 10/03/24 10:57 Urine pH 6.0 (5.0-9.0) 10/03/24 10:57 Ur Specific Hope 1.013 (1.001-1.030) 10/03/24 10:57 Urine Protein Negative mg/dL (Negative) 10/03/24 10:57 Urine Glucose (UA) Normal mg/dL (Normal) 10/03/24 10:57 Urine Ketones Trace (Negative) H 10/03/24 10:57 Urine Occult Blood Negative (Negative) 10/03/24 10:57 Urine Nitrite Negative (Negative) 10/03/24 10:57 Urine Bilirubin Negative (Negative) 10/03/24 10:57 Urine Urobilinogen Normal mg/dL (Normal) 10/03/24 10:57 Ur Leukocyte Esterase 1+ (Negative) H 10/03/24 10:57 Urine RBC 1-2 /HPF (0-4) 10/03/24 10:57 Urine WBC 3-4 /HPF (0-4) 10/03/24 10:57 Ur Squamous Epith Cells 5-9 /HPF (0-2) H 10/03/24 10:57 Urine Bacteria None seen /HPF (None Seen) 10/03/24 10:57 Hyaline Casts 0-8 /LPF (0-8) 10/03/24 10:57 SARS-CoV-2 Rap RNA(RT-PCR) Negative (Negative) 10/03/24 10:40 Microbiology Results Micro: Microbiology - Results from entire visit 10/03/24 13:11 Stool Stool Occult Blood (GRISELDA) - Final 10/03/24 10:40 Nasopharyngeal SARS-CoV-2, Influenza & RSV (PCR) - Final Assessment & Plan Assessment/Plan (1) Orthostatic hypotension: (2) Ataxia: (3) Neuropathy: (4) Normocytic anemia: Plan Lightheadedness likely orthostatic hypotension in the setting of symptomatic anemia, normocytic B12 deficiency which could be due to malnutrition and malabsorption in the setting of history of gastric bypass surgery Rule out GI loss Ataxia and decreased ambulation, likely neuropathy related could be due to malnutrition Rule out dementing process which is less likely given the patient's normal reflexia on exam -Admit patient to medical floor with telemetry -Continue normal saline 60 mL/h for the next 24 hours -Consulted neurology given the concern for her any demyelinating process -Further imaging as per neurology -Continue patient's pregabalin, also if there is any suggestion by neurology formedication treatment would appreciate that -Consulted GI given her drop in hemoglobin as well as iron deficiency -Pantoprazole 40 mg IV twice daily -Given the patient's risk malabsorption due to her surgeries I will start the patient on IV iron infusion, patient states that her only allergies to Bactrim. Never had blood transfusion before on discharge I would rather send her on p.o. iron -Also will start folic acid 1 mg p.o. daily -Will reconcile patient's medication as appropriate once updated by nursing team -Will stop diclofenac p.o. given the patient's anemia and possible GI source -SCDs for DVT prophylaxis, I will avoid HSQ given the patient's anemia -PT/OT eval, patient is open for placement as she lives with her son and she states that over the last few weeks her functional status significantly declined. Plan of plan with the patient at bedside. Answer question addressed or concerns IP vs OBS Justification Based on differential dx, clinical care plan, and risk of adverse events, if untreated, in my clinical judgement this patient requires an acute care setting as: INPATIENT because of an expectation of an over 2 midnight stay. Estimated length of stay (# of days): 3 Documented By: Percy Romeo MD 10/03/24 1450 Signed By: <Electronically signed by Percy Romeo MD> 10/04/24 1401 [facility] Work Phone: [phone]) 899-746301-12-2025 Progress note Author Abraham Flores [facility] Note Date/Time October 04, 2024 1 2:34pm [facility] [address] [place] [address] Neurology Progress Note Signed Patient: Telma Person MR#: [id number] : 1960 Acct:[id number] Age/Sex: 63 / F Adm Date: 5 Loc: Room: [address] [place] [address] Type: ADM IN Attending Dr: Percy Romeo MD Copies to: ~ Date of Service: 10/04/2024 Exam Physical Exam Vital Signs: Temp Pulse Resp BP Pulse Ox O2 Del Method 98.1 F 85 16 113/61 100 Room Air 10/04/24 11:40 10/04/24 11:40 10/04/24 11:40 10/04/24 11:40 10/04/24 11:40 10/04/24 07:25 Objective Vital Signs Vital Signs: Vital Signs - 24 hr 10/03/24 12:40 10/03/24 14:17 10/03/24 15:24 Temperature Pulse Rate Pulse Rate [Monitor] 84 95 86 Respiratory Rate 16 18 16 Blood Pressure Blood Pressure [Right Arm] 105/67 113/78 103/68 02 Sat by Pulse Oximetry 95 96 96 Oxygen Delivery Method Room Air Room Air Room Air 10/03/24 16:32 10/03/24 16:32 10/03/24 20:35 Temperature 97.2 F L Pulse Rate Pulse Rate [Monitor] 94 Respiratory Rate 20 Blood Pressure Blood Pressure [Right Arm] 126/82 02 Sat by Pulse Oximetry 98 Oxygen Delivery Method Room Air Room Air Room Air 10/03/24 20:35 10/03/24 23:25 10/04/24 00:01 Temperature 97.8 F 97.7 F Pulse Rate 89 86 Pulse Rate [Monitor] Respiratory Rate 18 18 Blood Pressure 99/66 L 101/50 L 106/69 Blood Pressure [Right Arm] 02 Sat by Pulse Oximetry 98 97 Oxygen Delivery Method Room Air Room Air 10/04/24 00:02 10/04/24 04:31 10/04/24 06:33 Temperature 98.0 F Pulse Rate 89 Pulse Rate [Monitor] Respiratory Rate 16 Blood Pressure 69/51 L 86/50 L 94/65 L Blood Pressure [Right Arm] 02 Sat by Pulse Oximetry 99 Oxygen Delivery Method Room Air 10/04/24 07:25 10/04/24 10:39 10/04/24 10:55 Temperature 98.3 F 98.7 F 98.4 F Pulse Rate 62 85 85 Pulse Rate [Monitor] Respiratory Rate 16 16 16 Blood Pressure 102/69 91/61 L 107/72 Blood Pressure [Right Arm] 02 Sat by Pulse Oximetry 97 100 100 Oxygen Delivery Method Room Air 10/04/24 11:10 10/04/24 11:40 Temperature 98.1 F 98.1 F Pulse Rate 86 85 Pulse Rate [Monitor] Respiratory Rate 18 16 Blood Pressure 113/80 113/61 Blood Pressure [Right Arm] 02 Sat by Pulse Oximetry 100 100 Oxygen Delivery Method Labs 10/04/24 06:04 10/04/24 06:04 Lab Results: 10/03/24 10:40: ESR 68 H Therapy Recommendations Therapy Recommendations: PT Recommendations PT Recommended Discharge Residential Facility Location PT Recommended Services at Physical Therapy,Occupational Therapy Discharge ST Recommendations Liquid Consistency Thin Liquids Recommendation Solid Consistency Regular Solids Recommendations Meat Consistency Whole Meats Recommendations Medication Administration Whole Pills,Give Pills with Water Dysphagia Swallow Precautions/ Sitting Upright (90 deg),Small Bites/Sips, Strategies Alternate Liquids/Solids Assessment/Plan (1) Lower extremity weakness: Qualifiers: Laterality: bilateral Qualified Code(s): R29.898 - Other symptoms and signs involving the musculoskeletal system Plan CONSULT REASON: Progressive weakness INTERIM: She is getting a blood transfusion and said I guess something sicker than I thought. She was seen by gastroenterology. She says her legs feel about the same. She mentioned a physical therapy burning and pain in her perineal area. I asked her about this and she said it just always feels hot, not necessarily like a burning pain. I confirmed again that she is not having any concerning urinary control issues. She says everything feels about the same. Feet are still bothersome. Nothing to add to review of systems. EXAMINATION: Blood pressures still tending towards hypotension, as low as 69/51 documented overnight but then 86/50 and 94/65. In no distress. No deformities or trauma. Limbs seem well-perfused. No significant edema. Normal work of breathing. Visualized skin is generally intact and without lesions. Affect normal. Patient is alert and generally oriented. Attention normal. Speech is fluent and nondysarthric. Pupils are equal. Ocular motility is full. No nystagmus. Facial sensation is normal. Hearing is normal. Facial strength is normal. Tongue is midline. Muscle bulk and tone are normal throughout. Muscle strength in upper extremities seems normal bilaterally. +4/5 strength bilateral hip flexion. I think the rest of the lower limbs have strength that is acceptable and within normal limits. No significant tremors. Right upper extremity biceps and brachioradialis reflex slightly brisk. Left upper extremity biceps and brachioradialis reflex +3/4. Bilateral Leander signs. Patellar reflexes brisk bilaterally, more so on the left. No sustained ankle clonus. Crossed adductors bilaterally. Light touch is generally intact. Temperature sensation is decreased in the lower extremities compared to the upper extremities. Vibratory sensation is absent inthe feet. Proprioception is very poor in the feet. No limb dysmetria or ataxia. DATA REVIEW: -Folate low at 3.9 -Vitamin B12 1004 -TSH 2.23 -Hemoglobin 8, was 12.7 back in May 2024 -Head CT October 03, 2024 nonacute -Cervical spine CT October 03, 2024 shows mild reversal of the cervical lordosissuperiorly, disc bulging with central canal narrowing at C3-4 and C4-5 and C5-6,nothing looks severe -I looked at her abdominal CT imaging from October 03, 2024 and it looks like she might have severe stenosis at L5-S1 ASSESSMENT: Bilateral feet sensory loss. Loss of all sensory modalities to varying degrees,including loss of proprioception. This is contributing to her imbalance. Seemsmost consistent with a length dependent neuropathy. Will do laboratory investigation. She is not B12 deficient. It looks like the symptoms in her feet started back in May 2024. Her longstanding history of significant alcohol consumption might be contributory; she stopped drinking in July of last year. The ambulatory difficulty and lower extremity dysfunction seems out of proportion to the sensory loss in the feet. She demonstrates hyperreflexia throughout, which is asymmetric and more pronounced on the left. I think she deserves assessment of at least the cervical spine. She says the symptoms got very bad about a month ago. She does not have any dermatomal or myotomal pattern to her symptoms lower extremity symptoms and does not have radicular pains. No bowel or bladder dysfunction. Her CT abdomen imaging looks like she might have severe stenosis at L5-S1. Vague heat like sensations in the perineal area. Low suspicion for conus medullaris or cauda equina syndrome. Reduced oral intake. Folate deficiency suggestive of malnourishment. She is hypotensive. And she is anemic whereas she was not back in May. All those things also probably contributing to weakness and ambulatory difficulty. PLAN: 1. Checking A1c, SPEP, immunofixation 2. MRI lumbar spine without contrast 3. MRI cervical spine without contrast Documented By: Abrahma Folres DO 10/04/24 1219 Signed By: <Electronically signed by Abraham Flores DO> 10/04/24 1237 [facility] Work Phone: [phone]) 130-743501-12-2025 [place] [address] Hospitalist H&P Signed Patient: Telma Person MR#: [id number] : 1960 Acct:[id number] Age/Sex: 63 / F Adm Date: 5 Loc: Room: [address] [place] [address] Type: ADM IN Attending Dr: Percy Romeo MD Copies to: MD Percy Smith MD~ HPI DATE OF EXAMINATION: 10/03/24 CHIEF COMPLAINT: Progressive weakness HISTORY OF PRESENT ILLNESS: This is a 63-year-old female with past medical history of neuropathy as told by her PCP, Anemia (she is not sure of her most recent Hgb at the PCP office), multiple abdominal surgeries including [place]-en-Y gastric bypass 20 years ago, and constipation. Presents here was brought by squad due to weakness involving lower extremities. History obtained from the ED attending as well as from the patient herself at bedside and her chart. She states that over the last 3 to 4 weeks her lower extremity have been giving away and whenever she tries to set upin bed she feels lightheaded and she is not able to walk because of the imbalance as well as weakness involving the lower extremities. She also mentio carolina over the last week she started having issues swallowing solid foods where she has to have them in small quantities or and liquids where she has to drink small sips. She denies any change in her voice or change in her vision. She never passed out however lightheaded and she states that this improves with resting and sitting on the side of the bed. Patient denies any hematochezia or melena. Shedenies any abdominal pain, nausea, vomiting. She denies any chest pain, palpitations, or syncope. She denies any diaphoresis. She states that she used to drink alcohol but stopped in July when asked how much she said alot. She used to drink wine. Here in the ED patient was normotensive but blood pressure was a little soft in the early . The rate and pulse were normal. Patient was not tachycardic or tachypneic. Patient was afebrile but she was clearly dehydrated on exam. CBC in the ED showed hemoglobin of 8 which is a significant drop from 12.7 back in May 2024. She had macrocytosis which is not present here on her CBC today. White blood cell count and platelets werenormal. Ironstudies were significant for iron deficiency. Chemistry showed normal BUN and creatinine as well asnormal liver function and bilirubin. B12 was high however folic acid was low at 3.9. TSH was also normal to 0.23. Occult blood was negative in the ED. Respiratory and was negative as in the ED CT cerv ical spine was negative for fracture. Chest x-ray negative. CT abdomen pelvis with IV contrast was negative for acute process. CT chest without contrast showed no acute cardiopulmonary process but showed nondisplaced fracture right ninth rib which is likely subacute. In the ED, patient received 1 dose of pantoprazole 40 mg IV once as well as magnesium 2 g and 1 L of LR. Patient was admitted underhospital service for further workup and management. Review of Systems Review of Systems All other systems reviewed & are negative unless noted below or in HPI [facility] Medical History Cholecystectomy planned Surgical History H/O: hysterectomy History of appendectomy Gastric bypass status for obesity Social History Smoking Status: Current every day smoker Substance Use Type: Marijuana Meds Medications and Allergies Allergies sulfamethoxazole (From Bactrim) Allergy (Verified 06/15/24 11:32) Rash trimethoprim (From Bactrim) Allergy (Verified 06/15/24 11:32) Rash Home Medications ascorbic acid (vitamin C) 1,000 mg tablet,extended release (C Complex) 1,000 mg PO DAILY 10/03/24 [History Confirmed 10/03/24] budesonide-formoterol HFA 160 mcg-4.5 mcg/actuation aerosol inhaler (Symbicort) 2 inh inhalation BID 10/03/24 [History Confirmed 10/03/24] bupropion HCl 150 mg 24 hr tablet, extended release 450 mg PO DAILY 10/03/24 [History Confirmed 10/03/24] diclofenac sodium 75 mg tablet,delayed release 75 mg PO BID PRN pain 10/03/24 [History Confirmed 10/03/24] magnesium oxide 400 mg PO DAILY 10/03/24 [History Confirmed 10/03/24] pregabalin 150 mg capsule 150 mg PO BID 10/03/24 [History Confirmed 10/03/24] Exam Physical Exam Vital Signs: Temp Pulse Resp BP Pulse Ox O2 Del Method 97 F L 95 18 113/78 96 Room Air 10/03/24 10:29 10/03/24 14:17 10/03/24 14:17 10/03/24 14:17 10/03/24 14:17 10/03/24 14:17 Narrative: Constitutional Constitutional Exam: Very tired and frail. Cachectic. Pleasant and cooperativewith me on exam. Not in acute distress but ill-appearing HEENT Exam Head Exam: atraumatic Eye Exam: PERRL and conjunctiva pale, no scleral icterus ENT Exam: mucous membranes dry, oropharynx clear and external ear normal Neck Exam Neck Exam: full ROM, no JVD, no lymphadenopathy Respiratory Exam Respiratory Exam: CTA bilaterally and no respiratory distress, no wheeze or crackles patient with resp distress Cardiovascular Exam Cardiovascular exam: RR and no irregular rhythm, no murmurs normal S1-S2 Abdominal Exam GI/Abdominal Exam: soft, tenderness (Tenderness to right upper quadrant, right lower quadrant and right hip), no rebound, no guarding or no rigid Extremities Exam Extremities Exam: no edema, full ROM, pulses intact, no normal capillary refill (Delayed cap refill2 to 3 seconds) or no calf tenderness Back/Spine/Pelvis Exam Back Exam: no vertebral tenderness, no paraspinal tenderness, straight leg test is negative Skin Exam Skin Exam: dry and warm Neurological Exam Neurological Exam: alert, oriented X3, CN II-XII intact, no sensory deficit, no pronator drift, no altered mental status, patient appeared to have positive Romberg sign as well as ataxia on exam. Reflexes were not significant for beinga brisk or high for active. Motor strength of lower extremities is at least 3/5when patient laying down however gets worse when she stands up. Verbal Response: Oriented Results - Hospitalist H&P Lab Results Labs: Laboratory Last Values Corrected WBC 7.1 X10E3/uL (3.8-11.6) 10/03/24 10:40 Uncorrected WBC Count 7.1 x10E3/uL (3.8-11.6) 10/03/24 10:40 RBC 2.57 x10E6/uL (3.60-5.00) L 10/03/24 10:40 Hgb 8.0 g/dL (11.8-15.4) L 10/03/24 10:40 Hct 24.9 % (34.0-46.4) L 10/03/24 10:40 MCV 96.9 fl (80-100) 10/03/24 10:40 MCH 31.3 pg (24.7-34.3) 10/03/24 10:40 MCHC 32.3 g/dL (32.0-35.0) 10/03/24 10:40 RDW 15.4 % (11.9-15.3) H 10/03/24 10:40 Plt Count 383 x10E3/uL (150-450) 10/03/24 10:40 MPV 8.5 fl (6.3-10.7) 10/03/24 10:40 Neut % (Auto) 69.8 % (.) 10/03/24 10:40 Lymph % (Auto) 21.6 % (.) 10/03/24 10:40 [place] % (Auto) 7.5 % (.) 10/03/24 10:40 Eos % (Auto) 0.6 % (.) 10/03/24 10:40 Baso % (Auto) 0.5 % (.) 10/03/24 10:40 Nucleat RBC Rel Count 0.1 /100 WBC (0-0.5) 10/03/24 10:40 Neut # (Auto) 5.0 x10E3/uL (1.8-7.7) 10/03/24 10:40 Lymph # (Auto) 1.5 x10E3/uL (1.00-4.8) 10/03/24 10:40 [place] # (Auto) 0.5 x10E3/uL (0.0-0.8) 10/03/24 10:40 Eos # (Auto) 0.0 x10E3/uL (0.0-0.45) 10/03/24 10:40 Baso # (Auto) 0.0 x10E3/uL (0.0-0.2) 10/03/24 10:40 Monocyte Dist Width 24.79 % (0.00-20.00) H 10/03/24 10:40 PHA Creatinine Clear 49.53 10/03/24 10:40 Sodium 140 mmol/L (136-145) 10/03/24 10:40 Potassium 3.8 mmol/L (3.5-5.1) 10/03/24 10:40 Chloride 110 mmol/L (98-107) H 10/03/24 10:40 Carbon Dioxide 26.8 mmol/L (21.0-31.0) 10/03/24 10:40 Anion Gap 7.0 mEq/L (6.0-15.0) 10/03/24 10:40 BUN 21 mg/dL (7-25) 10/03/24 10:40 Creatinine 0.90 mg/dL (0.60-1.20) 10/03/24 10:40 Est GFR (CKD-EPI) > 60.0 mL/Min 10/03/24 10:40 Glucose 71 mg/dL (70-100) 10/03/24 10:40 Lactic Acid 0.8 mmol/L (0.5-2.2) 10/03/24 14:00 Calcium 8.0 mg/dL (8.6-10.3) L 10/03/24 10:40 Phosphorus 2.5 mg/dL (2.5-4.5) 10/03/24 10:40 Magnesium 1.9 mg/dL (1.9-2.7) 10/03/24 10:40 Iron 26 ug/dL (50-212) L 10/03/24 12:36 TIBC 225 ug/dL (255-450) L 10/03/24 12:36 Iron Saturation 11.6 % (20-50) L 10/03/24 12:36 Transferrin 161 mg/dL (203-362) L 10/03/24 12:36 Ferritin 13.0 ng/mL (11.0-306.8) 10/03/24 12:36 Total Bilirubin 0.4 mg/dl (0.3-1.0) 10/03/24 10:40 Direct Bilirubin 0.10 mg/dL (0.03-0.18) 10/03/24 10:40 Indirect Bilirubin 0.3 mg/dL 10/03/24 10:40 AST 33 U/L (13-39) 10/03/24 10:40 ALT 18 U/L (7-52) 10/03/24 10:40 Alkaline Phosphatase 84 U/L (34-104) 10/03/24 10:40 Total Creatine Kinase 27 U/L (30-223) L 10/03/24 10:40 Troponin I High Sens 4.5 pg/mL (0.0-15.0) 10/03/24 12:49 B-Natriuretic Peptide 105.0 pg/mL (5-100) H 10/03/24 10:40 Total Protein 5.5 gm/dL (6.4-8.9) L 10/03/24 10:40 Albumin 2.2 gm/dL (3.5-5.7) L 10/03/24 10:40 Globulin 3.3 gm/dL 10/03/24 10:40 Albumin/Globulin Ratio 0.7 10/03/24 10:40 Lipase 8.0 U/L (11.0-82.0) L 10/03/24 10:40 Vitamin B12 1004 pg/mL (180-914) H 10/03/24 12:36 Folate 3.9 ng/mL (>5.9) L 10/03/24 12:36 TSH 3rd Generation 2.23 uIU/mL (0.45-5.33) 10/03/24 12:36 Urine Color Yellow (Yellow) 10/03/24 10:57 Urine Appearance Cloudy (Clear) A 10/03/24 10:57 Urine pH 6.0 (5.0-9.0) 10/03/24 10:57 Ur Specific Hope 1.013 (1.001-1.030) 10/03/24 10:57 Urine Protein Negative mg/dL (Negative) 10/03/24 10:57 Urine Glucose (UA) Normal mg/dL (Normal) 10/03/24 10:57 Urine Ketones Trace (Negative) H 10/03/24 10:57 Urine Occult Blood Negative (Negative) 10/03/24 10:57 Urine Nitrite Negative (Negative) 10/03/24 10:57 Urine Bilirubin Negative (Negative) 10/03/24 10:57 Urine Urobilinogen Normal mg/dL (Normal) 10/03/24 10:57 Ur Leukocyte Esterase 1+ (Negative) H 10/03/24 10:57 Urine RBC 1-2 /HPF (0-4) 10/03/24 10:57 Urine WBC 3-4 /HPF (0-4) 10/03/24 10:57 Ur Squamous Epith Cells 5-9 /HPF (0-2) H 10/03/24 10:57 Urine Bacteria None seen /HPF (None Seen) 10/03/24 10:57 Hyaline Casts 0-8 /LPF (0-8) 10/03/24 10:57 SARS-CoV-2 Rap RNA(RT-PCR) Negative (Negative) 10/03/24 10:40 Microbiology Results Micro: Microbiology - Results from entire visit 10/03/24 13:11 Stool Stool Occult Blood (GRISELDA) - Final 10/03/24 10:40 Nasopharyngeal SARS-CoV-2, Influenza & RSV (PCR) - Final Assessment & Plan Assessment/Plan (1) Orthostatic hypotension: (2) Ataxia: (3) Neuropathy: (4) Normocytic anemia: Plan Lightheadedness likely orthostatic hypotension in the setting of symptomatic anemia, normocytic [id number] which could be due to malnutrition and malabsorption in the setting of history of gastric bypass surgery Rule out GI loss Ataxia and decreased ambulation, likely neuropathy related could be due to malnutrition Rule out dementing process which is less likely given the patient's normal reflexia on exam -Admit patient to medical floor with telemetry -Continue normal saline 60 mL/h for the next 24 hours -Consulted neurology given the concern for her any demyelinating process -Further imaging as per neurology -Continue patient's pregabalin, also if there is any suggestion by neurology formedication treatment would appreciate that -Consulted GI given her drop in hemoglobin as well as iron deficiency -Pantoprazole 40 mg IV twice daily -Given the patient's risk malabsorption due to her surgeries I will start the patient on IV iron infusion, patient states that her only allergies to Bactrim. Never had blood transfusion before on discharge I would rather send her on p.o. iron -Also will start folic acid 1 mg p.o. daily -Will reconcile patient's medication as appropriate once updated by nursing team -Will stop diclofenac p.o. given the patient's anemia and possible GI source -SCDs for DVT prophylaxis, I will avoid HSQ given the patient's anemia -PT/OT eval, patient is open for placement as she lives with her son and she states that over the last few weeks her functional status significantly declined. Plan of plan with the patient at bedside. Answer question addressed or concerns IP vs OBS Justification Based on differential dx, clinical care plan, and risk of adverse events, if untreated, in my clinical judgement this patient requires an acute care setting as: INPATIENT because of an expectation ofan over 2 midnight stay. Estimated length of stay (# of days): 3 Documented By: Percy Romeo MD 10/03/24 1450 Signed By: 10/04/24 1408 [facility]01-12-2025 [place] [address] Neurology Progress Note Signed Patient: Telma Person MR#: [id number] : 1960 Acct:[id number] Age/Sex: 63 / F Adm Date: 5 Loc: Room: [address] [place] [address] Type: ADM IN Attending Dr: Percy Romeo MD Copies to: ~ Date of Service: 10/04/2024 Exam Physical Exam Vital Signs: Temp Pulse Resp BP Pulse Ox O2 Del Method 98.1 F 85 16 113/61 100 Room Air 10/04/24 11:40 10/04/24 11:40 10/04/24 11:40 10/04/24 11:40 10/04/24 11:40 10/04/24 07:25 Objective Vital Signs Vital Signs: Vital Signs - 24 hr 10/03/24 12:40 10/03/24 14:17 10/03/24 15:24 Temperature Pulse Rate Pulse Rate [Monitor] 84 95 86 Respiratory Rate 16 18 16 Blood Pressure Blood Pressure [Right Arm] 105/67 113/78 103/68 02 Sat by Pulse Oximetry 95 96 96 Oxygen Delivery Method Room Air Room Air Room Air 10/03/24 16:32 10/03/24 16:32 10/03/24 20:35 Temperature 97.2 F L Pulse Rate Pulse Rate [Monitor] 94 Respiratory Rate 20 Blood Pressure Blood Pressure [Right Arm] 126/82 02 Sat by Pulse Oximetry 98 Oxygen Delivery Method Room Air Room Air Room Air 10/03/24 20:35 10/03/24 23:25 10/04/24 00:01 Temperature 97.8 F 97.7 F Pulse Rate 89 86 Pulse Rate [Monitor] Respiratory Rate 18 18 Blood Pressure 99/66 L 101/50 L 106/69 Blood Pressure [Right Arm] 02 Sat by Pulse Oximetry 98 97 Oxygen Delivery Method Room Air Room Air 10/04/24 00:02 10/04/24 04:31 10/04/24 06:33 Temperature 98.0 F Pulse Rate 89 Pulse Rate [Monitor] Respiratory Rate 16 Blood Pressure 69/51 L 86/50 L 94/65 L Blood Pressure [Right Arm] 02 Sat by Pulse Oximetry 99 Oxygen Delivery Method Room Air 10/04/24 07:25 10/04/24 10:39 10/04/24 10:55 Temperature 98.3 F 98.7 F 98.4 F Pulse Rate 62 85 85 Pulse Rate [Monitor] Respiratory Rate 16 16 16 Blood Pressure 102/69 91/61 L 107/72 Blood Pressure [Right Arm] 02 Sat by Pulse Oximetry 97 100 100 Oxygen Delivery Method Room Air 10/04/24 11:10 10/04/24 11:40 Temperature 98.1 F 98.1 F Pulse Rate 86 85 Pulse Rate [Monitor] Respiratory Rate 18 16 Blood Pressure 113/80 113/61 Blood Pressure [Right Arm] 02 Sat by Pulse Oximetry 100 100 Oxygen Delivery Method Labs 10/04/24 06:04 10/04/24 06:04 Lab Results: 10/03/24 10:40: ESR 68 H Therapy Recommendations Therapy Recommendations: PT Recommendations PT Recommended Discharge Residential Facility Location PT Recommended Services at Physical Therapy,Occupational Therapy Discharge ST Recommendations Liquid Consistency Thin Liquids Recommendation Solid Consistency Regular Solids Recommendations Meat Consistency Whole Meats Recommendations Medication Administration Whole Pills,Give Pills with Water Dysphagia Swallow Precautions/ Sitting Upright (90 deg),Small Bites/Sips, Strategies Alternate Liquids/Solids Assessment/Plan (1) Lower extremity weakness: Qualifiers: Laterality: bilateral Qualified Code(s): R29.898 - Other symptoms and signs involving the musculoskeletal system Plan CONSULT REASON: Progressive weakness INTERIM: She is getting a blood transfusion and said I guess something sicker than I thought. She was seenby gastroenterology. She says her legs feel about the same. She mentioned a physical therapy burning and pain in her perineal area. I asked her about this and she said it just always feels hot, not necessarily like a burning pain. I confirmed again that she is not having any concerning urinary control issues. She says everything feels about the same. Feet are still bothersome. Nothing to add to review of systems. EXAMINATION: Blood pressures still tending towards hypotension, as low as 69/51 documented overnight but then 86/50 and 94/65. In no distress. No deformities or trauma. Limbs seem well-perfused. No significant edema. Normal work of breathing. Visualized skin is generally intact and without lesions. Affect normal. Patient is alert and generally oriented. Attention normal. Speech is fluent and nondysarthric. Pupils are equal. Ocular motility is full. No nystagmus. Facial sensation is normal. Hearing is normal. Facial strength is normal. Tongue is midline. Muscle bulk and tone are normal throughout. Muscle strength in upper extremities seems normal bilaterally. +4/5 strength bilateral hip flexion. I think the rest of the lower limbs have strength that is acceptable and within normal limits. No significant tremors. Right upper extremity biceps and brachioradialis reflex slightly brisk. Left upper extremity biceps andbrachioradialis reflex +3/4. Bilateral Leander signs. Patellar reflexes brisk bilaterally, more soon the left. No sustained ankle clonus. Crossed adductors bilaterally. Light touch is generally intact. Temperature sensation is decreased in the lower extremities compared to the upper extremities. Vibratory sensation is absent inthe feet. Proprioception is very poor in the feet. No limb dysmetriaor ataxia. DATA REVIEW: -Folate low at 3.9 -Vitamin B12 1004 -TSH 2.23 -Hemoglobin 8, was 12.7 back in May 2024 -Head CT October 03, 2024 nonacute -Cervical spine CT October 03, 2024 shows mild reversal of the cervical lordosissuperiorly, disc bulging with central canal narrowing at C3-4 and C4-5 and C5-6,nothing looks severe -I looked at her abdominal CT imaging from October 03, 2024 and it looks like she might have severestenosis at L5-S1 ASSESSMENT: Bilateral feet sensory loss. Loss of all sensory modalities to varying degrees,including loss of proprioception. This is contributing to her imbalance. Seemsmost consistent with a length dependent neuropathy. Will do laboratory investigation. She is not B12 deficient. It looks like the symptoms in her feet started back in May 2024. Her longstanding history of significant alcohol consumptionmight be contributory; she stopped drinking in July of last year. The ambulatory difficulty and lower extremity dysfunction seems out of proportion to the sensory loss in the feet. She demonstrates hyperreflexia throughout, which is asymmetric and more pronounced on the left. I think she deserves assessment of at least the cervical spine. She says the symptoms got very bad about a month ago. She does not have any dermatomal or myotomal pattern to her symptoms lower extremity symptoms and does not have radicular pains. No bowel or bladder dysfunction. Her CT abdomen imaging looks like shemight have severe stenosis at L5-S1. Vague heat like sensations in the perineal area. Low suspicionfor conus medullaris or cauda equina syndrome. Reduced oral intake. Folate deficiency suggestive of malnourishment. She is hypotensive. And she isanemic whereas she was not back in May. All those things also probably contributing to weakness and ambulatory difficulty. PLAN: 1. Checking A1c, SPEP, immunofixation 2. MRI lumbar spine without contrast 3. MRI cervical spine without contrast Documented By: Abraham Flores, 10/04/24 1219 Signed By: 10/04/24 1234 [facility]01-12-2025 Consult note Author Lamont Uribe [facility] Note Date/Time October 04, 2024 9 :20am [facility] [address] [place] [address] Gastroenterology Consult Note Signed Patient: Telma Person MR#: [id number] : 1960 Acct:[id number] Age/Sex: 63 / F Adm Date: 5 Loc: 3T Room: [address] [place] [address] Type: ADM IN Attending Dr: Percy Romeo MD Copies to: MD Anum Lazcano MD Mohamad Akil, MD~ HPI Data of Consult Date of Consultation: 10/04/24 Requesting Physician: Percy Romeo MD Consult Narrative History of present illness: Ms. Person is a 63 year old female with a past medical history significant for remote RYGB, arthritis who is admitted with falls and weakness over the past several weeks. Patient incidentally found to have decreased hemoglobin. She denies any overt bleeding. She states that at baseline she struggles with constipation. She denies any dark or tarry stools or bright red blood per rectum. She states she gets significant heartburn and indigestion and has been having a globus sensation with dysphagia to solids only for the past several weeks. She is not on any PPIs in the outpatient setting. She has never had an endoscopic evaluation nor colonoscopy. She is chronically on diclofenac p.o. twice daily for pain. Additionally she periodically takes Aleve and Motrin for headaches. On admission she was hemodynamically stable. Hemoglobin in May of this year normal at 12.7 decreased to 8 on admission, 6.8 on repeat this morning. MCV normocytic at 96, previously was macrocytic. Platelets normal. Reticulocyte percent 2. Decreased calcium, phosphorus and magnesium but otherwise unremarkable chemistries. Normal BUN. Negative FOBT. Patient had goldsmith CT scan due to falls and CT of the chest, head, C-spine and abdomen was nonacute. cc:: CC: Percy Romeo MD Review of Systems Constitutional Constitutional: Denies poor appetite and Denies weight loss Eyes Eyes: Denies change in vision and Denies eye discharge ENT Ears, Nose, Mouth, and Throat: Denies nasal discharge, Denies sore throat and Denies vertigo Cardiovascular Cardiovascular: Denies chest pain and Denies dyspnea on exertion Respiratory Respiratory: Denies chest congestion, Denies cough and Denies dyspnea on exertion Gastrointestinal Gastrointestinal: Reports as per HPI Musculoskeletal Musculoskeletal: Denies arthralgias, Denies muscle weakness and Denies numbness Integumentary/Breasts Skin/Breast: Denies change in pigmentation and Denies rash Neurologic Neurologic: Denies numbness and Denies vertigo Psychiatric Psychiatric: Denies anxiety and Denies depression Hematologic/Lymphatic Hematologic/Lymphatic: Denies easy bruising and Denies lymphadenopathy [facility] Medical History Cholecystectomy planned Surgical History H/O: hysterectomy History of appendectomy Gastric bypass status for obesity Social History Smoking Status: Current every day smoker Substance Use Type: Former User and Alcohol Social History Comments: Son lives with her. Lives on PIB Meds Medications and Allergies Allergies sulfamethoxazole (From Bactrim) Allergy (Verified 06/15/24 11:32) Rash trimethoprim (From Bactrim) Allergy (Verified 06/15/24 11:32) Rash Home Medications ascorbic acid (vitamin C) 1,000 mg tablet,extended release (C Complex) 1,000 mg PO DAILY 10/03/24 [History Confirmed 10/03/24] budesonide-formoterol HFA 160 mcg-4.5 mcg/actuation aerosol inhaler (Symbicort) 2 inh inhalation BID 10/03/24 [History Confirmed 10/03/24] bupropion HCl 150 mg 24 hr tablet, extended release 450 mg PO DAILY 10/03/24 [History Confirmed 10/03/24] diclofenac sodium 75 mg tablet,delayed release 75 mg PO BID PRN pain 10/03/24 [History Confirmed 10/03/24] magnesium oxide 400 mg PO DAILY 10/03/24 [History Confirmed 10/03/24] pregabalin 150 mg capsule 150 mg PO BID 10/03/24 [History Confirmed 10/03/24] Exam Physical Exam Vital Signs: Temp Pulse Resp BP Pulse Ox O2 Del Method 98.3 F 62 16 102/69 97 Room Air 10/04/24 07:25 10/04/24 07:25 10/04/24 07:25 10/04/24 07:25 10/04/24 07:25 10/04/24 07:25 Const General: no acute distress and well developed HEENT Head: normocephalic and atraumatic Mouth: moist mucous membranes Eyes Sclera: sclerae normal (no scleral icterus) EOM: EOM intact bilaterally Neck Other: trachea midline Resp Effort & Inspection: normal respiratory effort and able to speak in complete sentences GI Inspection: normal to inspection and non-distended Palpation: soft and nontender Skin General: turgor normal and no jaundice Neuro General: patient alert and patient oriented x3 Psych Appearance: grossly normal Mental Status: mental status grossly normal Results - Gastroenterology Labs Labs: Laboratory Results - last 24 hr 10/03/24 10/03/24 10/03/24 10:40 10:57 12:36 Corrected WBC 7.1 Uncorrected WBC Count 7.1 RBC 2.57 L Hgb 8.0 L Hct 24.9 L MCV 96.9 MCH 31.3 MCHC 32.3 RDW 15.4 H Plt Count 383 MPV 8.5 Neut % (Auto) 69.8 Lymph % (Auto) 21.6 [place] % (Auto) 7.5 Eos % (Auto) 0.6 Baso % (Auto) 0.5 Nucleat RBC Rel Count 0.1 Neut # (Auto) 5.0 Lymph # (Auto) 1.5 [place] # (Auto) 0.5 Eos # (Auto) 0.0 Baso # (Auto) 0.0 Monocyte Dist Width 24.79 H ESR 68 H Absolute Retic 0.053 Percent Retic 2.0 H PT 12.1 INR 1.0 PHA Creatinine Clear 49.53 Sodium 140 Potassium 3.8 Chloride 110 H Carbon Dioxide 26.8 Anion Gap 7.0 BUN 21 Creatinine 0.90 Est GFR (CKD-EPI) > 60.0 Glucose 71 Lactic Acid Calcium 8.0 L Phosphorus 2.5 Magnesium 1.9 Iron 26 L TIBC 225 L Iron Saturation 11.6 L Transferrin 161 L Ferritin 13.0 Total Bilirubin 0.4 Direct Bilirubin 0.10 Indirect Bilirubin 0.3 AST 33 ALT 18 Alkaline Phosphatase 84 Total Creatine Kinase 27 L Troponin I High Sens 4.4 C-Reactive Prot, Quant 6.7 H B-Natriuretic Peptide 105.0 H Total Protein 5.5 L Albumin 2.2 L Globulin 3.3 Albumin/Globulin Ratio 0.7 Lipase 8.0 L Vitamin B12 1004 H Folate 3.9 L TSH 3rd Generation 2.23 Urine Color Yellow Urine Appearance Cloudy A Urine pH 6.0 Ur Specific Hope 1.013 Urine Protein Negative Urine Glucose (UA) Normal Urine Ketones Trace H Urine Occult Blood Negative Urine Nitrite Negative Urine Bilirubin Negative Urine Urobilinogen Normal Ur Leukocyte Esterase 1+ H Urine RBC 1-2 Urine WBC 3-4 Ur Squamous Epith Cells 5-9 H Urine Bacteria None seen Hyaline Casts 0-8 SARS-CoV-2 Rap RNA(RT-PCR) Negative 10/03/24 10/03/24 10/04/24 12:49 14:00 06:04 Corrected WBC 6.5 Uncorrected WBC Count 6.5 RBC 2.19 L Hgb 6.8 L Hct 21.2 L MCV 96.8 MCH 31.1 MCHC 32.1 RDW 15.2 Plt Count 312 MPV 8.5 Neut % (Auto) 71.9 Lymph % (Auto) 20.1 [place] % (Auto) 7.0 Eos % (Auto) 0.5 Baso % (Auto) 0.5 Nucleat RBC Rel Count 0.2 Neut # (Auto) 4.6 Lymph # (Auto) 1.3 [place] # (Auto) 0.5 Eos # (Auto) 0.0 Baso # (Auto) 0.0 Monocyte Dist Width ESR Absolute Retic Percent Retic PT INR PHA Creatinine Clear 70.76 Sodium 140 Potassium 3.6 Chloride 110 H Carbon Dioxide 24.2 Anion Gap 9.4 BUN 15 Creatinine 0.63 Est GFR (CKD-EPI) > 60.0 Glucose 78 Lactic Acid 0.8 Calcium 7.8 L Phosphorus 2.2 L Magnesium 1.8 L Iron TIBC Iron Saturation Transferrin Ferritin Total Bilirubin 0.3 Direct Bilirubin Indirect Bilirubin AST 31 ALT 16 Alkaline Phosphatase 75 Total Creatine Kinase Troponin I High Sens 4.5 C-Reactive Prot, Quant Cancelled B-Natriuretic Peptide Total Protein 5.9 L Albumin 2.8 L Globulin 3.1 Albumin/Globulin Ratio 0.9 Lipase Vitamin B12 Folate TSH 3rd Generation Urine Color Urine Appearance Urine pH Ur Specific Hope Urine Protein Urine Glucose (UA) Urine Ketones Urine Occult Blood Urine Nitrite Urine Bilirubin Urine Urobilinogen Ur Leukocyte Esterase Urine RBC Urine WBC Ur Squamous Epith Cells Urine Bacteria Hyaline Casts SARS-CoV-2 Rap RNA(RT-PCR) A&P - Gastroenterology Assessment/Plan (1) Anemia: (2) NSAID long-term use: (3) Dysphagia: (4) Dyspepsia: Plan The patient's anemia is likely multifactorial. Her numbers are not consistent with iron deficiency, her iron is only relatively low due to her low TIBC (reflective of excess iron bound). Ferritin is low normal. Normocytic, previously had been macrocytic but now it appears her B12 has been corrected in the outpatient setting. Folate is still low. She likely has significant malabsorption from her [place]. She has significant NSAID use and dysphagia along with dyspeptic complaints. She will need colonoscopy in the outpatient setting for her routine colorectal cancer screening as she has never had this. -Okay for GI soft diet today -Will plan to do EGD tomorrow to evaluate her dysphagia, dyspepsia with frequentNSAID use -N.p.o. after midnight -Maintain high-dose PPIs 40 mg twice daily, in a patient with concern for upper GI bleeding pathology should get 80 mg bolus PPI prior to initiation of twice daily or gtt. dosing -Resuscitation per primary team, goal hemoglobin greater than 7 Thank you for this consult, I will continue to follow. Documented By: Lamont Uribe MD 10/04/24 0908 Signed By: <Electronically signed by Lamont Uribe MD> 10/04/24 0920 [facility] Work Phone: 1(140) 378-535901-12-2025 [place] [address] Gastroenterology Consult Note Signed Patient: Telma Person MR#: [id number] : 1960 Acct:[id number] Age/Sex: 63 / F Adm Date: 5 Loc: Room: [address] [place] [address] Type: ADM IN Attending Dr: Percy Romeo MD Copies to: MD Anum Lazcano MD Mohamad Akil, MD~ HPI Data of Consult Date of Consultation: 10/04/24 Requesting Physician: Percy Romeo MD Consult Narrative History of present illness: Ms. Person is a 63 year old female with a past medical history significant for remote RYGB, arthritis who is admitted with falls and weakness over the past several weeks. Patient incidentally found to have decreased hemoglobin. She denies any overt bleeding. She states that at baseline she struggles with constipation. She denies any dark or tarry stools or bright red blood per rectum. She states she gets significant heartburn and indigestion and has been having a globus sensation with dysphagiato solids only for the past several weeks. She is not on any PPIs in the outpatient setting. She has never had an endoscopic evaluation nor colonoscopy. She is chronically on diclofenac p.o. twice daily for pain. Additionally she periodically takes Aleve and Motrin for headaches. On admission she was hemodynamically stable. Hemoglobin in May of this year normal at 12.7 decreased to 8 on admission, 6.8 on repeat this morning. MCV normocytic at 96, previously was macrocytic. Platelets normal. Reticulocyte percent 2. Decreased calcium, phosphorus and magnesium but otherwise unremarkable chemistries. Normal BUN. Negative FOBT. Patient had goldsmith CT scan due to falls and CTof the chest, head, C-spine and abdomen was nonacute. cc:: CC: Percy Romeo MD Review of Systems Constitutional Constitutional: Denies poor appetite and Denies weight loss Eyes Eyes: Denies change in vision and Denies eye discharge ENT Ears, Nose, Mouth, and Throat: Denies nasal discharge, Denies sore throat and Denies vertigo Cardiovascular Cardiovascular: Denies chest pain and Denies dyspnea on exertion Respiratory Respiratory: Denies chest congestion, Denies cough and Denies dyspnea on exertion Gastrointestinal Gastrointestinal: Reports as per HPI Musculoskeletal Musculoskeletal: Denies arthralgias, Denies muscle weakness and Denies numbness Integumentary/Breasts Skin/Breast: Denies change in pigmentation and Denies rash Neurologic Neurologic: Denies numbness and Denies vertigo Psychiatric Psychiatric: Denies anxiety and Denies depression Hematologic/Lymphatic Hematologic/Lymphatic: Denies easy bruising and Denies lymphadenopathy [facility] Medical History Cholecystectomy planned Surgical History H/O: hysterectomy History of appendectomy Gastric bypass status for obesity Social History Smoking Status: Current every day smoker Substance Use Type: Former User and Alcohol Social History Comments: Son lives with her. Lives on PIB Meds Medications and Allergies Allergies sulfamethoxazole (From Bactrim) Allergy (Verified 06/15/24 11:32) Rash trimethoprim (From Bactrim) Allergy (Verified 06/15/24 11:32) Rash Home Medications ascorbic acid (vitamin C) 1,000 mg tablet,extended release (C Complex) 1,000 mg PO DAILY 10/03/24 [History Confirmed 10/03/24] budesonide-formoterol HFA 160 mcg-4.5 mcg/actuation aerosol inhaler (Symbicort) 2 inh inhalation BID 10/03/24 [History Confirmed 10/03/24] bupropion HCl 150 mg 24 hr tablet, extended release 450 mg PO DAILY 10/03/24 [History Confirmed 10/03/24] diclofenac sodium 75 mg tablet,delayed release 75 mg PO BID PRN pain 10/03/24 [History Confirmed 10/03/24] magnesium oxide 400 mg PO DAILY 10/03/24 [History Confirmed 10/03/24] pregabalin 150 mg capsule 150 mg PO BID 10/03/24 [History Confirmed 10/03/24] Exam Physical Exam Vital Signs: Temp Pulse Resp BP Pulse Ox O2 Del Method 98.3 F 62 16 102/69 97 Room Air 10/04/24 07:25 10/04/24 07:25 10/04/24 07:25 10/04/24 07:25 10/04/24 07:25 10/04/24 07:25 Const General: no acute distress and well developed HEENT Head: normocephalic and atraumatic Mouth: moist mucous membranes Eyes Sclera: sclerae normal (no scleral icterus) EOM: EOM intact bilaterally Neck Other: trachea midline Resp Effort & Inspection: normal respiratory effort and able to speak in complete sentences GI Inspection: normal to inspection and non-distended Palpation: soft and nontender Skin General: turgor normal and no jaundice Neuro General: patient alert and patient oriented x3 Psych Appearance: grossly normal Mental Status: mental status grossly normal Results - Gastroenterology Labs Labs: Laboratory Results - last 24 hr 10/03/24 10/03/24 10/03/24 10:40 10:57 12:36 Corrected WBC 7.1 Uncorrected WBC Count 7.1 RBC 2.57 L Hgb 8.0 L Hct 24.9 L MCV 96.9 MCH 31.3 MCHC 32.3 RDW 15.4 H Plt Count 383 MPV 8.5 Neut % (Auto) 69.8 Lymph % (Auto) 21.6 [place] % (Auto) 7.5 Eos % (Auto) 0.6 Baso % (Auto) 0.5 Nucleat RBC Rel Count 0.1 Neut # (Auto) 5.0 Lymph # (Auto) 1.5 [place] # (Auto) 0.5 Eos # (Auto) 0.0 Baso # (Auto) 0.0 Monocyte Dist Width 24.79 H ESR 68 H Absolute Retic 0.053 Percent Retic 2.0 H PT 12.1 INR 1.0 PHA Creatinine Clear 49.53 Sodium 140 Potassium 3.8 Chloride 110 H Carbon Dioxide 26.8 Anion Gap 7.0 BUN 21 Creatinine 0.90 Est GFR (CKD-EPI) > 60.0 Glucose 71 Lactic Acid Calcium 8.0 L Phosphorus 2.5 Magnesium 1.9 Iron 26 L TIBC 225 L Iron Saturation 11.6 L Transferrin 161 L Ferritin 13.0 Total Bilirubin 0.4 Direct Bilirubin 0.10 Indirect Bilirubin 0.3 AST 33 ALT 18 Alkaline Phosphatase 84 Total Creatine Kinase 27 L Troponin I High Sens 4.4 C-Reactive Prot, Quant 6.7 H B-Natriuretic Peptide 105.0 H Total Protein 5.5 L Albumin 2.2 L Globulin 3.3 Albumin/Globulin Ratio 0.7 Lipase 8.0 L Vitamin B12 1004 H Folate 3.9 L TSH 3rd Generation 2.23 Urine Color Yellow Urine Appearance Cloudy A Urine pH 6.0 Ur Specific [place] 1.013 Urine Protein Negative Urine Glucose (UA) Normal Urine Ketones Trace H Urine Occult Blood Negative Urine Nitrite Negative Urine Bilirubin Negative Urine Urobilinogen Normal Ur Leukocyte Esterase 1+ H Urine RBC 1-2 Urine WBC 3-4 Ur Squamous Epith Cells 5-9 H Urine Bacteria None seen Hyaline Casts 0-8 SARS-CoV-2 Rap RNA(RT-PCR) Negative 10/03/24 10/03/24 10/04/24 12:49 14:00 06:04 Corrected WBC 6.5 Uncorrected WBC Count 6.5 RBC 2.19 L Hgb 6.8 L Hct 21.2 L MCV 96.8 MCH 31.1 MCHC 32.1 RDW 15.2 Plt Count 312 MPV 8.5 Neut % (Auto) 71.9 Lymph % (Auto) 20.1 [place] % (Auto) 7.0 Eos % (Auto) 0.5 Baso % (Auto) 0.5 Nucleat RBC Rel Count 0.2 Neut # (Auto) 4.6 Lymph # (Auto) 1.3 [place] # (Auto) 0.5 Eos # (Auto) 0.0 Baso # (Auto) 0.0 Monocyte Dist Width ESR Absolute Retic Percent Retic PT INR PHA Creatinine Clear 70.76 Sodium 140 Potassium 3.6 Chloride 110 H Carbon Dioxide 24.2 Anion Gap 9.4 BUN 15 Creatinine 0.63 Est GFR (CKD-EPI) > 60.0 Glucose 78 Lactic Acid 0.8 Calcium 7.8 L Phosphorus 2.2 L Magnesium 1.8 L Iron TIBC Iron Saturation Transferrin Ferritin Total Bilirubin 0.3 Direct Bilirubin Indirect Bilirubin AST 31 ALT 16 Alkaline Phosphatase 75 Total Creatine Kinase Troponin I High Sens 4.5 C-Reactive Prot, Quant Cancelled B-Natriuretic Peptide Total Protein 5.9 L Albumin 2.8 L Globulin 3.1 Albumin/Globulin Ratio 0.9 Lipase Vitamin B12 Folate TSH 3rd Generation Urine Color Urine Appearance Urine pH Ur Specific Hope Urine Protein Urine Glucose (UA) Urine Ketones Urine Occult Blood Urine Nitrite Urine Bilirubin Urine Urobilinogen Ur Leukocyte Esterase Urine RBC Urine WBC Ur Squamous Epith Cells Urine Bacteria Hyaline Casts SARS-CoV-2 Rap RNA(RT-PCR) A&P - Gastroenterology Assessment/Plan (1) Anemia: (2) NSAID long-term use: (3) Dysphagia: (4) Dyspepsia: Plan The patient's anemia is likely multifactorial. Her numbers are not consistent with iron deficiency,her iron is only relatively low due to her low TIBC (reflective of excess iron bound). Ferritin is low normal. Normocytic, previously had been macrocytic but now it appears her B12 has been correctedin the outpatient setting. Folate is still low. She likely has significant malabsorption from her [place]. She has significant NSAID use and dysphagia along with dyspeptic complaints. She will needcolonoscopy in the outpatient setting for her routine colorectal cancer screening as she has never had this. -Okay for GI soft diet today -Will plan to do EGD tomorrow to evaluate her dysphagia, dyspepsia with frequentNSAID use -N.p.o. after midnight -Maintain high-dose PPIs 40 mg twice daily, in a patient with concern for upper GI bleeding pathology should get 80 mg bolus PPI prior to initiation of twice daily or gtt. dosing -Resuscitation per primary team, goal hemoglobin greater than 7 Thank you for this consult, I will continue to follow. Documented By: Lamont Uribe MD 10/04/24 0908 Signed By: 10/04/24 0920 [facility]01-11-2025 Progress note Author Abraham Flores [facility] Note Date/Time October 03, 2024 3 :42pm [facility] [address] [place] [address] Neurology Progress Note Signed Patient: Telma Person MR#: [id number] : 1960 Acct:[id number] Age/Sex: 63 / F Adm Date: 5 Loc: 3T Room: [address] [place] [address] Type: ADM IN Attending Dr: Percy Romeo MD Copies to: ~ Date of Service: 10/03/2024 Exam Physical Exam Vital Signs: Temp Pulse Resp BP Pulse Ox O2 Del Method 97 F L 95 18 113/78 96 Room Air 10/03/24 10:29 10/03/24 14:17 10/03/24 14:17 10/03/24 14:17 10/03/24 14:17 10/03/24 14:17 Objective Vital Signs Vital Signs: Vital Signs - 24 hr 10/03/24 10:29 10/03/24 10:29 10/03/24 10:29 Temperature 97 F L Pulse Rate 80 Pulse Rate [Monitor] 80 Respiratory Rate 16 16 Blood Pressure [Right Arm] 106/59 L 02 Sat by Pulse Oximetry 97 97 Oxygen Delivery Method Room Air Room Air 10/03/24 12:40 10/03/24 14:17 Temperature Pulse Rate Pulse Rate [Monitor] 84 95 Respiratory Rate 16 18 Blood Pressure [Right Arm] 105/67 113/78 02 Sat by Pulse Oximetry 95 96 Oxygen Delivery Method Room Air Room Air Labs 10/03/24 10:40 10/03/24 10:40 Assessment/Plan (1) Lower extremity weakness: Qualifiers: Laterality: bilateral Qualified Code(s): R29.898 - Other symptoms and signs involving the musculoskeletal system Plan CONSULT REASON: Progressive weakness HPI: 64-year-old left-handed woman who lives on [address] with history of [place] bypass. Multiple falls in the past week. Decreased oral intake. Lightheaded with position change. Uses rollator at baseline. History of neuropathy in her feet. There is an emergency department visit from June 15, 2024 where she had legand feet swelling and numbness and tingling and there was concern that she mighthave developed a neuropathy. She was given some gabapentin. She says about a month ago her ambulatory ability significantly declined. It was not sudden but happened over several days. She feels the need to hold onto things. She cannot ambulate less she is holding onto things. She does not trust her feet. She feels like her legs do not do what she wants them to do. She had been recently constipated but she does not feel that is related. No urinary issues. No stool incontinence. Her feet just feel or numb. They do not hurt. She is not having any radicular pains. She feels like her arms are unaffected by what ever is going on. She thinks the focus should be on her feet. Her legs feel weaker and like they are going to give out. She says she quit drinking alcohol back in July or so. Prior to that it had been a chronic issue for her going as far back to young adulthood. EXAMINATION: Blood pressures 106/59 and then 105/67 then 113/78 In no distress. No deformities or trauma. Limbs seem well-perfused. No significant edema. Normal work of breathing. Visualized skin is generally intact and without lesions. Affect normal. Patient is alert and generally oriented. Attention normal. Speech is fluent and nondysarthric. Pupils are equal. Ocular motility is full. No nystagmus. Facial sensation is normal. Hearing is normal. Facial strength is normal. Tongue is midline. Muscle bulk and tone are normal throughout. Muscle strength in upper extremities seems normal bilaterally. +4/5 strength bilateral hip flexion. I think the rest of the lower limbs have strength that is acceptable and within normal limits. No significant tremors. Right upper extremity biceps and brachioradialis reflex slightly brisk. Left upper extremity biceps and brachioradialis reflex +3/4. Bilateral Leander signs. Patellar reflexes brisk bilaterally, more so on the left. No sustained ankle clonus. Crossed adductors bilaterally. Light touch is generally intact. Temperature sensation is decreased in the lower extremities compared to the upper extremities. Vibratory sensation is absent inthe feet. Proprioception is very poor in the feet. No limb dysmetria or ataxia. DATA REVIEW: -Folate low at 3.9 -Vitamin B12 1004 -TSH 2.23 -Hemoglobin 8, was 12.7 back in May 2024 -Head CT October 03, 2024 nonacute -Cervical spine CT October 03, 2024 shows mild reversal of the cervical lordosissuperiorly, disc bulging with central canal narrowing at C3-4 and C4-5 and C5-6,nothing looks severe -I looked at her abdominal CT imaging from October 03, 2024 and it looks like she might have severe stenosis at L5-S1 ASSESSMENT: Bilateral feet sensory loss. Loss of all sensory modalities to varying degrees,including loss of proprioception. This is contributing to her imbalance. Seemsmost consistent with a length dependent neuropathy. Will do laboratory investigation. She is not B12 deficient. It looks like the symptoms in her feet started back in May 2024. Her longstanding history of significant alcohol consumption might be contributory; she stopped drinking in July of last year. The ambulatory difficulty and lower extremity dysfunction seems out of proportion to the sensory loss in the feet. She demonstrates hyperreflexia throughout, which is asymmetric and more pronounced on the left. I think she deserves assessment of her brain and cervical spine. She says the symptoms got very bad about a month ago. She does not have any dermatomal or myotomal pattern to her symptoms lower extremity symptoms and does not have radicular pains. No bowel or bladder dysfunction. We might have to end up looking at her lumbar spine with MRI. HerCT abdomen imaging looks like she might have severe stenosis at L5-S1. Reduced oral intake. Folate deficiency suggestive of malnourishment. She is hypotensive. And she is anemic whereas she was not back in May. All those things also probably contributing to weakness and ambulatory difficulty. PLAN: 1. Checking A1c, SPEP, immunofixation 2. MRI brain without contrast 3. MRI cervical spine without contrast 4. Consideration for MR imaging of lumbar spine Documented By: Abraham Flores DO 10/03/24 1502 Signed By: <Electronically signed by Abraham Flores DO> 10/03/24 0082 [facility] Work Phone: 1(668) 577-355101-11-2025 [place] [address] Neurology Progress Note Signed Patient: Telma Person MR#: [id number] : 1960 Acct:[id number] Age/Sex: 63 / F Adm Date: 5 Loc: 3T Room: [address] [place] [address] Type: ADM IN Attending Dr: Percy Romeo MD Copies to: ~ Date of Service: 10/03/2024 Exam Physical Exam Vital Signs: Temp Pulse Resp BP Pulse Ox O2 Del Method 97 F L 95 18 113/78 96 Room Air 10/03/24 10:29 10/03/24 14:17 10/03/24 14:17 10/03/24 14:17 10/03/24 14:17 10/03/24 14:17 Objective Vital Signs Vital Signs: Vital Signs - 24 hr 10/03/24 10:29 10/03/24 10:29 10/03/24 10:29 Temperature 97 F L Pulse Rate 80 Pulse Rate [Monitor] 80 Respiratory Rate 16 16 Blood Pressure [Right Arm] 106/59 L 02 Sat by Pulse Oximetry 97 97 Oxygen Delivery Method Room Air Room Air 10/03/24 12:40 10/03/24 14:17 Temperature Pulse Rate Pulse Rate [Monitor] 84 95 Respiratory Rate 16 18 Blood Pressure [Right Arm] 105/67 113/78 02 Sat by Pulse Oximetry 95 96 Oxygen Delivery Method Room Air Room Air Labs 10/03/24 10:40 10/03/24 10:40 Assessment/Plan (1) Lower extremity weakness: Qualifiers: Laterality: bilateral Qualified Code(s): R29.898 - Other symptoms and signs involving the musculoskeletal system Plan CONSULT REASON: Progressive weakness HPI: 64-year-old left-handed woman who lives on [address] with history of [place] bypass. Multiple falls in the past week. Decreased oral intake. Lightheaded with position change. Uses rollator at baseline. History of neuropathy in her feet. There is an emergency department visit from June 15, 2024 where she had legand feet swelling and numbness and tingling and there was concern that she mighthave developed a neuropathy. She was given some gabapentin. She says about a month ago her ambulatory ability significantly declined. It was not sudden but happened over several days. She feels the need to hold onto things. She cannot ambulate less she is holding onto things. She does not trust her feet. She feels like her legs do not do what she wants themto do. She had been recently constipated but she does not feel that is related. No urinary issues. No stool incontinence. Her feet just feel or numb. They do not hurt. She is not having any radicular pains. She feels like her arms are unaffected by what ever is going on. She thinks the focus should be on her feet. Her legs feel weaker and like they are going to give out. She says she quit dri nking alcohol back in July or so. Prior to that it had been a chronic issue for her going as far back to young adulthood. EXAMINATION: Blood pressures 106/59 and then 105/67 then 113/78 In no distress. No deformities or trauma. Limbs seem well-perfused. No significant edema. Normal work of breathing. Visualized skin is generally intact and without lesions. Affect normal. Patient is alert and generally oriented. Attention normal. Speech is fluent and nondysarthric. Pupils are equal. Ocular motility is full. No nystagmus. Facial sensation is normal. Hearing is normal. Facial strength is normal. Tongue is midline. Muscle bulk and tone are normal throughout. Muscle strength in upper extremities seems normal bilaterally. +4/5 strength bilateral hip flexion. I think the rest of the lower limbs have strength that is acceptable and within normal limits. No significant tremors. Right upper extremity biceps and brachioradialis reflex slightly brisk. Left upper extremity biceps andbrachioradialis reflex +3/4. Bilateral Leander signs. Patellar reflexes brisk bilaterally, more soon the left. No sustained ankle clonus. Crossed adductors bilaterally. Light touch is generally intact. Temperature sensation is decreased in the lower extremities compared to the upper extremities. Vibratory sensation is absent inthe feet. Proprioception is very poor in the feet. No limb dysmetriaor ataxia. DATA REVIEW: -Folate low at 3.9 -Vitamin B12 1004 -TSH 2.23 -Hemoglobin 8, was 12.7 back in May 2024 -Head CT October 03, 2024 nonacute -Cervical spine CT October 03, 2024 shows mild reversal of the cervical lordosissuperiorly, disc bulging with central canal narrowing at C3-4 and C4-5 and C5-6,nothing looks severe -I looked at her abdominal CT imaging from October 03, 2024 and it looks like she might have severestenosis at L5-S1 ASSESSMENT: Bilateral feet sensory loss. Loss of all sensory modalities to varying degrees,including loss of proprioception. This is contributing to her imbalance. Seemsmost consistent with a length dependent neuropathy. Will do laboratory investigation. She is not B12 deficient. It looks like the symptoms in her feet started back in May 2024. Her longstanding history of significant alcohol consumptionmight be contributory; she stopped drinking in November of last year. The ambulatory difficulty and lower extremity dysfunction seems out of proportion to the sensory loss in the feet. She demonstrates hyperreflexia throughout, which is asymmetric and more pronounced on the left. I think she deserves assessment of her brain and cervical spine. She says the symptoms got very bad about a month ago. She does not have any dermatomal or myotomal pattern to her symptoms lower extremity symptoms and does not have radicular pains. No bowel or bladder dysfunction. We might have to end up looking at her lumbar spine with MRI. HerCT abdomen imaging looks like she might have severe stenosis at L5-S1. Reduced oral intake. Folate deficiency suggestive of malnourishment. She is hypotensive. And she isanemic whereas she was not back in May. All those things also probably contributing to weakness and ambulatory difficulty. PLAN: 1. Checking A1c, SPEP, immunofixation 2. MRI brain without contrast 3. MRI cervical spine without contrast 4. Consideration for MR imaging of lumbar spine Documented By: Abraham Flores DO 10/03/24 1502 Signed By: 10/03/24 1542 [facility]01-11-2025 Evaluation note* Diagnosis Onset Date Resolution Status Admit Date Ataxia acute October 03, 2024 1:35pm Neuropathy acute October 03, 2024 1:35pm Normocytic anemia acute October 03, 2024 1:35pm Orthostatic hypotension acute J anuary 2024 1:35pm [facility] Work Phone: 1(131) 349-877701-11-2025 Evaluation note* Diagnosis Onset Date Resolution Status Admit Date Anemia acute October 03, 2024 1:35pm Ataxia acute October 03, 2024 1:35pm Dyspepsia acute October 03, 2024 1:35pm Dysphagia acute October 03, 2024 1:35pm Falls frequently acute October 03, 2024 1:35pm Lower extremity weakness acute October 03, 2024 1:35pm Neuropathy acute October 03, 2024 1:35pm Normocytic anemia acute October 03, 2024 1:35pm NSAID long-term use acute 2024 1:35pm Orthostatic hypotension acute J anuary 2024 1:35pm Pre-syncope acute October 03, 2024 1:35pm [facility] Work Phone: 1(593) 923-556901-11-2025 [facility]iology [facility] Main [place] [address] [place], [place] [id number] CT Scan Report Signed Patient: Telma Person MR#: [id number] : 1960 Acct:[id number] Age/Sex: 63 / F ADM Date: 5 Loc: ER Room: Type: [facility] ER Attending Dr: Copies to: MD Percy Birmingham MD~ Ordering Provider: Percy Romeo MD Date of Service: 10/03/24 CT/CT chest wo con: multiple falls CT CHEST WITHOUT IV CONTRAST: CLINICAL HISTORY: Frequent falls constipation for 5 days chest pain shortness ofbreath. COMPARISON: None TECHNIQUE: Spiral images were obtained through the chest without IV contrast. This CT exam was performed using one or more following dose reduction techniques: Automated exposure control, adjustment of the mA and/or kV accordingto patient size, or use of iterative reconstruction technique. FINDINGS: Mediastinum:Thoracic aorta demonstrates moderate calcific is without aneurysm. Pulmonary trunk appears nondilated. No pleural effusion or lymphadenopathy. The esophagus is grossly unremarkable. Moderate-sized hiatal hernia with gastric bypass changes. Lungs:Emphysema. No consolidation pneumothorax or pleural effusion. Bibasilar scarring. Abd:No acute findings. Soft tissues/Bones: No acute findings. Osseous structures demonstrate degenerative change. Nondisplaced fracture right ninth rib likely subacute. CT/CT chest wo con IMPRESSION: No acute cardiopulmonary process. Nondisplaced fracture right ninth rib likely subacute. Impression dictated by: Ray George Jr., D.O.10/03/2024 2:53 PM Dictation Location: [place] [address] Transcribed By: [facility] 10/03/24 1453 Dictated By: Ray George Jr, DO 10/03/24 1449 Signed By: 10/03/24 1453 [facility]01-11-2025 Radiology Diagnostic study note [facility] Main [address] [address] [address] Scan Report Signed Patient: Telma Person MR#: [id number] : 1960 Acct:[id number] Age/Sex: 63 / F ADM Date: 5 Loc: ER Room: Type: [facility] ER Attending Dr: Copies to: Ban Boyce MD~ Ordering Provider: Ban Boyce MD Date of Service: 10/03/24 CT/CT abdomen pelvis w con: tenderness R hip and R side abd, freq falls CT ABDOMEN AND PELVIS WITH INTRAVENOUS CONTRAST: CLINICAL HISTORY: Frequent falls. Constipation for 5 days. COMPARISON: None TECHNIQUE: Spiral images were obtained through the abdomen and pelvis followingthe administration of intravenous contrast. This CT exam was performed using one or more following dose reduction techniques: Automated exposure control, adjustment of the mA and/or kV according to patient size, or use of iterative reconstruction technique. FINDINGS: Lung Bases: [Bibasilar scarring.] Organs:Gallbladder has been removed with presumed contents or dilatation of the biliary system. No enhancing liver lesion. Spleen pancreas and adrenal glands appear unremarkable. No enhancing renal mass or hydronephrosis. Abdominal aorta appears normal in caliber.[ GI: Moderate size hiatal hernia. Postsurgical changes involving the stomach and small bowel consistent with bypass surgery. Small bowel appears nondilated.[No acute colonic abnormality. Colonic diverticulosis. Pelvis:[Urinary bladder is grossly unremarkable. Uterus has been removed. No adnexal mass.] Peritoneum/Retroperitoneum:No free air free fluid or lymphadenopathy.[ Abd wall/Bones:No acute findings. Degenerative changes.[ CT/CT abdomen pelvis w con IMPRESSION: No acute process. Impression dictated by: Ray George Jr., D.O.10/03/2024 12:36 PM Dictation Location: [place] [address] Transcribed By: [facility] 10/03/24 1236 Dictated By: Ray George Jr, DO 10/03/24 1234 Signed By: 10/03/24 [facility]6 [facility]01-11-2025 Radiology Diagnostic study note [facility] Main [place] [address] [place] [address] CT Scan Report Signed Patient: Telma Person MR#: [id number] : 1960 Acct:[id number] Age/Sex: 63 / F ADM Date: 01/11/2 5 Loc: ER Room: Type: [facility] ER Attending Dr: Copies to: Ban Boyce MD~ Ordering Provider: Ban Boyce MD Date of Service: 10/03/24 CT/CT head/brain wo con: freq falls, hit head ([id number]) CT/CT cervical spine wo con: freq falls, hit head CT BRAIN WITHOUT CONTRAST: CLINICAL HISTORY: Fall. Hit head. COMPARISON: None TECHNIQUE: Contiguous axial unenhanced images were obtained through the brain. This CT exam was performed using one or more following dose reduction techniques: Automated exposure control, adjustmentof the mA and/or kV accordingto patient size, or use of iterative reconstruction technique. FINDINGS: There is no evidence of midline shift, intra or extra-axial fluid collection, hemorrhage or CT evidence of stroke. Posterior fossa appears unremarkable. Visualized intraorbital contents appear unremarkable. Visualized paranasal sinuses are clear. The surrounding soft tissues are normal. CT/CT head/brain wo con IMPRESSION: NO ACUTE INTRACRANIAL ABNORMALITY. CT CERVICAL SPINE WITHOUT CONTRAST WITH 3D RECONSTRUCTIONS: COMPARISON: None TECHNIQUE: Spiral axial unenhanced images were obtained through the cervical spine. Sagittal, coronal and 3D volume-rendered reconstructions were also reviewed. This CT exam was performed using one or more following dose reductiontechniques: Automated exposure control, adjustment of the mA and/or kV accordingto patient size, or use of iterative reconstruction technique. FINDINGS: No fracture. Mild spondylosis C3-C7. Diffuse facet joint degenerative changes. No prevertebral soft tissue swelling. Visualized lung apices demonstrate emphysema. IMPRESSION: NO CERVICAL SPINE FRACTURE Impression dictated by: Ray George Jr., D.O.10/03/2024 12:09 PM Dictation Location: [facility] Transcribed By: [facility] 10/03/24 1209 Dictated By: Ray George Jr, DO 10/03/24 1205 Signed By: 10/03/24 1209 [facility]11-21-2024 History of Present illness Narrative * Erin Echols MA - 08/13/2024 10:00 AM EST Images from the original note were not included. Reason for Appointment: EMG Patient: Telma Person : 1960 EMG Computer: [employer] Referring Physician: Dr. Sorto EMG: BLE culture media laboratory assistant: Erin Echols CMA Office Location: [place] Reason for EMG: c/o numbness in the feet that started in April. Pain in ht etops of the legs. Several falls. Hip pain on the left. No hx of DM, not taking blood thinners. Comments: Procedure explained to the patient who expressed understanding. documented in this encounterEllis Fischel Cancer [id number] NoteHNO ID: [id number] Author: SONIA MUKHERJEE RT(R) Service: Radiology Author Type: Technologist Type: Progress Notes Filed: 07/07/2024 15:18 Note Text: Radiology Service Progress Note PATIENT NAME: Telma Person DATE OF SERVICE: July 07, 2024 TIME: 3:18 PM PATIENT IDENTITY VERIFICATION COMPLETED USING TWO (2) IDENTIFIERS: Name and Date of confirmed by patient verbally and Name and Date of confirmed by identification band. FALL SCREENING: Has the patient had 2 falls in the last year or 1 fall with injury or currently using an Ambulatory Assistive Device (Walker, Cane, Wheelchair, Crutches, etc.)? Emergency Room Patient: Screened in ED PATIENT GENDER DATA: Female. status: : No status: NO. PATIENT RELEVANT IMPLANT DATA REVIEWED: Not Applicable PATIENT PRESENTS WITH AN IMPLANTABLE OR ATTACHED CLINICAL EDUCATION ACADEMIC COORDINATOR: No RADIOLOGY DEPARTMENT: CT; Exam(s) Completed: CTA Aorta/leg runoff PERIPHERAL IV DATA: Site assessment: Clean,Dry and Intact, Site disposition Left in for next appointment SIGNED BY: RT Afshan(R) July 07, 2024 3:[address] [id number] NoteEducation Materials Infectious Disease Cellulitis, Adult Cellulitis is a skin infection. The infected area is usually warm, red, swollen, and tender. It most commonly occurs on the lower body, such as the legs, feet, and toes, but this condition can occur on any part of the body. The infection can travel to the muscles, blood, and underlying tissue and become life- threatening without treatment. It is important to get medical treatment right away for this condition. What are the causes? Cellulitis is caused by bacteria. The bacteria enter through a break in the skin, such as a cut, burn, insect or animal bite, open sore, or crack. What increases the risk? This condition is more likely to occur in people who: ? Have a weak body's defense system (immune system). ? Are older than 60 years old. ? Have diabetes. ? Have a type of long-term (chronic) liver disease (cirrhosis) or kidney disease. ? Are obese. ? Have a skin condition such as: ? An itchy rash, such as eczema or psoriasis. ? A fungal rash on the feet or in skinfolds. ? Blistering rashes, such as shingles or chickenpox. ? Slow movement of blood in the veins (venous stasis). ? Fluid buildup below the skin (edema). ? Have open wounds on the skin, such as cuts, puncture wounds, curiel, bites, scrapes, tattoos, piercings, or wounds from surgery. ? Have had radiation therapy. ? Use IV drugs. What are the signs or symptoms? Symptoms of this condition include: ? Skin that looks red, purple, or slightly darker than your usual skin color. ? Streaks or spots on the skin. ? Swollen area of the skin. ? Tenderness or pain when an area of the skin is touched. ? Warm skin. ? Fever or chills. ? Blisters. ? Tiredness (fatigue). How is this diagnosed? This condition is diagnosed based on a medical history and physical exam. You may also have tests, including: ? Blood tests. ? Imaging tests. ? Tests on a sample of fluid taken from the wound (wound culture). How is this treated? Treatment for this condition may include: ? Medicines. These may include antibiotics or medicines to treat allergies (antihistamines). ? Rest. ? Applying cold or warm wet cloths (compresses) to the skin. ? If the condition is severe, you may need to stay in the hospital and get antibiotics through an IV. The infection usually starts to get better within 1?2 days of treatment. Follow these instructions at home: Medicines ? Take uaaq-bsp-pndmeby and prescription medicines only as told by your health care provider. ? If you were prescribed antibiotics, take them as told by your provider. Do not stop using the antibiotic even if you start to feel better. General instructions ? Drink enough fluid to keep your pee (urine) pale yellow. ? Do not touch or rub the infected area. ? Raise (elevate) the infected area above the level of your heart while you are sitting or lying down. ? Return to your normal activities as told by your provider. Ask your provider what activities are safe for you. ? Apply warm or cold compresses to the affected area as told by your provider. ? Keep all follow-up visits. Your provider will need to make sure that a more serious infection is not developing. Contact a health care provider if: ? You have a fever. ? Your symptoms do not improve within 1?2 days of starting treatment or you develop new symptoms. ? Your bone or joint underneath the infected area becomes painful after the skin has healed. ? Your infection returns in the same area or another area. Signs of this may include: ? You notice a swollen bump in the infected area. ? Your red area gets larger, turns dark in color, or becomes more painful. ? Drainage increases. ? Pus or a bad smell develops in your infected area. ? You have more pain. ? You feel ill and have muscle aches and weakness. ? You develop vomiting or diarrhea that will not go away. Get help right away if: ? You notice red streaks coming from the infected area. ? You notice the skin turns purple or black and falls off. This symptom may be an emergency. Get help right away. Call 911. ? Do not wait to see if the symptom will go away. ? Do not drive yourself to the hospital. This information is not intended to replace advice given to you by your health care provider. Make sure you discuss any questions you have with your health care provider. Document Revised: 05/07/2023 Document Reviewed: 05/07/2023 [employer] Patient Education ? 2023 [employer] Pulmonary Medicine COPD and Physical Activity Chronic obstructive pulmonary disease (COPD) is a long-term, or chronic, condition that affects thelungs. COPD is a general term that can be used to describe many problems that cause inflammation ofthe lungs and limit airflow. These conditions include chronic bronchitis and emphysema. The main symptom of COPD is shortness of breath, which makes it harder to do even simple tasks. This (more content not included)...[facility] Evaluation + Plan note No data available for this section [facility] Evaluation noteNo assessment information available [facility] Work Phone: Evaluation note* Diagnosis Polyneuropathy- Primary Unspecified hereditary and idiopathic peripheral neuropathy Lumbar radiculopathy Thoracic or lumbosacral neuritis or radiculitis, unspecified documented in this encounter [facility] HealthcareHospital Discharge instructions No data available for this section [facility] Progress note No data available for this section [facility] Reason for visit Narrative* Other Medical (Routine) - Closed Specialty Diagnoses / Procedures Referred By Contac t Referred To Contact Neurology Diagnoses Polyneuropathy, unspecified Pain in leg, unspecified Procedures [place] OFFICE/OUTPATIENT [facility] 30 MINUTES Anum Sorto MD [address] [place] [address] Phone: tel:[phone] fax: Nicole Lockett MD [id number] [place] [address] Phone: tel: fax: Referral ID Status Reason Start Date Expiration Date V isits Requested Visits Authorized [id number] Closed Perform Procedure 07/02/2024 12/29/2024 1 1 [facility] Healthcare Summary Purpose Family History No Family History Records FoundNo Family History Records FoundNo Family History Records FoundNo Family History Records Found No data available for this section No Family History Records Found Advance Directives No Advanced Directives Records Found Advance Directive Response Recorded Date/ Time Advance Directives No May 2:17pm Advance Directive Response Recorded Date/ Time Advance Directives No May 1:17pm Chief Complaint and Reason for Visit Chief Complaint bilat legs/feet swel ling, pain Chief Complaint Admit Date Constipation October 03, 2024 1 :35pm Reason for Visit Admit Date Ataxia October 03, 2024 1 :35pm Neuropathy October 03, 2024 1 :35pm Normocytic anemia October 03, 2024 1 :35pm Orthostatic hypotension October 03 1:35pm Chief Complaint Admit Date Constipation October 03, 2024 1 :35pm Constipation October 04, 2024 9 :08am Constipation October 05, 2024 2 :11pm Reason for Visit Admit Date Anemia October 03, 2024 1 :35pm Ataxia October 03, 2024 1 :35pm Dyspepsia October 03, 2024 1 :35pm Dysphagia October 03, 2024 1 :35pm Falls frequently October 03, 2024 1 :35pm Lower extremity weakness October 03 1:35pm Neuropathy October 03, 2024 1 :35pm Normocytic anemia October 03, 2024 1 :35pm NSAID long-term use October 03, 2024 1 :35pm Orthostatic hypotension October 03 1:35pm Pre-syncope October 03, 2024 1 :35pm Additional Source Comments INFORMATION SOURCE (unrecogn ized section and content) DATE CREATED AUTHOR 09/18/2018 [facility] DATE CREATED AUTHOR AUTHOR'S ORGANIZ ATION 07/04/2024 [facility] DATE CREATED AUTHOR AUTHOR'S ORGANIZ ATION 07/09/2024 [facility] DATE CREATED AUTHOR AUTHOR'S ORGANIZ ATION 08/16/2024 [facility] DATE CREATED AUTHOR AUTHOR'S ORGANIZ ATION 10/30/2024 [facility] Care Teams (unrecognized sec tion and content) Team Status: Active Member Role Status Anum Sorto MD Primary Care Provider Active Team Status: Inactive Member Role Status Dates Ban Boyce MD Emergency Provider Active Start: October 03, 2024 End: October 08, 2024 Anum Sorto MD Primary Care Provider Active Start: October 03, 2024 End: October 08, 2024 Percy Romeo MD Admit Provider, Atte nding Provider Active Start: October 03, 2024 End: October 08, 2024 Lamont Uribe MD Other Provider Active Start : October 03, 2024 End: October 08, 2024 Abraham Flores DO Other Provider Active Start: October 03, 2024 End: October 08, 2024 Charity Sherwood MD Other Provider Active Start: Deric hercules 2024 End: October 08, 2024 Ray Fowler MD Other Provider Active Start: Russ irving 2024 End: October 08, 2024 Maribel Hawkins APRN Other Provider Active St art: October 03, 2024 End: October 08, 2024 James Reilly Jr, DO Other Provider Active S tart: October 03, 2024 End: October 08, 2024 David Alfonso MD Other Provider Active Start: October 03, 2024 End: October 08, 2024 Team Status: Active Member Role Status Dates Ban Boyce MD Emergency Provider Active Start: October 04, 2024 Anum Sorto MD Primary Care Provider Active Start: October 04, 2024 Percy Romeo MD Admit Provider, Other Provider Activ e Start: October 04, 2024 Lamont Uribe MD Attending Provider, Other Provider Active Start: October 04, 2024 Abraham Flores DO Other Provider Active Start: October 04, 2024 Team Status: Active Member Role Status Dates Ban Boyce MD Emergency Provider Active Start: October 05, 2024 Anum Sorto MD Primary Care Provider Active Start: October 05, 2024 Percy Romeo MD Admit Provider, Othe r Provider Active Start: October 05, 2024 Lamont Uribe MD Other Provider Active Start : October 05, 2024 Abraham Flores DO Other Provider Active Start: October 05, 2024 Charity Sherwood MD Other Provider [facility] Ray Fowler MD Attending Provider, Other Provider Active Start: October 05, 2024 Maribel Hawkins APRN Other Provider Active St art: October 05, 2024 James Reilly Jr, DO Other Provider Active S tart: October 05, 2024 David Alfonso MD Other Provider Active Start: October 05, 2024 Team Status: Active Member Role Status Dates Ban Boyce MD Emergency Provider Active Start: October 03, 2024 Anum Sorto MD Primary Care Provider Active Start: October 03, 2024 Percy Romeo MD Admit Provider, Atte nding Provider Active Start: October 03, 2024 Team Status: Inactive Member Role Status Dates Anum Sorto MD Primary Care Provider Active Start: June 15, 2024 End: June 15, 2024 Ray Minor PA-C Emergency Provider Active Start: June 15, 2024 End: June 15, 2024 Crissy Gipson DO RES Active Start : June 15, 2024 End: June 15, 2024 Defensive Secondary Coach Relationship Specialty Start Date End Date Anum Sorto MD [address] [place] [address] PCP - General Family Medicine 07/02/24 Defensive Secondary Coach Relationship Specialty Start Date End Date Anum Sorto MD [address] [place] [address] PCP - General Family Medicine 07/02/24 Goals (unrecognized section and content) Goals may be documented in a n alternate section No data available for this sectionGoals may be documented in an alternate section FOR RECORDS PERTAINING TO PATIENTS WHO ARE OR HAVE BEEN ENROLLED IN A CHEMICAL DEPENDENCY/SUBSTANCEABUSE PROGRAM, SOME INFORMATION MAY BE OMITTED. This clinical summary was aggregated from multiple sources. Caution should be exercised in using it in the provision of clinical care. This summary normalizes information from multiple sources, and as a consequence, information in this document may materially change the coding, format and clinical context of patient data. In addition, data may be omitted in some cases. CLINICAL DECISIONS SHOULD BE BASED ON THE PRIMARY CLINICAL RECORDS. [facility] [employer] provides no warranty or guarantee of the accuracy or completeness of information in this document.
[2024-12-19 10:00] LABS: Estimated Average Glucose 94 mg/dL; Glycohemoglobin A1C 4.9 % (4.5-6.2)
[2024-12-19 10:08] LABS: Basophils Percent Auto 0.3 % (0.2-2.0); Hematocrit 34.2 % (36.0-48.0); Hemoglobin 11.1 g/dL (12.0-16.0); Immature Granulocytes Abs Auto 0.03 10^3/uL (0.00-0.03); Immature Granulocytes Pct Auto 0.3 % (0.0-0.5); Lymphocytes Absolute Auto 1.7 10^3/uL (1.2-3.8); Lymphocytes Percent Auto 16.8 % (20.5-60.0); Mean Corpuscular HGB Conc 32.5 g/dL (29.9-35.2); Mean Corpuscular Hemoglobin 32.7 pg (26.7-34.0); Mean Corpuscular Volume 100.9 fL (81.0-99.0); Mean Platelet Volume 9.9 fL (9.5-13.5); Neutrophils Absolute Auto 7.2 10^3/uL (1.4-6.5); Neutrophils Percent Auto 72.6 % (43.0-75.0); Platelet Count 391 10^3/uL (150-450); Red Blood Count 3.39 10^6/uL (4.20-5.40); Red Cell Distribution Width 15.9 % (11.0-15.0); White Blood Count 9.9 10^3/uL (4.0-11.0)
[2024-12-19 10:35] LABS: Alanine Aminotransferase 25 U/L (14-59); Albumin Globulin Ratio 0.4; Albumin Level 2.2 g/dL (3.4-5.0); Alkaline Phosphatase 112 U/L (46-116); Anion Gap 12.6; Aspartate Amino Transferase 42 U/L (15-37); Bilirubin Total 0.6 mg/dL (0.2-1.0); Calcium 8.8 mg/dL (8.5-10.1); Carbon Dioxide 27.5 mmol/L (21.0-32.0); Chloride 103 mmol/L (98-107); Chol HDL Ratio 2.1; Cholesterol 64 mg/dL (<=200); Estimated GFR (African America >60 (>=60 mL/min/1.73m^2); Estimated GFR (Non-African Ame 56 (>=60 mL/min/1.73m^2); Free T3 1.56 pg/mL (2.18-3.98); Globulin 4.9 g/dL; Glucose 93 mg/dL (74-106); HDL Cholesterol 30 mg/dL (40-60); Potassium 4.1 mmol/L (3.5-5.1); Sodium 139 mmol/L (136-145); Thyroid Stimulating Hormone 2.504 uIU/mL (0.358-3.740); Total Protein 7.1 g/dL (6.4-8.2); Triglycerides 71 mg/dL (<=150); VLDL CHOLESTEROL 14.2 mg/dL
== END 2024-12-19 09:28 | disposition home or self-care (01) ==
LOC: LAB 09:29
PROVIDERS: PCP Family Medicine; Visit Provider Nurse Practitioner Family
DX: Z00.00 Encounter for general adult medical examination without abnormal findings (principal)
CPT/HCPCS: 36415; 80053; 80061; 82306; 83036; 83525; 83540; 84436; 84443; 84481; 85025

== ENCOUNTER 2025-01-01 12:17 | Outpatient (OUT) | payer MEDICAID, SELFPAY ==
--- OUTSIDE RECORDS SUMMARY | 2025-01-01 12:31 | XMS_ITS | CCD ---
Author Organization [facility] CliniSymi Care Team Providers Care Sequins Winder Name Role Phone MISC, DOCTOR Unavailable Unavailable [...] SORTO M Primary Care Unavailable [facility] Attending Unavai Anum Emmanuel MD Primary Care Provider NICOLE LOCKETT Attending Unavailable ANUM SORTO M Referring Unavailable Ban Boyce MD Emergency Provider Anum Sorto MD Primary Care Provider [phone] Percy Romeo MD Admit Provider Percy Romeo MD Attending Provider Lamont Uribe MD Other Provider [phone] Abraham Flores DO Other Provider Charity Sherwood MD Other Provider Ray Fowler MD Other Provider Maribel Hawkins APRN Other Provider James Reilly DO Other Provider David Alfonso MD Other Provider Anum Sorto Primary Care Unavailable Ray Minor [...] / Trimethoprim; Translations: [Bactrim] Drug Allergy 3 [facility] Repository (4 sources) Sulfamethoxazole; Translations: [sulfamethoxazole] Drug Allergy 4 [facility] (4 sources) Trimethoprim; Translations: [trimethoprim] Drug Allergy 4 [facility] (1 source) Sulfamethoxazole / Trimethoprim; Translations: [SULFAMETHOXAZOLE-TR IMETHOPRIM] Drug Allergy 4 [facility] Other [place] Repository Medications Current Medications Medication Drug Class(es) [...] unspecified] 10-03-2024 Episodic Other aftercare (1 source) senior care current use of non-steroidal anti-inflammatory drug; Translations: [manager long term care (current) use of non-steroidal anti-inflammatories (NSAID)] 10-04-2024 Episodic Other aftercare (2 sources) senior care (current) use of non-steroidal anti-inflammatories (NSAID); Translations: [...] activity/volume] in Serum or Plasma [facility] Albumin [Mass/volume] in Ser um or Plasma by Bromocresol green (BCG) dye binding methoOrdered By: Percy Romeo on 10-08-2024 Albumin BCG dye [Mass/Vol] Albumin [Mass/volume] in Serum or Plasma by Bromocresol green (BCG) dye binding metho Low 3.5-5.7 [facility] Alkaline phosphatase [Enzyma tic activity/volume] in Serum or PlasmaOrdered By: Percy Romeo on 10-08-2024 ALP [Catalytic activity/Vol] Alkaline phosphatase [Enzymatic activity/volume] in Serum or Plasma 34-104 [facility] Aspartate aminotransferase [ Enzymatic activity/volume] in Serum or PlasmaOrdered By: Percy Romeo on 10-08-2024 AST [Catalytic activity/Vol] Aspartate aminotransferase [Enzymatic activity/volume] in Serum or Plasma High 13-39 [facility] Basophils Auto (Bld) [#/Vol] Ordered By: Percy Romeo on 10-08-2024 Basophils (Bld) [#/Vol] Automated basophil count 0.0-0.2 [facility] Basophils/100 WBC Auto (Bld) Ordered By: Percy Romeo on 10-08-2024 Basophils/100 WBC (Bld) Automated basophil % . [facility] Bilirubin.total [Mass/volume ] in Serum or PlasmaOrdered By: Percy Romeo 10-08-2024 Bilirubin [Mass/Vol] Bilirubin.total [Mass/volume] in Serum or Plasma 0.3-1.0 [facility] Calcium [Mass/volume] in Ser um or PlasmaOrdered By: Percy Romeo on 10-08-2024 Calcium [Mass/Vol] Calcium [Mass/volume ] in Serum or Plasma Low 8.6-10.3 [facility] Carbon dioxide, total [Moles /volume] in Serum or PlasmaOrdered By: Percy Romeo 10-08-2024 CO2 [Moles/Vol] Carbon dioxide, tota l [Moles/volume] in Serum or Plasma 21.0-31.0 [facility] Chloride [Moles/volume] in S papi or PlasmaOrdered By: Percy Romeo on 10-08-2024 Chloride [Moles/Vol] Chloride [Moles/vol ume] in Serum or Plasma High 98-107 [facility] Complete Blood Count Auto Di ffon 10-08-2024 Basophils (Bld) [#/Vol] 0.0 10*3/uL Normal 0.0-0.2 [facility] Comment on above: Result Comment: PERF ORMED BY: [place] [address] PATHOLOGIST PHOTOGRAPHIC SUPERVISOR YULISSA MARES M.D. Performed By: #### C MP, MG, CBC #### [address] Basophils/100 WBC (Bld) 0.6 % Normal . T kathy [facility] Comment on above: Performed By: #### C MP, MG, CBC #### [facility] [address] [place] [address] Eosinophils (Bld) [#/Vol] 0.0 10*3/uL Normal 0.0-0.45 [facility] Comment on above: Performed By: #### C MP, MG, CBC #### [address] Eosinophils/100 WBC (Bld) 0.8 % Normal . [facility] Comment on above: Performed By: #### C MP, MG, CBC #### [address] Erythrocyte distribution width (RBC) [Ratio] 15.9 % High 11.9-15.3 [facility] Comment on above: Performed By: #### C MP, MG, CBC #### [address] Hematocrit (Bld) [Volume fraction] 28.5 % Low 34.0-46.4 [facility] Comment on above: Performed By: #### C MP, MG, CBC #### [facility] [address] [place] [address] Hemoglobin (Bld) [Mass/Vol] 9.3 g/dL Low 11.8-15.4 [facility] Comment on above: Performed By: #### C MP, MG, CBC #### [address] Lymphocytes (Bld) [#/Vol] 1.0 10*3/uL Normal 1.00-4.8 [facility] Comment on above: Performed By: #### C MP, MG, CBC #### [address] Lymphocytes/100 WBC (Bld) 25.0 % Normal . [facility] Comment on above: Performed By: #### C MP, MG, CBC #### [address] MCH (RBC) [Entitic mass] 31.3 pg Normal 24.7-34.3 [facility] Comment on above: Performed By: #### C MP, MG, CBC #### [address] MCV (RBC) [Entitic vol] 95.3 fL Normal 80-100 [facility] Comment on above: Performed By: #### C MP, MG, CBC #### [address] Mean Corpuscular HGB Conc 32.8 g/dL Normal 32.0-35.0 [facility] Comment on above: Performed By: #### C MP, MG, CBC #### [place] [address] [place] Monocytes (Bld) [#/Vol] 0.4 10*3/uL Normal 0.0-0.8 [facility] Comment on above: Performed By: #### C MP, MG, CBC #### [place] [address] [place] Monocytes/100 WBC (Bld) 10.9 % Normal . [facility] Comment on above: Performed By: #### C MP, MG, CBC #### [address] Neutrophils (Bld) [#/Vol] 2.6 10*3/uL Normal 1.8-7.7 [facility] Comment on above: Performed By: #### C MP, MG, CBC #### [address] Neutrophils/100 WBC (Bld) 62.7 % Normal . [facility] Comment on above: Performed By: #### C MP, MG, CBC #### [address] NRBC% 0.1 /100{WBC} Normal 0-0.5 [facility] Comment on above: Performed By: #### C MP, MG, CBC #### [address] Platelet mean volume (Bld) [Entitic vol] 8.4 fL Normal 6.3-10.7 [facility] Comment on above: Performed By: #### C MP, MG, CBC #### [address] Platelets (Bld) [#/Vol] 381 10*3/uL Normal 150-450 [facility] Comment on above: Performed By: #### C MP, MG, CBC #### [address] RBC (Bld) [#/Vol] 2.98 10*6/uL Low 3.60-5.00 [facility] Comment on above: Performed By: #### C MP, MG, CBC #### [address] WBC (Bld) [#/Vol] 4.1 10*3/uL Normal 3.8-11.6 [facility] Comment on above: Performed By: #### C MP, MG, CBC #### [address] Comprehensive Metabolic Pane sandrine 10-08-2024 Albumin [Mass/Vol] 2.9 g/dL Low 3.5-5.7 [facility] Comment on above: Performed By: #### C MP, MG, CBC #### [place] [address] [place] Albumin/Globulin [Mass ratio] 0.8 {ratio} Normal [facility] Comment on above: Performed By: #### C MP, MG, CBC #### [address] ALP [Catalytic activity/Vol] 70 U/L Normal 34-104 [facility] Comment on above: Performed By: #### C MP, MG, CBC #### [address] ALT [Catalytic activity/Vol] 24 U/L Normal 7-52 [facility] Comment on above: Performed By: #### C MP, MG, CBC #### [address] Anion gap [Moles/Vol] 10.8 mmol/L Normal 6.0-15.0 [facility] Comment on above: Performed By: #### C MP, MG, CBC #### [address] AST [Catalytic activity/Vol] 60 U/L High 13-39 [facility] Comment on above: Performed By: #### C MP, MG, CBC #### [address] Bilirubin [Mass/Vol] 0.5 mg/dL Normal 0.3-1.0 [facility] Comment on above: Performed By: #### C MP, MG, CBC #### [address] Calcium [Mass/Vol] 8.5 mg/dL Low 8.6-10.3 [facility] Comment on above: Performed By: #### C MP, MG, CBC #### [place] [address] [place] Chloride [Moles/Vol] 110 mmol/L High 98-107 [facility] Comment on above: Performed By: #### C MP, MG, CBC #### [address] CO2 [Moles/Vol] 23.4 mmol/L Normal 21.0-31.0 [facility] Comment on above: Performed By: #### C MP, MG, CBC #### [address] Creatinine [Mass/Vol] 0.55 mg/dL Low 0.60-1.20 [facility] Comment on above: Performed By: #### C MP, MG, CBC #### [address] Creatinine Clr Calc Pharmacy 81.05 Normal [facility] Comment on above: Performed By: #### C MP, MG, CBC #### [place] [address] [place] GFR/1.73 sq M.predicted MDRD (S/P/Bld) [Vol rate/Area] mL/min/{1.73_m2} Normal [facility] Comment on above: Performed By: #### C MP, MG, CBC #### [address] Globulin (S) [Mass/Vol] 3.5 g/dL Normal T he [facility] Comment on above: Performed By: #### C MP, MG, CBC #### [address] Glucose [Mass/Vol] 85 mg/dL Normal 70-100 [facility] Comment on above: Result Comment: [facility] Glucose Reference Range is dependent on time and content of last meal. Glucose of more than 200 mg/dL in a nonstressed, ambulatory subject supports the diagnosis of Diabetes Mellitus. ADA recommended reference range Performed By: #### C MP, MG, CBC #### [address] Potassium [Moles/Vol] 3.2 mmol/L Low 3.5-5.1 [facility] Comment on above: Performed By: #### C MP, MG, CBC #### [address] Protein [Mass/Vol] 6.4 g/dL Normal 6.4-8.9 [facility] Comment on above: Performed By: #### C MP, MG, CBC #### [facility] [address] Sodium [Moles/Vol] 141 mmol/L Normal 136-145 [facility] Comment on above: Performed By: #### C MP, MG, CBC #### [facility] [address] [place] [address] [place] Urea nitrogen [Mass/Vol] 8 mg/dL Normal 7-25 [facility] Comment on above: Performed By: #### C MP, MG, CBC #### [facility] [address] Creatinine [Mass/volume] in Serum or PlasmaOrdered By: Percy Romeo on 10-08-2024 Creatinine [Mass/Vol] Creatinine [Mass/v olume] in Serum or Plasma Low 0.60-1.20 [facility] Eosinophils Auto (Bld) [#/Vo l]Ordered By: Percy Romeo on 10-08-2024 Eosinophils (Bld) [#/Vol] Automated eosinophil count 0.0-0.45 [facility] Eosinophils/100 WBC Auto (Bl d)Ordered By: Percy Romeo on 10-08-2024 Eosinophils/100 WBC (Bld) Automated eosinophil % . [facility] Erythrocyte distribution wid th Auto (RBC) [Ratio]Ordered By: Percy Romeo on 10-08-2024 Erythrocyte distribution width (RBC) [Ratio] Erythrocyte distribution width [Ratio] by Automated count High 11.9-15.3 [facility] Globulin Calc (S) [Mass/Vol] Ordered By: Percy Romeo on 10-08-2024 Globulin (S) [Mass/Vol] Serum globulin measurement by calculation (mass/volume) [facility] Glucose [Mass/volume] in Ser um or PlasmaOrdered By: Percy Romeo on 10-08-2024 Glucose [Mass/Vol] Glucose [Mass/volume ] in Serum or Plasma 70-100 [facility] Comment on above: ADA recommended [...] by Automated count Low 34.0-46.4 [facility] Hemoglobin [Mass/volume] in BloodOrdered By: Percy Romeo on 10-08-2024 Hemoglobin (Bld) [Mass/Vol] Hemoglobin [Mass/volume] in Blood Low 11.8-15.4 [facility] Leukocytes [#/volume] correc saida for nucleated erythrocytes in Blood by Automated counOrdered By: Percy Romeo on 10-08-2024 WBC corrected for nucl RBC Auto (Bld) [#/Vol] Leukocytes [#/volume] corrected for nucleated erythrocytes in Blood by Automated coun 3.8-11.6 [facility] Lymphocytes Auto (Bld) [#/Vo l]Ordered By: Percy Romeo on 10-08-2024 Lymphocytes (Bld) [#/Vol] Lymphocytes [#/volume] in Blood by Automated count 1.00-4.8 [facility] Lymphocytes/100 WBC Auto (Bl d)Ordered By: Percy Romeo on 10-08-2024 Lymphocytes/100 WBC (Bld) Lymphocytes/100 leukocytes in Blood by Automated count . [facility] MCH Auto (RBC) [Entitic mass ]Ordered By: Percy Romeo on 10-08-2024 MCH (RBC) [Entitic mass] MCH [Entitic ma ss] by Automated count 24.7-34.3 [facility] MCHC Auto (RBC) [Mass/Vol]Or dered By: Percy Romeo on 10-08-2024 MCHC (RBC) [Mass/Vol] MCHC [Mass/volume] by Automated count 32.0-35.0 [facility] MCV Auto (RBC) [Entitic vol] Ordered By: Percy Romeo on 10-08-2024 MCV (RBC) [Entitic vol] MCV [Entitic vol ume] by Automated count 80-100 [facility] Magnesiumon 10-08-2024 Magnesium [Mass/Vol] 1.7 mg/dL Low 1.9-2.7 [facility] Comment on above: Result Comment: PERF ORMED BY: [facility] [address] [place] [address] PATHOLOGIST PHOTOGRAPHIC SUPERVISOR YULISSA MARES M.D. Performed By: #### C MP, MG, CBC #### [facility] [address] Magnesium [Mass/volume] in S papi or PlasmaOrdered By: Percy Romeo on 10-08-2024 Magnesium [Mass/Vol] Magnesium [Mass/vol ume] in Serum or Plasma Low 1.9-2.7 [facility] Monocytes Auto (Bld) [#/Vol] Ordered By: Percy Romeo on 10-08-2024 Monocytes (Bld) [#/Vol] Automated blood monocyte count 0.0-0.8 [facility] Monocytes/100 WBC Auto (Bld) Ordered By: Percy Romeo on 10-08-2024 Monocytes/100 WBC (Bld) Automated monocyte % . [facility] Neutrophils Auto (Bld) [#/Vo l]Ordered By: Percy Romeo on 10-08-2024 Neutrophils (Bld) [#/Vol] Neutrophils [#/volume] in Blood by Automated count 1.8-7.7 [facility] Neutrophils/100 WBC Auto (Bl d)Ordered By: Percy Romeo on 10-08-2024 Neutrophils/100 WBC (Bld) Automated neutrophil % . [facility] No Panel InformationOrdered By: Percy Romeo on 10-08-2024 Estimated GFR (CKD-EPI) > 60.0 mL/Min [facility] Creatinine Clearance (Chem 81.05 [facility] Nucleated erythrocytes [Pres ence] in Blood by Automated countOrdered By: Percy Romeo on 10-08-2024 Nucleated RBC Auto Ql (Bld) Nucleated erythrocytes [Presence] in Blood by Automated count 0-0.5 [facility] Platelet mean volume Auto (B ld) [Entitic vol]Ordered By: Percy Romeo on 10-08-2024 Platelet mean volume (Bld) [Entitic vol] Platelet mean volume [Entitic volume] in Blood by Automated count 6.3-10.7 [facility] Platelets Auto (Bld) [#/Vol] Ordered By: Percy Romeo on 10-08-2024 Platelets (Bld) [#/Vol] Platelets [#/vol ume] in Blood by Automated count 150-450 [facility] Potassium [Moles/volume] in Serum or PlasmaOrdered By: Percy Romeo on 10-08-2024 Potassium [Moles/Vol] Potassium [Moles/v olume] in Serum or Plasma Low 3.5-5.1 [facility] Protein [Mass/volume] in Ser um or PlasmaOrdered By: Percy Romeo on 10-08-2024 Protein [Mass/Vol] Protein [Mass/volume ] in Serum or Plasma 6.4-8.9 [facility] RBC Auto (Bld) [#/Vol]Ordere d By: Percy Romeo on 10-08-2024 RBC (Bld) [#/Vol] Erythrocytes [#/volu me] in Blood by Automated count Low 3.60-5.00 [facility] Serum or plasma albumin/glob ulin mass ratioOrdered By: Percy Romeo on 10-08-2024 Albumin/Globulin [Mass ratio] Serum or plasma albumin/globulin mass ratio [facility] Serum or plasma anion gap de terminationOrdered By: Percy Romeo on 10-08-2024 Anion gap [Moles/Vol] Serum or plasma an ion gap determination 6.0-15.0 [facility] Sodium [Moles/volume] in Ser um or PlasmaOrdered By: Percy Romeo on 10-08-2024 Sodium [Moles/Vol] Sodium [Moles/volume ] in Serum or Plasma 136-145 [facility] Urea nitrogen [Mass/volume] in Serum or PlasmaOrdered By: Percy Romeo on 10-08-2024 Urea nitrogen [Mass/Vol] Urea nitrogen [Mass/volume] in Serum or Plasma 7-25 [facility] WBC Auto (Bld) [#/Vol]Ordere d By: Percy Romeo on 10-08-2024 WBC (Bld) [#/Vol] Leukocytes [#/volume ] in Blood by Automated count 3.8-11.6 [facility] Complete Blood Count Auto Di ffon 10-07-2024 Basophils (Bld) [#/Vol] 0.0 10*3/uL Normal 0.0-0.2 [facility] Comment on above: Result Comment: PERF ORMED BY: [place] [address] PATHOLOGIST PHOTOGRAPHIC SUPERVISOR YULISSA MARES M.D. Performed By: #### C BC, CMP, MG #### [address] Basophils/100 WBC (Bld) 0.8 % Normal . T kathy [facility] Comment on above: Performed By: #### C BC, CMP, MG #### [address] Eosinophils (Bld) [#/Vol] 0.0 10*3/uL Normal 0.0-0.45 [facility] Comment on above: Performed By: #### C BC, CMP, MG #### [address] Eosinophils/100 WBC (Bld) 1.1 % Normal . [facility] Comment on above: Performed By: #### C BC, CMP, MG #### [address] Erythrocyte distribution width (RBC) [Ratio] 15.9 % High 11.9-15.3 [facility] Comment on above: Performed By: #### C BC, CMP, MG #### [place] [address] [place] Hematocrit (Bld) [Volume fraction] 26.7 % Low 34.0-46.4 [facility] Comment on above: Performed By: #### C BC, CMP, MG #### [address] Hemoglobin (Bld) [Mass/Vol] 8.7 g/dL Low 11.8-15.4 [facility] Comment on above: Performed By: #### C BC, CMP, MG #### [address] Lymphocytes (Bld) [#/Vol] 1.2 10*3/uL Normal 1.00-4.8 [facility] Comment on above: Performed By: #### C BC, CMP, MG #### [address] Lymphocytes/100 WBC (Bld) 27.0 % Normal . [facility] Comment on above: Performed By: #### C BC, CMP, MG #### [address] MCH (RBC) [Entitic mass] 31.6 pg Normal 24.7-34.3 [facility] Comment on above: Performed By: #### C BC, CMP, MG #### [address] MCV (RBC) [Entitic vol] 96.7 fL Normal 80-100 [facility] Comment on above: Performed By: #### C BC, CMP, MG #### [address] Mean Corpuscular HGB Conc 32.7 g/dL Normal 32.0-35.0 [facility] Comment on above: Performed By: #### C BC, CMP, MG #### [place] [address] [place] Monocytes (Bld) [#/Vol] 0.5 10*3/uL Normal 0.0-0.8 [facility] Comment on above: Performed By: #### C BC, CMP, MG #### [place] [address] [place] Monocytes/100 WBC (Bld) 10.9 % Normal . [facility] Comment on above: Performed By: #### C BC, CMP, MG #### [address] Neutrophils (Bld) [#/Vol] 2.6 10*3/uL Normal 1.8-7.7 [facility] Comment on above: Performed By: #### C BC, CMP, MG #### [address] Neutrophils/100 WBC (Bld) 60.2 % Normal . [facility] Comment on above: Performed By: #### C BC, CMP, MG #### [address] NRBC% 0.3 /100{WBC} Normal 0-0.5 [facility] Comment on above: Performed By: #### C BC, CMP, MG #### [address] Platelet mean volume (Bld) [Entitic vol] 8.5 fL Normal 6.3-10.7 [facility] Comment on above: Performed By: #### C BC, CMP, MG #### [address] Platelets (Bld) [#/Vol] 323 10*3/uL Normal 150-450 [facility] Comment on above: Performed By: #### C BC, CMP, MG #### [address] RBC (Bld) [#/Vol] 2.77 10*6/uL Low 3.60-5.00 [facility] Comment on above: Performed By: #### C BC, CMP, MG #### [address] WBC (Bld) [#/Vol] 4.3 10*3/uL Normal 3.8-11.6 [facility] Comment on above: Performed By: #### C BC, CMP, MG #### [address] Comprehensive Metabolic Pane sandrine 10-07-2024 Albumin [Mass/Vol] 2.8 g/dL Low 3.5-5.7 [facility] Comment on above: Performed By: #### C MP, MG, CBC, PHOS #### [address] Albumin/Globulin [Mass ratio] 0.9 {ratio} Normal [facility] Comment on above: Performed By: #### C MP, MG, CBC, PHOS #### [address] ALP [Catalytic activity/Vol] 67 U/L Normal 34-104 [facility] Comment on above: Performed By: #### C MP, MG, CBC, PHOS #### [address] ALT [Catalytic activity/Vol] 22 U/L Normal 7-52 [facility] Comment on above: Performed By: #### C MP, MG, CBC, PHOS #### [address] Anion gap [Moles/Vol] 9.4 mmol/L Normal 6.0-15.0 [facility] Comment on above: Performed By: #### C MP, MG, CBC, PHOS #### [address] AST [Catalytic activity/Vol] 57 U/L High 13-39 [facility] Comment on above: Performed By: #### C MP, MG, CBC, PHOS #### [address] Bilirubin [Mass/Vol] 0.5 mg/dL Normal 0.3-1.0 [facility] Comment on above: Performed By: #### C MP, MG, CBC, PHOS #### [address] Calcium [Mass/Vol] 8.5 mg/dL Low 8.6-10.3 [facility] Comment on above: Performed By: #### C MP, MG, CBC, PHOS #### [address] Chloride [Moles/Vol] 110 mmol/L High 98-107 [facility] Comment on above: Performed By: #### C MP, MG, CBC, PHOS #### [address] CO2 [Moles/Vol] 24.1 mmol/L Normal 21.0-31.0 [facility] Comment on above: Performed By: #### C MP, MG, CBC, PHOS #### [address] Creatinine [Mass/Vol] 0.50 mg/dL Low 0.60-1.20 [facility] Comment on above: Performed By: #### C MP, MG, CBC, PHOS #### [address] Creatinine Clr Calc Pharmacy 89.16 Normal [facility] Comment on above: Performed By: #### C MP, MG, CBC, PHOS #### [address] GFR/1.73 sq M.predicted MDRD (S/P/Bld) [Vol rate/Area] mL/min/{1.73_m2} Normal [facility] Comment on above: Performed By: #### C MP, MG, CBC, PHOS #### [address] Globulin (S) [Mass/Vol] 3.2 g/dL Normal T [facility] Comment on above: Performed By: #### C MP, MG, CBC, PHOS #### [address] Glucose [Mass/Vol] 81 mg/dL Normal 70-100 [facility] Comment on above: Result Comment: [place] Glucose Reference Range is dependent on time and content of last meal. Glucose of more than 200 mg/dL in a nonstressed, ambulatory subject supports the diagnosis of Diabetes Mellitus. ADA recommended reference range Performed By: #### C MP, MG, CBC, PHOS #### [address] Potassium [Moles/Vol] 3.5 mmol/L Normal 3.5-5.1 [facility] Comment on above: Performed By: #### C MP, MG, CBC, PHOS #### [place] [address] Protein [Mass/Vol] 6.0 g/dL Low 6.4-8.9 [facility] Comment on above: Performed By: #### C MP, MG, CBC, PHOS #### [address] Sodium [Moles/Vol] 140 mmol/L Normal 136-145 [facility] Comment on above: Performed By: #### C MP, MG, CBC, PHOS #### [address] Urea nitrogen [Mass/Vol] 6 mg/dL Low 7-25 [facility] Comment on above: Performed By: #### C MP, MG, CBC, PHOS #### [address] Magnesiumon 10-07-2024 Magnesium [Mass/Vol] 1.6 mg/dL Low 1.9-2.7 [facility] Comment on above: Result Comment: PERF ORMED BY: [place] [address] PATHOLOGIST PHOTOGRAPHIC SUPERVISOR YULISSA MARES M.D. Performed By: #### C MP, MG, CBC, PHOS #### [address] Complete Blood Count Auto Di ffon 10-06-2024 Basophils (Bld) [#/Vol] 0.0 10*3/uL Normal 0.0-0.2 [facility] Comment on above: Result Comment: PERF ORMED BY: [place] [address] PATHOLOGIST PHOTOGRAPHIC SUPERVISOR YULISSA MARES M.D. Performed By: #### C MP, MG, CBC #### [address] Basophils/100 WBC (Bld) 0.6 % Normal . T [facility] Comment on above: Performed By: #### C MP, MG, CBC #### [address] [address] [place] Eosinophils (Bld) [#/Vol] 0.0 10*3/uL Normal 0.0-0.45 [facility] Comment on above: Performed By: #### C MP, MG, CBC #### [address] Eosinophils/100 WBC (Bld) 1.1 % Normal . [facility] Comment on above: Performed By: #### C MP, MG, CBC #### [address] Erythrocyte distribution width (RBC) [Ratio] 15.7 % High 11.9-15.3 [facility] Comment on above: Performed By: #### C MP, MG, CBC #### [address] Hematocrit (Bld) [Volume fraction] 26.4 % Low 34.0-46.4 [facility] Comment on above: Performed By: #### C MP, MG, CBC #### [address] Hemoglobin (Bld) [Mass/Vol] 8.7 g/dL Low 11.8-15.4 [facility] Comment on above: Performed By: #### C MP, MG, CBC #### [address] Lymphocytes (Bld) [#/Vol] 0.9 10*3/uL Low 1.00-4.8 [facility] Comment on above: Performed By: #### C MP, MG, CBC #### [address] Lymphocytes/100 WBC (Bld) 19.7 % Normal . [facility] Comment on above: Performed By: #### C MP, MG, CBC #### [address] MCH (RBC) [Entitic mass] 31.6 pg Normal 24.7-34.3 [facility] Comment on above: Performed By: #### C MP, MG, CBC #### [address] MCV (RBC) [Entitic vol] 95.9 fL Normal 80-100 [facility] Comment on above: Performed By: #### C MP, MG, CBC #### [address] Mean Corpuscular HGB Conc 33.0 g/dL Normal 32.0-35.0 [facility] Comment on above: Performed By: #### C MP, MG, CBC #### [address] Monocytes (Bld) [#/Vol] 0.4 10*3/uL Normal 0.0-0.8 [facility] Comment on above: Performed By: #### C MP, MG, CBC #### [address] Monocytes/100 WBC (Bld) 8.9 % Normal . T [facility] Comment on above: Performed By: #### C MP, MG, CBC #### [address] Neutrophils (Bld) [#/Vol] 3.2 10*3/uL Normal 1.8-7.7 [facility] Comment on above: Performed By: #### C MP, MG, CBC #### [address] Neutrophils/100 WBC (Bld) 69.7 % Normal . [facility] Comment on above: Performed By: #### C MP, MG, CBC #### [address] NRBC% 0.2 /100{WBC} Normal 0-0.5 [facility] Comment on above: Performed By: #### C MP, MG, CBC #### [address] Platelet mean volume (Bld) [Entitic vol] 8.4 fL Normal 6.3-10.7 [facility] Comment on above: Performed By: #### C MP, MG, CBC #### [address] Platelets (Bld) [#/Vol] 341 10*3/uL Normal 150-450 [facility] Comment on above: Performed By: #### C MP, MG, CBC #### [address] RBC (Bld) [#/Vol] 2.75 10*6/uL Low 3.60-5.00 [facility] Comment on above: Performed By: #### C MP, MG, CBC #### [address] WBC (Bld) [#/Vol] 4.6 10*3/uL Normal 3.8-11.6 [facility] Comment on above: Performed By: #### C MP, MG, CBC #### [address] Comprehensive Metabolic Pane sandrine 10-06-2024 Albumin [Mass/Vol] 2.9 g/dL Low 3.5-5.7 [facility] Comment on above: Performed By: #### C MP, MG, CBC #### [address] Albumin/Globulin [Mass ratio] 0.9 {ratio} Normal [facility] Comment on above: Performed By: #### C MP, MG, CBC #### [address] ALP [Catalytic activity/Vol] 75 U/L Normal 34-104 [facility] Comment on above: Performed By: #### C MP, MG, CBC #### [address] ALT [Catalytic activity/Vol] 22 U/L Normal 7-52 [facility] Comment on above: Performed By: #### C MP, MG, CBC #### [address] Anion gap [Moles/Vol] 9.9 mmol/L Normal 6.0-15.0 [facility] Comment on above: Performed By: #### C MP, MG, CBC #### [facility] [address] [place] [address] [place] AST [Catalytic activity/Vol] 56 U/L High 13-39 [facility] Comment on above: Performed By: #### C MP, MG, CBC #### [facility] [address] [place] [address] [place] Bilirubin [Mass/Vol] 0.5 mg/dL Normal 0.3-1.0 [facility] Comment on above: Performed By: #### C MP, MG, CBC #### [facility] [address] [place] [address] [place] Calcium [Mass/Vol] 8.3 mg/dL Low 8.6-10.3 [facility] Comment on above: Performed By: #### C MP, MG, CBC #### [facility] [address] [place] [address] [place] Chloride [Moles/Vol] 113 mmol/L High 98-107 [facility] Comment on above: Performed By: #### C MP, MG, CBC #### [facility] [address] [place] [address] [place] CO2 [Moles/Vol] 22.6 mmol/L Normal 21.0-31.0 [facility] Comment on above: Performed By: #### C MP, MG, CBC #### [facility] [address] [place] [address] [place] Creatinine [Mass/Vol] 0.58 mg/dL Low 0.60-1.20 [facility] Comment on above: Performed By: #### C MP, MG, CBC #### [facility] [address] [place] [address] [place] Creatinine Clr Calc Pharmacy 76.86 Normal [facility] Comment on above: Performed By: #### C MP, MG, CBC #### [facility] [address] [place] [address] [place] GFR/1.73 sq M.predicted MDRD (S/P/Bld) [Vol rate/Area] mL/min/{1.73_m2} Normal [facility] Comment on above: Performed By: #### C MP, MG, CBC #### [address] Globulin (S) [Mass/Vol] 3.2 g/dL Normal T [facility] Comment on above: Performed By: #### C MP, MG, CBC #### [address] Glucose [Mass/Vol] 91 mg/dL Normal 70-100 [facility] Comment on above: Result Comment: [facility] Glucose Reference Range is dependent on time and content of last meal. Glucose of more than 200 mg/dL in a nonstressed, ambulatory subject supports the diagnosis of Diabetes Mellitus. ADA recommended reference range Performed By: #### C MP, MG, CBC #### [address] Potassium [Moles/Vol] 3.5 mmol/L Normal 3.5-5.1 [facility] Comment on above: Performed By: #### C MP, MG, CBC #### [address] Protein [Mass/Vol] 6.1 g/dL Low 6.4-8.9 [facility] Comment on above: Performed By: #### C MP, MG, CBC #### [address] Sodium [Moles/Vol] 142 mmol/L Normal 136-145 [facility] Comment on above: Performed By: #### C MP, MG, CBC #### [address] Urea nitrogen [Mass/Vol] 7 mg/dL Normal 7-25 [facility] Comment on above: Performed By: #### C MP, MG, CBC #### [address] Magnesiumon 10-06-2024 Magnesium [Mass/Vol] 1.7 mg/dL Low 1.9-2.7 [facility] Comment on above: Result Comment: PERF ORMED BY: [address] [address] PATHOLOGIST PHOTOGRAPHIC SUPERVISOR YULISSA MARES M.D. Performed By: #### C MP, MG, CBC #### [address] Complete Blood Count Auto Di ffon 10-05-2024 Basophils (Bld) [#/Vol] 0.0 10*3/uL Normal 0.0-0.2 [facility] Comment on above: Result Comment: PERF ORMED BY: [place] [address] PATHOLOGIST PHOTOGRAPHIC SUPERVISOR YULISSA MARES M.D. Performed By: #### C MP, MG, CBC #### [address] Basophils/100 WBC (Bld) 0.6 % Normal . T kathy [facility] Comment on above: Performed By: #### C MP, MG, CBC #### [address] Eosinophils (Bld) [#/Vol] 0.0 10*3/uL Normal 0.0-0.45 [facility] Comment on above: Performed By: #### C MP, MG, CBC #### [address] Eosinophils/100 WBC (Bld) 0.8 % Normal . [facility] Comment on above: Performed By: #### C MP, MG, CBC #### [address] Erythrocyte distribution width (RBC) [Ratio] 16.0 % High 11.9-15.3 [facility] Comment on above: Performed By: #### C MP, MG, CBC #### [address] Hematocrit (Bld) [Volume fraction] 27.1 % Low 34.0-46.4 [facility] Comment on above: Performed By: #### C MP, MG, CBC #### [address] Hemoglobin (Bld) [Mass/Vol] 8.9 g/dL Low 11.8-15.4 [facility] Comment on above: Performed By: #### C MP, MG, CBC #### [address] Lymphocytes (Bld) [#/Vol] 1.1 10*3/uL Normal 1.00-4.8 [facility] Comment on above: Performed By: #### C MP, MG, CBC #### [address] Lymphocytes/100 WBC (Bld) 23.3 % Normal . [facility] Comment on above: Performed By: #### C MP, MG, CBC #### [address] MCH (RBC) [Entitic mass] 31.1 pg Normal 24.7-34.3 [facility] Comment on above: Performed By: #### C MP, MG, CBC #### [address] MCV (RBC) [Entitic vol] 95.1 fL Normal 80-100 T kathy [facility] Comment on above: Performed By: #### C MP, MG, CBC #### [address] Mean Corpuscular HGB Conc 32.7 g/dL Normal 32.0-35.0 [facility] Comment on above: Performed By: #### C MP, MG, CBC #### [place] [address] [place] Monocytes (Bld) [#/Vol] 0.3 10*3/uL Normal 0.0-0.8 [facility] Comment on above: Performed By: #### C MP, MG, CBC #### [place] [address] [place] Monocytes/100 WBC (Bld) 6.1 % Normal . T kathy [facility] Comment on above: Performed By: #### C MP, MG, CBC #### [address] [place] [address] [place] Neutrophils (Bld) [#/Vol] 3.4 10*3/uL Normal 1.8-7.7 [facility] Comment on above: Performed By: #### C MP, MG, CBC #### [address] Neutrophils/100 WBC (Bld) 69.2 % Normal . [facility] Comment on above: Performed By: #### C MP, MG, CBC #### [address] NRBC% 0.2 /100{WBC} Normal 0-0.5 [facility] Comment on above: Performed By: #### C MP, MG, CBC #### [address] Platelet mean volume (Bld) [Entitic vol] 8.8 fL Normal 6.3-10.7 [facility] Comment on above: Performed By: #### C MP, MG, CBC #### [address] Platelets (Bld) [#/Vol] 338 10*3/uL Normal 150-450 [facility] Comment on above: Performed By: #### C MP, MG, CBC #### [address] RBC (Bld) [#/Vol] 2.85 10*6/uL Low 3.60-5.00 [facility] Comment on above: Performed By: #### C MP, MG, CBC #### [address] WBC (Bld) [#/Vol] 4.9 10*3/uL Normal 3.8-11.6 [facility] Comment on above: Performed By: #### C MP, MG, CBC #### [address] Comprehensive Metabolic Pane sandrine 10-05-2024 Albumin [Mass/Vol] 3.0 g/dL Low 3.5-5.7 [facility] Comment on above: Performed By: #### C MP, MG, CBC #### [place] [address] [place] Albumin/Globulin [Mass ratio] 0.9 {ratio} Normal [facility] Comment on above: Performed By: #### C MP, MG, CBC #### [facility] [address] ALP [Catalytic activity/Vol] 73 U/L Normal 34-104 [facility] Comment on above: Performed By: #### C MP, MG, CBC #### [address] ALT [Catalytic activity/Vol] 17 U/L Normal 7-52 [facility] Comment on above: Performed By: #### C MP, MG, CBC #### [address] Anion gap [Moles/Vol] 8.6 mmol/L Normal 6.0-15.0 [facility] Comment on above: Performed By: #### C MP, MG, CBC #### [place] [address] [place] AST [Catalytic activity/Vol] 39 U/L Normal 13-39 [facility] Comment on above: Performed By: #### C MP, MG, CBC #### [address] Bilirubin [Mass/Vol] 0.7 mg/dL Normal 0.3-1.0 [facility] Comment on above: Performed By: #### C MP, MG, CBC #### [place] [address] [place] Calcium [Mass/Vol] 8.6 mg/dL Normal 8.6-10.3 [facility] Comment on above: Performed By: #### C MP, MG, CBC #### [address] Chloride [Moles/Vol] 112 mmol/L High 98-107 [facility] Comment on above: Performed By: #### C MP, MG, CBC #### [address] CO2 [Moles/Vol] 23.7 mmol/L Normal 21.0-31.0 [facility] Comment on above: Performed By: #### C MP, MG, CBC #### [address] Creatinine [Mass/Vol] 0.57 mg/dL Low 0.60-1.20 [facility] Comment on above: Performed By: #### C MP, MG, CBC #### [place] [address] [place] Creatinine Clr Calc Pharmacy 78.21 Normal [facility] Comment on above: Performed By: #### C MP, MG, CBC #### [address] GFR/1.73 sq M.predicted MDRD (S/P/Bld) [Vol rate/Area] mL/min/{1.73_m2} Normal [facility] Comment on above: Performed By: #### C MP, MG, CBC #### [address] Globulin (S) [Mass/Vol] 3.2 g/dL Normal T he [facility] Comment on above: Performed By: #### C MP, MG, CBC #### [address] Glucose [Mass/Vol] 79 mg/dL Normal 70-100 [facility] Comment on above: Result Comment: [place] Glucose Reference Range is dependent on time and content of last meal. Glucose of more than 200 mg/dL in a nonstressed, ambulatory subject supports the diagnosis of Diabetes Mellitus. ADA recommended reference range Performed By: #### C MP, MG, CBC #### [address] Potassium [Moles/Vol] 3.3 mmol/L Low 3.5-5.1 [facility] Comment on above: Performed By: #### C MP, MG, CBC #### [address] [address] [place] Protein [Mass/Vol] 6.2 g/dL Low 6.4-8.9 [facility] Comment on above: Performed By: #### C MP, MG, CBC #### [facility] [address] [place] [address] Sodium [Moles/Vol] 141 mmol/L Normal 136-145 [facility] Comment on above: Performed By: #### C MP, MG, CBC #### [facility] [address] Urea nitrogen [Mass/Vol] 7 mg/dL Normal 7-25 [facility] Comment on above: Performed By: #### C MP, MG, CBC #### [facility] [address] ECG 12 lead ECGon 10-05-2024 ECG 12 lead ECG [facility] [place] [address] [place] [address] Electrocardiograph Report Signed Patient: Telma Person MR#: [id number] 9 : 1960 Acct:[id number] Age/Sex: 63 / F ADM Date: 10/03/24 Loc: Room: [address] [place] [address] Type: ADM IN Attending Dr: Percy Romeo [...] Elsi Carlin MD, FACC 10/05/241936 Normal [facility] ECH echo transthoracicon [facility] echo transthoracic [facility] [place] [address] [place] [address] Echocardiogram Signed Patient: Telma Person MR#: [id number] 9 : 1960 Acct:[id number] Age/Sex: 63 / F ADM Date: 10/03/24 Loc: Room: [address] [place] [address] Type: ADM IN Attending Dr: Percy Romeo MD Ordering Provider: Percy Romeo MD Date of Service: 10/05/24/ [facility] transthoracic: Fall and dizziness Copies to: Elsi Carlin MD, [facility] Percy Romeo MD Height: 61 in Weight: [...] ___ Transcribed By: [facility]CV Performed At: 10/05/24 5802 Signed By: Elsi Carlin MD, FACC 10/05/24 192 Normal [facility] MR cervical spine wo conon 0 10-05-2024 [place] [address] MRI Report Signed Patient: Telma Person MR#: [id number] 9 : 1960 Acct:[id number] Age/Sex: 63 / F ADM Date: 10/03/24 Loc: Room: [address] [place] [address] Type: ADM IN Attending Dr: Percy Romeo [...] mild rights moderate left. Mild right-sided and evbnkbph-bj-coaqvh left-sided neural foraminal narrowing. Mild central canal [...] Jaime Moreira M.D.10/05/2024 4:41 PM Dictation Location: [facility]- Transcribed By: [facility] 10/05/24 1641 Dictated By: Jaime Moreira MD 10/05/24 1631 Signed By: 10/05/24 1641 Normal [facility] MR lumbar spine wo conon MR lumbar spine wo con [facility] [place] [address] [place] [address] MRI Report Signed Patient: Telma Person MR#: [id number] 9 : 1960 Acct:[id number] Age/Sex: 63 / F ADM Date: 10/03/24 Loc: Room: [address] [place] [address] Type: ADM IN Attending Dr: Percy Romeo [...] Jaime Moreira M.D.10/05/2024 8:37 PM Dictation Location: [place] [address] Transcribed By: [facility] 10/05/242036 Dictated By: Jaime Moreira MD 10/05/242026 Signed By: 10/05/242036 Normal [facility] Magnesiumon 10-05-2024 Magnesium [Mass/Vol] 1.8 mg/dL Low 1.9-2.7 [facility] Comment on above: Result Comment: PERF ORMED BY: [place] [address] PATHOLOGIST PHOTOGRAPHIC SUPERVISOR YULISSA MARES M.D. Performed By: #### C MP, MG, CBC #### [address] Magnetic resonance imaging r eportOrdered By: Jaime Moreira on 10-05-2024 Study report [facility] [place] [address] [place] [address] MRI Report Signed Patient: Telma Person MR#: [id number] : 1960 Acct:[id number] Age/Sex: 63 / F ADM Date: 5 Loc: 3T Room: [address] [place] [address] Type: ADM IN Attending Dr: Percy Romeo [...] Jaime Moreira M.D.10/05/2024 8:37 PM Dictation Location: [place] [address] Transcribed By: [facility] 10/05/242036 Dictated By: Jaime Moreira MD 10/05/242026 Signed By: 10/05/242036 [facility] Work Phone: Study report [facility] [place] [address] [place] [address] MRI Report Signed Patient: Telma Person MR#: [id number] : 1960 Acct:[id number] Age/Sex: 63 / F ADM Date: 5 Loc: Room: [address] [place] [address] Type: ADM IN Attending Dr: Percy Romeo [...] mild rights moderate left. Mild right-sided and pkzsvvtt-wk-fiaegz left-sided neural foraminal narrowing. Mild central canal [...] Jaime Moreira M.D.10/05/2024 4:41 PM Dictation Location: [place] [address] Transcribed By: [facility] 10/05/24 1641 Dictated By: Jaime Moreira MD 10/05/24 1631 Signed By: 10/05/24 1641 [facility] Work Phone: Phosphate [Mass/volume] in S papi or PlasmaOrdered By: Percy Romeo on 10-05-2024 Phosphate [Mass/Vol] Phosphate [Mass/vol ume] in Serum or Plasma Low 2.5-4.5 [facility] Phosphoruson 10-05-2024 Phosphate [Mass/Vol] 2.3 mg/dL Low 2.5-4.5 [facility] Comment on above: Performed By: #### C MP, MG, CBC #### [address] Potassiumon 10-05-2024 Potassium [Moles/Vol] 3.6 mmol/L Normal 3.5-5.1 [facility] Comment on above: Result Comment: PERF ORMED BY: [place] [address] PATHOLOGIST PHOTOGRAPHIC SUPERVISOR YULISSA MARES M.D. Performed By: #### C MP, MG, CBC #### [facility] [address] [place] [address] US venous duplex LE BIon US venous duplex LE BI [facility] [place] [address] [place] [address] Ultrasound Report Signed Patient: Telma Person MR#: [id number] 9 : 1960 Acct:[id number] Age/Sex: 63 / F ADM Date: 10/03/24 Loc: Room: [address] [place] [address] Type: ADM IN Attending Dr: Percy Romeo [...] Jake Lynch MD10/05/2024 8:31 AM Dictation Location: [place] [address] Tech: Anne-Marie Peraltavipul Transcribed By: [facility] 10/05/24830 Dictated By: Jake Lynch MD 10/05/24829 Signed By: 10/05/24830 Normal [facility] ABO/Rh Retypeon 10-04-2024 ABO/RH Recheck Result Positive Normal [facility] Comment on above: Result Comment: PERF ORMED BY: [place] [address] PATHOLOGIST PHOTOGRAPHIC SUPERVISOR YULISSA MARES M.D. Complete Blood Count Auto Di ffon 10-04-2024 Basophils (Bld) [#/Vol] 0.0 10*3/uL Normal 0.0-0.2 [facility] Comment on above: Result Comment: PERF ORMED BY: [place] [address] PATHOLOGIST PHOTOGRAPHIC SUPERVISOR YULISSA MARES M.D. Performed By: #### C MP, MG, CBC, PHOS #### [facility] [address] [place] [address] [place] Basophils/100 WBC (Bld) 0.5 % Normal . T kathy [facility] Comment on above: Performed By: #### C MP, MG, CBC, PHOS #### [facility] [address] [place] [address] [place] Eosinophils (Bld) [#/Vol] 0.0 10*3/uL Normal 0.0-0.45 [facility] Comment on above: Performed By: #### C MP, MG, CBC, PHOS #### [facility] [address] [place] [id number] [place] Eosinophils/100 WBC (Bld) 0.5 % Normal . [facility] Comment on above: Performed By: #### C MP, MG, CBC, PHOS #### [address] Erythrocyte distribution width (RBC) [Ratio] 15.2 % Normal 11.9-15.3 [facility] Comment on above: Performed By: #### C MP, MG, CBC, PHOS #### [address] Hematocrit (Bld) [Volume fraction] 21.2 % Low 34.0-46.4 [facility] Comment on above: Performed By: #### C MP, MG, CBC, PHOS #### [address] Hemoglobin (Bld) [Mass/Vol] 6.8 g/dL Low 11.8-15.4 [facility] Comment on above: Performed By: #### C MP, MG, CBC, PHOS #### [address] Lymphocytes (Bld) [#/Vol] 1.3 10*3/uL Normal 1.00-4.8 [facility] Comment on above: Performed By: #### C MP, MG, CBC, PHOS #### [address] Lymphocytes/100 WBC (Bld) 20.1 % Normal . [facility] Comment on above: Performed By: #### C MP, MG, CBC, PHOS #### [address] MCH (RBC) [Entitic mass] 31.1 pg Normal 24.7-34.3 [facility] Comment on above: Performed By: #### C MP, MG, CBC, PHOS #### [address] MCV (RBC) [Entitic vol] 96.8 fL Normal 80-100 T [facility] Comment on above: Performed By: #### C MP, MG, CBC, PHOS #### [place] [address] Mean Corpuscular HGB Conc 32.1 g/dL Normal 32.0-35.0 [facility] Comment on above: Performed By: #### C MP, MG, CBC, PHOS #### [address] Monocytes (Bld) [#/Vol] 0.5 10*3/uL Normal 0.0-0.8 [facility] Comment on above: Performed By: #### C MP, MG, CBC, PHOS #### [address] Monocytes/100 WBC (Bld) 7.0 % Normal . T kathy [facility] [facility] Comment on above: Performed By: #### C MP, MG, CBC, PHOS #### [address] Neutrophils (Bld) [#/Vol] 4.6 10*3/uL Normal 1.8-7.7 [facility] Comment on above: Performed By: #### C MP, MG, CBC, PHOS #### [address] Neutrophils/100 WBC (Bld) 71.9 % Normal . [facility] Comment on above: Performed By: #### C MP, MG, CBC, PHOS #### [address] NRBC% 0.2 /100{WBC} Normal 0-0.5 [facility] Comment on above: Performed By: #### C MP, MG, CBC, PHOS #### [address] Platelet mean volume (Bld) [Entitic vol] 8.5 fL Normal 6.3-10.7 [facility] Comment on above: Performed By: #### C MP, MG, CBC, PHOS #### [place] [address] [place] Platelets (Bld) [#/Vol] 312 10*3/uL Normal 150-450 [facility] Comment on above: Performed By: #### C MP, MG, CBC, PHOS #### [address] RBC (Bld) [#/Vol] 2.19 10*6/uL Low 3.60-5.00 [facility] Comment on above: Performed By: #### C MP, MG, CBC, PHOS #### [address] WBC (Bld) [#/Vol] 6.5 10*3/uL Normal 3.8-11.6 [facility] Comment on above: Performed By: #### C MP, MG, CBC, PHOS #### [address] Comprehensive Metabolic Pane sandrine 10-04-2024 Albumin [Mass/Vol] 2.8 g/dL Low 3.5-5.7 [facility] Comment on above: Performed By: #### C MP, MG, CBC, PHOS #### [address] Albumin/Globulin [Mass ratio] 0.9 {ratio} Normal 0.7-1.7 [facility] Comment on above: Performed By: #### C MP, MG, CBC, PHOS #### [address] ALP [Catalytic activity/Vol] 75 U/L Normal 34-104 [facility] Comment on above: Performed By: #### C MP, MG, CBC, PHOS #### [address] ALT [Catalytic activity/Vol] 16 U/L Normal 7-52 [facility] Comment on above: Performed By: #### C MP, MG, CBC, PHOS #### [address] Anion gap [Moles/Vol] 9.4 mmol/L Normal 6.0-15.0 [facility] Comment on above: Performed By: #### C MP, MG, CBC, PHOS #### [address] AST [Catalytic activity/Vol] 31 U/L Normal 13-39 [facility] Comment on above: Performed By: #### C MP, MG, CBC, PHOS #### [address] Bilirubin [Mass/Vol] 0.3 mg/dL Normal 0.3-1.0 [facility] Comment on above: Performed By: #### C MP, MG, CBC, PHOS #### [address] Calcium [Mass/Vol] 7.8 mg/dL Low 8.6-10.3 [facility] Comment on above: Performed By: #### C MP, MG, CBC, PHOS #### [address] Chloride [Moles/Vol] 110 mmol/L High 98-107 [facility] Comment on above: Performed By: #### C MP, MG, CBC, PHOS #### [address] CO2 [Moles/Vol] 24.2 mmol/L Normal 21.0-31.0 [facility] Comment on above: Performed By: #### C MP, MG, CBC, PHOS #### [address] Creatinine [Mass/Vol] 0.63 mg/dL Normal 0.60-1.20 [facility] Comment on above: Performed By: #### C MP, MG, CBC, PHOS #### [place] [address] [place] Creatinine Clr Calc Pharmacy 70.76 Normal [facility] Comment on above: Performed By: #### C MP, MG, CBC, PHOS #### [place] [address] [place] GFR/1.73 sq M.predicted MDRD (S/P/Bld) [Vol rate/Area] mL/min/{1.73_m2} Normal [facility] Comment on above: Performed By: #### C MP, MG, CBC, PHOS #### [facility] [address] Globulin (S) [Mass/Vol] 3.1 g/dL Normal T [facility] Comment on above: Performed By: #### C MP, MG, CBC, PHOS #### [facility] [address] Glucose [Mass/Vol] 78 mg/dL Normal 70-100 [facility] Comment on above: Result Comment: [facility] Glucose Reference Range is dependent on time and content of last meal. Glucose of more than 200 mg/dL in a nonstressed, ambulatory subject supports the diagnosis of Diabetes Mellitus. ADA recommended reference range Performed By: #### C MP, MG, CBC, PHOS #### [address] Potassium [Moles/Vol] 3.6 mmol/L Normal 3.5-5.1 [facility] Comment on above: Performed By: #### C MP, MG, CBC, PHOS #### [address] Protein [Mass/Vol] 5.9 g/dL Low 6.4-8.9 [facility] Comment on above: Performed By: #### C MP, MG, CBC, PHOS #### [place] [address] [place] Sodium [Moles/Vol] 140 mmol/L Normal 136-145 [facility] Comment on above: Performed By: #### C MP, MG, CBC, PHOS #### [address] Urea nitrogen [Mass/Vol] 15 mg/dL Normal 7-25 [facility] Comment on above: Performed By: #### C MP, MG, CBC, PHOS #### [address] ECG 12 lead ECG 10-04-2024 ECG 12 lead ECG [facility] Main [place] [address] [place] [address] Electrocardiograph Report Signed Patient: Telma Person MR#: [id number] 9 : 1960 Acct:[id number] Age/Sex: 63 / F ADM Date: 10/03/24 Loc: 3T Room: [address] [place] [address] Type: ADM IN Attending Dr: Percy Rmoeo MD Ordering Provider: Percy Romeo MD Date [...] abnormality Abnormal ECG Confirmed by DEANN ROTHMAN [facility], ELSI ([id number]) on 10/05/2024 9:12:13 AM Referred By: Electronically Signed By: ELSI CARLIN MD [facility] Transcribed By: MUS Signed By Elsi Carlin MD, FACC 10/05/24 0912 Normal [facility] Immunofixation,Serumon 10-04 Immunofixation, Serum Comment Normal . [facility] Comment on above: Result Comment: No m onoclonality detected. Performed By: #### C MP, MG, CBC, PHOS #### [facility] [address] [place] [id number] [place] Immunoglobulin A, Serum 598 mg/dL High 87-352 [facility] Comment on above: Performed By: #### C MP, MG, CBC, PHOS #### [facility] [address] [place] [address] [place] Immunoglobulin G 1084 mg/dL Normal [phone] [facility] Comment on above: Performed By: #### C MP, MG, CBC, PHOS #### [facility] [address] [place] [address] [place] Immunoglobulin M, Serum 89 mg/dL Normal 26-217 [facility]ician [facility] Comment on above: Result Comment: Perf ormed at: CB - [facility] [place] [id number] Driver Examiner: Pasha Harry PhD, Phone: [phone] Performed By: #### C MP, MG, CBC, PHOS #### [address] LeukoReduced RBCon LeukoReduced RBC TRANSFUSED 10/04/24 1033 Normal [facility] Magnesiumon 10-04-2024 Magnesium [Mass/Vol] 1.8 mg/dL Low 1.9-2.7 [facility] Comment on above: Result Comment: PERF ORMED BY: [place] [address] PATHOLOGIST PHOTOGRAPHIC SUPERVISOR YULISSA MARES M.D. Performed By: #### C MP, MG, CBC, PHOS #### [address] No Panel InformationOrdered By: Abraham Flores on 10-04-2024 Protein Electrophoresis M-Tahir Not observed g/dL Not Observed [facility] Protein Electrophoresis Note Comment . [facility] Comment on above: Protein electrophore sis scan will follow via computer,mail, or electrical high tension tester delivery.Performed at: - [facility] [place] [id number] Director: Pasha Harry PhD, Phone: [phone] Phosphoruson 10-04-2024 Phosphate [Mass/Vol] 2.2 mg/dL Low 2.5-4.5 [facility] Comment on above: Performed By: #### C MP, MG, CBC, PHOS #### [address] Protein Electrophoresis, Ser umon 10-04-2024 Albumin [Mass/Vol] 2.6 g/dL Low 2.9-4.4 [facility] Comment on above: Performed By: #### C MP, MG, CBC, PHOS #### [address] Cehdp-1-Xzhhcjeo 0.3 g/dL Normal 0.0-0.4 [facility] Comment on above: Performed By: #### C MP, MG, CBC, PHOS #### [address] Qgmfd-7-Twleuqti 0.6 g/dL Normal 0.4-1.0 [facility] Comment on above: Performed By: #### C MP, MG, CBC, PHOS #### [address] Beta Globulin 1.1 g/dL Normal 0.7-1.3 [facility] Comment on above: Performed By: #### C MP, MG, CBC, PHOS #### [address] Gamma Globulin 1.0 g/dL Normal 0.4-1.8 [facility] Comment on above: Performed By: #### C MP, MG, CBC, PHOS #### [address] Globulin (S) [Mass/Vol] 3.0 g/dL Normal 2.2-3.9 [facility] Comment on above: Performed By: #### C MP, MG, CBC, PHOS #### [address] M-Tahir Not Observed Normal Not Observed [facility] Comment on above: Performed By: #### C MP, MG, CBC, PHOS #### [address] Protein [Mass/Vol] 5.6 g/dL Low 6.0-8.5 [facility] Comment on above: Performed By: #### C MP, MG, CBC, PHOS #### [address] SPE-Note Comment Normal . [facility] Comment on above: Result Comment: Prot ein electrophoresis scan will follow via computer, mail, or electrical high tension tester delivery. Performed at: - [facility] [id number] Driver Examiner: Pasha Harry PhD, Phone: [phone] PERFORMED BY: [place] [address] PATHOLOGIST PHOTOGRAPHIC SUPERVISOR YULISSA MARES M.D. Performed By: #### C MP, MG, CBC, PHOS #### [address] Serum globulin measurement ( mass/volume)Ordered By: Abraham Flores on 10-04-2024 Globulin (S) [Mass/Vol] Serum globulin measurement (mass/volume) 2.2-3.9 [facility] Serum immunofixation electro phoresisOrdered By: Abraham Flores on 10-04-2024 Serum Immunofixation Comment . [facility] Comment on above: No monoclonality det ected. Serum or plasma IgA measurem ent (mass/volume)Ordered By: Abraham Flores on 10-04-2024 IgA [Mass/Vol] IgA [Mass/volume] in Serum or Plasma High 87-352 [facility] Serum or plasma IgG measurem ent (mass/volume)Ordered By: Abraham Flores on 10-04-2024 IgG [Mass/Vol] IgG [Mass/volume] in Serum or Plasma [phone] [facility] Serum or plasma IgM measurem ent (mass/volume)Ordered By: Abraham Flores on 10-04-2024 IgM [Mass/Vol] IgM [Mass/volume] in Serum or Plasma 26-217 [facility] Comment on above: Performed at: - [place] [id number] Director: Pasha Harry PhD, Phone: [phone] Serum or plasma albumin damian urement (mass/volume)Ordered By: Abraham Flores on 10-04-2024 Albumin [Mass/Vol] Albumin [Mass/volume ] in Serum or Plasma Low 2.9-4.4 [facility] Serum or plasma albumin/glob ulin mass ratioOrdered By: Abraham Flores on 10-04-2024 Albumin/Globulin [Mass ratio] Serum or plasma albumin/globulin mass ratio 0.7-1.7 [facility] Serum or plasma alpha 1 glob ulin measurement by electrophoresis (mass/volume)Ordered By: Abraham Flores on 10-04-2024 Alpha 1 globulin Elph [Mass/Vol] Serum or plasma alpha 1 globulin measurement by electrophoresis (mass/volume) 0.0-0.4 [facility] Serum or plasma alpha 2 glob ulin measurement by electrophoresis (mass/volume)Ordered By: Abraham Flores on 10-04-2024 Alpha 2 globulin Elph [Mass/Vol] Serum or plasma alpha 2 globulin measurement by electrophoresis (mass/volume) 0.4-1.0 [facility] Serum or plasma beta globuli n measurement by electrophoresis (mass/volume)Ordered By: Abraham Flores on 10-04-2024 Beta globulin Elph [Mass/Vol] Serum or plasma beta globulin measurement by electrophoresis (mass/volume) 0.7-1.3 [facility] Serum or plasma gamma globul in measurement by electrophoresis (mass/volume)Ordered By: Abraham Flores on 10-04-2024 Gamma globulin Elph [Mass/Vol] Serum or plasma gamma globulin measurement by electrophoresis (mass/volume) 0.4-1.8 [facility] Serum total protein measurem entOrdered By: Abraham Flores on 10-04-2024 Protein [Mass/Vol] Protein [Mass/volume ] in Serum or Plasma Low 6.0-8.5 [facility] Type and Screenon 10-04-2024 ABO and Rh group Nom (Bld) Blood group O Rh(D) positive Normal [facility] Comment on above: Order Comment: Trans fuse now? Y Number of units to transfuse now? 1 Result Comment: PERF ORMED BY: [facility] [address] [place] [address] PATHOLOGIST PHOTOGRAPHIC SUPERVISOR YULISSA MARES M.D. A1C with Estimated Average G karo 10-03-2024 Glucose [Mass/Vol] 82 mg/dL Normal [facility] Comment on above: Result Comment: PERF ORMED BY: [facility] [address] [place] [address] PATHOLOGIST PHOTOGRAPHIC SUPERVISOR YULISSA MARES M.D. Performed By: #### C MP, MG, CBC, PHOS #### [address] HbA1c (Bld) [Mass fraction] 4.5 % Normal 4.3-5.6 [facility] Comment on above: Result Comment: Incr eased risk for diabetes: 5.7 - 6.4 diabetes: >6.4 glycemic control for adults with diabetes: <7.0 Performed By: #### C MP, MG, CBC, PHOS #### [facility] [address] Alanine aminotransferase [En zymatic activity/volume] in Serum or PlasmaOrdered By: Ban Boyce on 10-03-2024 ALT [Catalytic activity/Vol] Alanine aminotransferase [Enzymatic activity/volume] in Serum or Plasma 7-52 [facility] Albumin [Mass/volume] in Ser um or Plasma by Bromocresol green (BCG) dye binding methoOrdered By: Ban Boyce on 10-03-2024 Albumin BCG dye [Mass/Vol] Albumin [Mass/volume] in Serum or Plasma by Bromocresol green (BCG) dye binding metho Low 3.5-5.7 [facility] Alkaline phosphatase [Enzyma tic activity/volume] in Serum or PlasmaOrdered By: Ban Boyce on 10-03-2024 ALP [Catalytic activity/Vol] Alkaline phosphatase [Enzymatic activity/volume] in Serum or Plasma 34-104 [facility] Aspartate aminotransferase [ Enzymatic activity/volume] in Serum or PlasmaOrdered By: Ban Boyce on 10-03-2024 AST [Catalytic activity/Vol] Aspartate aminotransferase [Enzymatic activity/volume] in Serum or Plasma 13-39 [facility] Automated epithelial cells c ount in urine sediment (number/area)Ordered By: Ban Boyce on 10-03-2024 Epithelial cells Auto (Urine sed) [#/Area] Automated epithelial cells count in urine sediment (number/area) High 0-2 [facility] Automated erythrocytes count in urine sediment (number/area)Ordered By: Ban Boyce on 10-03-2024 RBC Auto (Urine sed) [#/Area] Erythrocytes [#/area] in Urine sediment by Automated count 0-4 [facility] Automated leukocytes count i n urine sediment (number/area)Ordered By: Ban Boyce on 10-03-2024 WBC Auto (Urine sed) [#/Area] Leukocytes [#/area] in Urine sediment by Automated count 0-4 [facility] B-Type Natriuretic Peptideon 10-03-2024 Natriuretic peptide B (Bld) [Mass/Vol] 105.0 pg/mL High 5-100 [facility] Comment on above: Result Comment: PERF ORMED BY: [place] [address] PATHOLOGIST PHOTOGRAPHIC SUPERVISOR YULISSA MARES M.D. Performed By: #### C MP, MG, CBC, PHOS #### [address] Basic Metabolic Panelon 09-23 Anion gap [Moles/Vol] 7.0 mmol/L Normal 6.0-15.0 [facility] Comment on above: Performed By: #### C MP, MG, CBC #### [address] Calcium [Mass/Vol] 8.0 mg/dL Low 8.6-10.3 [facility] Comment on above: Performed By: #### C MP, MG, CBC #### [address] Chloride [Moles/Vol] 110 mmol/L High 98-107 [facility] Comment on above: Performed By: #### C MP, MG, CBC #### [address] CO2 [Moles/Vol] 26.8 mmol/L Normal 21.0-31.0 [facility] Comment on above: Performed By: #### C MP, MG, CBC #### [address] Creatinine [Mass/Vol] 0.90 mg/dL Normal 0.60-1.20 [facility] Comment on above: Performed By: #### C MP, MG, CBC #### [address] Creatinine Clr Calc Pharmacy 49.53 Normal [facility] Comment on above: Performed By: #### C MP, MG, CBC #### [place] [address] GFR/1.73 sq M.predicted MDRD (S/P/Bld) [Vol rate/Area] mL/min/{1.73_m2} Normal [facility] Comment on above: Performed By: #### C MP, MG, CBC #### [address] Glucose [Mass/Vol] 71 mg/dL Normal 70-100 [facility] Comment on above: Result Comment: [facility] Glucose Reference Range is dependent on time and content of last meal. Glucose of more than 200 mg/dL in a nonstressed, ambulatory subject supports the diagnosis of Diabetes Mellitus. ADA recommended reference range Performed By: #### C MP, MG, CBC #### [address] Potassium [Moles/Vol] 3.8 mmol/L Normal 3.5-5.1 [facility] Comment on above: Performed By: #### C MP, MG, CBC #### [address] Sodium [Moles/Vol] 140 mmol/L Normal 136-145 [facility] Comment on above: Performed By: #### C MP, MG, CBC #### [address] Urea nitrogen [Mass/Vol] 21 mg/dL Normal 7-25 [facility] Comment on above: Performed By: #### C MP, MG, CBC #### [place] [address] [place] Basophils Auto (Bld) [#/Vol] Ordered By: Ban Boyce on 10-03-2024 Basophils (Bld) [#/Vol] Automated basophil count 0.0-0.2 [facility] Basophils/100 WBC Auto (Bld) Ordered By: Ban Boyce on 10-03-2024 Basophils/100 WBC (Bld) Automated basophil % . [facility] Bilirubin Test strip Ql (U)O rdered By: Ban Boyce on 10-03-2024 Bilirubin Ql (U) Bilirubin.total [Presence] in Urine by Test strip Negative [facility] Bilirubin.direct [Mass/volum e] in Serum or PlasmaOrdered By: Ban Boyce on 10-03-2024 Bilirubin.direct [Mass/Vol] Bilirubin.direct [Mass/volume] in Serum or Plasma 0.03-0.18 [facility] Bilirubin.total [Mass/volume ] in Serum or PlasmaOrdered By: Ban Boyce on 10-03-2024 Bilirubin [Mass/Vol] Bilirubin.total [Mass/volume] in Serum or Plasma 0.3-1.0 [facility] Blood estimated average gluc ose determination by estimation from glycated hemoglobinOrdered By: Abraham Flores on 10-03-2024 Average glucose Estimated from glycated hemoglobin (Bld) [Mass/Vol] Glucose mean value [Mass/volume] in Blood Estimated from glycated hemoglobin [facility] C reactive protein [Mass/vol ume] in Serum or PlasmaOrdered By: Ban Boyce on 10-03-2024 CRP [Mass/Vol] C reactive protein [Mass/volume] in Serum or Plasma High 0.0-0.5 [facility] C-Reactive Proteinon 025 C-Reactive Protein 6.7 mg/dL High 0.0-0.5 [facility] Comment on above: Result Comment: PERF ORMED BY: [place] [address] PATHOLOGIST PHOTOGRAPHIC SUPERVISOR YULISSA MARES M.D. Performed By: #### C MP, MG, CBC #### [address] COVID Cepheid NegativeOrdere d By: Ban Boyce on 10-03-2024 SARS-CoV-2 (COVID-19) Ab IA Ql COVID Cepheid Negative [facility] Comment on above: This is [...] or Cepheid Disclaimer revoked sooner. PERFORMED BY: [facility] [address] [place] [address] PATHOLOGIST PHOTOGRAPHIC SUPERVISOR YULISSA MARES M.D. Normal [facility] Comment on above: Performed By: #### C MP, MG, CBC #### [facility] [address] abdomen pelvis w conon CT abdomen pelvis w con [facility] Main [place] [address] [place] [id number] [address] Scan Report Signed Patient: Telma Person MR#: [id number] 9 : 1960 Acct:[id number] Age/Sex: 63 / F ADM Date: 10/03/24 Loc: ER Room: Type: [facility] ER Attending Dr: Copies to: Ban [...] George Jr., D.O.10/03/2024 12:36 PM Dictation Location: [facility]18 Transcribed By: [facility] 10/03/24 1236 Dictated By: Ray George Jr, DO 10/03/24 1234 Signed By: 10/03/24 1236 Normal [facility] CT cervical spine wo conon 0 10-03-2024 CT cervical spine wo con [facility] Main [place] [address] [place] [address] CT Scan Report Signed Patient: Telma Person MR#: [id number] 9 : 1960 Acct:[id number] Age/Sex: 63 / F ADM Date: 10/03/24 Loc: ER Room: Type: [facility] ER Attending Dr: Copies to: Ban Boyce MD Ordering Provider: Ban Boyce MD Date of Service: 10/03/24 CT/CT head/brain wo con: freq falls, hit head ([id number]) CT/CT cervical spine wo con: freq falls, [...] George Jr., D.O.10/03/2024 12:09 PM Dictation Location: [facility]-18 Transcribed By: [facility] 10/03/24 120 Dictated By: Ray George Jr, DO 10/03/24 120 Signed By: 10/03/24 120 Normal [facility] CT chest wo conon 10-03-2024 CT chest wo con [facility] Main [place] [address] [place] [address] CT Scan Report Signed Patient: Telma Person MR#: [id number] 9 : 1960 Acct:[id number] Age/Sex: 63 / F ADM Date: 10/03/24 Loc: ER Room: Type: [facility] ER Attending Dr: Copies to: MD [...] George Jr., D.OIrina10/03/2024 2:53 PM Dictation Location: [place] [address] Transcribed By: [facility] 10/03/24 1453 Dictated By: Ray George Jr, DO 10/03/24 1449 Signed By: 10/03/24 1453 Normal [facility] Calcium [Mass/volume] in Ser um or PlasmaOrdered By: Ban Boyce on 10-03-2024 Calcium [Mass/Vol] Calcium [Mass/volume ] in Serum or Plasma Low 8.6-10.3 [facility] Carbon dioxide, total [Moles /volume] in Serum or PlasmaOrdered By: Ban Boyce on 10-03-2024 CO2 [Moles/Vol] Carbon dioxide, tota l [Moles/volume] in Serum or Plasma 21.0-31.0 [facility] Cepheid COVID PCR Negativeon 10-03-2024 SARS-CoV-2 (COVID-19) RNA VICTORINO+probe Ql (Unsp spec) Negative Normal Negative [facility] Comment on above: Result Comment: This is a duplicate Cepheid Xpert Xpress CoV-2/Flu/RSV Plus RNA by RT-PCR result to be used for statistical tracking purpose only. PERFORMED BY: [place] [address] PATHOLOGIST PHOTOGRAPHIC SUPERVISOR YULISSA MARES M.D. Performed By: #### C MP, MG, CBC #### [facility] [address] [place] [address] [place] Chloride [Moles/volume] in S papi or PlasmaOrdered By: Ban Boyce on 10-03-2024 Chloride [Moles/Vol] Chloride [Moles/vol ume] in Serum or Plasma High 98-107 [facility] Color Auto (U)Ordered By: Asia Boyce on 10-03-2024 Color (U) Color of Urine by Auto Yellow Fi [facility] Complete Blood Count Auto Di ffon 10-03-2024 Basophils (Bld) [#/Vol] 0.0 10*3/uL Normal 0.0-0.2 [facility] Comment on above: Result Comment: PERF ORMED BY: [place] [address] PATHOLOGIST PHOTOGRAPHIC SUPERVISOR YULISSA MARES M.D. Performed By: #### C MP, MG, CBC, PHOS #### [facility] [address] [place], [place] [id number] [place] Basophils/100 WBC (Bld) 0.5 % Normal . [facility] Comment on above: Performed By: #### C MP, MG, CBC, PHOS #### [place] [id number] [place] Eosinophils (Bld) [#/Vol] 0.0 10*3/uL Normal 0.0-0.45 [facility] Comment on above: Performed By: #### C MP, MG, CBC, PHOS #### [address] Eosinophils/100 WBC (Bld) 0.6 % Normal . [facility] Comment on above: Performed By: #### C MP, MG, CBC, PHOS #### [address] Erythrocyte distribution width (RBC) [Ratio] 15.4 % High 11.9-15.3 [facility] Comment on above: Performed By: #### C MP, MG, CBC, PHOS #### [address] Hematocrit (Bld) [Volume fraction] 24.9 % Low 34.0-46.4 [facility] Comment on above: Performed By: #### C MP, MG, CBC, PHOS #### [address] Hemoglobin (Bld) [Mass/Vol] 8.0 g/dL Low 11.8-15.4 [facility] Comment on above: Performed By: #### C MP, MG, CBC, PHOS #### [address] Lymphocytes (Bld) [#/Vol] 1.5 10*3/uL Normal 1.00-4.8 [facility] Comment on above: Performed By: #### C MP, MG, CBC, PHOS #### [address] Lymphocytes/100 WBC (Bld) 21.6 % Normal . [facility] Comment on above: Performed By: #### C MP, MG, CBC, PHOS #### [address] MCH (RBC) [Entitic mass] 31.3 pg Normal 24.7-34.3 [facility] Comment on above: Performed By: #### C MP, MG, CBC, PHOS #### [address] MCV (RBC) [Entitic vol] 96.9 fL Normal 80-100 [facility] Comment on above: Performed By: #### C MP, MG, CBC, PHOS #### [address] Mean Corpuscular HGB Conc 32.3 g/dL Normal 32.0-35.0 [facility] Comment on above: Performed By: #### C MP, MG, CBC, PHOS #### [address] Monocytes (Bld) [#/Vol] 0.5 10*3/uL Normal 0.0-0.8 [facility] Comment on above: Performed By: #### C MP, MG, CBC, PHOS #### [address] Monocytes/100 WBC (Bld) 24.79 % High 0.00-20.00 [facility] Comment on above: Result Comment: For adults in ED, MDW > 20.0 may be associated with a higher risk of sepsis during the first 12 hrs of hospital admission Performed By: #### C MP, MG, CBC, PHOS #### [address] Monocytes/100 WBC (Bld) 7.5 % Normal . [facility] Comment on above: Performed By: #### C MP, MG, CBC, PHOS #### [address] Neutrophils (Bld) [#/Vol] 5.0 10*3/uL Normal 1.8-7.7 [facility] Comment on above: Performed By: #### C MP, MG, CBC, PHOS #### [address] Neutrophils/100 WBC (Bld) 69.8 % Normal . [facility] Comment on above: Performed By: #### C MP, MG, CBC, PHOS #### [address] NRBC% 0.1 /100{WBC} Normal 0-0.5 [facility] Comment on above: Performed By: #### C MP, MG, CBC, PHOS #### [address] Platelet mean volume (Bld) [Entitic vol] 8.5 fL Normal 6.3-10.7 [facility] Comment on above: Performed By: #### C MP, MG, CBC, PHOS #### [address] Platelets (Bld) [#/Vol] 383 10*3/uL Normal 150-450 [facility] Comment on above: Performed By: #### C MP, MG, CBC, PHOS #### [address] RBC (Bld) [#/Vol] 2.57 10*6/uL Low 3.60-5.00 [facility] Comment on above: Performed By: #### C MP, MG, CBC, PHOS #### [address] WBC (Bld) [#/Vol] 7.1 10*3/uL Normal 3.8-11.6 [facility] Comment on above: Performed By: #### C MP, MG, CBC, PHOS #### [address] Creatine Kinaseon 10-03-2024 CK [Catalytic activity/Vol] 27 U/L Low 30-223 [facility] Comment on above: Performed By: #### C MP, MG, CBC, PHOS #### [address] Creatine kinase [Enzymatic a ctivity/volume] in Serum or PlasmaOrdered By: Ban Boyce on 10-03-2024 CK [Catalytic activity/Vol] Creatine kinase [Enzymatic activity/volume] in Serum or Plasma Low 30-223 [facility] Creatinine [Mass/volume] in Serum or PlasmaOrdered By: Ban Boyce on 10-03-2024 Creatinine [Mass/Vol] Creatinine [Mass/v olume] in Serum or Plasma 0.60-1.20 [facility] Dipstick and Microscopicon 0 10-03-2024 Appearance (U) Cloudy Critically abnormal Clear [facility] Comment on above: Order Comment: Name Collection Type:: Clean-Voided Midstream Performed By: #### C MP, MG, CBC #### [address] Bacteria,Urine None Seen Normal None Seen [facility] Comment on above: Order Comment: Name Collection Type:: Clean-Voided Midstream Performed By: #### C MP, MG, CBC #### [address] Bilirubin,Urine Negative Normal Negative [facility] Comment on above: Order Comment: Name Collection Type:: Clean-Voided Midstream Performed By: #### C MP, MG, CBC #### [address] Color (U) Yellow Normal Yellow [facility] Comment on above: Order Comment: Name Collection Type:: Clean-Voided Midstream Performed By: #### C MP, MG, CBC #### [address] Glucose Ql (U) Normal Normal Normal [facility] Comment on above: Order Comment: Name Collection Type:: Clean-Voided Midstream Performed By: #### C MP, MG, CBC #### [address] Hyaline Casts,Urine 0 [LPF] Normal 0-8 [facility] Comment on above: Order Comment: Name Collection Type:: Clean-Voided Midstream Result Comment: PERF ORMED BY: [place] [address] PATHOLOGIST PHOTOGRAPHIC SUPERVISOR YULISSA MARES M.D. Performed By: #### C MP, MG, CBC #### [place] [address] [place] Ketones Ql (U) Trace High Negative [facility] Comment on above: Order Comment: Name Collection Type:: Clean-Voided Midstream Performed By: #### C MP, MG, CBC #### [address] Leukocyte esterase Test strip Ql (U) 1+ High Negative [facility] Comment on above: Order Comment: Name Collection Type:: Clean-Voided Midstream Performed By: #### C MP, MG, CBC #### [address] Nitrite,Urine Negative Normal Negative [facility] Comment on above: Order Comment: Name Collection Type:: Clean-Voided Midstream Performed By: #### C MP, MG, CBC #### [address] Occult Blood,Urine Negative Normal Negative [facility] Comment on above: Order Comment: Name Collection Type:: Clean-Voided Midstream Result Comment: PERF ORMED BY: [place] [address] PATHOLOGIST PHOTOGRAPHIC SUPERVISOR YULISSA MARES M.D. Performed By: #### C MP, MG, CBC #### [address] pH (U) 6.0 [pH] Normal 5.0-9.0 [facility] Comment on above: Order Comment: Name Collection Type:: Clean-Voided Midstream Performed By: #### C MP, MG, CBC #### [address] Protein,Urine Negative Normal Negative [facility] Comment on above: Order Comment: Name Collection Type:: Clean-Voided Midstream Performed By: #### C MP, MG, CBC #### [address] RBC,Urine 1 [HPF] Normal 0-4 [facility] Comment on above: Order Comment: Name Collection Type:: Clean-Voided Midstream Performed By: #### C MP, MG, CBC #### [facility] [address] Specificy [place],Urine 1.013 Normal 1.00 1-1.03 0 [facility] Comment on above: Order Comment: Name Collection Type:: Clean-Voided Midstream Performed By: #### C MP, MG, CBC #### [facility] [address] Squamous Epithelial Cell,Urine 5 [HPF] High 0-2 [facility] Comment on above: Order Comment: Name Collection Type:: Clean-Voided Midstream Performed By: #### C MP, MG, CBC #### [address] Urobilinogen,Urine Normal Normal Normal [facility] Comment on above: Order Comment: Name Collection Type:: Clean-Voided Midstream Performed By: #### C MP, MG, CBC #### [address] WBC,Urine 3 [HPF] Normal 0-4 [facility] Comment on above: Order Comment: Name Collection Type:: Clean-Voided Midstream Performed By: #### C MP, MG, CBC #### [address] ECG 12 lead ECGon 10-03-2024 ECG 12 lead ECG [facility] [place] [address] [place] [address] Electrocardiograph Report Signed Patient: Telma Person MR#: [id number] 9 : 1960 Acct:[id number] Age/Sex: 63 / F ADM Date: 10/03/24 Loc: Room: [address] [place] [address] Type: ADM IN Attending Dr: Percy Romeo [...] Prolonged QT Confirmed by Ban Boyce MD ([id number]) on 10/03/2024 8:58:02 PM Referred By: Electronically Signed By: Ban Boyce MD Transcribed By: MUS Signed By Ban Boyce MD 09/23 Normal [facility] Eosinophils Auto (Bld) [#/Vo l]Ordered By: Ban Boyce on 10-03-2024 Eosinophils (Bld) [#/Vol] Automated eosinophil count 0.0-0.45 [facility] Eosinophils/100 WBC Auto (Bl d)Ordered By: Ban Boyce on 10-03-2024 Eosinophils/100 WBC (Bld) Automated eosinophil % . [facility] Erythrocyte Sedimentation Ra tavon 10-03-2024 ESR (Bld) [Velocity] 68 mm/h High 0-29 [facility] Comment on above: Result Comment: PERF ORMED BY: [place] [address] PATHOLOGIST PHOTOGRAPHIC SUPERVISOR YULISSA MARES M.D. Performed By: #### C MP, MG, CBC #### [facility] [address] [place] [address] Erythrocyte distribution wid th Auto (RBC) [Ratio]Ordered By: Ban Boyce on 10-03-2024 Erythrocyte distribution width (RBC) [Ratio] Erythrocyte distribution width [Ratio] by Automated count High 11.9-15.3 [facility] Erythrocyte sedimentation ra te by Photometric methodOrdered By: Ban Boyce on 10-03-2024 ESR Photometric method (Bld) [Velocity] Erythrocyte sedimentation rate by Photometric method High 0-29 [facility] Ferritinon 10-03-2024 Ferritin [Mass/Vol] 13.0 ng/mL Normal 11.0-306.8 [facility] Comment on above: Order Comment: ADD O N PER [place] IN ER Performed By: #### C MP, MG, CBC, PHOS #### [facility] [address] [place] [address] [facility] Ferritin [Mass/volume] in Se rum or PlasmaOrdered By: Percy Romeo on 10-03-2024 Ferritin [Mass/Vol] Ferritin [Mass/volum e] in Serum or Plasma 11.0-306.8 [facility] Folate [Mass/volume] in Seru m or PlasmaOrdered By: Percy Romeo on 10-03-2024 Folate [Mass/Vol] Folate [Mass/volume] in Serum or Plasma Low >5.9 [facility] Comment on above: Folate reference ran ge: >5.9 ng/mlThe WHO technical consultation on folate and vitamin [id number] has determined that folate concentrations lessthan 4 ng/ml are considered deficient. Globulin Calc (S) [Mass/Vol] Ordered By: Ban Boyce on 10-03-2024 Globulin (S) [Mass/Vol] Serum globulin measurement by calculation (mass/volume) [facility] Glucose [Mass/volume] in Ser um or PlasmaOrdered By: Ban Boyce on 10-03-2024 Glucose [Mass/Vol] Glucose [Mass/volume ] in Serum or Plasma 70-100 [facility] Comment on above: ADA recommended [...] by Automated count Low 34.0-46.4 [facility] Hemoglobin A1c/Hemoglobin.to keke in BloodOrdered By: Abraham Flores on 10-03-2024 HbA1c (Bld) [Mass fraction] Hemoglobin A1c percentage 4.3-5.6 [facility] Comment on above: Increased risk for d iabetes: 5.7 - 6.4diabetes: >6.4glycemic control for adults with diabetes: <7.0 Hemoglobin [Mass/volume] in BloodOrdered By: Ban Boyce on 10-03-2024 Hemoglobin (Bld) [Mass/Vol] Hemoglobin [Mass/volume] in Blood Low 11.8-15.4 [facility] Hepatic Panelon 10-03-2024 Albumin [Mass/Vol] 2.2 g/dL Low 3.5-5.7 [facility] Comment on above: Performed By: #### C MP, MG, CBC #### [address] Albumin/Globulin [Mass ratio] 0.7 {ratio} Normal [facility] Comment on above: Performed By: #### C MP, MG, CBC #### [address] ALP [Catalytic activity/Vol] 84 U/L Normal 34-104 [facility] Comment on above: Performed By: #### C MP, MG, CBC #### [address] ALT [Catalytic activity/Vol] 18 U/L Normal 7-52 [facility] Comment on above: Performed By: #### C MP, MG, CBC #### [address] AST [Catalytic activity/Vol] 33 U/L Normal 13-39 [facility] Comment on above: Performed By: #### C MP, MG, CBC #### [address] Bilirubin [Mass/Vol] 0.4 mg/dL Normal 0.3-1.0 [facility] Comment on above: Performed By: #### C MP, MG, CBC #### [address] Bilirubin,Indirect 0.3 mg/dL Normal [facility] Comment on above: Performed By: #### C MP, MG, CBC #### [address] Bilirubin.indirect [Mass/Vol] 0.10 mg/dL Normal 0.03-0.18 [facility] Comment on above: Performed By: #### C MP, MG, CBC #### [address] Globulin (S) [Mass/Vol] 3.3 g/dL Normal T [facility] Comment on above: Performed By: #### C MP, MG, CBC #### [facility] [address] Protein [Mass/Vol] 5.5 g/dL Low 6.4-8.9 [facility] Comment on above: Performed By: #### C MP, MG, CBC #### [facility] [address] INR in Platelet poor plasma by Coagulation assayOrdered By: Percy Romeo on 10-03-2024 INR Coag (PPP) [Relative time] INR in Platelet poor plasma by Coagulation assay [facility] Comment on above: INR Therapeutic [...] Serum or Plasma Low 50-212 [facility] Iron and TIBC Profileon 09-23 % Iron Saturation 11.6 % Low 20-50 [facility] Comment on above: Order Comment: ADD O N PER [place] IN ER Performed By: #### C MP, MG, CBC, PHOS #### [facility] [address] [place] [address] Iron [Mass/Vol] 26 ug/dL Low 50-212 [facility] Comment on above: Order Comment: ADD O N PER [place] IN ER Performed By: #### C MP, MG, CBC, PHOS #### [facility] [address] [place] [address] Total Iron Binding Capacity 225 ug/dL Low 255-450 [facility] Comment on above: Order Comment: ADD O N PER [place] IN ER Performed By: #### C MP, MG, CBC, PHOS #### [address] [place] [address] [facility] Transferrin [Mass/Vol] 161 mg/dL Low 203-362 [facility] Comment on above: Order Comment: ADD O N PER [place] IN ER Performed By: #### C MP, MG, CBC, PHOS #### [facility] [address] [place] [id number] [facility] Ketones Auto test strip (U) [Mass/Vol]Ordered By: Ban Boyce on 10-03-2024 Ketones (U) [Mass/Vol] Urine ketones antony surement by automated test strip (mass/volume) High Negative [facility] Laboratory - UrinalysisOrder ed By: Ban Boyce on 10-03-2024 Hyaline casts LM Ql (Urine sed) 0-8 [LPF] 0-8 [facility] Lactate [Moles/volume] in Se rum or PlasmaOrdered By: Percy Romeo on 10-03-2024 Lactate [Moles/Vol] Lactate [Moles/volum e] in Serum or Plasma 0.5-2.2 [facility] Lactic Acidon 10-03-2024 Lactate [Moles/Vol] 0.8 mmol/L Normal 0.5-2.2 [facility] Comment on above: Result Comment: PERF ORMED BY: [place] [address] PATHOLOGIST PHOTOGRAPHIC SUPERVISOR YULISSA MARES M.D. Performed By: #### C MP, MG, CBC, PHOS #### [facility] [address] Leukocytes [#/volume] correc saida for nucleated erythrocytes in Blood by Automated counOrdered By: Ban Boyce on 10-03-2024 WBC corrected for nucl RBC Auto (Bld) [#/Vol] Leukocytes [#/volume] corrected for nucleated erythrocytes in Blood by Automated coun 3.8-11.6 [facility] Lipaseon 10-03-2024 Lipase [Catalytic activity/Vol] 8.0 U/L Low 11.0-82.0 [facility] Comment on above: Result Comment: PERF ORMED BY: [address] [address] PATHOLOGIST PHOTOGRAPHIC SUPERVISOR YULISSA MARES M.D. Performed By: #### C RAJ MG, CBC #### [facility] [address] Lipase [Enzymatic activity/v olume] in Serum or PlasmaOrdered By: Ban Boyce on 10-03-2024 Lipase [Catalytic activity/Vol] Lipase [Enzymatic activity/volume] in Serum or Plasma Low 11.0-82.0 [facility] Lymphocytes Auto (Bld) [#/Vo l]Ordered By: Ban Boyce on 10-03-2024 Lymphocytes (Bld) [#/Vol] Lymphocytes [#/volume] in Blood by Automated count 1.00-4.8 [facility] Lymphocytes/100 WBC Auto (Bl d)Ordered By: Ban Boyce on 10-03-2024 Lymphocytes/100 WBC (Bld) Lymphocytes/100 leukocytes in Blood by Automated count . [facility] MCH Auto (RBC) [Entitic mass ]Ordered By: Ban Boyce on 10-03-2024 MCH (RBC) [Entitic mass] MCH [Entitic ma ss] by Automated count 24.7-34.3 [facility] MCHC Auto (RBC) [Mass/Vol]Or dered By: Ban Boyce on 10-03-2024 MCHC (RBC) [Mass/Vol] MCHC [Mass/volume] by Automated count 32.0-35.0 [facility] MCV Auto (RBC) [Entitic vol] Ordered By: Ban Boyce on 10-03-2024 MCV (RBC) [Entitic vol] MCV [Entitic vol ume] by Automated count 80-100 [facility] Magnesiumon 10-03-2024 Magnesium [Mass/Vol] 1.9 mg/dL Normal 1.9-2.7 [facility] Comment on above: Performed By: #### C MP MG, CBC #### [facility] [address] [place], [place] [id number] [facility] Magnesium [Mass/volume] in S papi or PlasmaOrdered By: Ban Boyce on 10-03-2024 Magnesium [Mass/Vol] Magnesium [Mass/vol ume] in Serum or Plasma 1.9-2.7 [facility] Monocyte distribution width [Entitic volume] in Blood by AutomatedOrdered By: Ban Boyce on 10-03-2024 Monocyte distribution width Auto (Bld) [Entitic vol] Monocyte distribution width [Entitic volume] in Blood by Automated High 0.00-20.00 [facility] Comment on above: For adults in ED, MD W > 20.0 may be associated with a higher risk of sepsis during the first 12 hrs of hospital admission Monocytes Auto (Bld) [#/Vol] Ordered By: Ban Boyce on 10-03-2024 Monocytes (Bld) [#/Vol] Automated blood monocyte count 0.0-0.8 [facility] Monocytes/100 WBC Auto (Bld) Ordered By: Ban Boyce on 10-03-2024 Monocytes/100 WBC (Bld) Automated monocyte % . [facility] Natriuretic peptide B [Mass/ Vol]Ordered By: Ban Boyce on 10-03-2024 Natriuretic peptide B (Bld) [Mass/Vol] BNP ser/plas High 5-100 [facility] Neutrophils Auto (Bld) [#/Vo l]Ordered By: Ban Boyce on 10-03-2024 Neutrophils (Bld) [#/Vol] Neutrophils [#/volume] in Blood by Automated count 1.8-7.7 [facility] Neutrophils/100 WBC Auto (Bl d)Ordered By: Ban Boyce on 10-03-2024 Neutrophils/100 WBC (Bld) Automated neutrophil % . [facility] Nitrite Test strip Ql (U)Ord ered By: Ban Boyce on 10-03-2024 Nitrite Ql (U) Nitrite [Presence] i n Urine by Test strip Negative [facility] No Panel InformationOrdered By: Ban Boyce on 10-03-2024 Estimated GFR (CKD-EPI) > 60.0 mL/Min [facility] Creatinine Clearance (Chem 49.53 [facility] Nucleated erythrocytes [Pres ence] in Blood by Automated countOrdered By: Ban Boyce on 10-03-2024 Nucleated RBC Auto Ql (Bld) Nucleated erythrocytes [Presence] in Blood by Automated count 0-0.5 [facility] Phosphate [Mass/volume] in S papi or PlasmaOrdered By: Ban Boyce on 10-03-2024 Phosphate [Mass/Vol] Phosphate [Mass/vol ume] in Serum or Plasma 2.5-4.5 [facility] Phosphoruson 10-03-2024 Phosphate [Mass/Vol] 2.5 mg/dL Normal 2.5-4.5 [facility] Comment on above: Performed By: #### C MP, MG, CBC #### [facility] [address] Platelet mean volume Auto (B ld) [Entitic vol]Ordered By: Ban Boyce on 10-03-2024 Platelet mean volume (Bld) [Entitic vol] Platelet mean volume [Entitic volume] in Blood by Automated count 6.3-10.7 [facility] Platelets Auto (Bld) [#/Vol] Ordered By: Ban Boyce on 10-03-2024 Platelets (Bld) [#/Vol] Platelets [#/vol ume] in Blood by Automated count 150-450 [facility] Potassium [Moles/volume] in Serum or PlasmaOrdered By: Ban Boyce on 10-03-2024 Potassium [Moles/Vol] Potassium [Moles/v olume] in Serum or Plasma 3.5-5.1 [facility] Protein Auto test strip (U) [Mass/Vol]Ordered By: Ban Boyce on 10-03-2024 Protein (U) [Mass/Vol] Urine protein antony surement by automated test strip (mass/volume) Negative [facility] Protein [Mass/volume] in Ser um or PlasmaOrdered By: Ban Boyce on 10-03-2024 Protein [Mass/Vol] Protein [Mass/volume ] in Serum or Plasma Low 6.4-8.9 [facility] Prothrombin Time INRon 10-03 INR Coag (PPP) [Relative time] 1.0 {INR} Normal [facility] Comment on above: Result Comment: [...] heart valves: 3 - 4.5 PERFORMED BY: [facility] [address] [place] [address] PATHOLOGIST PHOTOGRAPHIC SUPERVISOR YULISSA MARES M.D. Performed By: #### C MP, MG, CBC, PHOS #### [facility] [address] [place] [id number] [facility] PT Coag (PPP) [Time] 12.1 s Normal 9.0-12.9 [facility] Comment on above: Result Comment: A he matocrit value greater than 55% may lead to inaccurate results in coagulation testing. Patients having hematocrit values >55% require a special collection tube for coagulation studies. Please contact the laboratory at [phone] for redraw instructions. Performed By: #### C MP, MG, CBC, PHOS #### [address] [address] [facility] Prothrombin time (PT)Ordered By: Percy Romeo on 10-03-2024 PT Coag (PPP) [Time] Prothrombin time (PT) 9.0- 12.9 [facility] Comment on above: A hematocrit value g reater than 55% may lead to inaccurate results in coagulation testing. Patients having hematocrit values >55% require a special collection tube for coagulation studies. Please contact the laboratory at [phone] for redraw instructions. RBC Auto (Bld) [#/Vol]Ordere d By: Ban Boyce on 10-03-2024 RBC (Bld) [#/Vol] Erythrocytes [#/volu me] in Blood by Automated count Low 3.60-5.00 [facility] Respiratory specimen influen za A virus, influenza B virus, respiratory syncytical virOrdered By: Ban Boyce on 10-03-2024 SARS-CoV-2 (COVID-19) RNA VICTORINO+probe Ql (Unsp spec) Respiratory specimen influenza A virus, influenza B virus, respiratory syncytical vir [facility] Reticulocyte Counton 025 Reticulocyte Number 0.053 10*6/uL Normal 0.024-0 .08 4 [facility] Comment on above: Performed By: #### C MP, MG, CBC #### [facility] [address] Reticulocyte Percent 2.0 % High 0.5-1.5 [facility] Comment on above: Performed By: #### C MP, MG, CBC #### [facility] [address] Reticulocytes [#/volume] in BloodOrdered By: Ban Boyce on 10-03-2024 Reticulocytes (Bld) [#/Vol] Absolute reticulocyte count 0.024-0.08 4 [facility] Reticulocytes/100 RBC Auto ( Bld)Ordered By: Ban Boyce on 10-03-2024 Reticulocytes/100 RBC (Bld) Reticulocyte % auto High 0.5-1.5 [facility] Serum or plasma albumin/glob ulin mass ratioOrdered By: Ban Boyce on 10-03-2024 Albumin/Globulin [Mass ratio] Serum or plasma albumin/globulin mass ratio [facility] Serum or plasma anion gap de terminationOrdered By: Ban Boyce on 10-03-2024 Anion gap [Moles/Vol] Serum or plasma an ion gap determination 6.0-15.0 [facility] Serum or plasma iron binding capacity measurement (mass/volume)Ordered By: Percy Romeo on 10-03-2024 Iron binding capacity [Mass/Vol] Iron binding capacity [Mass/volume] in Serum or Plasma Low 255-450 [facility] Serum or plasma iron saturat ion measurement (mass fraction)Ordered By: Percy Romeo on 10-03-2024 Iron saturation [Mass fraction] Iron saturation [Mass Fraction] in Serum or Plasma Low 20-50 [facility] Serum or plasma non-glucuron idated bilirubin measurement (mass/volume)Ordered By: Ban Boyce on 10-03-2024 Bilirubin.indirect [Mass/Vol] Serum or plasma non-glucuronidated bilirubin measurement (mass/volume) [facility] Sodium [Moles/volume] in Ser um or PlasmaOrdered By: Ban Boyce on 10-03-2024 Sodium [Moles/Vol] Sodium [Moles/volume ] in Serum or Plasma 136-145 [facility] Specific gravity Auto test s trip (U) [Rel density]Ordered By: Ban Boyce on 10-03-2024 Specific gravity (U) [Rel density] Specific gravity of Urine by Automated test strip 1.001-1.03 0 [facility] Stool Occult Blood (Guaiac)o n 10-03-2024 Stool Occult Blood (Guaiac) Occult Blood Negative for Occult Blood by Guaiac Methodology ---- Reference range = Negative PERFORMED BY: [place] [address] PATHOLOGIST PHOTOGRAPHIC SUPERVISOR YULISSA MARES M.D. Normal [facility] Comment on above: Performed By: #### C MP, MG, CBC #### [facility] [address] [place] [address] Stool gastrointestinal hemog lobin detectionOrdered By: Ban Boyce on 10-03-2024 Hemoglobin.gastrointesti nal Ql (Stl) Stool gastrointestinal hemoglobin detection [facility] Thyroid Stimulating Hormoneo n 10-03-2024 TSH Qn 2.23 m[IU]/L Normal 0.45-5.33 [facility] Comment on above: Order Comment: ADD O N PER LUDWIN IN ER Result Comment: PERF ORMED BY: [address] [place] [address] PATHOLOGIST PHOTOGRAPHIC SUPERVISOR YULISSA MARES M.D. Performed By: #### C MP, MG, CBC, PHOS #### [facility] [address] [place], [place] [id number] [facility] Thyrotropin [Units/volume] i n Serum or PlasmaOrdered By: Percy Romeo on 10-03-2024 TSH Qn Thyrotropin [Units/volume] in Serum or Plasma 0.45-5.33 [facility] Transferrin [Mass/volume] in Serum or PlasmaOrdered By: Percy Romeo on 10-03-2024 Transferrin [Mass/Vol] Transferrin [Mass /volume] in Serum or Plasma Low 203-362 [facility] Troponin I High Sensitivityo n 10-03-2024 Troponin I High Sensitivity 4.5 pg/mL Normal 0.0-15.0 [facility] Comment on above: Result Comment: PERF ORMED BY: [place] [address] PATHOLOGIST PHOTOGRAPHIC SUPERVISOR YULISSA MARES M.D. Performed By: #### C MP, MG, CBC, PHOS #### [address] Troponin I High Sensitivity 4.4 pg/mL Normal 0.0-15.0 [facility] Comment on above: Result Comment: PERF ORMED BY: [place] [address] PATHOLOGIST PHOTOGRAPHIC SUPERVISOR YULISSA MARES M.D. Performed By: #### C MP, MG, CBC, PHOS #### [address] Troponin I.cardiac [Mass/vol ume] in Serum or Plasma by Detection limit <= 0.01 ng/Ordered By: Ban Boyce on 10-03-2024 Troponin I.cardiac DL <= 0.01 ng/mL [Mass/Vol] Troponin I.cardiac [Mass/volume] in Serum or Plasma by Detection limit <= 0.01 ng/ 0.0-15.0 [facility] Urea nitrogen [Mass/volume] in Serum or PlasmaOrdered By: Ban Boyce on 10-03-2024 Urea nitrogen [Mass/Vol] Urea nitrogen [Mass/volume] in Serum or Plasma 7-25 [facility] Urine bacteria detection by automated methodOrdered By: Ban Boyce on 10-03-2024 Bacteria Auto Ql (U) Bacteria [Presence] in Urine by Automated None Seen [facility] Urine clarity by refractomet ry automatedOrdered By: Ban Boyce on 10-03-2024 Clarity Refractometry automated (U) Urine clarity by refractometry automated Abnormal Clear [facility] Urine glucose measurement by automated test strip (mass/volume)Ordered By: Ban Boyce on 10-03-2024 Glucose Auto test strip (U) [Mass/Vol] Urine glucose measurement by automated test strip (mass/volume) Normal [facility] Urine hemoglobin detection b y automated test stripOrdered By: Ban Boyce on 10-03-2024 Hemoglobin Auto test strip Ql (U) Urine hemoglobin detection by automated test strip Negative [facility] Urine leukocyte esterase det ection by automated test stripOrdered By: Ban Boyce on 10-03-2024 Leukocyte esterase Auto test strip Ql (U) Urine leukocyte esterase detection by automated test strip High Negative [facility] Urobilinogen Auto test strip (U) [Mass/Vol]Ordered By: Ban Boyce on 10-03-2024 Urobilinogen (U) [Mass/Vol] Urine urobilinogen measurement by automated test strip (mass/volume) Normal [facility] Vit. B12/Folate Profileon Cobalamin (Vitamin B12) [Mass/Vol] 1004 pg/mL High 180-914 [facility] Comment on above: Order Comment: ADD O N PER LUDWIN IN ER Performed By: #### C MP, MG, CBC, PHOS #### [facility] [address] Folate 3.9 ng/mL Low >5.9 [facility] Comment on above: Order Comment: ADD O N PER LUDWIN IN ER Result Comment: Bettie te reference range: >5.9 ng/ml The WHO technical consultation on folate and vitamin b12 deficiencies has determined that folate concentrations less than 4 ng/ml are considered deficient. Performed By: #### C MP, MG, CBC, PHOS #### [facility] [address] Vitamin B12 ser/plasOrdered By: Percy Romeo on 10-03-2024 Cobalamin (Vitamin B12) [Mass/Vol] Vitamin B12 ser/plas High 180-914 [facility] WBC Auto (Bld) [#/Vol]Ordere d By: Ban Boyce on 10-03-2024 WBC (Bld) [#/Vol] Leukocytes [#/volume ] in Blood by Automated count 3.8-11.6 [facility] X-ray reportOrdered By: Braydon George on 10-03-2024 Study report [facility] [place] [address] XRay Report Signed Patient: Telma Person MR#: [id number] : 1960 Acct:[id number] Age/Sex: 63 / F ADM Date: 5 Loc: ER Room: Type: [facility] ER Attending Dr: Copies to: Ban [...] 12:34 PM Dictation Location: RADIO-PC-18 Transcribed By: [facility] 10/03/24 1234 Dictated By: Ray George Jr, DO 10/03/24 1233 Signed By: 10/03/24 1234 [facility] XR chest 2V*on 10-03-2024 XR chest 2V* [place] [id number] XRay Report Signed Patient: Telma Person MR#: [id number] : 1960 Acct:[id number] Age/Sex: 63 / F ADM Date: 10/03/24 Loc: ER Room: Type: [facility] ER Attending Dr: Copies to: Ban [...] George Jr., D.O.10/03/2024 12:34 PM Dictation Location: [facility]-18 Transcribed By: PWS 10/03/24 1234 Dictated By: Ray George Jr, DO 10/03/24 1233 Signed By: 10/03/24 1234 Normal [facility] pH Auto test strip (U)Ordere d By: Ban Boyce on 10-03-2024 pH (U) Urine pH measurement by automated test strip 5.0-9.0 [facility] EMG 2 Extremitieson 08-13-20 [facility] NVC 9-10 Nerveson 08-13-2024 [facility] CBC W Auto Differential pane l (Bld)on 07-07-2024 Basophils (Bld) [#/Vol] 10*3/uL Normal <0.11 [facility] Comment on above: Order Comment: Speci men Type: BLOOD SPECIMENOrdering Facility: [facility] Address: [address] [place] [address] Performed By: #### 5 7021-8 ####[facility] [id number] [place] [address] [place] Basophils/100 WBC (Bld) 0.3 % Normal [facility] Comment on above: Order Comment: Speci men Type: BLOOD SPECIMENOrdering Facility: [facility] Address: [address] [place] [address] Performed By: #### 5 7021-8 ####[facility] [id number] [place] [address] [place] Differential cell count method Nom (Bld) Auto Normal [facility] Comment on above: Order Comment: Speci men Type: BLOOD SPECIMENOrdering Facility: [facility] Address: [address] [place] [address] Performed By: #### 5 7021-8 ####[facility] [id number] [place] [address] [place] Eosinophils (Bld) [#/Vol] 0.06 10*3/uL Normal <0.46 [facility] Comment on above: Order Comment: Speci men Type: BLOOD SPECIMENOrdering Facility: [facility] Address: [address] [place] [address] Performed By: #### 5 7021-8 ####[facility] [id number] [place] [address] [place] Eosinophils/100 WBC (Bld) 0.9 % Normal [facility] Comment on above: Order Comment: Speci men Type: BLOOD SPECIMENOrdering Facility: [facility] Address: [address] [place] [address] Performed By: #### 5 7021-8 ####[facility] [id number] [place] [address] [place] Erythrocyte distribution width (RBC) [Ratio] 15.4 % High 11.5-15.0 [facility] Comment on above: Order Comment: Speci men Type: BLOOD SPECIMENOrdering Facility: [facility] Address: [address] [place] [address] Performed By: #### 5 7021-8 ####[facility] [id number] [place] [address] [place] Hematocrit (Bld) [Volume fraction] 27.9 % Low 36.0-46.0 [facility] Comment on above: Order Comment: Speci men Type: BLOOD SPECIMENOrdering Facility: [facility] Address: [address] [place] [address] Performed By: #### 5 7021-8 ####[facility] [id number] [place] [address] [place] Hemoglobin (Bld) [Mass/Vol] 9.1 g/dL Low 11.5-15.5 [facility] Comment on above: Order Comment: Speci men Type: BLOOD SPECIMENOrdering Facility: [facility] Address: [address] [place] [address] Performed By: #### 5 7021-8 ####[facility] [id number] [place] [address] [place] Immature granulocytes (Bld) [#/Vol] 0.04 10*3/uL Normal <0.10 [facility] Comment on above: Order Comment: Speci men Type: BLOOD SPECIMENOrdering Facility: [facility] Address: [address] [place] [address] Performed By: #### 5 7021-8 ####[facility] [id number] [place] [address] [place] Immature granulocytes/100 WBC (Bld) 0.6 % Normal [facility] Comment on above: Order Comment: Speci men Type: BLOOD SPECIMENOrdering Facility: [facility] Address: [address] [place] [address] Performed By: #### 5 7021-8 ####[facility] [id number] [place] [address] [place] Lymphocytes (Bld) [#/Vol] 1.20 10*3/uL Normal 1.00-4.00 [facility] Comment on above: Order Comment: Speci men Type: BLOOD SPECIMENOrdering Facility: [facility] Address: [address] [place] [address] Performed By: #### 5 7021-8 ####[facility] [id number] [place] [id number] [place] Lymphocytes/100 WBC (Bld) 18.8 % Normal [facility] Comment on above: Order Comment: Speci men Type: BLOOD SPECIMENOrdering Facility: [facility] Address: [address] [place] [address] Performed By: #### 5 7021-8 ####[facility] [id number] [place] [address] [place] MCH (RBC) [Entitic mass] 39.9 pg High 26.0-34.0 [facility] Comment on above: Order Comment: Speci men Type: BLOOD SPECIMENOrdering Facility: [facility] Address: [address] [place] [address] Performed By: #### 5 7021-8 ####[facility]ORY[facility] [id number] [place] [address] [place] MCHC (RBC) [Mass/Vol] 32.6 g/dL Normal 30.5-36.0 [facility] Comment on above: Order Comment: Speci men Type: BLOOD SPECIMENOrdering Facility: [facility] Address: [address] [place] [address] Performed By: #### 5 7021-8 ####[facility]ORY[facility] [id number] [place] [address] [place] MCV (RBC) [Entitic vol] 122.4 fL High 80.0-100.0 [facility] Comment on above: Order Comment: Speci men Type: BLOOD SPECIMENOrdering Facility: [facility] Address: [address] [place] [address] Performed By: #### 5 7021-8 ####[facility] [place] [id number] [place] [address] [place] Monocytes (Bld) [#/Vol] 0.61 10*3/uL Normal <0.87 [facility] Comment on above: Order Comment: Speci men Type: BLOOD SPECIMENOrdering Facility: [facility] Address: [address] [place] [address] Performed By: #### 5 7021-8 ####[facility] [id number] [place] [id number] [place] Monocytes/100 WBC (Bld) 9.6 % Normal [facility] Comment on above: Order Comment: Speci men Type: BLOOD SPECIMENOrdering Facility: [facility] Address: [address] [place] [address] Performed By: #### 5 7021-8 ####[facility] [id number] [place] [id number] [place] Neutrophils (Bld) [#/Vol] 4.45 10*3/uL Normal 1.45-7.50 [facility] Comment on above: Order Comment: Speci men Type: BLOOD SPECIMENOrdering Facility: [facility] Address: [address] [place] [address] Performed By: #### 5 7021-8 ####[facility] [id number] [place] [address] [place] Neutrophils/100 WBC (Bld) 69.8 % Normal [facility] Comment on above: Order Comment: Speci men Type: BLOOD SPECIMENOrdering Facility: [facility] Address: [address] [place] [address] Performed By: #### 5 7021-8 ####[facility] [id number] [place] [address] [place] Nucleated RBC (Bld) [#/Vol] 10*3/uL Normal <0.01 [facility] Comment on above: Order Comment: Speci men Type: BLOOD SPECIMENOrdering Facility: [facility] Address: [address] [place] [address] Performed By: #### 5 7021-8 ####[facility] [id number] [place] [address] [place] Nucleated RBC/100 WBC (Bld) [Ratio] 0.0 /100 WBC Normal [facility] Comment on above: Order Comment: Speci men Type: BLOOD SPECIMENOrdering Facility: [facility] Address: [address] [place] [address] Performed By: #### 5 7021-8 ####[facility] [id number] [place] [address] [place] Platelet mean volume (Bld) [Entitic vol] 9.5 fL Normal 9.0-12.7 [facility] Comment on above: Order Comment: Speci men Type: BLOOD SPECIMENOrdering Facility: [facility] Address: [address] [place] [address] Performed By: #### 5 7021-8 ####[facility] [id number] [place] [address] [place] Platelets (Bld) [#/Vol] 365 10*3/uL Normal 150-400 [facility] Comment on above: Order Comment: Speci men Type: BLOOD SPECIMENOrdering Facility: [facility] Address: [address] [place] [address] Performed By: #### 5 7021-8 ####[facility] [id number] [facility] [place] [address] [place] Platelets Estimate (Bld) [#/Vol] Adequate Normal [facility] Comment on above: Order Comment: Speci men Type: BLOOD SPECIMENOrdering Facility: [facility] Address: [address] [place] [address] Performed By: #### 5 7021-8 ####[facility] [id number] [place] [address] [place] RBC (Bld) [#/Vol] 2.28 10*6/uL Low 3.90-5.20 [facility] Comment on above: Order Comment: Speci men Type: BLOOD SPECIMENOrdering Facility: [facility] Address: [address] [place] [address] Performed By: #### 5 7021-8 ####[facility] [id number] [place] [address] [facility] CT RED CELL MORPH Reviewed: unremarkable Normal [facility] Comment on above: Order Comment: Speci men Type: BLOOD SPECIMENOrdering Facility: [facility] Address: [address] [place] [address] Performed By: #### 5 7021-8 ####[facility] [id number] [place] [address] [place] WBC (Bld) [#/Vol] 6.38 10*3/uL Normal 3.70-11.00 [facility] Comment on above: Order Comment: Speci men Type: BLOOD SPECIMENOrdering Facility: [facility] Address: [address] [place] [address] Performed By: #### 5 7021-8 ####[facility] [id number] [place] [address] [place] CTA ABD/PEL/LOWER EXT W IVCO Non 07-07-2024 CTA ABD/PEL/LOWER EXT W IVCON * * *Final Report* * * DATE OF EXAM: Jul 07 2024 3:30PM [facility] 0122 - CTA ABD/PEL/LOWER EXT [...] or hemodynamically significant stenosis. Right lower extremity: HOOD MAKER: Within normal limits. SFA: Within normal limits. Profunda: Within normal limits. Popliteal: Within normal limits. AT: Within normal limits. PT: Within normal limits. Peroneal: Within normal limits. Left lower extremity: HOOD MAKER: Within normal limits. SFA: Within normal limits. [...] correlate with clinical concerns for infectious/inflammatory processes. Cost Recorder: FRANDY Transcribe Date/Time: Jul 07 2024 4:09P Dictated by : MARY LUKE MD This examination was interpreted and the report reviewed and electronically signed by: MARY LUKE MD on Jul 07 2024 4:59PM EST [id number] Normal [facility] Comprehensive metabolic 2000 panelon 07-07-2024 Albumin [Mass/Vol] 2.8 g/dL Low 3.9-4.9 [facility] Comment on above: Order Comment: Speci men Type: BLOOD SPECIMEN [facility] Address: [address] [place] [address] Performed By: #### 3 3762-6, , #### [facility]IA [id number] [place] [address] [place] ALP [Catalytic activity/Vol] 118 U/L Normal 34-123 [facility] Comment on above: Order Comment: Speci men Type: BLOOD SPECIMEN [facility] Address: [address] [place] [address] Performed By: #### 3 3762-6, , #### [facility] CLIA [id number] [place] [address] [place] ALT [Catalytic activity/Vol] 29 U/L Normal 7-38 [facility] Comment on above: Order Comment: Speci men Type: BLOOD SPECIMEN [facility] Address: [address] [place] [address] Performed By: #### 3 3762-6, , #### [facility] CLIA [id number] [place] [address] [place] Anion gap [Moles/Vol] 5 mmol/L Low -15 [facility] Comment on above: Order Comment: Speci men Type: BLOOD SPECIMEN [facility] Address: [address] [place] [address] Performed By: #### 3 3762-6, , #### [facility] CLIA [id number] [place] [address] [place] AST [Catalytic activity/Vol] 65 U/L High 13-35 [facility] Comment on above: Order Comment: Speci men Type: BLOOD SPECIMEN [facility] Address: [address] [place] [address] Performed By: #### 3 3762-6, , #### [facility] CLIA [id number] [place] [address] [place] Bilirubin [Mass/Vol] 0.5 mg/dL Normal 0.2-1.3 [facility] Comment on above: Order Comment: Speci men Type: BLOOD SPECIMEN [facility] Address: [address] [place] [address] Performed By: #### 3 3762-6, , #### [facility] CLIA [id number] [address] [place] [address] [place] Calcium [Mass/Vol] 8.4 mg/dL Low 8.5-10.2 [facility] Comment on above: Order Comment: Speci men Type: BLOOD SPECIMEN [facility] Address: [address] [place] [address] Performed By: #### 3 3762-6, , #### [facility] CLIA [id number] [place] [address] [place] Chloride [Moles/Vol] 107 mmol/L Normal 98-107 [facility] Comment on above: Order Comment: Speci men Type: BLOOD SPECIMEN [facility] Address: [address] [place] [address] Performed By: #### 3 3762-6, , #### [facility] CLIA [id number] [address] [facility] [place] [address] [place] CO2 [Moles/Vol] 27 mmol/L Normal 22-30 [facility] Comment on above: Order Comment: Speci men Type: BLOOD SPECIMEN [facility] Address: [address] [place] [address] Performed By: #### 3 3762-6, , #### [facility] CLIA [id number] [place] [address] [place] Creatinine [Mass/Vol] 0.47 mg/dL Low 0.58-0.96 [facility] Comment on above: Order Comment: Speci men Type: BLOOD SPECIMEN [facility] Address: [address] [place] [address] Performed By: #### 3 3762-6, , #### [facility] CLIA [id number] [address] [place] [address] [place] Creatinine and Glomerular filtration rate.predicted panel (S/P/Bld) 108 mL/min/1.73m??? Normal >=60 [facility] Comment on above: Order Comment: Speci men Type: BLOOD SPECIMEN [facility] Address: [address] [place] [address] Result Comment: Sandar mated Glomerular Filtration Rate (eGFR) is calculated [...] Performed By: #### 3 3762-6, , #### [facility] CLIA [id number] [address] [facility] [place] [address] [place] Glucose [Mass/Vol] 90 mg/dL Normal 74-99 [facility] Comment on above: Order Comment: Speci men Type: BLOOD SPECIMEN [facility] Address: [address] [place], [place] [address] Result Comment: The [place] [employer] (ADA) provides guidance for cutoff [...] Standards of Medical Care in Diabetes 2016, [place] [employer]. Diabetes Care. 2016.39(Suppl 1). Performed By: #### 3 3762-6, , #### [facility] CLIA [id number] [address] [place] [address] [place] Potassium [Moles/Vol] 3.8 mmol/L Normal 3.7-5.1 [facility] Comment on above: Order Comment: Speci men Type: BLOOD SPECIMEN [facility] Address: [address] [place], [place] [address] Performed By: #### 3 3762-6, , #### [facility] CLIA [id number] [address] [place] [address] [place] Protein [Mass/Vol] 5.9 g/dL Low 6.3-8.0 [facility] Comment on above: Order Comment: Speci men Type: BLOOD SPECIMEN Order[facility]: [facility] Address: [address] [place], [place] [address] Performed By: #### 3 3762-6, , #### [facility] CLIA [id number] [address] [place] [address] [place] Sodium [Moles/Vol] 139 mmol/L Normal 136-144 [facility] Comment on above: Order Comment: Speci men Type: BLOOD SPECIMEN [facility] Address: [address] [place] [address] Performed By: #### 3 3762-6, 56753-5, 14339-2 #### [facility] CLIA [id number] [facility] [place] [address] Urea nitrogen [Mass/Vol] 13 mg/dL Normal 7-21 [facility] Comment on above: Order Comment: Speci men Type: BLOOD SPECIMEN Ordering Facility: [facility] Address: [address] [place] [address] Performed By: #### 3 3762-6, 42390-5, 15627-5 #### [facility] CLIA [id number] [place] [address] [facility] ED NOTEon 07-07-2024 ED NOTE HNO ID: [id number] Author: STACEY MALONE RN Service: ? Author Type: Registered Nurse Type: ED Notes Filed: 07/07/2024 17:40 Note Text: Pt discharge information reviewed with pt including follow up care, prescribed medication, and when to return to department. Pt verbalized understanding of information, had no further questions or concerns. Pt IV removed intact, site dressed. Pt ambulated out of department with spouse. Normal [facility] ED PROV NOTEon 07-07-2024 ED PROV NOTE HNO ID: [id number] Author: CHALINO TELLES MD Service: ? Author [...] (ANC) 4.45 Lymph% 18.8 Abs Lymph 1.20 Wallace% 9.6 Abs Wallace 0.61 Eosin% 0.9 Abs Eosin 0.06 Baso% [...] PM PAGER/CONTACT #: CHALINO TELLES 07/07/24 1717 [facility] ED PROV NOTE HNO ID: [id number] Author: KRISTINE SALAS DO Service: Emergency Medicine [...] progressive BLE pain, swelling, and difficulty walking. [id number] pain in her toes and feet. Has [...] Creatinine 0.47 (more content not included)... Normal [facility] ED Triage Noteon 07-07-2024 ED Triage Note HNO ID: [id number] Author: REGIS PAREDES MD Service: Emergency Medicine [...] from bedside clinician. SIGNATURE: Regis Paredes MD [facility] Magnesium SerPl-mCncon 07-07 Magnesium [Mass/Vol] 1.6 mg/dL Low 1.7-2.3 [facility] Comment on above: Order Comment: Speci men Type: BLOOD SPECIMEN Ordering Facility: [facility] Address: [address] [place] [address] Performed By: #### 3 3762-6, 80690-4, 02972-5 #### [facility] CLIA [id number] [facility]. [address] NT-proBNP [facility] 07-07 Natriuretic peptide.B prohormone N-Terminal [Mass/Vol] 594 pg/mL High <125 [facility] Comment on above: Order Comment: Speci men Type: BLOOD SPECIMEN Ordering Facility: [facility] Address: [address] [place] [address] Performed By: #### 3 3762-6, 07569-6, 42731-1 #### [facility] CLIA [id number] Vit B12 [facility] 024 Cobalamin (Vitamin B12) [Mass/Vol] 584 pg/mL Normal 232-1245 [facility] Comment on above: Order Comment: Speci men Type: BLOOD SPECIMEN Ordering Facility: [facility] Address: [address] [place] [address] Performed By: #### 2 132-9 #### [facility] CLIA [id number] [facility]. [address] [place] Coding Summaryon 06-16-2024 Coding Summary HTMLBase 64 AhfyaauhXOp3yOp+PGhlYWQ+P J3GCPNsK18xdWNtnO9qW8TCQI lOSywgQVBQTElOSyIgbmFtZT1 kaXNjZXJu IC8+AA8zUVHiVtzbmJRgg4G7h RC1A98gae8gTXyopIW3ABMcRs Ylkbkps1qyaYg9VIofZbpfBnG t JIZliO11OWX0qS35Se51hNLeq NDbz2ppjHj9ZzMtVBHrKGE1tH dvVThvv6TmGQLlE53unFOcf1Z 6 QVNlyLfomBJdUtZwoWY6yL4oL Uclnzpsz8swgklmGrv9bj93xT Gyz2B5tWQ8B3DbirE0CMEuiPY g EeauoILOtT4qasqoq9finmyaC kUlQZVfVXf1SYu8MUEthAzyRy XmIT83SMB9KHXfulXdN1GzSLD s hOuaAeY0n6Y6Tq8ID8POCtasZ 1VNTUFSWTwvdGQ+AN97vy90G2 WoPgmdAap8MEDuSAW3vBY3xU0 n TJNmXFcqm3P7hMF3Z7LbsfRmn y7ib3xdONHrPIsyL08ddGVfk0 O0MHUknVF5RRNksStsHmPbxH4 3 Oyc+FJWecZhsr6KlYjopm8mtq 0qmwOb4HkpmWLBtrvFxnOmxID F1r7RzEu6aJSQvcLH1nJO1hI4 i IbFmYcJ8FBloL047LlGotBYzX tlwN18dC4IvzFH+TDZnPug7FT AhgHqgJT9uN2IdETLhsupxkXY m gJipZI3aYUEldhneMRSxpX1oR MOwR7m0YvXbVpY1UFtwX4YiJM PxsbzwAw08oV0aDnFmDwM5LAg u Y3IhprV7ZECglDNxNSymFYV0L 50oc6S5QGRqJSPsTHX7nMT0cS 1hbGlnbjogbGVmdDsgdmVydGl j NFpyZOfnK725UNDbwYgxJdGsN GluZyBEYXRlOiAgMDkvMjQvMj AyNDwvdGQ+EKJgAEG0cYydSUF n hGQnNEcqFm3seXkbiVasDT2aT RZonmwrEIAwuJ9dNNCzjVKmpQ wuHY0vJCGsiunxe901FsVrMZX 0 KKKywMRtA1RfvF0yYkOpVVFrM WPyN2GdrMUrHAmfQ703CNvlLa O0RRIvplNtN2FpDUNjyGjkFpJ 0 l5D5Lb4Dh9XdyzaiX6ZrgGWqK iFfNwegAVw8C8PfEsoerWX+PC 02CHSbVT13PFy7PTT6qXktLUo i MKGuK1EtdQ7eIoLqZWYkBRApQ yc+PHRhYmxlIHdpZHRoPScxMD JmBeSlkEvpUI8yUu9iHNAmYVC v mRatfSPzMhLbq4dqKSSbDIieD Q1yjQulV9BjaLM3REAjo7u4Jv 85C56bY5NkyQP+XDDdsZX6uAR 0 pG4pBtEkCuS8DTmtH315ZqKuw LZuNfjqh9jgv7fjxLj0WeR7HE VaygWlbSuaQEU5x8InZs84Q05 s IHdpZHRoPSIxNSUiIHZhbGlnb w8xdQ4vBh0+SLKawVE5uCK6vX 3zBnDjJuG4BNpaX053GqBmcTY v Ralmq1bcv8fkyBe5FvRcIKXsn uTraRhqMGY8t4ObSw45O8OpmF eoh9QdJmq3fx08bJDro3S8mMJ 9 L0FnBVThspqvlFSsqZdcQA8fZ GPgnisqDRPvxC2pVVVaV1s3Nl PgLuC4ZJmyI1CzdkP5DWHulQA g GCCwsOXVdF2tbpdne1oteibfC uMpEJDyNSc5RKd7KRKlbQhbKj OyIWL1KyN8ALD4ePYbfA5tlVf n baggsZ4lJsr+WRP4oWJsvSYBK A5pRwqlmBM+RTCzMWS4dZcwIA niCTEyaS3jKRTiY8h7XeHxJqJ 1 VDaoD7FqexH6FSQlzSDyWKGqj KCMbQ9zyymfc5bxmhhcFdJvZG RcGGw6QQj7YOApaMklWlBcKVL 0 QpB9ENB6gZVqmS0yzIgrshfsb G9wOyc+AyweiGzgQFE0DSg1W2 ZjFkx5HHJheNgiTE0irLSkERb u Ut6dyJslrSzbYD9uQOCstuogu 181FmRqy9dcLWPnrULpTNjiJV J5Z95gj9C0GSLmXXUeKJY4wDU 4 dZ0nbTfywdodrGIzaVamdjHba PshDSuqJObpA139OLKmiHbvUk VnDSn1O7DmRjx7LUMzuSgsOH9 n fZFuMZkjRp4buHilyDswDJ2lA MSvbjeei822SpWho3jeJLXzcB YdXQhuZLF9M50rm0U3CGClVEI w NGC2tVM2zO3vmCxssqumcXTdh SxjgzEynVvqZDhlLGhmY483ID WhiTysSbPlcFf8B7HpOsl7PKC z sXsuCL9skIPfGQsnTg3ygAyqq AyhPL6oGLDdwrnvd124GwIup7 hdUMIsbFHhOTxgSJM8I38sj4W 6 PXJsGWLnYLX3hAT0qS5rlTuiw jogbGVmdDsgdmVydGljYWwtYW kcD588INHrrQocFyFeaZbleuX g PNkjLVw9E8EjVzypaXN+PC90Y CJdSR02nANvkZTtt0zmaPq8Zk TrYUClKTM0rMsyKYxxp5CeITQ t A60ciAMjp1H6JIEugYpctSFoZ zRltPQ5qZ3hJOnwvgqmf2aqpg fcBsuax9nmzq73yY56H46sUCz p IZMbUZWdTJFdRENklGrimf6qs G9wIi8+PROadHH4zNW4gX7xZG ObEbB3UYsdI747PwBmmYQnZjq j v0nyh2etxMs5YgA5BWEiqaRur WxfJDP6z8MrUf66D67mKNlaTD WkFVZtVJKnNVPpqRqpco4pfX2 w Ii8+UXLqhYC2vMT0yR8vNaFnO nT3FNazC331JtMykJHpGcmpK8 5lH7IwaOR+ESAmQde3XJEioUv s RR4nlGXlQGziTi5hEKN7JdNmV rGyWPrwR8UeZCPppwqtfabbjW U7GXVlSHBxvC80Jv6ceSfbESA w aHKYdA0augfpz6kneaybBiEoH MBaCXm6QOu4TGPufWwaXaZdSM Q2CrC3POQ7zFWlcD3jsInbjxn g iM2kX8WmXICcsyexEf88eQ2uK nTuCbS8GQmyJoo+SEVNTUVSLC WRDEMVFMm6W1GxWhl3LECahTk s ZU3vqOXqZJloMg5ooMftlXhmE S5tYOZyuzhnNBJjjK9vUXSvgI JxrFvyEI3xLDFjisdiu105NrU x WAF1FPDysHCkY5GsxW4wDzNrL UCiGCScT8YymOKcQJdrY213LF duNmV9PPToqsVgN0NjNKXefWi u NbK1z4N3Jn8jUj1bJE4uLZPiE U94QE96mQUzw6H5wSN0Y7CgXB NavccclrlgiYP1FHDcJLFbsH4 7 zYMnNUiqOp5ra1J9q994KJBoD YBfkL26Ki8ydImtZKEdmWOBiY 7tzbvot1qnvsabZzZzYQVrXIx 0 IVk2OMRpzVpcTfIsMBY9SxJ8D YX6dKClxX2gtIvitzsvuE8sDp c+YaQtQKRmpjT2G8CdReo3IVD z rOovDV0spHPePQktNf3feEivz FhxFR3xTLKiqpceOIVfaA4qEN OfmHYlkWuuTW7lKXYufnsdp45 0 PqBzBPK9TYOuuYYjU3XfwV1hK sCaFIFmTUYaB7NlpQYiCYnmX5 07VWghWwE8LXJmbdEcJ5GcIDE s pVccXxP2z0F5Pj3UHD4SNLX0B 2LdRjf2JPPqsWcqYJ5qiCScVR ueSq3alWkqxSzrQC1xHEAapnb w USNsbI3rKISzyTQddAcsPD5iV HCjjydnk311EyUfIAK6LKBbjW KrR3JmqI8fPgPiPIVzHTQuC6P l sBLkKQedB013KStqFkX1MYXdy zQfL0KdIMMtmXdhEoW2e6J8Er 5PUDwvdGQ+BS93hs58B3VbRps l Jum1VEPtSBJ6cDV8vN1xOLXgJ Lfwk3I6kYT6L7IkxzFjiy4ws9 wlWFYaECdiP80daBZgw5Q5ACF t iWK1JANmeJviTkLcaH08Cnx+P ICgjQaws7UqJohab5hzm3tapG e5ItKbBYEoajDfoOxvROL1k1B i Vk54C72cMGlzUSKrFRXcZWXmU ALdoPoryt5zvG7gXo9+PGNvbC U1iWZ9hO0mWlXwGdF3EJegJ63 9 ZqQtcDNnEmvew3jxs6wsjWd9J iAwNRDwfoQnoYqwVRP5n5OkKd 51J4JffPkbn5XnXeb9ca05jQI g h1A1yML5B9SfNXFzuupvbAAzl JtdLV3dIWLaxorhLYFcgD5qMO MwV1z1JyDpDtI0ERloD5NridH 6 ZFIjoCEkIHMzkWVAcR9huivgz 5goixdfHrVsLTYhYYu9QLq4VE ViiZplMhKgRUE9LwA3MPQ1fXH h uR6lzRbvlnwzwQ4gJun+UGh5c 7qilALvUW5pgZU4CF78AE76gW Muv8E3wTS8P2AbOMMqwuysaxp n pBX7JOXqPDQcaX27Yj0wkOkwE i0wJEKhGZU1ZHVhrQKtM2DdjB 3jAoFjXXFeRRFmN8VagIUsBGh p F677GNbwCaO8JHTcuvWjL8TeA DWbzYeyDlS3l1N1Xj2ZRF76RO 17LI90jRSqa4X9kBE7J0OiCUF p efhzqtqquGP6JPQjTUXlmH02X q3nbTntOc7rIRAtRJU6EGJwyI YuL2OsfX9uAdIsJPKtFPIlC1S l fUPgNHyaZ969PWpeZnI1POVbi mRnA0ZwHOItyEnhNaG9k7U9Fa 1AVi56DE00VB54zYUmv9B0bHO 9 S2XsUIYaasswdotnrWS7KNAzE VCfaO19Tb1enDyjBq2uCDXfMZ D4YQFrxZNzA2GboX3zFcMxMMK w CAHqR8OehJJcFQvbA844JSxpB nO3LXFcwzEmZ4SzTEYwlMcqQv O8g7K2Bw5LKUwpuun6H5DtLnh v dHI+LQ22HLVfJV85eBBuxDPlj 2iinTn2UdGuXGTgKCE0kWfiES ndz4DqXGRbR63isZHma0B6SBR v bGx (more content not included)... Normal [facility] Activated partial thrombopla stin time (aPTT) in platelet poor plasma by coagulation aOrdered By: Ray Minor on 06-15-2024 aPTT Coag (PPP) [Time] 29.3 s 25.1-36.5 [facility] Comment on above: A hematocrit value g reater than 55% may lead to inaccurate results in coagulation testing. Patients having hematocrit values >55% require a special collection tube for coagulation studies. Please contact the laboratory at [phone] for redraw instructions. Alanine aminotransferase [En zymatic activity/volume] in Serum or PlasmaOrdered By: Ray Minor on 06-15-2024 ALT [Catalytic activity/Vol] 46 U/L Normal 7-52 [facility] Comment on above: Performed By: #### C RAJ MG, CBC #### [facility] [address] Albumin [Mass/volume] in Ser um or Plasma by Bromocresol green (BCG) dye binding methoOrdered By: Ray Minor on 06-15-2024 Albumin BCG dye [Mass/Vol] 3.8 g/dL 3.5-5.7 [facility] Alkaline phosphatase [Enzyma tic activity/volume] in Serum or PlasmaOrdered By: Ray Minor on 06-15-2024 ALP [Catalytic activity/Vol] 113 U/L High 34-104 [facility] Comment on above: Performed By: #### C MP MG, CBC #### [facility] [address] [place] [address] Anisocytosis [Presence] in B lood by Light microscopyOrdered By: Ray Minor on 06-15-2024 Anisocytosis Ql (Bld) Slight Normal [facility] Comment on above: Performed By: #### C MP MG, CBC #### [facility] [address] [place] [address] Aspartate aminotransferase [ Enzymatic activity/volume] in Serum or PlasmaOrdered By: Ray Minor on 06-15-2024 AST [Catalytic activity/Vol] 112 U/L High 13-39 [facility] Comment on above: Performed By: #### C MP MG, CBC #### [facility] [address] [place] [address] Automated basophil %Ordered By: Ray Minor on 06-15-2024 Basophils/100 WBC (Bld) 0.3 % Normal . [facility] Comment on above: Performed By: #### C MP MG, CBC #### [facility] [address] [place] [address] [place] Automated basophil countOrde red By: Ray Minor on 06-15-2024 Basophils (Bld) [#/Vol] 0.0 10*3/uL Normal 0.0-0.2 [facility] Comment on above: Performed By: #### C MP, MG, CBC #### [facility] [address] [place] [address] Automated blood monocyte cou ntOrdered By: Ray Minor on 06-15-2024 Monocytes (Bld) [#/Vol] 0.6 10*3/uL Normal 0.0-0.8 [facility] Comment on above: Performed By: #### C MP, MG, CBC #### [address] Automated eosinophil %Ordere d By: Ray Minor on 06-15-2024 Eosinophils/100 WBC (Bld) 0.2 % Normal . [facility] Comment on above: Performed By: #### C MP, MG, CBC #### [address] Automated eosinophil countOr dered By: Ray Minor on 06-15-2024 Eosinophils (Bld) [#/Vol] 0.0 10*3/uL Normal 0.0-0.45 [facility] Comment on above: Performed By: #### C MP, MG, CBC #### [address] Automated monocyte %Ordered By: Ray Minor on 06-15-2024 Monocytes/100 WBC (Bld) 8.7 % Normal . [facility] Comment on above: Performed By: #### C MP, MG, CBC #### [facility] [address] [place] [address] Automated neutrophil %Ordere d By: Ray Minor on 06-15-2024 Neutrophils/100 WBC (Bld) 69.7 % Normal . [facility] Comment on above: Performed By: #### C MP, MG, CBC #### [address] BNP ser/plasOrdered By: Eduardo Minor on 06-15-2024 Natriuretic peptide B (Bld) [Mass/Vol] 74.0 pg/mL Normal 5-100 [facility] Comment on above: Result Comment: PERF ORMED BY: [place] [address] PATHOLOGIST PHOTOGRAPHIC SUPERVISOR ELINOR CAVAZOS M.D. Performed By: #### C MP, MG, CBC #### [address] Bilirubin.total [Mass/volume ] in Serum or PlasmaOrdered By: Ray Minor on 06-15-2024 Bilirubin [Mass/Vol] 0.9 mg/dL Normal 0.3-1.0 [facility] Comment on above: Performed By: #### C MP, MG, CBC #### [address] C reactive protein [Mass/vol ume] in Serum or PlasmaOrdered By: Ray Minor on 06-15-2024 CRP [Mass/Vol] 4.2 mg/dL High 0.0-0.5 [facility] C-Reactive Proteinon C-Reactive Protein 4.2 mg/dL High 0.0-0.5 [facility] Comment on above: Result Comment: PERF ORMED BY: [place] [address] PATHOLOGIST PHOTOGRAPHIC SUPERVISOR ELINOR CAVAZOS M.D. Performed By: #### C MP, MG, CBC #### [address] Calcium [Mass/volume] in Ser um or PlasmaOrdered By: Ray Minor on 06-15-2024 Calcium [Mass/Vol] 9.1 mg/dL Normal 8.6-10.3 [facility] Comment on above: Performed By: #### C MP, MG, CBC #### [facility] [address] [place] [address] Carbon dioxide, total [Moles /volume] in Serum or PlasmaOrdered By: Ray Minor on 06-15-2024 CO2 [Moles/Vol] 26.4 mmol/L Normal 21.0-31.0 [facility] Comment on above: Performed By: #### C MP, MG, CBC #### [address] [address] [place] Chloride [Moles/volume] in S papi or PlasmaOrdered By: Ray Minor on 06-15-2024 Chloride [Moles/Vol] 93 mmol/L Low 98-107 [facility] Comment on above: Performed By: #### C MP, MG, CBC #### [facility] [address] [place] [address] Comprehensive Metabolic Pane sandrine 06-15-2024 Albumin [Mass/Vol] 3.8 g/dL Normal 3.5-5.7 [facility] Comment on above: Performed By: #### C MP, MG, CBC #### [facility] [address] [place] [address] Creatinine Clr Calc Pharmacy 58.90 Normal [facility] Comment on above: Performed By: #### C MP, MG, CBC #### [address] GFR/1.73 sq M.predicted MDRD (S/P/Bld) [Vol rate/Area] mL/min/{1.73_m2} Normal [facility] Comment on above: Performed By: #### C MP, MG, CBC #### [facility] [address] [place] [address] Creatinine [Mass/volume] in Serum or PlasmaOrdered By: Ray Minor on 06-15-2024 Creatinine [Mass/Vol] 0.87 mg/dL Normal 0.60-1.20 [facility] Comment on above: Performed By: #### C MP, MG, CBC #### [facility] [address] [place] [address] ECG 12 lead ECGon 06-15-2024 ECG 12 lead ECG [facility] [place] [address] [place] [address] Electrocardiograph Report Signed Patient: Telma Person MR#: [id number] : 1960 Acct:[id number] Age/Sex: 63 / F ADM Date: 06/15/24 Loc: ER Room: Type: [facility] ER Attending Dr: Ordering Provider: Ray Minor [...] sinus rhythm Confirmed by Franklin BOSTON DO ([id number]) on 06/15/2024 4:08:53 PM Referred By: Electronically Signed By: Franklin BOSTON DO Transcribed By: MUS Signed By Franklin Boston DO 0 06/15/24 1608 Normal [facility] Erythrocyte Sedimentation Ra tavon 06-15-2024 ESR (Bld) [Velocity] 29 mm/h Normal 0-29 [facility] Comment on above: Result Comment: PERF ORMED BY: [place] [address] PATHOLOGIST PHOTOGRAPHIC SUPERVISOR ELINOR CAVAZOS M.D. Performed By: #### C MP, MG, CBC #### [facility] [address] [place] [address] Erythrocyte distribution wid th [Ratio] by Automated countOrdered By: Ray Minor on 06-15-2024 Erythrocyte distribution width (RBC) [Ratio] 14.7 % Normal 11.9-15.3 [facility] Comment on above: Performed By: #### C MP, MG, CBC #### [facility] [address] [place] [address] Erythrocyte sedimentation ra te by Photometric methodOrdered By: Ray Minor on 06-15-2024 ESR Photometric method (Bld) [Velocity] 29 mm/hr 0-29 [facility] Erythrocytes [#/volume] in B lood by Automated countOrdered By: Ray Minor on 06-15-2024 RBC (Bld) [#/Vol] 3.18 10*6/uL Low 3.60-5.00 [facility] Comment on above: Performed By: #### C MP, MG, CBC #### [facility] [address] [place] [address] [place] Glucose [Mass/volume] in Ser um or PlasmaOrdered By: Ray Minor on 06-15-2024 Glucose [Mass/Vol] 101 mg/dL High 70-100 [facility] Comment on above: ADA recommended refe rence rangeRandom Glucose Reference Range is dependent on time and content of last meal. Glucose of more than 200 mg/dL in a nonstressed, ambulatory subject supports the diagnosis of Diabetes Mellitus. Result Comment: [place] om Glucose Reference Range is dependent on time and content of last meal. Glucose of more than 200 mg/dL in a nonstressed, ambulatory subject supports the diagnosis of Diabetes Mellitus. ADA recommended reference range Performed By: #### C MP, MG, CBC #### [facility] [address] Hematocrit [Volume Fraction] of Blood by Automated countOrdered By: Ray Minor on 06-15-2024 Hematocrit (Bld) [Volume fraction] 36.7 % Normal 34.0-46.4 [facility] Comment on above: Performed By: #### C MP, MG, CBC #### [facility] [address] Hemoglobin [Mass/volume] in BloodOrdered By: Ray Minor on 06-15-2024 Hemoglobin (Bld) [Mass/Vol] 12.7 g/dL Normal 11.8-15.4 [facility] Comment on above: Performed By: #### C MP, MG, CBC #### [facility] [address] Hypochromia LM Ql (Bld)Order ed By: Ray Minor on 06-15-2024 Hypochromia Ql (Bld) Slight [facility] INR in Platelet poor plasma by Coagulation assayOrdered By: Ray Minor on 06-15-2024 INR Coag (PPP) [Relative time] 0.9 {INR} Normal [facility] Comment on above: INR Therapeutic [...] By: #### C MP, MG, CBC #### [facility] [address] Leukocytes [#/volume] correc saida for nucleated erythrocytes in Blood by Automated counOrdered By: Ray Minor on 06-15-2024 WBC corrected for nucl RBC Auto (Bld) [#/Vol] 6.6 10*3/uL 3.8-11.6 [facility] Leukocytes [#/volume] in Blo od by Automated countOrdered By: Ray Minor on 06-15-2024 WBC (Bld) [#/Vol] 6.6 10*3/uL Normal 3.8-11.6 [facility] Comment on above: Performed By: #### C MP, MG, CBC #### [facility] [address] [place] [address] [place] Lymphocytes [#/volume] in Bl ood by Automated countOrdered By: Ray Minor on 06-15-2024 Lymphocytes (Bld) [#/Vol] 1.4 10*3/uL Normal 1.00-4.8 [facility] Comment on above: Performed By: #### C MP, MG, CBC #### [facility] [address] [place] [address] [place] Lymphocytes/100 leukocytes i n Blood by Automated countOrdered By: Ray Minor on 06-15-2024 Lymphocytes/100 WBC (Bld) 21.1 % Normal . [facility] Comment on above: Performed By: #### C MP, MG, CBC #### [facility] [address] [place] [address] [place] MCH [Entitic mass] by Automa saida countOrdered By: Ray Minor on 06-15-2024 MCH (RBC) [Entitic mass] 40.1 pg High 24.7-34.3 [facility] Comment on above: Performed By: #### C MP, MG, CBC #### [facility] [address] [place] [address] MCHC Auto (RBC) [Mass/Vol]Or dered By: Ray Minor on 06-15-2024 MCHC (RBC) [Mass/Vol] 34.7 g/dL 32.0-35.0 [facility] MCV [Entitic volume] by Auto mated countOrdered By: Ray Minor on 06-15-2024 MCV (RBC) [Entitic vol] 115.5 fL High 80-100 F [facility] Comment on above: Performed By: #### C MP, MG, CBC #### [facility] [address] [place] [address] Macrocytes LM Ql (Bld)Ordere d By: Ray Minor on 06-15-2024 Macrocytes Ql (Bld) Moderate [facility] Monocyte distribution width [Entitic volume] in Blood by AutomatedOrdered By: Ray Minor on 06-15-2024 Monocyte distribution width Auto (Bld) [Entitic vol] 22.87 % High 0.00-20.00 [facility] Comment on above: For adults in ED, MD W > 20.0 may be associated with a higher risk of sepsis during the first 12 hrs of hospital admission Neutrophils [#/volume] in Bl ood by Automated countOrdered By: Ray Minor on 06-15-2024 Neutrophils (Bld) [#/Vol] 4.6 10*3/uL Normal 1.8-7.7 [facility] Comment on above: Performed By: #### C MP, MG, CBC #### [facility] [address] [place] [address] No Panel InformationOrdered By: Ray Minor on 06-15-2024 CBC Comment See comment [facility] Comment on above: There is significant macrocytosis present. Causes of macrocytosis include vitamin B12 and/or folate deficiency, liver disease, hypothroidism, chemotherapy, reticulocytosis, and myelodysplasia. Estimated GFR (CKD-EPI) > 60.0 mL/Min [facility] Creatinine Clearance (Chem 58.90 [facility] Nucleated erythrocytes [Pres ence] in Blood by Automated countOrdered By: Ray Minor on 06-15-2024 Nucleated RBC Auto Ql (Bld) 0.4 /100{WBC} 0-0.5 [facility] Partial Thromboplastin Timeo n 06-15-2024 aPTT Coag (Bld) [Time] 29.3 s Normal 25.1-36.5 Th e [facility] Comment on above: Result Comment: A he matocrit value greater than 55% may lead to inaccurate results in coagulation testing. Patients having hematocrit values >55% require a special collection tube for coagulation studies. Please contact the laboratory at [phone] for redraw instructions. PERFORMED BY: [place] [address] PATHOLOGIST PHOTOGRAPHIC SUPERVISOR ELINOR CAVAZOS M.D. Performed By: #### C MP, MG, CBC #### [facility] [address] [place] [address] Platelet adequacy [Presence] in Blood by Light microscopyOrdered By: Ray Minor on 06-15-2024 Platelets LM Ql (Bld) Normal Normal [facility] Platelet mean volume [Entiti c volume] in Blood by Automated countOrdered By: Ray Minor on 06-15-2024 Platelet mean volume (Bld) [Entitic vol] 7.7 fL Normal 6.3-10.7 [facility] Comment on above: Performed By: #### C MP, MG, CBC #### [facility] [address] [place] [address] Platelet morphology finding [Identifier] in BloodOrdered By: Ray Minor on 06-15-2024 Platelet morphology finding Nom (Bld) Normal Normal [facility] Platelets [#/volume] in Bloo d by Automated countOrdered By: Ray Minor on 06-15-2024 Platelets (Bld) [#/Vol] 381 10*3/uL Normal 150-450 [facility] Comment on above: Performed By: #### C MP, MG, CBC #### [facility] [address] [id number] [facility] Polychromasia [Presence] in Blood by Light microscopyOrdered By: Ray Minor on 06-15-2024 Polychromasia LM Ql (Bld) [facility] Potassium [Moles/volume] in Serum or PlasmaOrdered By: Ray Minor on 06-15-2024 Potassium [Moles/Vol] 4.9 mmol/L Normal 3.5-5.1 [facility] Comment on above: Performed By: #### C MP, MG, CBC #### [address] Protein [Mass/volume] in Ser um or PlasmaOrdered By: Ray Minor on 06-15-2024 Protein [Mass/Vol] 7.1 g/dL Normal 6.4-8.9 [facility] Comment on above: Performed By: #### C MP, MG, CBC #### [address] Prothrombin time (PT)Ordered By: Ray Minor on 06-15-2024 PT Coag (PPP) [Time] 10.6 s Normal 9.0-12.9 [facility] Comment on above: A hematocrit value g reater than 55% may lead to inaccurate results in coagulation testing. Patients having hematocrit values >55% require a special collection tube for coagulation studies. Please contact the laboratory at [phone] for redraw instructions. Result Comment: A he matocrit value greater than 55% may lead to inaccurate results in coagulation testing. Patients having hematocrit values >55% require a special collection tube for coagulation studies. Please contact the laboratory at [phone] for redraw instructions. Performed By: #### C MP, MG, CBC #### [facility] [address] [place], [place] [id number] [facility] RBC morphologyOrdered By: Bharath Minor on 06-15-2024 RBC morphology finding Nom (Bld) N/A [facility] Red blood cell stomatocyte d etectionOrdered By: Ray Minor on 06-15-2024 Stomatocytes LM Ql (Bld) [facility] Scan and CBCon 06-15-2024 Additional Comments Normal [facility] Comment on above: Result Comment: Ther e is significant macrocytosis present. Causes of macrocytosis include vitamin B12 and/or folate deficiency, liver disease, hypothroidism, chemotherapy, reticulocytosis, and myelodysplasia. PERFORMED BY: [place] [address] PATHOLOGIST PHOTOGRAPHIC SUPERVISOR ELINOR CAVAZOS M.D. Performed By: #### C MP, MG, CBC #### [address] Hypochromasia Slight Normal [facility] Comment on above: Performed By: #### C MP, MG, CBC #### [address] Macrocytosis Moderate Normal [facility] Comment on above: Performed By: #### C MP, MG, CBC #### [address] Mean Corpuscular HGB Conc 34.7 g/dL Normal 32.0-35.0 [facility] Comment on above: Performed By: #### C MP, MG, CBC #### [address] Monocytes/100 WBC (Bld) 22.87 % High 0.00-20.00 [facility] Comment on above: Result Comment: For adults in ED, MDW > 20.0 may be associated with a higher risk of sepsis during the first 12 hrs of hospital admission Performed By: #### C MP, MG, CBC #### [address] NRBC% 0.4 /100{WBC} Normal 0-0.5 [facility] Comment on above: Performed By: #### C MP, MG, CBC #### [address] Platelet Estimate Normal Normal Normal [facility] Comment on above: Performed By: #### C MP, MG, CBC #### [address] Platelet Morphology Normal Normal Normal [facility] Comment on above: Performed By: #### C MP, MG, CBC #### [address] Polychromasia Slight Normal [facility] Comment on above: Performed By: #### C MP, MG, CBC #### [address] Stomatocytes Slight Normal [facility] Comment on above: Performed By: #### C MP, MG, CBC #### [address] Serum globulin measurement b y calculation (mass/volume)Ordered By: Ray Minor on 06-15-2024 Globulin (S) [Mass/Vol] 3.3 g/dL Normal [facility] Comment on above: Performed By: #### C MP, MG, CBC #### [address] Serum or plasma albumin/glob ulin mass ratioOrdered By: Ray Minor on 06-15-2024 Albumin/Globulin [Mass ratio] 1.2 {ratio} Normal [facility] Comment on above: Performed By: #### C MP, MG, CBC #### [address] Serum or plasma anion gap de terminationOrdered By: Ray Minor on 06-15-2024 Anion gap [Moles/Vol] 15.5 mmol/L High 6.0-15.0 [facility] Comment on above: Performed By: #### C MP, MG, CBC #### [address] Sodium [Moles/volume] in Ser um or PlasmaOrdered By: Ray Minor on 06-15-2024 Sodium [Moles/Vol] 130 mmol/L Low 136-145 [facility] Comment on above: Performed By: #### C MP, MG, CBC #### [address] Urea nitrogen [Mass/volume] in Serum or PlasmaOrdered By: Ray Minor on 06-15-2024 Urea nitrogen [Mass/Vol] 20 mg/dL Normal 7-25 [facility] Comment on above: Performed By: #### C MP, MG, CBC #### [facility] [address] [id number] [facility] XR chest 2V*on 06-15-2024 XR chest 2V* [facility] [address] [place] [address] [place] [address] XRay Report Signed Patient: Telma Person MR#: [id number] : 1960 Acct:[id number] Age/Sex: 63 / F ADM Date: 06/15/24 [...] George Jr., D.O.06/15/2024 12:38 PM Dictation Location: [place] [address] Transcribed By: [facility] 06/15/24 1238 Dictated By: Ray George Jr, DO 06/15/24 1237 Signed By: 06/15/24 1238 Normal [facility] Coding Summaryon 05-28-2024 Coding Summary HTMLBase 64 WrwtixttULl5lEm+PGhlYWQ+P H8DIDZaZ21hxLCcuY2vM9UCZO lOSywgQVBQTElOSyIgbmFtZT1 kaXNjZXJu IC8+XR2vRYEnHrihfYObu7P1o RR0D65hiy8oSRbimDE5TXLmOb Cykxsym3absQd9SFtxBnelVvB t QFAbbU50YVY4dR26Kt28tSSmn YVer8alzCs1HiBtMWQqAXQ5yU clGLuci1MkUOTmE67ezTWhl6D 6 IZEruFsvwORaRsYhrZS2iC5aN Rcdydxzy3xmzkpmPod9rs31dM Ksf7A8yMQ6I2UyssI0QDRetGJ g DgghxHHXbF7ttvfoc1zlklnsI yEvKQFmURb4IXe8SDNclSbdZi KiXU07THG4FHVphySoY0SsSMK s vAypVxX4p1V7Tb2PH0NQBwxjD 1VNTUFSWTwvdGQ+PD76ad60N5 BuLedgTqa6NIYsTJQ9fIZ5qA9 n ASPmHMihn6V6iHU6U6AfrvUsv d8lb0qnXOMdZJmrG94hmNLzp9 G9FKAmpVC3KPIbpPoqSeEixD7 3 Oyc+WMAseVbue6SlZqvku2mql 2hdfKf7OenbDBRlhjYqeAfyIP D4z4IjQu2tZTNbvDV1oDO4wD4 i PuMmXgZ9YVrkT600UqDoxQThT ykkM64rK3LvqCS+CGKtHyr6AU TahJziLH1oJ3ZkMAZmozrreUJ m yRqtAH1bHNIeoyxoTMNmaF5wH YXuA9n5KmKiYuS3XTabI0CgSX UmeufgXu53pQ6qAaIjIcG9ZCa u S8JhmuS2CUQyzIUzYGzhUQA9D 86in9G6RTWuLYAkWFA9qUT5bI 1hbGlnbjogbGVmdDsgdmVydGl j NKldRYclX955HLJlnLvfEzDuI GluZyBEYXRlOiAgMDkvMDUvMj AyNDwvdGQ+XCZoOED1nWltQDN n gIQwOOrxGe6iwIiodHjdJN1dG NOnznruSIUcdH5gBRRprHNkwY fhHE5aAEGuvhxyf716GrLeKIZ 0 ZDLmvUXdN3JvvV5pEkGpEQXsH ZRoQ6PjqAKmOXctC926EQjpGq F5JGUglbHbV7KfOMIxyGriWdA 0 h3N8Do8Rs3CnrcxnA7PnrNWmJ mVnJrrxMGb9D6NkFqaewXX+PC 80LLZbTQ29TUt3DGZ0eIbyHGr i WVEmM3CeeC5sFmGtEKGvQUEtZ yc+PHRhYmxlIHdpZHRoPScxMD YwCaResBvlGE0tEo5oVZCjZYS v sMxmiZAzPjGds3rlUKFsHBcnE A7siToyJ6BzvZA1IBXhr0y4Ai 21A50jW7FmvBP+DBMvaDP8iSF 0 iT4jNlCnFoJ5QWwvF160RpFao BNxLehgs6qsr6rjbNb2DoI2WF GzgpTknIkzNJW1r0IvQb06V12 s IHdpZHRoPSIxNSUiIHZhbGlnb r6bwS8cHs7+KHZwqKZ1gFV7nJ 1cYjRmLuU1UWynA331SdPxxAH v Kqzut7unl4dmqTm7AeBlSSWdc nBmeXngYNY7y1YkNa93J0EirL aij9NiHhn6we34dOWhu9B1sAK 9 M3HaVMSaocaerDGotJpxRE7tJ MCcwreaXPWoiU2sKVPqB7m0Fp BoFtP0SVthC0IctfF8PJAmaWH g DISupHOIyI7gcltdh1vrdekwP nXlPXNgPQq4RTn1EJMwuGveMj IkHKO0KfX5UEA6rDMypZ7luTs n owuidM0xAlz+HWV4iMNujRMUG I9cZqshaHJ+EZRtGZG9fGhnKF wwHOBplF0vATTtL3j8OnEzLoA 1 JMszE7RrrxH2AWGugQTaJJTat NUCaY2djgrao0cygkkrEsPwLH FrEYx1WGm2EZRpbThlBlTuVGK 0 PeY9ACY8aASpuT6fwRiazindq G9wOyc+LierpSglIDD4ZIt8K1 OpOwr5NNQccVlrQQ2ylDYzRHs u Cw5cuOtmxCsjRD4nWZNeuscqx 692BtIxu1lgFCDpvHRiGCapJL U2V75hb4S2XCUtHNBoUCM6vUL 4 fT8gbYwqyfbwoELflRoiocZbw SlgOZnzXGnoK016LHEfeCpsKa OyIUb5K7NnCft1CUEzjHvsUL1 n nORhCDvyGz0yyOktkKuoAK7oV YTykqsku717WlYqe9riYLBrvV WkEMzePKO4V03eq5U9GFEfCYK w LTG1jQD0oN8tkPhtfqjhjPGif IkboiGmqZrbFPexYJvmR690PC EirGbpEsNpsWv4I2UdGuu7QOQ z sPqiFT1jgOFeSWzdZf6oeApbp ExdAW5wIDVwcfdiq697BeBgr5 nvMJDkmIJlXIsuGIK3G18yc2M 6 IAFaBMLbYJJ1pPY2lQ0lwQjok jogbGVmdDsgdmVydGljYWwtYW qyC740ADOhzFgcWqBnyDdltzS g JSjyEKv5E8OqIpghwNF+PC90Y HViUJ71hAFsbNVxg1sbjJa6Ba OrSCYyWRH1jYxxZWqch1RgMNM t S23poHNld2A3UCXwgAbxbRRmY uEyiGC6hQ7dENmdgvnlk3xcen cbGbbql3yfzx20pG42D78aIDq p AOFrKNJwJGNyDHBhzRthyb7rt G9wIi8+NRYiaFV2yXI5jQ6eHF AfNzB5NNgmE969XlXjaGNpReb j k3ywe3owpQg7NaN2TGVbrnZav WemCPX4d1WkRq05O56zTOotWI UqWEQyYEHcJJEfuJwxzv3ikV6 w Ii8+JYPinXW1zFZ1jH9mSzTtG dY5AQxmK786LuObdRPkAoqbD5 9vC8WvyOX+QFYcRgm6VXMxuQp s MS4vmALbRYcqIn0xVCC3RaSnP aJxCKjiP4YhEJFsqgctwbmfgZ M0QRVlAIPvdN98Nj6lcFjqICI w tIGZiR0xsolnn1mhfumvLhJoL MHlMCv1OCj9BSMcdCcmJrMfAZ X3SxP5VDL4lDJocA9mtMmhhgz g oE4eA7IyLRDfnrllMz97kN0pH xWmQoP6LUzeQki+SEVNTUVSLC VQAPETYId6Q9KaCqj9YMSouJw s OU2gmWItHMmzGk5xnPmbuXtzK G8kBBSujmajZCCzrQ4ySHEunA NxqVxqZV6gKKSchhqdq944EfA x RLO6UOWowXLmT2NshQ4bRvSiV DWsQTFiI1IogYReBFurE157VH iwKjR2PEUvpbZhJ4TzRYOohNs u ErQ7u1P3Pi2aNy5vEV4mEOWsV K43JK83xQWzx0X7nDO2I0UhXI RhhripmnmmgDM4VPZbWFQzmD3 7 yIMcLEdvEh5aw8S0s624BGDgE KMrlM77Fp7djValQDZzfIOSgO 2abexpq3lyiugmEdEwSSXcVVl 0 UZd2RHFztFzoTtTgLUN1HxN9Y AL4qMMmfS4wxJhnmridcI0hQt c+UfBdREHqpnK2I1KrUzt4RAF z zYylVL8jkHKcSQjaXt5llLdhk CbvGO4iKJUjesnlNXTqeQ5zMS LrqEBqiViwNL6dPQOohoxzx49 0 RtQfXFT5ULDkiZMhS8ZkbS7kJ tEnZZVmJVFlD0DtnLLoFIueP6 49ZFkuCsJ3FUQvyeKzY4BkAZJ s nVaaMtF8i2D9Qx3GMS1EMSW3B 6QuGhg9WDMlaMzyTN8nrEDfGE wcHw4jbVmcoSupUI0eXBKnqjd w XKZhhI7cKNVwxYSqkFlzOD3tA CVmlgney531RjWyKHV0JSRfvS HiY4FmmL5uJsHtZVBaBIJvH3W l oEQrATcxQ893ONhjCtI8BICig iRaS2JwRUWzlNatKlN7k9D6Ss 5OcILoS6MvV8x8C9QrHqemfWK + UH61QGFiRV80lPYtcYXwe4iwp Ex5BhQlADAvEXJ9rIqbEBatp7 HdTDPyK77wxOIfb3T1ODWfoSd h yRMwBkVadZO4wQ5yAMiofviez 8lubfvhWmmgf1tydj22bE84D6 9sIHdpZHRoPSIzMCUiIHZhbGl n xw3wrE1vPv5+YHOymCY5gOA6i F4uRrRfKrS9YMvkU559TgWzfF DeBxhrf5iew6ndpXg0SaFlZAZ g kdIbuHwoPKM6z0WzYw78M45cE HdpZHRoPSIyMCUiIHZhbGlnbj 9aeV6pXe9+YW6mi7hepd55yN8 8 dHI+VWIgWLD8lNbjOHixBPEku Q1tERzdZmW9YMQnQzDqeK33mD SmJTizVj7zdOqfwOjtUY3hPWQ p gvrvu817KjEqf9noZOVtjFTtL HynVYM9M35gi3N7ZQPcSTVsZY I4mIW5oU5heKvkfmlwpREekZw g crXdqKkcOCkuAYunD775QHOzm QfvAsWxrBDkM3gbhtMZFD5xVz wvdGQ+VXHjTOP5gPgkRTcpPIF k tJ5hUPMdV3x2KcObKwJ8LAmxC 0IvcfK7MPXfuMJvOMMzaJDDpH 9oycwuc6hmnjykQzJrTYBkRMh 0 QOt6FRYqeZorPkMbIJO9RdI3D PC3eEKlbF8kiVdqhfhfrB1fPq c+RklOOjwvdGQ+LHMuEJH6vQa l LChrXZDdvB8jLJJsF7x2XeKmA uJ3JSyfZ9VarfD6CWQloOXeSI MuyGRBgH0evbwqp7hlvvprVnE w RCAhCVd4SPl3RHSmtVrkCvOaC QB0TfX5TWE6cGDgkI0bkGnyhb rfvX4cSma+TVJOOjwvdGQ+PHR k BBL6yVhqMGlrDQNrgN3xHHDiD 0w5OgWuVtM6ZPztG9YrahP7HI PlsKYoKGEqsDBZmO3ssquiq4n v odudFmErNZGfROv9CWg2OPKmm JuqBqAdFOQ5MaG0QQN2iLGdeR 2fmXgselmxlY2gDuv+FHK2TZP 6 CF13CI25B3PkPdimfLFmfKU+P HRhYmxlIHdpZHRoPScxMDAlJy BkcTdxFQ1xOk2yHVSsMJAxwOb h cHN (more content not included)... [facility] .Auto Diff 105-23-2024 Auto Wallace % 9 % Normal 1-12 [facility] Comment on above: Performed By: #### 7 552199, 40699777, 2072920673, 9117151074, 4013198109, 7287532, 7422199162, ####[facility] (DEFAULT)[address] [place] [address] 86160 Baso Abs# 0.1 x10 Normal 0.0-0.2 [facility] Comment on above: Performed By: #### 7 685650, 66346580, 5109007695, 7535414376, 5761023902, 8487167, 9520275224, ####[facility] (DEFAULT)[address] [place] [address] 03870 Basophils/100 WBC (Bld) 1.2 % Normal 0.2-2.0 [facility] Comment on above: Performed By: #### 7 521953, 61280162, 4975238208, 7057944782, 0754233323, 8114431, 1480063084, ####[facility] (DEFAULT)[address] [place] [address] 88210 Eos Abs# 0.1 x10 Normal 0.0-0.4 [facility] Comment on above: Performed By: #### 7 320217, 80800412, 1460433008, 1040904150, 9302833232, 9300843, 8447282157, 6340918460 ####[facility] (DEFAULT)[address] [place] [address] 22089 Eosinophils/100 WBC (Bld) 1.0 % Normal 0.9-4.0 [facility] Comment on above: Performed By: #### 7 639676, 21081559, 2257078775, 3562272121, 0178540264, 2321771, 0906304868, ####[facility] (DEFAULT)[address] [place] [address] 73681 Lymph Abs# 1.2 x10 Low 1.3-2.9 [facility] Comment on above: Performed By: #### 7 605748, 44377035, 4671273198, 2557388071, 4225242560, 5000855, 7945617897, ####[facility] (DEFAULT)[address] [place] [address] 98630 Lymphocytes/100 WBC (Bld) 23 % Normal 14-48 [facility] Comment on above: Performed By: #### 7 418028, 85553821, 6563862368, 5654759432, 9426389914, 7313266, 6379803061, ####[facility] (DEFAULT)[address] [place] [address] 07396 Wallace Abs# 0.5 x10 Normal 0.0-0.8 [facility] Comment on above: Performed By: #### 7 921312, 90956800, 2452773319, 6646198689, 7962230615, 2422821, 5236051937, ####[facility] (DEFAULT)[address] [place], [place] [address] Neut Abs# 3.4 x10 Normal 1.5-9.2 [facility] Comment on above: Performed By: #### 7 800376, 21945298, 9163269128, 2864886693, 5461503473, 8810974, 5768188350, 4113476729 ####[facility] (DEFAULT)[address] [place] [address] 90594 Neutrophils/100 WBC (Bld) 66 % Normal 44-88 [facility] Comment on above: Performed By: #### 7 983429, 66200184, 7666647086, 0451570196, 0878832627, 3188461, 3833372583, ####[facility] (DEFAULT)[address] [place] [address] BNP.on 05-23-2024 Natriuretic peptide B (Bld) [Mass/Vol] 114.0 pg/mL High 0.0-100.0 [facility] Comment on above: Result Comment: BNP results greater than 100 pg/mL are considered abnormal and suggestive of patients with CHF. Higher BNP concentrations measured in the first 72 hours after an acute coronary syndorme are associated with an increased risk of , myocardial infarction, and CHF. Performed By: #### 7 063909, 12213249, 1760141740, 8254184452, 3268485673, 1437873, 5199830242, ####[facility] (DEFAULT)[address] [place] [address] 34007 CBC w/ Auto Diffon 4 Erythrocyte distribution width (RBC) [Ratio] 13.6 % Normal 11.5-15.0 [facility] Comment on above: Performed By: #### 7 531913, 19163177, 3814713210, 7580946684, 9658477917, 9088820, 8823985360, ####[facility] (DEFAULT)[address] [place] [address] Hematocrit (Bld) [Volume fraction] 33.7 % Normal 33.7-40.4 [facility] Comment on above: Performed By: #### 7 233717, 37132215, 1697622432, 4123264619, 0656877125, 2785856, , ####[facility] (DEFAULT)[address] [place] [address] 78979 Hemoglobin (Bld) [Mass/Vol] 11.5 g/dL Normal 11.3-15.9 [facility] Comment on above: Performed By: #### 7 193669, 38682421, 8431599769, 4418707165, 5151522056, 0568499, , ####[facility] (DEFAULT)[address] [place] [address] 17791 Man Diff? RBC Morph Only Invalid Interpretation Code [facility] Comment on above: Performed By: #### 7 024011, 57929097, 8950958909, 0019741443, 6619825079, 9192661, 5319759273, ####[facility] (DEFAULT)[address] [place] [address] 61433 MCH (RBC) [Entitic mass] 39 pg High 24-34 [facility] Comment on above: Performed By: #### 7 099113, 66760538, 3539660907, 4417155241, 6534083254, 4572040, 2028047721, 5846859942 ####[facility] (DEFAULT)[address] [place] [address] 87365 MCHC (RBC) [Mass/Vol] 34 g/dL Normal 26-37 [facility] Comment on above: Performed By: #### 7 301329, 87997162, 3379428498, 2824676522, 4249150062, 6365291, 9209812569, 3961244329 ####[facility] (DEFAULT)[address] [place] [address] MCV (RBC) [Entitic vol] 115 fL High 81-100 [facility] Comment on above: Performed By: #### 7 287331, 66386060, 2974942088, 4267981440, 8342440790, 3871250, 6864670918, 6713188708 ####[facility] (DEFAULT)[address] [place] [address] 80988 Platelet 309 x10 Normal 138-427 [facility] Comment on above: Performed By: #### 7 484982, 96284394, 0190993855, 3127373248, 8923946013, 0452600, 2177644488, 4069868032 ####[facility] (DEFAULT)[address] [place] [address] 49217 Platelet mean volume (Bld) [Entitic vol] 7.4 fL Normal 6.3-10.2 [facility] Comment on above: Performed By: #### 7 755134, 33919876, 3613287666, 2641088169, 5648427041, 5728528, 2666095136, 9944091154 ####[facility] (DEFAULT)[address] [place] [address] RBC 2.93 x10 Low 3.70-5.30 [facility] Comment on above: Performed By: #### 7 700648, 95931800, 9951686832, 1661350561, 6584579671, 7348159, 0486205318, 9198686901 ####[facility] (DEFAULT)[address] [place] [address] 74516 WBC 5.1 x10 Normal 3.5-10.5 [facility] Comment on above: Performed By: #### 7 101399, 96631276, 3264535529, 6909043702, 2448680784, 2110509, 0240811694, 6319126271 ####[facility] (DEFAULT)[address] [place] [address] 99482 CMP Standardon 05-23-2024 Breakpoint Chem Normal [facility] Comment on above: Performed By: #### 7 772486, 37497062, 0586397125, 5889879339, 4990966643, 9599825, 7697219764, 9004740375 ####[facility] (DEFAULT)[address] [place] [address] 96949 eGFR Non AA >60 Invalid Interpretation Code [facility] Comment on above: Performed By: #### 7 921844, 73397698, 1453026886, 7497238428, 7665527118, 7999815, 1188818729, 4179314380 ####[facility] (DEFAULT)[address] [place] [address] 29968 eGFR AA >60 Invalid Interpretation Code [facility] Comment on above: Performed By: #### 7 845913, 39793798, 7036436237, 4635397493, 7672970957, 6537533, 5061700833, 6566735958 ####[facility] (DEFAULT)[address] [place] [address] 10818 Albumin [Mass/Vol] 3.0 g/dL Low 3.5-5.0 [facility] Comment on above: Performed By: #### 7 362949, 18535495, 2571120765, 7713300041, 2906408006, 0955848, 5213099638, 0395998003 ####[facility] (DEFAULT)[address] [place] [address] 15789 Albumin/Globulin [Mass ratio] 0.9 {ratio} Low 1.4-2.6 [facility] Comment on above: Performed By: #### 7 652879, 88540484, 9571520505, 7268346892, 6319432715, 0412436, 9315128697, ####[facility] (DEFAULT)[address] [place] [address] 53926 Alk Phos 85 IU/L Normal 32-91 [facility] Comment on above: Performed By: #### 7 072206, 26261420, 4396205262, 5455785763, 6958020926, 0853365, , ####[facility] (DEFAULT)[address] [place] [address] 93259 ALT [Catalytic activity/Vol] 45.0 U/L Normal 14.0-54.0 [facility] Comment on above: Performed By: #### 7 016825, 83709667, 6444364234, 5435908944, 1746819495, 6986816, , ####[facility] (DEFAULT)[address] [place] [address] 36880 Anion gap [Moles/Vol] 12.1 mmol/L Normal 5.0-19.0 [facility] Comment on above: Performed By: #### 7 132016, 08919372, 3442990711, 3887603445, 2530421341, 9936887, 9885927989, ####[facility] (DEFAULT)[address] [place] [address] 59134 AST [Catalytic activity/Vol] 94 U/L High 15-41 [facility] Comment on above: Performed By: #### 7 609612, 83903310, 1366397954, 9829881498, 8549033330, 8296649, 5775375635, ####[facility] (DEFAULT)[address] [place] [address] 72429 Bili Total 1.1 mg/dL Normal 0.3-1.2 [facility] Comment on above: Performed By: #### 7 165223, 76510612, 6808137030, 1552480468, 4783879161, 8676206, 2105556073, 7470514566 ####[facility] (DEFAULT)[address] [place] [address] 14400 Calcium [Mass/Vol] 8.6 mg/dL Low 8.9-10.3 [facility] Comment on above: Performed By: #### 7 659952, 10707179, 6371425660, 1002987918, 7834314985, 3107193, [id number], ####[facility] (DEFAULT)[address] [place] [address] 56148 Chloride [Moles/Vol] 102 mmol/L Normal 101-111 [facility] Comment on above: Performed By: #### 7 818779, 53060585, 4472428904, 8770747402, 7263714865, 6866740, 7695157311, ####[facility] (DEFAULT)[address] [place] [address] 11133 CO2 [Moles/Vol] 25 mmol/L Normal 21-32 [facility] Comment on above: Performed By: #### 7 563641, 41533250, 4560256984, 8769250809, 6195147727, 3254166, 3817229911, 8180581672 ####[facility] (DEFAULT)[address] [place] [address] 67119 Creatinine [Mass/Vol] 0.71 mg/dL Normal 0.60-1.30 [facility] Comment on above: Performed By: #### 7 371667, 46157374, 0343742650, 2353843275, 9891809166, 3828057, 5504912249, ####[facility] (DEFAULT)[address] [place] [address] 32863 Globulin (S) [Mass/Vol] 3.3 g/dL Normal 1.5-4.3 [facility] Comment on above: Performed By: #### 7 269954, 47622193, 2191024445, 4461442751, 1014139753, 0740781, , ####[facility] (DEFAULT)[address] [place] [address] 06625 Glucose [Mass/Vol] 119.0 mg/dL High 74.0-118.0 [facility] Comment on above: Performed By: #### 7 201581, 20722387, 3460314075, 5771800233, 2823584658, 3287046, , ####[facility] (DEFAULT)[address] [place] [address] Osmolality 270 mOsm/L Invalid Interpretation Code [facility] Comment on above: Performed By: #### 7 353043, 81576166, 9042630995, 7054357904, 2376265683, 0281882, , ####[facility] (DEFAULT)[address] [place] [address] 65255 Potassium [Moles/Vol] 4.1 mmol/L Normal 3.6-5.1 [facility] Comment on above: Performed By: #### 7 789174, 93978036, 9747831444, 8149765559, 3791408770, 7252423, 5385461032, ####[facility] (DEFAULT)[address] [place] [address] 71430 Protein [Mass/Vol] 6.3 g/dL Low 6.5-8.1 [facility] Comment on above: Performed By: #### 7 850373, 43693813, 4953039232, 6372259294, 6384697627, 3267285, , ####[facility] (DEFAULT)[address] [place] [address] 02681 Sodium [Moles/Vol] 135.0 mmol/L Low 136.0-144 . 0 [facility] Comment on above: Performed By: #### 7 099412, 73718885, 0626870240, 7680780478, 4833625272, 7971871, , ####[facility] (DEFAULT)[address] [place] [address] 11788 Urea nitrogen [Mass/Vol] 9 mg/dL Normal 8- [facility] Comment on above: Performed By: #### 7 689685, 34801497, 1431890766, 4341540825, 5481547675, 2873877, 7413475518, 4795976814 ####[facility] (DEFAULT)[address] [place] [address] 55183 Urea nitrogen/Creatinine [Mass ratio] 12.6 mg/mg Normal 4.6-16.2 [facility] Comment on above: Performed By: #### 7 749524, 22018664, 3891310406, 0415838174, 2075044191, 7181940, 9699474135, 5760240402 ####[facility] (DEFAULT)[address] [place] [address] 96944 ED Clinical Summaryon 2023 ED Clinical Summary [facility] - Emergency Department [address] [place] [address] 23540 ED Clinical Summary PERSON INFORMATION Name: TELMA PERSON Age: 63 Years Sex: FEMALE : 1960 MRN: Acct#: Visit Reason: Shortness of breath; Skin problem; Lower leg pain-swelling; FEET SWELLING Arrival: 05/23/2024 12:15:52 Discharge: 05/23/2024 14:07:00 LOS: 000 01:52 Check In: 05/23/2024 12:15:52 Checkout:05/23/2024 14:07:00 Address: [place] [id number] PCP: ANMU SORTO PROVIDER INFORMATION Provider Role Assigned Unassigned Paradise Pereira CNP ED PA 05/23/2024 12:18:41 Fiona Diana W[employer] Nurse 05/23/2024 12:49:55 VITALS INFORMATION Vital Sign [...] Adult Follow-Up: With: Address: When: ANUM SORTO [facility] [facility] [place] [address] Business (1) Within 3 to 5 days Comments: Take antibiotic until complete. Follow-up with your family doctor next week for reevaluation. DIAGNOSIS: COPD with exacerbation; Cellulitis of right foot Patient Understands: Yes - Patient/family/caregiver verbalizes understanding of instructions given Comment: Normal [facility] ED Patient Summaryon 024 ED Patient Summary [facility] - Emergency Department [address] [place] [address] 77638 PATIENT DISCHARGE INSTRUCTIONS Patient Information Name: TELMA PERSON Age: 63 Years Date of : 1960 Reason For Visit: Shortness of breath; Skin problem; Lower leg pain-swelling; FEET SWELLING Arrival Time: 05/23/2024 12:15:52 Primary Care Physician: ANUM SORTO Attending Physician: Manuel Morris MD Comment: Visit Diagnosis: Diagnoses This Visit Cellulitis of right foot (L03.115) COPD with exacerbation (J44.1) Lower leg pain-swelling ([id number]) Shortness of breath ([id number]) Skin problem ([id number]) The Pharmacy at [facility] is open Saturday through Saturday from 9A [...] [facility] [place] 15/04 Crisis Hotline -Text 4HYJO qu [phone]. If you received any narcotics, sedation, or [...] legal documents With: Address: When: ANUM SORTO [address] [place] [address] [place] [id number] Business (1) Within 3 to 5 days Comments: Take antibiotic until complete. Follow-up with your family doctor next week for reevaluation. Medication Information: The exam and treatment you received today in the [facility] Emergency Department were for an urgent problem and are not intended as complete care. It is important for you to follow up with a doctor, nurse practitioner, or physician?s assistant account executive for ongoing care. If your symptoms become [...] so we can reach you if necessary. [facility] Emergency Department has provided you with a complete list of medications post discharge. Please inform your senior front end engineer/provider of your visit and for further instruction on these medications. Any specific questions regarding your chronic medications and dosages should be discussed with your primary care physician(s) and/or pharmacist. New Medications [facility] [id number], [address], [place] [id number], [phone] doxycycline (doxycycline hyclate 100 mg oral capsule) [...] lungs and (more content not included)... Normal [facility] Extra Redon 05-23-2024 Tube Collected Yes Invalid Interpretation Code [facility] Comment on above: Performed By: #### 7 [id number], [id number], [id number], [id number], [id number], 2095348, [id number], [id number] #### [facility] (DEFAULT) [address] [place] [address] 00793 Morphologyon 05-23-2024 Baso Stip 1+ Invalid Interpretation Code [facility] Comment on above: Order Comment: Order added by Discern. Performed By: #### 7 028937, [id number], [id number], [id number], [id number], 3725128, [id number], [id number] ####[facility] (DEFAULT)[address] [place] [address] 25806 Macro 1+ Invalid Interpretation Code [facility] Comment on above: Order Comment: Order added by Fiorella. Performed By: #### 7 270847, 34777060, [id number], [id number], [id number], 4758991, [id number], [id number] ####[facility] (DEFAULT)[address] [place] [address] Polychrom 1+ Invalid Interpretation Code [facility] Comment on above: Order Comment: Order added by Fiorella. Performed By: #### 7 445975, 26152441, [id number], [id number], [id number], 6735469, [id number], [id number] ####[facility] (DEFAULT)[address] [place] [address] PTon 05-23-2024 INR Coag (PPP) [Relative time] 1.07 {INR} Normal 0.91-1.11 [facility] Comment on above: Performed By: #### 7 334126, 31131438, [id number], [id number], 6260891694, 9541556, 7551710172, [id number] ####[facility] (DEFAULT)[address] [place] [address] PT 11.1 second(s) Normal 9.7-11.8 [facility] Comment on above: Performed By: #### 7 671473, 22711910, [id number], 5308672265, 1789326047, 0668406, [id number], [id number] ####[facility] (DEFAULT)[address] [place], [place] [id number] Progress Note - Nurseon 04-25 Progress Note [...] on: 05/23/2024 12:49 EDT] Fiona Diana RN [facility] TnI HSon 05-23-2024 Troponin I High Sensitivity 3.1 pg/mL Normal <=15.0 [facility] Comment on above: Performed By: #### 7 417384, 11960927, 4485706347, 2489250077, 3798656315, 6139208, [id number], [id number] ####[facility] (DEFAULT)[address] [place] [address] XR Chest 1 View Frontalon XR Chest [...] MD 05/23/24 1:03 pm Technologist: ENEDINA LOPEZ [facility] CMP Standardon 05-21-2024 eGFR Non AA >60 Invalid Interpretation Code [facility] Comment on above: Performed By: #### 1 [id number] #### [facility] (DEFAULT) [address] [place] [address] 19559 eGFR AA >60 Invalid Interpretation Code [facility] Comment on above: Performed By: #### 1 [id number] #### [facility] (DEFAULT) [address] [place] [address] 60615 Albumin [Mass/Vol] 3.0 g/dL Low 3.5-5.0 [facility] Comment on above: Performed By: #### 1 [id number] #### [facility] (DEFAULT) [address] [place] [address] 06326 Albumin/Globulin [Mass ratio] 0.8 {ratio} Low 1.4-2.6 [facility] Comment on above: Performed By: #### 1 [id number] #### [facility] (DEFAULT) [address] [place] [address] 23988 Alk Phos 86 IU/L Normal 32-91 [facility] Comment on above: Performed By: #### 1 [id number] #### [facility] (DEFAULT) [address] [place] [address] 47166 ALT [Catalytic activity/Vol] 52.0 U/L Normal 14.0-54.0 [facility] Comment on above: Performed By: #### 1 [id number] #### [facility] (DEFAULT) [address] [place] [address] 49552 Anion gap [Moles/Vol] 13.2 mmol/L Normal 5.0-19.0 [facility] Comment on above: Performed By: #### 1 [id number] #### [facility] (DEFAULT) [address] [place] [address] 91290 AST [Catalytic activity/Vol] 116 U/L High 15-41 [facility] Comment on above: Performed By: #### 1 [id number] #### [facility] (DEFAULT) [address] [place] [address] 42541 Bili Total 0.5 mg/dL Normal 0.3-1.2 [facility] Comment on above: Performed By: #### 1 [id number] #### [facility] (DEFAULT) [address] [place] [address] 09702 Calcium [Mass/Vol] 8.6 mg/dL Low 8.9-10.3 [facility] Comment on above: Performed By: #### 1 [id number] #### [facility] (DEFAULT) [address] [place] [address] 67565 Chloride [Moles/Vol] 110 mmol/L Normal 101-111 [facility] Comment on above: Performed By: #### 1 [id number] #### [facility] (DEFAULT) [address] [place] [address] 68228 CO2 [Moles/Vol] 24 mmol/L Normal 21-32 [facility] Comment on above: Performed By: #### 1 [id number] #### [facility] (DEFAULT) [address] [place] [address] 31213 Creatinine [Mass/Vol] 0.56 mg/dL Low 0.60-1.30 [facility] Comment on above: Performed By: #### 1 [id number] #### [facility] (DEFAULT) [address] [place] [address] 16996 Globulin (S) [Mass/Vol] 3.4 g/dL Normal 1.5-4.3 [facility] Comment on above: Performed By: #### 1 [id number] #### [facility] (DEFAULT) [address] [place] [address] 03523 Glucose [Mass/Vol] 84.0 mg/dL Normal 74.0-118.0 [facility] Comment on above: Performed By: #### 1 [id number] #### [facility] (DEFAULT) [address] [place] [address] 58703 Osmolality 282 mOsm/L Invalid Interpretation Code [facility] Comment on above: Performed By: #### 1 [id number] #### [facility] (DEFAULT) [address] [place] [address] 60527 Potassium [Moles/Vol] 4.2 mmol/L Normal 3.6-5.1 [facility] Comment on above: Performed By: #### 1 [id number] #### [facility] (DEFAULT) [address] [place] [address] 76841 Protein [Mass/Vol] 6.4 g/dL Low 6.5-8.1 [facility] Comment on above: Performed By: #### 1 [id number] #### [facility] (DEFAULT) [address] [place] [address] 64394 Sodium [Moles/Vol] 143.0 mmol/L Normal 136.0-144 . 0 [facility] Comment on above: Performed By: #### 1 [id number] #### [facility] (DEFAULT) [address] [place] [address] Urea nitrogen [Mass/Vol] 7 mg/dL Low 8- [facility] Comment on above: Performed By: #### 1 [id number] #### [facility] (DEFAULT) [address] [place] [address] 08693 Urea nitrogen/Creatinine [Mass ratio] 12.5 mg/mg Normal 4.6-16.2 [facility] Comment on above: Performed By: #### 1 [id number] #### [facility] (DEFAULT) [address] [place] [address] 14885 Folateon 05-21-2024 Folic Acid Level 2.64 ng/mL Low 5.90-24.80 [facility] Comment on above: Performed By: #### 2 130042, [id number] ####[facility] (DEFAULT)[address] [place] [address] Provider Orderson 05-21-2024 Provider Orders [id number] Normal [facility] Vit B12 Lvlon 05-21-2024 Vit B12 182 Normal 180-914 [facility] Comment on above: Performed By: #### 2 [id number], [id number] ####[facility] (DEFAULT)[address] [place] [address] 35392 Coding Summaryon 05-06-2024 [facility] PhziievkKHk9tJj+PGhlYWQ+P D6LFOKrR02fnSJydT7hV9IXAJ lOSywgQVBQTElOSyIgbmFtZT1 kaXNjZXJu IC8+QM0fYHWtZlynlPAmz5R4t BQ0O85zsf1iWLyzdEA2KJXvFl Lsjqubw1dmiFc1MFhuPcwdNvZ t RAFqpX62ZAK8lE79St75lNHjv NCmn8ughTa5WmXrKRCzQDD9sZ rpRDxgu1SxJMRkU71zvNNnm4C 6 FFRvbJfwaRRgBaWgsJI3hE9hH Trkyaxpw9cvpuvbKwx8ft21vI Rya6Z2uYC4H6BfawI9WUCflPL g SlidcOKUaZ4ojmmcy9wwnyybJ hPsCGYrAYk4SLp2TOCprWfoEs QwXQ72XHK7FMAlwoLyT9BeTSW s gJotNnV5q2O2Oa1HJ2ASAcdfO 1VNTUFSWTwvdGQ+NW66ze21K0 RiBzknGfl0ZOZrLPB8nQJ5hT9 n IOBnOKgae2G7sEY7X0FwhzFwy o4wc3tlUSXjSLvgH71bjFDos0 T1PKEztOW3OZPpdUknRdKbhJ1 3 Oyc+JBIxjPwsm3FeWzjth7iax 2ggrTx6UiljPBCzrpTrnHotJU X1z7JnQi2bOCUxmKD3xPJ4hH8 i PhHhPkS4FRbkL632YiNvgIBgU hlgE28aP2EhtHU+DUIdFqc7EO JijFuqOM5nC6EqOJNvybcrfUB m vEjmGH8mVRCocmwyNKTkzQ8qQ NSqO0f1GhTkQuL0ZKmuB1BpWO ApuwgyGo59nC0yLnVlMhT2DZy u O0GxxjA6OZFyrUOhBQhmVCJ8M 98se4D8QAIcUYFqHTH5pBS9qG 1hbGlnbjogbGVmdDsgdmVydGl j ESjyIMleU439RKHpwYkfIgJlV GluZyBEYXRlOiAgMDgvMTQvMj AyNDwvdGQ+IRMbRMF4oXbpHIC n pZViWLbpOk7ppHthbHgyXD9hM FIihvquPLZivD6eQBVjsADyfE kpXB0iXCRerejny630OaBlHSF 0 TZVbiCZiY8RmlO1yFgGsZMBeG POsI2TswPGkNRbnI208BXabVv V8BMSxvqYaC3InPQTmeSznUiG 0 u3A0He4Ag1SojhquM2CkoEEwP aFwZhzxSZc3R4HjZrzgiTM+PC 03TEYeGB43FDs0SHL0dYvmURj i RKEiX2QcdJ9pWhSmXVYcUOTnJ yc+PHRhYmxlIHdpZHRoPScxMD ZmRfCxuVxtVO1hPs5jAMMgEAD v eIuzsGTcLuYho1chDPXwSEapQ I5giJttW7WslTT5JIDcg2q9Ku 74N16jV1ZwjFB+FHRooFL4sTH 0 lB5tAcPxHdV6HIfcV705WtFdv GOfYtroz4xhu4bdcXh0DmQ4OE NaihQseAkxKBU6p9GuTe87O58 s IHdpZHRoPSIxNSUiIHZhbGlnb s3qcK9cBq8+DYKkhAG7aFB0bC 5fDlUdAmQ8MOlvV833QtEuzEX v Oopci3msi7vglMs2OtEsKLYuw zPcmUukGBR6f4WeHl01U1YyaC lfx3WyIah1ai73rPAmg8Q0dJP 9 X6TwZBWtdgyysVKhxAtmRA5qW IZdnpbdRZMwsN9jGAGqW4v0Yg PcHhP7ESldN8MppvV5IEBibRS g YQHfvERWpC9xyjhwf8bwpztxL gSfCQPxBZz6JKe8ZAEelXmsMs CqQSL6YmX4ABE2uBWwpC6ufCo n wbbrzY6zMdy+QVI3dRAnuBBNM X4xGsrrzXD+LURwSBU9vWlpCA goQXIfpR4pBBKbA9y0NwEqDzI 1 HTflI3TlenP6KJUapGYqFZAgp YXYyF0pptkzq3njupigGpGdZV BbIZg7PZe3YDUyiIemThBiCRU 0 XrO4PEO4rWEzzU7lmMbfoptcw G9wOyc+TwdxcSabHNS5SRs3P5 KxFwk5GCTlsMacHU3ssLKsJOy u Hd4shKkfqFbzMF8fRGCrzbwfd 107JiBmk9rgRXEmeMPqQQdvFG S4M15lj4D6TVRcRNAfYQC4qZN 4 mW0peWsiyhmpxAUrvKazlkMls DedRTcqGFdmZ389HSMcqZtuKa TtNMu0Q2AdLeq1HPKycBsqJZ7 n jXQfHCjtBp5jfVgvdYbjBY3uU DHzlujzw460HsDfz5mgQIPkqG FlLSvxOFV8Y60lu6L6EBTrTQQ w SHH8tSH5zI2lkMqoxydxbLJvv BmnofNjiXwzAWpiYIutN513GO IdvOgnOlNtmFl2U8GeVru9EKH z dRhjNJ5eqCOcTNwzGv8pwDski ObaIN0zXKCqifxfm944KaAkn6 daNFHfdPBrSWnvHVI6P42ym2E 6 QWPdULNxUNZ5zZL4zK0wrNsfh jogbGVmdDsgdmVydGljYWwtYW kwB712RWWnsWeeLiFbxYdlrjW g GPbgHWk9E5JrHripiMA+PC90Y FZfKA07dPAdoJHuc4mbrRh4Vi HfSUMxJDW9fVecSQilm9LtAOQ t H68jnTPgo4Z1SRBppCducAVsC hPmtJU7qE5dBHmajhavd9xodq wkLqmwx3jqza70hS90P70uZVa p RDNeWMHvQNXbUEIbvGalih6wx G9wIi8+UGUgmLX7vRZ3jU8yAA VlQbA1NXndM836ZdAjmGOyYnp j u0qni6yfaZg8VjN1AWKfilMpr HycHAZ0z4PhKc33O86yRNtrLS GxLRJjZBVwJXXoyWwumj4niY3 w Ii8+GCKhlCS9sUT8yH1tCbOuK bS0HFkhT665ZeFpbUVfZuteY9 8qM9NedSC+PSAaSem4TZTvaQs s DZ9zoUOwAPhsPx5iVSE2SmCsO iEhHEunG7ApVCHimpxzuckmnO L5CAQfZPKijV31Ni2qiMteIUX w jUHItW5ghwwfi1zgxesjMpDfX QJsKWb3OWs1BZYpqQqkIwUfLL N5WtJ9AWX8bCOmbN3qtIyyoab g jZ5wG7SxOZPfkiujPx80cB1bF gQzXjD7GAwlBcw+SEVNTUVSLC GZLINWPLi4F5IjGbw4CYThvHa s ZU4iuGKtAQlhTl8wfBzkaZczN A2sMUHpkzjpGAVcxY2mNNDbyG ItuYayYW9mUKJgsehyi797BwB x GHR7YQYvkJGcN6PlfH3nMeMuI HYgCDGiQ1AwjEOqKDbiI452NC bmIjC6NJAaotYsE5QzMLSpzGx u SjG6c6X3Kx0aJg3zCU3iFDMfG X59ZX14kKKsg7V8kZA2X9RlGW ApjuwweoizeWO0BBNgIICmrN4 7 oFMzYJqzWm7wz6D7a345BRHaP RXydJ25Ir1qjVmrDJJuaIEExO 3yrsqgp7xebsjlYzXzAGTdFYo 0 FOu9DEIgwKsaEcTiNDF3RaN7Z KX2bMHzcP8daBrrjsmfkP8yCe c+MrZzCYPxzzA4F7EeOqk8MSH z hQhlSV1oaNHeOFnrFt1fxEzvb QqyXZ2yWRThrnurNVDufK9jQZ ZtyUEmtLcvGU9eFHPirogjt66 0 DwCoZYX4RFVdnUZpD7YziF1lI bBbSCCbQVYsH9CiyQLtAHwrS9 15IJorIcD9EAUeukMuT2BkGXZ s mJgwFhS6l9J9Qz7EZN4ZRWC8J 9HgSri4CVLuaVbeUW8viSSjTX mkOh0yzVfnhQqqQV7lAGDgyzb w DHIibK2jAFMfaJIuvAieVC1nA ALztgdrn403CoLqCRL5YVTrfY VjL9UpnY0cHeUhNWHqDEVfR2O l dNKfVTbvF926ZVtgRlY8QKJma kZaX9YiRESdlEweUwN9o7J9Pg 5PUDwvdGQ+CV35am87Q3VoJst l Vgh0PKHzDEB1zAO3bF1kVASzI Wnak0U1bBD9M1JwapCqsn0ve3 swJWVmIOmnU07hgYOeq1Q7AXE t nRJ6HMNanRcxOkKgeC75Qys+P PZiaHgcm8QvRxlzy2arv7hnmU h0JdWwLZFcufYijDznDHY9r8U i La38P20sPWcyWNTxRWCgIASwT NDsyOanof2clK3vNn0+PGNvbC W7zAM5yL7mIeDsNmW2BGifE64 9 CwWjwTRqLwloe7ryz8lzoRv5Y vFsJKYdfrLiqJfrYDJ8u3VlFr 61T5VqiTkpv0LmHqn0tq44pKH g j2N7qUK1H4SdONPgnfbimODic KnfTJ5lJWVopljqSJAblT5lRF WqS7p0XxScSdP8OYjgK7IxikS 6 SLOmoTMiAHQtiALBrY6bwmaos 1xnzwbrRsVnJDVlSGs6EPo7MP AkpRtaFlDeXRS9WlW7VLF7yMD h fW8nfZsotpzwfY6oLsi+UGh5c 8npcBCzRV6rxKT5RT50QT50iZ Cmr5M1gQI3N5DgAITphwhmfpb n bJN4DIOkWFGfuW58Ji3ypSqxM d0gHKCkXRS9RLHghBKgE5EbkJ 1jKvBxIITgMFLgX3ZqzYXcYDf p X060XAjmDkF3JWJjwePlJ9KzW DTyyUxzXbW1k1S3Uc7KUY08TL 10YB84mYUmr9B9jXJ3N1TkTMS p udhslibnjLV3IYRqWSOtkM53T t3teLtrBp5kKOMdSFX7SLZhdR YkD9SueZ5cFjQiSSLaTCLsN0F l kZFiIIcwI155AFlrPbG2XNUms qAjH3HqYHOxwFcpKaE4g0X9Lu 0STt85TD54TY94dPXvp3O8qHU 9 K9YaMVPwodskyhuagVN3HAFkP HVfyF33Vz1onBdpIb4gMQAmKI W0DPJzeZGcI3DwmK6tBuGrNCA w WMRvZ5DglSXjHYpvN230AVujJ xT9RQQomiTcA7TlBQHsiJdbGm G3z5W5Jp2EFBetjks1E6ThDvu v dHI+XK58LAJfZX33aIAbhYHgm 3xicXx2OhYtWZDtTGJ7zNurDN pce5CkXVLfH71zjNYsm1K2WKG v bGx (more content not included)... Normal [facility] .Auto Diff 04-22-2024 Auto Wallace % 8 % Normal 10-04 [facility] Comment on above: Performed By: #### 7 725526, 1065298, [id number], [id number] ####[facility] (DEFAULT)[address] [place] [address] Baso Abs# 0.0 x10 Normal 0.0-0.2 [facility] Comment on above: Performed By: #### 7 622706, 6893522, [id number], [id number] ####[facility] (DEFAULT)[address] [place] [address] 72313 Basophils/100 WBC (Bld) 0.8 % Normal 0.2-2.0 [facility] Comment on above: Performed By: #### 7 771847, 3859993, 6099752537, 58586270 ####[facility] (DEFAULT)[address] [place] [address] Eos Abs# 0.0 x10 Normal 0.0-0.4 [facility] Comment on above: Performed By: #### 7 029806, 0601249, [id number], [id number] ####[facility] (DEFAULT)[address] [place] [address] Eosinophils/100 WBC (Bld) 0.8 % Low 0.9-4.0 [facility] Comment on above: Performed By: #### 7 115012, 8470334, [id number], 67663957 ####[facility] (DEFAULT)[address] [place] [address] 10140 Lymph Abs# 1.1 x10 Low 1.3-2.9 [facility] Comment on above: Performed By: #### 7 892274, 2545228, [id number], 27919639 ####[facility] (DEFAULT)[address] [place] [address] 90811 Lymphocytes/100 WBC (Bld) 23 % Normal 14-48 [facility] Comment on above: Performed By: #### 7 849190, 2314852, [id number], 47338296 ####[facility] (DEFAULT)[address] [place] [address] 62898 Wallace Abs# 0.4 x10 Normal 0.0-0.8 [facility] Comment on above: Performed By: #### 7 159992, 9503348, [id number], [id number] ####[facility] (DEFAULT)[address] [place] [address] Neut Abs# 3.3 x10 Normal 1.5-9.2 [facility] Comment on above: Performed By: #### 7 779766, 1809590, [id number], 51962387 ####[facility] (DEFAULT)[address] [place] [address] Neutrophils/100 WBC (Bld) 68 % Normal 44-88 [facility] Comment on above: Performed By: #### 7 558663, 6324688, 2636108730, 03162984 ####[facility] (DEFAULT)[address] [place] [address] CBC w/ Auto Diffon 4 Erythrocyte distribution width (RBC) [Ratio] 14.6 % Normal 11.5-15.0 [facility] Comment on above: Performed By: #### 7 645053, 2474520, [id number], 77618836 ####[facility] (DEFAULT)[address] [place] [address] Hematocrit (Bld) [Volume fraction] 34.2 % Normal 33.7-40.4 [facility] Comment on above: Performed By: #### 7 504006, 0047662, [id number], 70192941 ####[facility] (DEFAULT)[address] [place] [address] Hemoglobin (Bld) [Mass/Vol] 11.6 g/dL Normal 11.3-15.9 [facility] Comment on above: Performed By: #### 7 365193, 4395205, 4432103739, [id number] ####[facility] (DEFAULT)[address] [place] [address] Man Diff? RBC Morph Only Invalid Interpretation Code [facility] Comment on above: Performed By: #### 7 595715, 8473583, [id number], [id number] ####[facility] (DEFAULT)[address] [place] [address] MCH (RBC) [Entitic mass] 39 pg High 24-34 [facility] Comment on above: Performed By: #### 7 845306, 6809569, [id number], [id number] ####[facility] (DEFAULT)[address] [place] [address] 54082 MCHC (RBC) [Mass/Vol] 34 g/dL Normal 26-37 [facility] Comment on above: Performed By: #### 7 585246, 1670838, [id number], 98571338 ####[facility] (DEFAULT)[address] [place] [address] 74785 MCV (RBC) [Entitic vol] 114 fL High 81-100 [facility] Comment on above: Performed By: #### 7 073560, 9692117, [id number], 84661870 ####[facility] (DEFAULT)[address] [place] [address] 68233 Platelet 292 x10 Normal 138-427 [facility] Comment on above: Performed By: #### 7 962565, 4212460, [id number], [id number] ####[facility] (DEFAULT)[address] [place] [address] Platelet mean volume (Bld) [Entitic vol] 7.1 fL Normal 6.3-10.2 [facility] Comment on above: Performed By: #### 7 903682, 1236244, [id number], 39653058 ####[facility] (DEFAULT)[address] [place] [address] 76172 RBC 3.01 x10 Low 3.70-5.30 [facility] Comment on above: Performed By: #### 7 785394, 0606724, [id number], 10908466 ####[facility] (DEFAULT)[address] [place] [address] WBC 4.8 x10 Normal 3.5-10.5 [facility] Comment on above: Performed By: #### 7 353365, 6667793, [id number], 99378626 ####[facility] (DEFAULT)[address] [place] [address] Morphologyon 04-22-2024 Macro 2+ Invalid Interpretation Code [facility] Comment on above: Order Comment: Order added by Fiorella. Performed By: #### 7 415805, 5003504, [id number], 93772673 ####[facility] (DEFAULT)[address] [place] [address] Polychrom 1+ Invalid Interpretation Code [facility] Comment on above: Order Comment: Order added by Fiorella. Performed By: #### 7 237648, 0589590, [id number], [id number] ####[facility] (DEFAULT)[address] [place] [address] Stomato 2+ Invalid Interpretation Code [facility] Comment on above: Order Comment: Order added by Fiorella. Performed By: #### [id number] ####[facility] (DEFAULT)[address] [place] [address] PT/PTTon 04-22-2024 INR Coag (PPP) [Relative time] 1.04 {INR} Normal 0.91-1.11 [facility] Comment on above: Performed By: #### [id number] ####[facility] (DEFAULT)[address] [place] [address] PT 10.8 second(s) Normal 9.7-11.8 [facility] Comment on above: Performed By: #### [id number] ####[facility] (DEFAULT)[address] [place] [address] PTT 25 second(s) Normal 25-35 [facility] Comment on above: Performed By: #### 7 [id number] ####[facility] (DEFAULT)[address] [place] [id number] Provider Orderson 04-22-2024 Provider Orders [id number] FF Normal [facility] Outside Recordson 04-08-2024 Outside Records [id number] [facility] Provider Orderson 04-07-2024 Provider Orders [id number] [facility] Vital Signs Date Time Vital Sign Value Performing Clinician Faci lity 10-08-2024 11:54-0500 Body temperature 97.5 [degF] Ban Boyce MD Work Phone: [facility] 10-08-2024 11:54-0500 Diastolic blood pressure 73 mm[Hg] Ban Boyce MD Work Phone: [facility] 10-08-2024 11:54-0500 Heart rate 81 /min Ban Boyce MD Work Phone: [facility] 10-08-2024 11:54-0500 Respiratory rate 16 /min Ban Boyce MD Work Phone: [facility] 10-08-2024 11:54-0500 SaO2% (BldA) [Mass fraction] 100 % Ban Boyce MD Work Phone: [facility] 10-08-2024 11:54-0500 Systolic blood pressure 114 mm[Hg] Ban Boyce MD Work Phone: [facility] 10-08-2024 06:00-0500 Body weight 55.5 kg Ban Boyce MD Work Phone: [facility] 10-07-2024 14:38-0500 Body height 154.94 cm Ban Boyce MD Work Phone: [facility] 10-07-2024 04:00-0500 Inhaled oxygen flow rate 3 L/min Ban Boyce MD Work Phone: [facility] 10-03-2024 15:24-0500 Diastolic blood pressure 68 mm[Hg] Ban Boyce MD Work Phone: [facility] 10-03-2024 15:24-0500 Heart rate 86 /min Ban Boyce MD Work Phone: [facility] 10-03-2024 15:24-0500 Respiratory rate 16 /min Ban Boyce MD Work Phone: [facility] 10-03-2024 15:24-0500 SaO2% (BldA) [Mass fraction] 96 % Ban Boyce MD Work Phone: [facility] 10-03-2024 15:24-0500 Systolic blood pressure 103 mm[Hg] Ban Boyce MD Work Phone: [facility] 10-03-2024 10:29-0500 Body height 154.94 cm Ban Boyce MD Work Phone: [facility] 10-03-2024 10:29-0500 Body temperature 97 [degF] Ban Boyce MD Work Phone: [facility] 10-03-2024 10:29-0500 Body weight 55 kg Ban Boyce MD Work Phone: [facility] 06-15-2024 15:08-0400 Body temperature 99 [degF] MD Anum Sorto Work Phone: [facility] 06-15-2024 15:08-0400 Diastolic blood pressure 67 mm[Hg] MD Anum Sorto Work Phone: [facility] 06-15-2024 15:08-0400 Heart rate 87 /min MD Anum Sorto Work Phone: [facility] 06-15-2024 15:08-0400 Respiratory rate 22 /min MD Anum Sorto Work Phone: [facility] 06-15-2024 15:08-0400 SaO2% (BldA) [Mass fraction] 99 % MD Anum Sorto Work Phone: [facility] 06-15-2024 15:08-0400 Systolic blood pressure 144 mm[Hg] MD Anum Sorto Work Phone: [facility] 06-15-2024 11:33-0400 Body height 157.48 cm MD Anum Sorto Work Phone: [facility] 06-15-2024 [id number] Body weight 62.2 kg MD Anum Sorto Work Phone: [facility] Encounters Encounter Date Encounter Type Care Provider Facility Start: 10-05-2024 Non-patient / Non-visit Ban Boyce MD Work Phone: [facility] Work Phone: Start: 10-04-2024 Non-patient / Non-visit Ban Boyce MD Work Phone: [facility] Work Phone: Start: 10-03-2024 End: 10-08-2024 Evaluation and management of inpatient Ban Boyce MD Work Phone: [facility] [place] Work Phone: Start: 08-27-2024 End: 09-08-2024 Pre-admission assessment Anum Sorto [facility] Start: 08-13-2024 End: 08-13-2024 Bamboo flowsheet Nicole Lockett MD Work Phone: [facility] Start: 08-13-2024 End: 08-13-2024 Bamboo flowsheet Nicole Lockett MD Work Phone: [facility] Start: 08-13-2024 End: 08-13-2024 Patient encounter procedure Nicole Lockett MD Work Phone: [facility] Comment on above: Polyneuropathy (Prim joyce Dx); Lumbar radiculopathy Start: 08-13-2024 End: 08-13-2024 ambulatory NICOLE LOCKETT Not Available Start: 07-07-2024 End: 07-07-2024 Emergency department patient visit ANUM SORTO Facility:[facility] Start: 06-15-2024 End: 06-15-2024 Emergency department patient visit MD Anum Sorto Work Phone: [facility] Work Phone: Start: 05-23-2024 End: 05-23-2024 Emergency department patient visit ANUM SORTO Facility:[facility] Start: 05-21-2024 End: 05-21-2024 ambulatory ANUM SORTO Facility:[facility] Start: 05-11-2024 End: 05-11-2024 ambulatory ANUM Taco Facility:[facility] Start: 04-22-2024 End: 04-22-2024 ambulatory Eulalia Ortiz [facility] Facility:[facility] Start: 09-12-2018 End: 09-13-2018 Patient encounter procedure [...] now? 1 Result Comment: PERF ORMED BY: [facility] [address] [place] [address] PATHOLOGIST PHOTOGRAPHIC SUPERVISOR YULISSA MARES M.D. Start: 10-03-2024 CT of [...] Activity Detail Author Start: 10-08-2024 [facility] Start: 10-05-2024 Referral to rehabili tation physician [facility] Start: 10-04-2024 Comprehensive metabo lic 2000 panel - Serum or Plasma [facility] Start: 10-04-2024 [facility] Start: 10-03-2024 [facility] Start: 10-03-2024 Physical therapy procedure [facility] Start: 10-03-2024 Referral to occupati onal therapist [facility] Start: 10-03-2024 Referral to neurologist [facility] Start: 10-03-2024 Referral to ticket counter [facility] Start: 10-03-2024 Hospital admission [facility] Start: 10-03-2024 [facility] Start: 10-03-2024 Hepatic function panel [facility] Start: 10-03-2024 [facility] Start: 08-13-2024 End: 08-13-2024 Patient encounter procedure 08/13/2024 10:00 AM EST Procedure Visit [facility] [address] [facility] [address] [place] [id number] Nicole Lockett MD [address] [place] [address] Arrived [facility] Comment on above: Arrived Patient Education Peripheral Neuropathy Contact dermatitis [facility] Work Phone: Patient referral [facility] Work Phone: Reticulocytes [#/vol ume] in Blood [facility] Payers Date Payer Category Payer Private Health Insurance 2024 Self-pay 2024 Medicare (Managed Care) [employer] EDIC[employer] ADVANTAGE [id number] 2024 Medicaid [id number] 1960 Unknown [id number] 1960 Unknown [id number] [id number]. 1962 Unknown [id number]. 718 1960 Unknown [id number]. 718 1960 Unknown [id number] [id number]. 718 1962 Unknown [id number] [id number]. 1259 1959 Self-pay [id number] Unknown [id number] Unknown [id number] 531 Social History Date Type Detail Facility Start: 06-15-2024 End: 10-05-2024 Tobacco smoking status NHIS Smoker (finding) [facility] Start: 1960 Sex Assigned At Female F [facility] Tobacco smoking status NHIS Tobacco smoking consumption unknown [facility] Start: 1960 Sex assigned at Not on file [facility] Gender identity Not on file [facility] Tobacco smoking status No Smoking Status Entered [facility] Start: 10-03-2024 End: 10-08-2024 Sex Female (finding) [facility] Goals Date Patient Goal Desired Activity /State Functional Status Date Assessment Result Facility 10-08-2024 Functional status Patient at Baseline [facility] Work Phone: Mental Status Date Assessment Result Facility 10-08-2024 Cognitive function Cognitive Sta tus Patient at Baseline [facility] Work Phone: Clinical Notes 05-23-2024 to 10-08-2024 Note Date & Type Note Facility 10-08-2024 Progress note Note Date/Time October 07, 2024 11:26pm [facility] [address] [place] [address] Hospitalist Progress Note Signed Patient: Telma Person MR#: [id number] : 1960 Acct:[id number] Age/Sex: 63 / F Adm Date: 5 Loc: Room: [address] [place] [address] Type: ADM IN Attending Dr: Percy Romeo [...] <Electronically signed by Percy Romeo MD> 10/07/242325 [facility] Work Phone: 1(689) 739-259901-16-2025 Progress note Author Percy Romeo [facility] Note Date/Time October 07, 2024 1 1:24pm [facility] [address] [place] [address] Hospitalist Progress Note Signed Patient: Telma Person MR#: [id number] : 1960 Acct:[id number] Age/Sex: 63 / F Adm Date: 5 Loc: 3T Room: [address] [place] [address] Type: ADM IN Attending Dr: Percy Romeo [...] concerns Documented By: Percy Romeo MD 10/06/24 6736 Signed By: <Electronically signed by Percy Romeo MD> 10/07/24 [facility] Work Phone: 1(560) 646-187501-15-2025 [place] [address] Hospitalist Progress Note Signed Patient: Telma Person MR#: [id number] : 1960 Acct:[id number] Age/Sex: 63 / F Adm Date: 5 Loc: Room: [address] [place] [address] Type: ADM IN Attending Dr: Percy Romeo [...] in the setting of symptomatic anemia, normocytic G49ffizlmorlv which could be due to malnutrition and [...] 40 Documented By: Percy Romeo MD 10/07/24 3133 Signed By: 10/07/24 1942 [facility]01-15-2025 [place] [address] Hospitalist Progress Note Signed Patient: Hemmer,Birdie MR#: [id number] : 1960 Acct:[id number] Age/Sex: 63 / F Adm Date: Loc: 3T Room: [address] [place] [address] Type: ADM IN Attending Dr: Percy Romeo [...] in the setting of symptomatic anemia, normocytic Y37adatnhxjqg which could be due to malnutrition and [...] -Follow-up [facility] as [facility], I will avoid HSQ [...] Percy Romeo MD 10/06/242212 Signed By: 10/07/24 0454 [facility]01-14-2025 Progress note Author Percy Romeo [facility] Note Date/Time October 06, 2024 7 :23am [facility] [address] [place] [address] Hospitalist Progress Note Signed Patient: Telma Person MR#: [id number] : 1960 Acct:[id number] Age/Sex: 63 / F Adm Date: 5 Loc: Room: [address] [place] [address] Type: ADM IN Attending Dr: Percy Romeo [...] <Electronically signed by Percy Romeo MD> 10/06/24 0446 [facility] Work Phone: 1(804) 181-186501-14-2025 [place] [id number] Hospitalist Progress Note Signed Patient: Telma Person MR#: [id number] : 1960 Acct:[id number] Age/Sex: 63 / F Adm Date: 5 Loc: Room: [address] [place] [address] Type: ADM IN Attending Dr: Percy Romeo [...] in the setting of symptomatic anemia, normocytic M59vswzwcsemd which could be due to malnutrition and [...] 1316 Signed By: 10/06/24 0723 [facility]01-13-2025 Progress note Author Abraham Flores [facility] Note Date/Time October 05, 2024 5 :34pm [facility] [address] [place], [place] [address] Neurology Progress Note Signed with Addenda Patient: Telma Person MR#: [id number] : 1960 Acct:[id number] Age/Sex: 63 / F Adm Date: 5 Loc: Room: [address] [place] [address] Type: ADM IN Attending Dr: Percy Romeo [...] Therapy Recommendations: OT Recommendations OT Recommended Discharge Alf Facility Location OT Recommended Services at Physical Therapy,Occupational Therapy Discharge PT Recommendations PT Recommended Discharge Alf Facility Location PT Recommended Services at Physical [...] time Documented By: Abraham Flores DO 10/05/24 1135 Signed By: <Electronically signed by Abraham Flores DO> 10/05/24 0532 [facility] Work Phone: 1(889) 775-813601-13-2025 [place] [id number] Neurology Progress Note Signed with Addenda Patient: Telma Person MR#: [id number] : 1960 Acct:[id number] Age/Sex: 63 / F Adm Date: 5 Loc: Room: [address] [place] [address] Type: ADM IN Attending Dr: Percy Romeo [...] Therapy Recommendations: OT Recommendations OT Recommended Discharge Alf Facility Location OT Recommended Services at Physical Therapy,Occupational Therapy Discharge PT Recommendations PT Recommended Discharge Alf Facility Location PT Recommended Services at Physical [...] 1139 Signed By: 10/05/24 1733 [facility]01-13-2025 Consult note Author Ray Fowler [facility] Note Date/Time October 05, 2024 3 :11pm [facility] [address] [place] [address] Physiatry (Rehab) Consult Note Signed Patient: Telma Person MR#: [id number] : 1960 Acct:[id number] Age/Sex: 63 / F Adm Date: 5 Loc: Room: [address] [place] [address] Type: ADM IN Attending Dr: Percy Romeo [...] explains how she lives [place]. She states she wants to do therapy somewhere prior to returning home because it is too expensive to travel back and forth for outpatient therapy or other visits. Explained postacute care options, she is agreeable to rehab or intermediate facility. Review of Systems Review of Systems All other systems reviewed & are negative unless noted below or in HPI [facility] Medical History Cholecystectomy planned Surgical History H/O: [...] % (Auto) 69.2 Lymph % (Auto) 23.3 Wallace % (Auto) 6.1 Eos % (Auto) 0.8 Baso % (Auto) 0.6 Nucleat RBC Rel Count 0.2 Neut # (Auto) 3.4 Lymph # (Auto) 1.1 Wallace # (Auto) 0.3 Eos # (Auto) 0.0 [...] managed at lower level of care like intermediate facility. Patient was personally seen by me, Dr. Fowler, on the day of encounter, reviewed the history and the relevant portions of the chart, including current orders, allied health and polymer materials consultant notes, labs/imaging and performed freitas elements of exam and I formulated the plan of care and facilitated the medical decision making. I completed a substantive portion of this encounter, the medical decision makingportion of this note in its entirety, including Allied health note review, nursing note review, polymer materials consultant note review, discussion with nursing and case management, and more than 50% of my time was spent on counseling and coordination of care, time spent 35 minutes Documented By: Ray Fowler MD 10/05/24 1411 Signed By: <Electronically signed by Ray Fowler MD> 10/05/24 1511 [facility] Work Phone: 1(103) 622-541501-13-2025 [place] [address] Physiatry (Rehab) Consult Note Signed Patient: Telma Person MR#: [id number] : 1960 Acct:[id number] Age/Sex: 63 / F Adm Date: 5 Loc: Room: [address] [place] [address] Type: ADM IN Attending Dr: Percy Romeo [...] options, she is agreeable to rehab or intermediate facility. Review of Systems Review of Systems All other systems reviewed & are negative unless noted below or in HPI [facility] Medical History Cholecystectomy planned Surgical History H/O: [...] % (Auto) 69.2 Lymph % (Auto) 23.3 Wallace % (Auto) 6.1 Eos % (Auto) 0.8 Baso % (Auto) 0.6 Nucleat RBC Rel Count 0.2 Neut # (Auto) 3.4 Lymph # (Auto) 1.1 Wallace # (Auto) 0.3 Eos # (Auto) 0.0 [...] managed at lower level of care like intermediate facility. Patient was personally seen by me, Dr. Fowler, on the day of encounter, reviewed the history and therelevant portions of the chart, including current orders, allied health and polymer materials consultant notes, labs/imaging and performed freitas elements of exam and I formulated the plan of care and facilitated the medical decision making. I completed a substantive portion of this encounter, the medical decision makingportion of this note in its entirety, including Allied health note review, nursing note review, polymer materials consultant note review,discussion with nursing and case management, and more than 50% of my time was spent on counseling and coordination of care, time spent 35 minutes Documented By: Ray Fowler MD 10/05/24 1411 Signed By: 10/05/24 1511 [facility]01-13-2025 [place] [id number] EGD Procedure Note Signed Patient: Telma Person MR#: [id number] : 1960 Acct:[id number] Age/Sex: 63 / F Adm Date: 5 Loc: 3T Room: [address] [place] [address] Type: ADM IN Attending Dr: Percy Romeo [...] procedure well [facility]. Lamont Uribe MD Documented By: Lamont Uribe MD 10/05/24 1010 Signed By: 10/05/24 1039 [facility]01-13-2025 Radiology Diagnostic study note [facility] [place] [address] [place] [address] Ultrasound Report Signed Patient: Telma Person MR#: [id number] : 1960 Acct:[id number] Age/Sex: 63 / F ADM Date: 5 Loc: Room: [address] [place] [address] Type: ADM IN Attending Dr: Percy Romeo [...] Jake Lynch MD10/05/2024 8:31 AM Dictation Location: [place] [address] Tech: Anne-Marie Peraltavipul Transcribed By: CARMELO 10/05/24830 Dictated By: Jake Lynch MD 10/05/24829 Signed By: 10/05/24830 [facility] Work Phone: 1(118) 108-568801-13-2025 Progress note Author Percy Romeo [facility] Note Date/Time October 05, 2024 1 2:15am [facility] [address] [place] [address] Hospitalist Progress Note Signed Patient: Telma Person MR#: [id number] : 1960 Acct:[id number] Age/Sex: 63 / F Adm Date: 5 Loc: Room: [address] [place] [address] Type: ADM IN Attending Dr: Percy Romeo [...] Chloride 1,000 Ml IV 10/04/24 15:14 Infused .[id number] RAFAEL Infusion Ferric Sodium Gluconate 110 mls [...] 50 Documented By: Percy Romeo MD 10/04/24 7149 Signed By: <Electronically signed by Percy Romeo MD> 10/05/24 [facility] Work Phone: 1(511) 332-462301-13-2025 [place] [address] Hospitalist Progress Note Signed Patient: Telma Person MR#: [id number] : 1960 Acct:[id number] Age/Sex: 63 / F Adm Date: 5 Loc: Room: [address] [place] [address] Type: ADM IN Attending Dr: Percy Romeo [...] Chloride 1,000 Ml IV 10/04/24 15:14 Infused .X70M67D RAFAEL Infusion Ferric Sodium Gluconate 110 mls [...] Vial IV-PUSH 10/03/25 20:59 40 mg BID RFAAEL Administration Sodium Chloride 0 ml 10/03/24 10:28 [...] in the setting of symptomatic anemia, normocytic I04ugsmgvmzwc which could be due to malnutrition and [...] 1408 Signed By: 10/05/24 0015 [facility]01-12-2025 History and physical note Author Percy Romeo [facility] Note Date/Time October 04, 2024 2 :08pm [facility] [address] [place] [address] Hospitalist H&P Signed Patient: Telma Person MR#: [id number] : 1960 Acct:[id number] Age/Sex: 63 / F Adm Date: 5 Loc: 3T Room: [address] [place] [address] Type: ADM IN Attending Dr: Percy Romeo [...] negative unless noted below or in HPI [facility] Medical History Cholecystectomy planned Surgical History H/O: [...] % (Auto) 21.6 % (.) 10/03/24 10:40 Wallace % (Auto) 7.5 % (.) 10/03/24 10:40 Eos % (Auto) 0.6 % (.) 10/03/24 10:40 Baso % (Auto) 0.5 % (.) 10/03/24 10:40 Nucleat RBC Rel Count 0.1 /100 WBC (0-0.5) 10/03/24 10:40 Neut # (Auto) 5.0 x10E3/uL (1.8-7.7) 10/03/24 10:40 Lymph # (Auto) 1.5 x10E3/uL (1.00-4.8) 10/03/24 10:40 Wallace # (Auto) 0.5 x10E3/uL (0.0-0.8) 10/03/24 10:40 [...] pH 6.0 (5.0-9.0) 10/03/24 10:57 Ur Specific [place] 1.013 (1.001-1.030) 10/03/24 10:57 Urine Protein Negative [...] <Electronically signed by Percy Romeo MD> 10/04/24 1402 [facility] Work Phone: 1(503) 461-696101-12-2025 Progress note Author Abraham Flores [facility] Note Date/Time October 04, 2024 1 2:34pm [facility] [address] [place] [address] Neurology Progress Note Signed Patient: Telma Person MR#: [id number] : 1960 Acct:[id number] Age/Sex: 63 / F Adm Date: 5 Loc: Room: [address] [place] [address] Type: ADM IN Attending Dr: Percy Romeo [...] Therapy Recommendations: PT Recommendations PT Recommended Discharge Alf Facility Location PT Recommended Services at Physical [...] cervical spine without contrast Documented By: Abraham Flores DO 10/04/24 1219 Signed By: <Electronically signed by Abraham Flores DO> 10/04/24 1235 [facility] Work Phone: 1(757) 662-716401-12-2025 [place] [address] Hospitalist H&P Signed Patient: Telma Person MR#: [id number] : 1960 Acct:[id number] Age/Sex: 63 / F Adm Date: 5 Loc: Room: [address] [place] [address] Type: ADM IN Attending Dr: Percy Romeo [...] negative unless noted below or in HPI [facility] Medical History Cholecystectomy planned Surgical History H/O: [...] % (Auto) 21.6 % (.) 10/03/24 10:40 Wallace % (Auto) 7.5 % (.) 10/03/24 10:40 Eos % (Auto) 0.6 % (.) 10/03/24 10:40 Baso % (Auto) 0.5 % (.) 10/03/24 10:40 Nucleat RBC Rel Count 0.1 /100 WBC (0-0.5) 10/03/24 10:40 Neut # (Auto) 5.0 x10E3/uL (1.8-7.7) 10/03/24 10:40 Lymph # (Auto) 1.5 x10E3/uL (1.00-4.8) 10/03/24 10:40 Wallace # (Auto) 0.5 x10E3/uL (0.0-0.8) 10/03/24 10:40 [...] pH 6.0 (5.0-9.0) 10/03/24 10:57 Ur Specific [place] 1.013 (1.001-1.030) 10/03/24 10:57 Urine Protein Negative [...] in the setting of symptomatic anemia, normocytic M81xzwnqbefpj which could be due to malnutrition and [...] 1450 Signed By: 10/04/24 1408 [facility]01-12-2025 [place] [address] Neurology Progress Note Signed Patient: Telma Person MR#: [id number] : 1960 Acct:[id number] Age/Sex: 63 / F Adm Date: 5 Loc: Room: [address] [place] [address] Type: ADM IN Attending Dr: Percy Romeo [...] Therapy Recommendations: PT Recommendations PT Recommended Discharge Alf Facility Location PT Recommended Services at Physical [...] 1219 Signed By: 10/04/24 1234 [facility]01-12-2025 Consult note Author Lamont Uribe [facility] Note Date/Time October 04, 2024 9 :20am [facility] [address] [place] [address] Gastroenterology Consult Note Signed Patient: Telma Person MR#: [id number] : 1960 Acct:[id number] Age/Sex: 63 / F Adm Date: 5 Loc: 3T Room: [address] [place] [address] Type: ADM IN Attending Dr: Percy Romeo [...] Hematologic/Lymphatic: Denies easy bruising and Denies lymphadenopathy [facility] Medical History Cholecystectomy planned Surgical History H/O: [...] % (Auto) 69.8 Lymph % (Auto) 21.6 Wallace % (Auto) 7.5 Eos % (Auto) 0.6 Baso % (Auto) 0.5 Nucleat RBC Rel Count 0.1 Neut # (Auto) 5.0 Lymph # (Auto) 1.5 Wallace # (Auto) 0.5 Eos # (Auto) 0.0 [...] Cloudy A Urine pH 6.0 Ur Specific [place] 1.013 Urine Protein Negative Urine Glucose (UA) [...] % (Auto) 71.9 Lymph % (Auto) 20.1 Wallace % (Auto) 7.0 Eos % (Auto) 0.5 Baso % (Auto) 0.5 Nucleat RBC Rel Count 0.2 Neut # (Auto) 4.6 Lymph # (Auto) 1.3 Wallace # (Auto) 0.5 Eos # (Auto) 0.0 [...] Color Urine Appearance Urine pH Ur Specific [place] Urine Protein Urine Glucose (UA) Urine Ketones [...] signed by Lamont Uribe MD> 10/04/24 0920 [facility] Work Phone: 1(886) 262-690801-12-2025 [place] [address] Gastroenterology Consult Note Signed Patient: Telma Person MR#: [id number] : 1960 Acct:[id number] Age/Sex: 63 / F Adm Date: 5 Loc: Room: [address] [place] [address] Type: ADM IN Attending Dr: Percy Romeo [...] Hematologic/Lymphatic: Denies easy bruising and Denies lymphadenopathy [facility] Medical History Cholecystectomy planned Surgical History H/O: [...] % (Auto) 69.8 Lymph % (Auto) 21.6 Wallace % (Auto) 7.5 Eos % (Auto) 0.6 Baso % (Auto) 0.5 Nucleat RBC Rel Count 0.1 Neut # (Auto) 5.0 Lymph # (Auto) 1.5 Wallace # (Auto) 0.5 Eos # (Auto) 0.0 [...] Cloudy A Urine pH 6.0 Ur Specific [place] 1.013 Urine Protein Negative Urine Glucose (UA) [...] % (Auto) 71.9 Lymph % (Auto) 20.1 Wallace % (Auto) 7.0 Eos % (Auto) 0.5 Baso % (Auto) 0.5 Nucleat RBC Rel Count 0.2 Neut # (Auto) 4.6 Lymph # (Auto) 1.3 Wallace # (Auto) 0.5 Eos # (Auto) 0.0 [...] Color Urine Appearance Urine pH Ur Specific [place] Urine Protein Urine Glucose (UA) Urine Ketones [...] 0908 Signed By: 10/04/24 0920 [facility]01-11-2025 Progress note Author Abraham Flores [facility] Note Date/Time October 03, 2024 3 :42pm [facility] [address] [place] [address] Neurology Progress Note Signed Patient: Telma Person MR#: [id number] : 1960 Acct:[id number] Age/Sex: 63 / F Adm Date: 5 Loc: 3T Room: [address] [place] [address] Type: ADM IN Attending Dr: Percy Romeo [...] HPI: 64-year-old left-handed woman who lives on [address] with history of [place] bypass. Multiple falls [...] <Electronically signed by Abraham Flores DO> 10/03/24 4956 [facility] Work Phone: 1(152) 422-689901-11-2025 [place] [address] Neurology Progress Note Signed Patient: Telma Person MR#: [id number] : 1960 Acct:[id number] Age/Sex: 63 / F Adm Date: 5 Loc: 3T Room: [address] [place] [address] Type: ADM IN Attending Dr: Percy Romeo [...] HPI: 64-year-old left-handed woman who lives on [address] with history of [place] bypass. Multiple falls [...] 1502 Signed By: 10/03/24 1542 [facility]01-11-2025 Evaluation note* Diagnosis Onset Date Resolution Status Admit Date Ataxia acute October 03, 2024 1:35pm Neuropathy acute October 03, 2024 1:35pm Normocytic anemia acute October 03, 2024 1:35pm Orthostatic hypotension acute J anuary 2024 1:35pm [facility] Work Phone: 1(845) 970-402001-11-2025 Evaluation note* Diagnosis Onset Date Resolution Status [...] 1:35pm Pre-syncope acute October 03, 2024 1:35pm [facility] Work Phone: 1(639) 334-842301-11-2025 [facility] [place] [address] [place], [place] [address] CT Scan Report Signed Patient: Telma Person MR#: [id number] : 1960 Acct:[id number] Age/Sex: 63 / F ADM Date: 5 Loc: ER Room: Type: [facility] ER Attending Dr: Copies to: MD [...] George Jr., D.O.10/03/2024 2:53 PM Dictation Location: [place] [address] Transcribed By: [facility] 10/03/24 1453 Dictated By: Ray George Jr, DO 10/03/24 1449 Signed By: 10/03/24 1453 [facility]01-11-2025 Radiology Diagnostic study note [facility] Main [address] [address] [address] Scan Report Signed Patient: Telma Person MR#: [id number] : 1960 Acct:[id number] Age/Sex: 63 / F ADM Date: 5 Loc: ER Room: Type: [facility] ER Attending Dr: Copies to: Ban [...] George Jr., D.O.10/03/2024 12:36 PM Dictation Location: [place] [address] Transcribed By: [facility] 10/03/24 1236 Dictated By: Ray George Jr, DO 10/03/24 1234 Signed By: 10/03/24 [facility]6 [facility]01-11-2025 Radiology Diagnostic study note [facility] Main [place] [address] [place] [address] CT Scan Report Signed Patient: Telma Person MR#: [id number] : 1960 Acct:[id number] Age/Sex: 63 / F ADM Date: 01/11/2 5 Loc: ER Room: Type: [facility] ER Attending Dr: Copies to: Ban Boyce MD~ Ordering Provider: Ban Boyce MD Date of Service: 10/03/24 CT/CT head/brain wo con: freq falls, hit head ([id number]) CT/CT cervical spine wo con: freq falls, [...] George Jr., D.O.10/03/2024 12:09 PM Dictation Location: [facility] Transcribed By: [facility] 10/03/24 1209 Dictated By: Ray George Jr, DO 10/03/24 1205 Signed By: 10/03/24 1209 [facility]11-21-2024 History of Present illness Narrative * Erin Echols MA - 08/13/2024 10:00 AM EST Images from the original note were not included. Reason for Appointment: EMG Patient: Telma Person : 1960 EMG Computer: [employer]elight Referring Physician: Dr. Sorto EMG: BLE probate judge: Erin Echols CMA Office Location: [place] Reason for EMG: c/o numbness in the feet that started in April. Pain in ht etops of the legs. Several falls. Hip pain on the left. No hx of DM, not taking blood thinners. Comments: Procedure explained to the patient who expressed understanding. documented in this encounterExcels[facility] Springs Medical [id number] NoteHNO ID: [id number] Author: SONIA MUKHERJEE RT(R) Service: Radiology Author [...] PATIENT PRESENTS WITH AN IMPLANTABLE OR ATTACHED SERVICE BAR CASHIER: No RADIOLOGY DEPARTMENT: CT; Exam(s) Completed: CTA Aorta/leg runoff PERIPHERAL IV DATA: Site assessment: Clean,Dry and Intact, Site disposition Left in for next appointment SIGNED BY: RT Afshan(R) July 07, 2024 3:18 [id number] NoteEducation Materials Infectious Disease Cellulitis, Adult Cellulitis [...] these instructions at home: Medicines ? Take xtrx-ibd-ymdxspg and prescription medicines only as told by [...] provider. Document Revised: 05/07/2023 Document Reviewed: 05/07/2023 [employer] Patient Education ? 2023 [employer] Pulmonary Medicine COPD and Physical Activity [...] even simple tasks. This (more content not included)...[facility] Evaluation + Plan note No data available for this section [facility] Evaluation noteNo assessment information available [facility] Work Phone: Evaluation note* Diagnosis Polyneuropathy- Primary Unspecified hereditary and idiopathic peripheral neuropathy Lumbar radiculopathy Thoracic or lumbosacral neuritis or radiculitis, unspecified documented in this encounter [facility]ospital Discharge instructions No data available for this section [facility] Progress note No data available for this section [facility] Reason for visit Narrative* Other Medical (Routine) - Closed Specialty Diagnoses / Procedures Referred By Contac t Referred To Contact Neurology Diagnoses Polyneuropathy, unspecified Pain in leg, unspecified Procedures [place] OFFICE/OUTPATIENT [facility] 30 MINUTES Anum Sorto MD [address] [place] [address] Phone: tel:[phone] fax: Nicole Lockett MD [id number] [place] [address] Phone: tel: fax: Referral ID Status Reason Start Date Expiration Date V isits Requested Visits Authorized [id number] Closed Perform Procedure 07/02/2024 12/29/2024 1 1 [facility] Healthcare Summary Purpose Family History No Family [...] and content) DATE CREATED AUTHOR 09/18/2018 [facility] pital DATE CREATED AUTHOR AUTHOR'S ORGANIZ ATION 07/04/2024 [facility] DATE CREATED AUTHOR AUTHOR'S ORGANIZ ATION 07/09/2024 [facility] DATE CREATED AUTHOR AUTHOR'S ORGANIZ ATION 08/16/2024 [facility] DATE CREATED AUTHOR AUTHOR'S ORGANIZ ATION 10/30/2024 [facility] Care Teams (unrecognized sec tion [...] Charity Sherwood MD Other Provider [facility] Ray Folwer MD Attending Provider, Other Provider Active Start: [...] June 15, 2024 End: June 15, 2024 [employer] Relationship Specialty Start Date End Date Anum Sorto MD [address] [place] [address] PCP - General Family Medicine 07/02/24 [employer] Relationship Specialty Start Date End Date Anum Sorto MD [address] [place] [address] PCP - General Family Medicine 07/02/24 Goals [...] BE BASED ON THE PRIMARY CLINICAL RECORDS. [facility] [employer] provides no warranty or guarantee of the accuracy or completeness of information in this document.
[2025-01-01 12:48] LABS: Basophils Percent Auto 0.3 % (0.2-2.0); Eosinophils Absolute Auto 0.1 10^3/uL (0.0-0.7); Eosinophils Percent Auto 1.5 % (0.9-7.0); Hematocrit 32.6 % (36.0-48.0); Hemoglobin 10.4 g/dL (12.0-16.0); Immature Granulocytes Abs Auto 0.02 10^3/uL (0.00-0.03); Immature Granulocytes Pct Auto 0.2 % (0.0-0.5); Lymphocytes Absolute Auto 1.4 10^3/uL (1.2-3.8); Lymphocytes Percent Auto 15.1 % (20.5-60.0); Mean Corpuscular HGB Conc 31.9 g/dL (29.9-35.2); Mean Corpuscular Hemoglobin 32.3 pg (26.7-34.0); Mean Corpuscular Volume 101.2 fL (81.0-99.0); Mean Platelet Volume 9.4 fL (9.5-13.5); Monocytes Absolute Auto 0.7 10^3/uL (0.3-0.8); Monocytes Percent Auto 7.3 % (1.7-12.0); Neutrophils Percent Auto 75.6 % (43.0-75.0); Platelet Count 296 10^3/uL (150-450); Red Blood Count 3.22 10^6/uL (4.20-5.40); Red Cell Distribution Width 15.1 % (11.0-15.0); White Blood Count 9.3 10^3/uL (4.0-11.0)
[2025-01-01 13:00] LABS: Chol HDL Ratio 1.9; Cholesterol 71 mg/dL (<=200); HDL Cholesterol 38 mg/dL (40-60); Triglycerides 72 mg/dL (<=150); VLDL CHOLESTEROL 14.4 mg/dL
[2025-01-02 03:59] LABS: Vitamin B12 838 pg/mL (232-1245)
== END 2025-01-01 12:18 | disposition home or self-care (01) ==
LOC: LAB 12:19
PROVIDERS: PCP Nurse Practitioner Family; Visit Provider Nurse Practitioner Family
DX: E78.6 Lipoprotein deficiency (principal); D50.9 Iron deficiency anemia, unspecified; F10.10 Alcohol abuse, uncomplicated; M79.606 Pain in leg, unspecified; R41.3 Other amnesia
CPT/HCPCS: 36415; 80061; 82607; 82746; 83540; 84425; 84590; 85025